=== PATIENT | male | born 1945 ===

== ENCOUNTER 2020-03-26 15:24 | Emergency (ER) | payer MEDICARE, SELFPAY ==
[2020-03-26 15:28] VITALS: BP 114/56; BP 133/63; PULSE 80; PULSE 86; RESP 18; TEMP 36.8; O2SAT 98; BMI 29.0
[2020-03-26 15:43] VITALS: PULSE 70; O2SAT 96
[2020-03-26 15:44] LABS: Glucose, Whole Blood 100 mg/dL (60-115)
--- NOTE | 2020-03-26 16:24 | ECG_ITS ---
Test Reason : SYNCOPE Blood Pressure : / mmHG Vent. Rate : 072 BPM Atrial Rate : 072 BPM P-R Int : 164 ms QRS Dur : 078 ms QT Int : 436 ms P-R-T Axes : 026 022 043 degrees QTc Int : 477 ms Normal sinus rhythm Normal ECG When compared with ECG of 05-JUN-2019 13:19, No significant change was found Referred By: Lio Terrell Electronically Signed By:REBECCA TAYLOR MD
--- NOTE | 2020-03-26 16:24 | US_ITS ---
EXAMINATION: US ABDOMEN LIMITED CLINICAL INFORMATION: Upper quadrant pain. Question cholecystitis. COMPARISON: Abdominal ultrasound dated 07/10/2018. TECHNIQUE: Real-time imaging of the gallbladder. FINDINGS: GALLBLADDER: Unremarkable. The gallbladder is physiologically distended without evidence of stones, sludge, polyps, wall thickening or pericholecystic fluid. COMMON BILE DUCT: Normal in caliber measuring 0.3 cm in diameter. US/US abdomen limited IMPRESSION: No cholelithiasis. No gallbladder wall thickening or pericholecystic free fluid to suggest acute cholecystitis.
[2020-03-26] MEDS: 0.9 % Sodium Chloride 1,000 ML 999 ML IVCONT (16:32)
--- NOTE | 2020-03-26 16:33 | ED.SYNCOPE ---
HPI - Syncope General Chief Complaint: Syncope Stated Complaint: SYNCOPLAL EPISODE WHILE SHOPPING Time Seen by Provider: 03/26/20 16:15 Source: patient Mode of arrival: ambulatory Limitations: no limitations History of Present Illness HPI narrative: Patient with no significant past medical history noticed right upper abdominal pain for last 2 days today he was walking to the grocery store and felt lightheaded without significant pain in abdomen and next thing he noticed he was on the floor no seizure activity no chest pain or palpitation patient never had similar syncope episode in the past. Patient denied any nausea/vomiting/fever/fatigue/cough/shortness of breath MD complaint: loss of consciousness Prodromal symptoms: lightheaded Witnessed: Yes - by Bystander Context: at rest Related Data Previous Rx's Medication Instructions Recorded ciprofloxacin HCl [Cipro] 500 mg PO BID #20 tab 03/26/20 dicyclomine 20 mg PO QID PRN #20 tab 03/26/20 metronidazole [Flagyl] 500 mg PO TID #30 tab 03/26/20 Allergies Allergy/AdvReac Type Severity Reaction Status Date / Time fish derived [FISH] Allergy Unknown RASH Verified 03/26/20 15:37 fish Allergy Unknown Hives Uncoded 03/26/20 15:37 Review of Systems Review of Systems: REVIEW OF SYSTEMS: Pertinent positives and negatives are stated above in the history. GEN: no fevers, chills, fatigue HEENT: no nasal congestion, sore throat, ear pain NEURO: no headache, dizziness, focal weakness PULM: no cough, shortness of breath CV: no chest pain, palpitations, LE edema ABD: no nausea, vomiting, diarrhea : no dysuria, urgency, frequency SKIN: no rash ROS otherwise negative x 10 PMFSH Past Medical History Medical History Prostate cancer Social History Social History Smoking Status: Current every day smoker Use of substances other than those prescribed or required for medical reasons: No Advance Directives: No Advance Directives Information Provided: Yes Physical Exam Vital Signs: Vital Signs: Last Vital Signs Temp 98.3 F 03/26/20 15:28 Pulse 78 03/26/20 21:52 Resp 16 03/26/20 21:52 BP 123/77 03/26/20 21:52 Pulse Ox 95 03/26/20 21:52 Body Mass Index 29.0 Const: General: cooperative and healthy appearing Nutritional Appearance: average body habitus and well nourished Orientation/consciousness: oriented to person, oriented to place and oriented to time Limitations: no limitations HENMT: Head: Yes normal to inspection Ears: hearing grossly normal bilaterally Mouth: moist mucous membranes Eyes: Conjunctivae: conjunctivae normal Sclerae: sclerae normal Pupils: Equal, round and reactive pupils present Neck: Neck: Yes normal visual inspection Thyroid: Thyroid normal Resp: Effort & Inspection: normal respiratory effort Auscultation: clear to auscultation bilaterally Cardio: Rate: regular rate Rhythm: regular rhythm Heart sounds: S1 normal heart sound present, S2 normal heart sound present and no murmurs GI: Inspection: Yes normal to inspection Palpation (GI): Soft to palpation, Firmness to palpation present (GI), Tenderness to palpation present (GI) in the RLQ, in the RUQ and Juárez's sign positive; obturator sign negative, psoas sign negative, with no rebound tenderness and Rovsing's sign negative, no hernias, no masses and no pulsatile masses Percussion: Yes normal to percussion Auscultation: normal bowel sounds Rectal Exam - Male: Yes deferred : General: Yes no CVA tenderness Back/Spine/Pelvis: Back: no CVA tenderness Neuro: General: oriented to person, oriented to place and oriented to time Cranial nerves: Yes CN's II-XII intact bilaterally and Yes Equal, round and reactive pupils present Motor exam (neuro): 5/5 motor strength present throughout Course Course Course Narrative: patient with near-syncope episode likely from the pain in abdomen workup showed diverticulitis without any complication patient received IV antibiotics in the ER feeling much better now cardiac workup is negative will discharge patient home on p.o. antibiotics MDM - Syncope Differential Diagnosis Differential diagnosis: Likely syncope due to orthostatic hypotension and vasovagal syncope Medical Records Attestation: I reviewed the patient's medical records. Lab Data Attestation: I reviewed the patient's lab results. Result diagrams: 03/26/20 16:53 03/26/20 16:53 Labs: Lab Results 03/26/20 03/26/20 03/26/20 Range/Units 15:39 16:53 16:53 WBC 14.1 H (4.8-10.8) X10*3/uL RBC 4.19 L (4.60-5.80) X10*6/uL Hgb 13.2 L (14.0-18.0) g/dl Hct 39.2 L (42-52) % MCV 93.6 (80-98) fL MCH 31.5 (27.0-33.0) pg MCHC 33.7 (31.0-36.0) g/dl RDW 12.3 (11.0-16.0) % Plt Count 218 (160-400) X10*3/uL MPV 8.8 L (9.4-12.4) fL Immature Gran % (Auto) 0.4 (0.0-0.4) % Neut % (Auto) 89.4 H (45-73) % Lymph % (Auto) 5.3 L (20-40) % [place] % (Auto) 4.2 (2-11) % Eos % (Auto) 0.5 (0-4) % Baso % (Auto) 0.2 (0-2) % Lymph # (Auto) 0.8 L (1.2-4.9) X10*3/uL [place] # (Auto) 0.6 (0.1-1.2) X10*3/uL Eos # (Auto) 0.1 (0.0-0.4) X10*3/uL Baso # (Auto) 0.0 (0.0-0.2) X10*3/uL Abs Immat Gran (auto) 0.06 H (0.00-0.03) X10*3/uL Absolute Neuts (auto) 12.6 H (2.0-8.3) X10*3/uL Absolute Nucleated RBC 0.000 (0.0-0.012) X10*3/uL Nucleated RBC % (auto) 0.0 (0.0-0.2) /100WBC PT (10.8-13.0) SEC INR (0.9-1.1) APTT (24.1-38.0) SEC Sodium 139 (135-145) mmol/L Potassium 3.6 (3.3-5.1) mmol/l Chloride 105 (96-108) mmol/L Carbon Dioxide 28 (22-29) mmol/L Anion Gap 10 L (12-20) BUN 8 L (9-16) mg/dL Creatinine 0.83 (0.5-1.4) mg/dL Estim Creat Clear Calc 79.5 Estimated GFR > 60 POC Glucose 100 (60-115) mg/dL Random Glucose 93 (60-115) mg/dL Calcium 7.9 L (8.4-10.2) mg/dL Total Bilirubin (0.0-1.0) mg/dL Direct Bilirubin (0.0-0.5) mg/dL AST (5-37) U/L ALT (0-40) U/L Alkaline Phosphatase (39-117) U/L Troponin I High Sens (<3.5-35.0) ng/L Total Protein (6.5-8.0) g/dL Albumin (3.5-5.0) g/dL Lipase (8-78) U/L Urine Color Urine Appearance Urine pH (5.0-8.0) Ur Specific [place] (1.005-1.025) Urine Protein (NEG-TRACE) MG/DL Urine Glucose (UA) (NEG) MG/DL Urine Ketones (NEG) MG/DL Urine Blood (NEG) Urine Nitrite (NEG) Ur Leukocyte Esterase (NEG) 03/26/20 03/26/20 03/26/20 Range/Units 16:53 16:53 16:53 WBC (4.8-10.8) X10*3/uL RBC (4.60-5.80) X10*6/uL Hgb (14.0-18.0) g/dl Hct (42-52) % MCV (80-98) fL MCH (27.0-33.0) pg MCHC (31.0-36.0) g/dl RDW (11.0-16.0) % Plt Count (160-400) X10*3/uL MPV (9.4-12.4) fL Immature Gran % (Auto) (0.0-0.4) % Neut % (Auto) (45-73) % Lymph % (Auto) (20-40) % [place] % (Auto) (2-11) % Eos % (Auto) (0-4) % Baso % (Auto) (0-2) % Lymph # (Auto) (1.2-4.9) X10*3/uL [place] # (Auto) (0.1-1.2) X10*3/uL Eos # (Auto) (0.0-0.4) X10*3/uL Baso # (Auto) (0.0-0.2) X10*3/uL Abs Immat Gran (auto) (0.00-0.03) X10*3/uL Absolute Neuts (auto) (2.0-8.3) X10*3/uL Absolute Nucleated RBC (0.0-0.012) X10*3/uL Nucleated RBC % (auto) (0.0-0.2) /100WBC PT 13.7 H (10.8-13.0) SEC INR 1.2 H (0.9-1.1) APTT 29.5 (24.1-38.0) SEC Sodium (135-145) mmol/L Potassium (3.3-5.1) mmol/l Chloride (96-108) mmol/L Carbon Dioxide (22-29) mmol/L Anion Gap (12-20) BUN (9-16) mg/dL Creatinine (0.5-1.4) mg/dL Estim Creat Clear Calc Estimated GFR POC Glucose (60-115) mg/dL Random Glucose (60-115) mg/dL Calcium (8.4-10.2) mg/dL Total Bilirubin 0.8 (0.0-1.0) mg/dL Direct Bilirubin 0.3 (0.0-0.5) mg/dL AST 17 (5-37) U/L ALT 15 (0-40) U/L Alkaline Phosphatase 138 H (39-117) U/L Troponin I High Sens 3.5 (<3.5-35.0) ng/L Total Protein 5.8 L (6.5-8.0) g/dL Albumin 3.7 (3.5-5.0) g/dL Lipase 23 (8-78) U/L Urine Color Urine Appearance Urine pH (5.0-8.0) Ur Specific [place] (1.005-1.025) Urine Protein (NEG-TRACE) MG/DL Urine Glucose (UA) (NEG) MG/DL Urine Ketones (NEG) MG/DL Urine Blood (NEG) Urine Nitrite (NEG) Ur Leukocyte Esterase (NEG) 03/26/20 Range/Units 19:45 WBC (4.8-10.8) X10*3/uL RBC (4.60-5.80) X10*6/uL Hgb (14.0-18.0) g/dl Hct (42-52) % MCV (80-98) fL MCH (27.0-33.0) pg MCHC (31.0-36.0) g/dl RDW (11.0-16.0) % Plt Count (160-400) X10*3/uL MPV (9.4-12.4) fL Immature Gran % (Auto) (0.0-0.4) % Neut % (Auto) (45-73) % Lymph % (Auto) (20-40) % [place] % (Auto) (2-11) % Eos % (Auto) (0-4) % Baso % (Auto) (0-2) % Lymph # (Auto) (1.2-4.9) X10*3/uL [place] # (Auto) (0.1-1.2) X10*3/uL Eos # (Auto) (0.0-0.4) X10*3/uL Baso # (Auto) (0.0-0.2) X10*3/uL Abs Immat Gran (auto) (0.00-0.03) X10*3/uL Absolute Neuts (auto) (2.0-8.3) X10*3/uL Absolute Nucleated RBC (0.0-0.012) X10*3/uL Nucleated RBC % (auto) (0.0-0.2) /100WBC PT (10.8-13.0) SEC INR (0.9-1.1) APTT (24.1-38.0) SEC Sodium (135-145) mmol/L Potassium (3.3-5.1) mmol/l Chloride (96-108) mmol/L Carbon Dioxide (22-29) mmol/L Anion Gap (12-20) BUN (9-16) mg/dL Creatinine (0.5-1.4) mg/dL Estim Creat Clear Calc Estimated GFR POC Glucose (60-115) mg/dL Random Glucose (60-115) mg/dL Calcium (8.4-10.2) mg/dL Total Bilirubin (0.0-1.0) mg/dL Direct Bilirubin (0.0-0.5) mg/dL AST (5-37) U/L ALT (0-40) U/L Alkaline Phosphatase (39-117) U/L Troponin I High Sens (<3.5-35.0) ng/L Total Protein (6.5-8.0) g/dL Albumin (3.5-5.0) g/dL Lipase (8-78) U/L Urine Color YELLOW Urine Appearance CLEAR Urine pH 6.0 (5.0-8.0) Ur Specific [place] 1.025 (1.005-1.025) Urine Protein NEG (NEG-TRACE) MG/DL Urine Glucose (UA) NEG (NEG) MG/DL Urine Ketones 40 (NEG) MG/DL Urine Blood NEG (NEG) Urine Nitrite NEG (NEG) Ur Leukocyte Esterase NEG (NEG) ECG Data Attestation: I personally reviewed and interpreted this ECG as follows: ECG interpretation date: 03/26/20 Interpretation: Normal sinus rhythm ventricular rate 72 normal interval normal axis no acute ST T wave changes impression normal EKG Discharge Plan Discharge Clinical Impression: Vasovagal syncope Diverticulitis large intestine Qualifiers: Diverticulitis bleeding: without bleeding Diverticulitis complication: without perforation or abscess Qualified Code(s): K57.32 - Diverticulitis of large intestine without perforation or abscess without bleeding Patient Disposition: Home, Self-Care Additional Instructions: drink plenty of fluids, clear liquids now advance slowly report to the ER if high fever/increased abdominal pain take antibiotics as prescribed Prescriptions: New ciprofloxacin HCl [Cipro] 500 mg tablet 500 mg PO BID Qty: 20 RF: 0 metronidazole [Flagyl] 500 mg tablet 500 mg PO TID Qty: 30 RF: 0 dicyclomine 20 mg tablet 20 mg PO QID PRN (Reason: abdominal pain) Qty: 20 RF: 0
--- NOTE | 2020-03-26 16:43 | XR_ITS ---
EXAMINATION: XR CHEST CLINICAL INFORMATION: Syncope. COMPARISON: 06/05/2019 chest radiograph. TECHNIQUE: Frontal view of the chest was obtained. FINDINGS: Low lung volumes limit evaluation. The lungs are clear. The heart and mediastinal structures are unremarkable. XR/XR chest 1V IMPRESSION: No acute cardiopulmonary process.
[2020-03-26 16:59] LABS: MANUAL DIFF FLAG NO
[2020-03-26 17:00] LABS: Basophils Percent Auto 0.2 % (0-2); Eosinophils Absolute Auto 0.1 X10*3/uL (0.0-0.4); Eosinophils Percent Auto 0.5 % (0-4); Hematocrit 39.2 % (42-52); Hemoglobin 13.2 g/dl (14.0-18.0); Imm Gran Abs Auto 0.06 X10*3/uL (0.00-0.03); Imm Gran Pct Auto 0.4 % (0.0-0.4); Lymphocytes Absolute Auto 0.8 X10*3/uL (1.2-4.9); Lymphocytes Percent Auto 5.3 % (20-40); Mean Corpuscular HGB Conc 33.7 g/dl (31.0-36.0); Mean Corpuscular Hemoglobin 31.5 pg (27.0-33.0); Mean Corpuscular Volume 93.6 fL (80-98); Mean Platelet Volume 8.8 fL (9.4-12.4); Monocytes Absolute Auto 0.6 X10*3/uL (0.1-1.2); Monocytes Percent Auto 4.2 % (2-11); Neutrophils Absolute Auto 12.6 X10*3/uL (2.0-8.3); Neutrophils Percent Auto 89.4 % (45-73); Platelet Count 218 X10*3/uL (160-400); Red Blood Count 4.19 X10*6/uL (4.60-5.80); Red Cell Distribution Width 12.3 % (11.0-16.0); White Blood Count 14.1 X10*3/uL (4.8-10.8)
[2020-03-26 17:06] LABS: INTERNATIONAL NORM RATIO 1.2 (0.9-1.1); Prothrombin Time 13.7 SEC (10.8-13.0)
[2020-03-26 17:09] LABS: Partial Thromboplastin Time 29.5 SEC (24.1-38.0)
[2020-03-26 17:28] LABS: Anion Gap 10 (12-20); Blood Urea Nitrogen 8 mg/dL (9-16); Calcium 7.9 mg/dL (8.4-10.2); Carbon Dioxide 28 mmol/L (22-29); Chloride 105 mmol/L (96-108); Creatinine Clr Calc Pharmacy 79.5; Estimated Glomerular Filt Rate > 60; Glucose Random 93 mg/dL (60-115); Potassium 3.6 mmol/l (3.3-5.1); Sodium 139 mmol/L (135-145)
[2020-03-26 17:29] LABS: Alanine Aminotransferase 15 U/L (0-40); Albumin Level 3.7 g/dL (3.5-5.0); Alkaline Phosphatase 138 U/L (39-117); Aspartate Amino Transferase 17 U/L (5-37); Bilirubin Direct 0.3 mg/dL (0.0-0.5); Bilirubin Total 0.8 mg/dL (0.0-1.0); Lipase 23 U/L (8-78); Total Protein 5.8 g/dL (6.5-8.0)
[2020-03-26 17:36] LABS: Troponin-I High Sensitivity 3.5 ng/L (<3.5-35.0)
[2020-03-26 17:40] VITALS: BP 143/69; PULSE 64; RESP 18; O2SAT 98
--- NOTE | 2020-03-26 17:42 | PC.NURSE ---
PT IS CURRENTLY RESTING WITH EYES SHUT, SKIN APPROPRIATE FOR ETHNICITY, VS STABLE, NS ON THE MONITOR. PT DENIES DIZZINESS AT THIS TIME
--- NOTE | 2020-03-26 18:07 | CT_ITS ---
EXAMINATION: CT ABDOMEN AND PELVIS WITH CONTRAST CLINICAL INFORMATION: Right-sided pain. Elevated white blood count. COMPARISON: Abdominal ultrasound done earlier the same day. CT abdomen/pelvis dated 06/10/2012. TECHNIQUE: Multidetector volumetric images were obtained from the superior aspect of the liver through the pubic symphysis following administration 85 mL of Omnipaque 350 intravenous contrast. Sagittal and coronal reformatted images were obtained on the technologist's workstation. Oral Contrast: No. This CT examination was performed using dose optimization techniques as appropriate, variously including the following: *Automated exposure control. *Adjustment of mA and/or kV according to patient size (this includes techniques or standardized protocols for targeted exams where dose is matched to indication/reason for exam; i.e. extremities or head). *Use of iterative reconstruction technique. DLP: 946 mGy-cm FINDINGS: LUNG BASES: The visualized lung bases are unremarkable. LIVER, GALLBLADDER, AND BILIARY TREE: The liver is normal in size, shape, and attenuation. No focal hepatic lesion or biliary ductal dilatation is present. The gallbladder is unremarkable with no evidence of radiopaque gallstones, gallbladder wall thickening, or obvious pericholecystic inflammatory changes. PANCREAS: Unremarkable. SPLEEN: Unremarkable. ADRENAL GLANDS: Unremarkable. KIDNEYS AND URETERS: The kidneys are normal in size, shape, and attenuation. No hydronephrosis, hydroureter, or calculi seen. No perinephric stranding. BLADDER: Non-distended and unremarkable. GASTROINTESTINAL TRACT: Diverticula at the third portion of the duodenum without associated inflammatory change. There is prominent diverticulosis within the distal ileum in the right lower quadrant with associated circumferential bowel wall thickening and adjacent fat stranding, consistent with acute diverticulitis. Additional colonic diverticula are noted without an additional area of acute diverticulitis. No evidence of perforation or abscess formation. No small or large bowel obstruction. Unremarkable appendix. PERITONEAL CAVITY: No intra-abdominal free air or free fluid. No intra-abdominal mass or organized fluid collection/abscess. ABDOMINAL WALL: No significant hernia is appreciated. LYMPH NODES: Normal. VASCULAR: Unremarkable. PELVIC VISCERA: Metallic seeds in the prostate bed. OSSEOUS STRUCTURES: Unremarkable. CT/CT abdomen pelvis w con IMPRESSION: 1. Acute diverticulitis within the distal ileum. No evidence of perforation or abscess formation. 2. Additional colonic diverticulosis without evidence of acute colonic diverticulitis. No small or large bowel obstruction. Unremarkable appendix.
--- NOTE | 2020-03-26 19:33 | PC.NURSE ---
Off to CT on hospital bed.
--- NOTE | 2020-03-26 19:43 | PC.NURSE ---
Pt returns from CT on hospital bed without incident.
[2020-03-26] MEDS: iohexoL 350 MG/ML 100 ML INFUS..BTL IV (19:46)
[2020-03-26 20:15] LABS: Glucose Urine UA NEG (NEG); Leukocyte Esterase Urine NEG (NEG); Nitrite Urine NEG (NEG); Specific Gravity - Urine 1.025 (1.005-1.025); Urine Blood NEG (NEG); Urine Ketones 40 MG/DL (NEG); Urine Protein NEG (NEG-TRACE)
--- NOTE | 2020-03-26 20:17 | PC.NURSE ---
MD at bedside discussing CT results and plan of care.
[2020-03-26 20:19] LABS: Appearance Urine CLEAR; Color Urine YELLOW
[2020-03-26] MEDS: levoFLOXacin/D5W 500 MG/100 ML PIGGYBACK 100 MG IV (20:21)
[2020-03-26] MEDS: metroNIDAZOLE 500 MG TABLET PO (20:21)
--- NOTE | 2020-03-26 20:24 | PC.NURSE ---
Pt medicated per EMAR with Flagyl and Levoflaxacin. Per MD, no need for BCX as plan is to DC pt home after IV ABX. VSS. Continue to monitor.
[2020-03-26 20:26] VITALS: PULSE 73; RESP 16; O2SAT 98
[2020-03-26 20:27] VITALS: BP 151/49
--- NOTE | 2020-03-26 21:49 | PC.NURSE ---
Daughter Loree called for transportation home. IV removed, VSS. Pt awaiting paperwork.
[2020-03-26 21:52] VITALS: BP 123/77; PULSE 78; RESP 16; O2SAT 95
== END 2020-03-26 21:59 | disposition home or self-care (01) ==
PROVIDERS: Emergency Provider Internal Medicine
DX: R55 Syncope and collapse (principal); K57.32 Diverticulitis of large intestine without perforation or abscess without bleeding; R10.9 Unspecified abdominal pain; F17.200 Nicotine dependence, unspecified, uncomplicated; Z71.6 Tobacco abuse counseling; Z79.899 Other long term (current) drug therapy
CPT/HCPCS: 36415; 71045; 74177; 76705; 80048; 80076; 81003; 82947; 83690; 84484; 85025; 85610; 85730; 93005; 96361; 96365; 99285; J1956; Q9967

== ENCOUNTER → 2020-06-03 13:45 | Outpatient (BNVA) | payer MEDICARE, SELFPAY | PROVIDERS: Visit Provider Urology | DX: C61 Malignant neoplasm of prostate (principal) | CPT/HCPCS: 96402; 99212; J9217 ==

== ENCOUNTER 2020-11-29 11:02 | Outpatient (REF) | payer MEDICARE, SELFPAY ==
[2020-11-29 13:00] LABS: Prostate Specific Antigen < 0.05 ng/mL (<0.05-4.0)
== END 2020-11-29 11:03 | disposition home or self-care (01) ==
LOC: HO.LAB 11:02
PROVIDERS: PCP Internal Medicine; Visit Provider Urology
DX: Z12.5 Encounter for screening for malignant neoplasm of prostate (principal); C61 Malignant neoplasm of prostate
CPT/HCPCS: 36415; 84153

== ENCOUNTER → 2020-12-02 11:21 | Outpatient (BNVA) | payer MEDICARE, SELFPAY | PROVIDERS: Visit Provider Urology | DX: C61 Malignant neoplasm of prostate (principal) | CPT/HCPCS: 99212 ==

== ENCOUNTER 2021-04-04 10:21 | Outpatient (REF) | payer MEDICARE, SELFPAY ==
[2021-04-04 12:47] LABS: Prostate Specific Antigen 0.05 ng/mL (<0.05-4.0)
[2021-04-08 12:12] LABS: Testosterone, Total 38 ng/dL (250-1100)
== END 2021-04-04 10:22 | disposition home or self-care (01) ==
LOC: HO.10HDL 10:21
PROVIDERS: Visit Provider Urology
DX: Z12.5 Encounter for screening for malignant neoplasm of prostate (principal); C61 Malignant neoplasm of prostate
CPT/HCPCS: 36415; 84153; 84403

== ENCOUNTER → 2021-04-06 12:53 | Outpatient (BNVA) | payer MEDICARE, SELFPAY | PROVIDERS: PCP Internal Medicine; Referring Provider Internal Medicine; Visit Provider Internal Medicine Cardiovascular Disease | DX: R06.00 Dyspnea, unspecified (principal) | CPT/HCPCS: 93005; 99202 ==

== ENCOUNTER → 2021-05-31 11:33 | Outpatient (BNVA) | payer MEDICARE, SELFPAY | PROVIDERS: Visit Provider Urology | DX: C61 Malignant neoplasm of prostate (principal) | CPT/HCPCS: 99212 ==

== ENCOUNTER → 2021-06-09 10:08 | Outpatient (REF) | payer MEDICARE, SELFPAY ==
--- NOTE | 2021-06-09 10:10 | CA_ITS ---
Acquisition Time: 2021-06-09 11:12:22 Total Exercise Time: 00:02:00 Test Indications: Syncope Medications: AMLODIPINE ASA ATORVASTATIN FLOVENT HCTZ Protocol: MATT Max HR: 153 BPM 104% of Pred: 146 BPM Max BP: 146/082 mmHG Max Work Load: 4.6 METS Exercise stress test with exercise 2 min of Matt protocol, with moderate shortness of breath, no chest discomfort, without arrythmia, with brisk chronotropic, achieving 104% MPHR, and normotensive response to exercise, without EKG changes meeting criteria for ischemia at acheived workload. In recovery his breathing returned to baseline. Goal exercise time was 5 min and patient acheived 2 minutes before request to stop. Test reviewed with Dr Foster. Referred By: Madhav Blandon Overread By: NATHANIEL DENG
--- NOTE | 2021-06-15 13:33 | CA_ITS ---
Transthoracic Echocardiogram Patient (Last, First, Middle): Dk Coffey, Gender: Male Date of : 1945 Age: 76 Procedure Date: 06/15/2021 Procedure Type: Transthoracic Echocardiogram Location: OP Height: 167.64 cm Weight: 83.01 kg BSA: 1.93 m2 Heart Rate: bpm BP: 138 / 70 mmHg Plane Tableman: ADRY Eldridge MD: Madhav Blandon MD Symptoms: R06.00 - Dyspnea, unspecified Study Quality: Fair/Contrast Conclusions: - Normal left ventricular size, thickness, systolic function, and wall motion. The visually estimated ejection fraction is between 60-65%. - Normal right ventricular cavity size and systolic function. Findings Procedure Information Contrast agent, definity, is being given per protocol without apparent complications. Left Ventricle Normal left ventricular size, thickness, systolic function, and wall motion. The visually estimated ejection fraction is between 60-65%. Diastolic function is normal for age. Right Ventricle Normal right ventricular cavity size and systolic function. Atria Both atria are normal in size. Aortic Valve Normal aortic valve structure and function. There is no aortic valve stenosis. There is no aortic valve regurgitation. Mitral Valve Normal mitral valve structure and function. There is no mitral valve regurgitation. There is no mitral valve stenosis. Pulmonic Valve Normal pulmonic valve structure and function. There is trace pulmonic valve regurgitation. Tricuspid Valve Normal tricuspid valve structure and function. There is trace tricuspid valve regurgitation. Normal right atrial pressure. There is no evidence of pulmonary hypertension. Great Vessels All visible segments of the aorta are normal in size. The visualized portions of the pulmonary artery and branches are normal. Venous The inferior vena cava is normal in size and collapses greater than 50% with inspiration. Pericardium/Pleural There is no evidence of pericardial effusion. Prior Study Comparison No prior study available for comparison. Measurements 2D Linear Measurements IVSd: 0.93 0.6-0.9/0.6-1.0 cm LVIDd: 3.71 3.9-5.3/4.2-5.9 cm LVIDd Index: 1.92 2.4-3.2/2.2-3.1 cm/m2 LVIDs: 2.61 2.0-3.6 cm LVPWd: 1.00 0.7-1.1 cm Ao Root: 3.10 2.1-3.5 cm LA Diam: 3.60 2.7-3.8/3.0-4.0 cm LAIDs Index: 1.87 1.5-2.3 cm/m2 LV Mass: 133.18 67-162/88-224 g LV Mass Index: 69.00 43-95/49-115 g/m2 LVOT Diam: 2.20 3.0+(-)1.3 cm 2D Systolic Function EF 4C: 70.50 >55% EF 2C: 65.20 >55% EF BiP: 69.00 >55% Mitral Valve MV Pk E: 0.58 MV PK A: 1.02 MV Decel Time: 254.00 E/A: 0.60 E'Lateral: 6.96 E'Medial: 7.07 E/E' Med: 8.20 E/E' Lat: 8.30 PHT: 74.00 MVA PHT: 2.97 Decel [place]: 2.28 Aortic Valve AoV Pk [place]: 1.15 AoV Mn [place]: 0.78 AoV VTI: 0.23 AoV Pk Grad: 5.00 Aov Mn Grad: 3.00 JENIFER Cont.VTI: 3.00 LVOT LVOT Pk [place]: 0.76 LVOT Mn [place]: 0.56 LVOT VTI: 0.18 LVOT Pk Grad: 2.00 LVOT Mn Grad: 1.00 LVOT Diam: 2.20 LVOT Area: 3.80 Diastolic Function MV Pk E: 0.58 MV Pk A: 1.02 E/A: 0.60 E'Medial: 7.07 E/E' Med: 8.20 E' Laterial: 6.96 E/E' Lat: 8.30 Right Ventricle TAPSE (mm): 21.00 TVS' [place]: 13.60 Tricuspid Valve TR Pk [place]ten: 1.74 TR Pk Grad: 12.00 RA Press: 3.00 RVSP: 15.00 Great Vessels Aorta Ao Root-2D: 3.10 2.0-3.7 cm Ao Asc: 3.00 2.1-3.4 cm Ao Arch: 2.40 Updated in Other Vendor System with Status of Final Madhav Blandon MD electronically signed on 06/17/2021 6:55:53 PM with status of Final
== END ==
LOC: HO.CARD 10:08
PROVIDERS: PCP Internal Medicine; Visit Provider Internal Medicine Cardiovascular Disease
DX: R06.00 Dyspnea, unspecified (principal)
CPT/HCPCS: 93017; 93306

== ENCOUNTER → 2021-06-15 13:30 | Outpatient (REF) | payer MEDICARE, SELFPAY | LOC: HO.CARD 13:30 | PROVIDERS: Visit Provider Internal Medicine Cardiovascular Disease | DX: R06.00 Dyspnea, unspecified (principal) | CPT/HCPCS: 93306; Q9957 ==

== ENCOUNTER 2021-06-27 10:39 | Outpatient (REF) | payer MEDICARE, SELFPAY ==
[2021-06-27 11:24] LABS: Hematocrit 42.5 % (42.0-52.0); Hemoglobin 14.1 g/dl (14.0-18.0); Mean Corpuscular HGB Conc 33.2 g/dl (31.0-36.0); Mean Corpuscular Hemoglobin 30.9 pg (27.0-33.0); Mean Platelet Volume 8.5 fL (9.4-12.4); Platelet Count 247 X10*3/uL (160-400); Red Blood Count 4.57 X10*6/uL (4.60-5.80); Red Cell Distribution Width 12.4 % (11.0-16.0); White Blood Count 7.4 X10*3/uL (4.8-10.8)
[2021-06-27 11:33] LABS: Prothrombin Time 11.4 SEC (9.9-13.0)
[2021-06-27 12:50] LABS: Anion Gap 13 (12-20); Blood Urea Nitrogen 7 mg/dL (9-16); Carbon Dioxide 29 mmol/L (22-29); Chloride 107 mmol/L (96-108); Estimated Glomerular Filt Rate > 60; Glucose Random 101 mg/dL (60-115); Potassium 3.9 mmol/L (3.3-5.1); Sodium 145 mmol/L (135-145)
== END 2021-06-27 10:40 | disposition home or self-care (01) ==
LOC: HO.LAB 10:39
PROVIDERS: Internal Medicine Cardiovascular Disease; PCP Internal Medicine; Visit Provider Urology
DX: R06.00 Dyspnea, unspecified (principal)
CPT/HCPCS: 36415; 80048; 85027; 85610

== ENCOUNTER 2021-07-03 14:09 | Outpatient (REF) | payer MEDICARE, SELFPAY ==
[2021-07-03 15:13] LABS: COVID-19 Test Negative (Negative)
== END 2021-07-03 14:10 | disposition home or self-care (01) ==
LOC: HO.LAB 14:09
PROVIDERS: Visit Provider Internal Medicine Cardiovascular Disease
DX: Z20.822 Contact with and (suspected) exposure to COVID-19 (principal); R06.00 Dyspnea, unspecified
CPT/HCPCS: 87635

== ENCOUNTER → 2021-07-26 12:36 | Outpatient (BNVA) | payer MEDICARE, SELFPAY | PROVIDERS: PCP Internal Medicine; Referring Provider Internal Medicine; Visit Provider Internal Medicine Cardiovascular Disease | DX: R06.00 Dyspnea, unspecified (principal) | CPT/HCPCS: 99212 ==

== ENCOUNTER → 2021-08-24 10:19 | Outpatient (BNVA) | payer OTHER, SELFPAY | PROVIDERS: PCP Internal Medicine; Visit Provider Internal Medicine | DX: R06.00 Dyspnea, unspecified (principal) | CPT/HCPCS: 99202 ==

== ENCOUNTER 2021-09-06 10:57 | Outpatient (REF) | payer OTHER, SELFPAY ==
[2021-09-07 14:53] LABS: H Pylori Breath Test Negative (Negative)
== END 2021-09-06 10:58 | disposition home or self-care (01) ==
LOC: HO.LNP 10:57
PROVIDERS: PCP Internal Medicine; Referring Provider Internal Medicine; Visit Provider Nurse Practitioner Family
DX: K57.90 Diverticulosis of intestine, part unspecified, without perforation or abscess without bleeding (principal); K21.9 Gastro-esophageal reflux disease without esophagitis; R13.12 Dysphagia, oropharyngeal phase; Z12.11 Encounter for screening for malignant neoplasm of colon; Z11.0 Encounter for screening for intestinal infectious diseases
CPT/HCPCS: 83013; 99202

== ENCOUNTER 2021-09-18 10:23 | Outpatient (REF) | payer OTHER, SELFPAY ==
[2021-09-18 11:52] LABS: Prostate Specific Antigen 0.05 ng/mL (<0.05-4.0)
[2021-09-21 13:56] LABS: Testosterone, Total 156 ng/dL (250-1100)
== END 2021-09-18 10:24 | disposition home or self-care (01) ==
LOC: HO.LAB 10:23
PROVIDERS: Visit Provider Urology
DX: C61 Malignant neoplasm of prostate (principal); Z12.5 Encounter for screening for malignant neoplasm of prostate
CPT/HCPCS: 36415; 84153; 84403

== ENCOUNTER → 2021-09-21 11:40 | Outpatient (BNVA) | payer OTHER, SELFPAY | PROVIDERS: PCP Internal Medicine; Visit Provider Urology ==

== ENCOUNTER → 2021-09-21 11:40 | Outpatient (BNVA) | payer OTHER, SELFPAY | PROVIDERS: PCP Internal Medicine; Visit Provider Urology | DX: Z13.89 Encounter for screening for other disorder (principal) ==

== ENCOUNTER 2021-09-25 09:10 | Outpatient (REF) | payer OTHER, SELFPAY ==
--- NOTE | ~2021-09-25 | XR_ITS ---
EXAMINATION: XR CHEST CLINICAL INFORMATION: R06.00 - Dyspnea, unspecified the COMPARISON: Chest radiographs 03/26/2020, 06/05/2019, 09/09/2013 TECHNIQUE: 2 views of the chest were obtained. FINDINGS: There is question of subsegmental atelectasis left retrocardiac region. The lungs otherwise clear. There is no lobar or segmental airspace consolidation, vascular congestion, or effusion. The heart is normal in size. The costophrenic sulci are clear. The hilar and mediastinal contours and bony structures are stable. XR/XR chest 2V IMPRESSION: -Subsegmental atelectasis left posterior medial base. Lungs otherwise clear. -Heart size normal. No vascular congestion or effusion.
== END 2021-09-25 09:11 | disposition home or self-care (01) ==
LOC: HO.XRAY 09:10
PROVIDERS: PCP Internal Medicine; Visit Provider Internal Medicine
DX: R06.00 Dyspnea, unspecified (principal)
CPT/HCPCS: 71046

== ENCOUNTER → 2021-09-27 13:51 | Outpatient (BNVA) | payer OTHER, SELFPAY | PROVIDERS: PCP Internal Medicine; Visit Provider Internal Medicine | DX: R06.00 Dyspnea, unspecified (principal); J98.4 Other disorders of lung | CPT/HCPCS: 94010; 99212 ==

== ENCOUNTER → 2021-10-27 13:41 | Outpatient (BNVA) | payer OTHER, SELFPAY | PROVIDERS: PCP Internal Medicine; Visit Provider Urology | DX: C61 Malignant neoplasm of prostate (principal) | CPT/HCPCS: 99212 ==

== ENCOUNTER 2021-12-28 10:28 | Day surgery (SDC) | payer OTHER, SELFPAY ==
[2021-12-22 11:42] VITALS: BMI 29.0
--- NOTE | 2021-12-28 10:48 | P.HPSUR_ITS ---
Pre-Procedural Eval Section A Date of Service: 12/28/21 Section B Chief Complaint: GERD, screening Details of Present Illness: patient denies difficulty swallowing food, has no complaints Relevant Family History (Specify if Yes): No Relevant Social History: None Present Medications: see Short Stay Collaborative assessment Medical History: Significant History (Prostate cancer) History of Previous Operations: Relevant previous surgery/procedure and date(s) (History of cardiac cath Hx of colonoscopy) Allergies: Allergies Allergy/AdvReac Type Severity Reaction Status Date / Time fish derived [FISH] Allergy Intermediate rash/hives Verified 12/22/21 11:33 Review of Systems Sugical H&P ROS: Negative: Constitution, Cardiovascular, Respiratory, Neurological, Psychiatric, Hem-Onc, Allergic/Immunologic, Gastrointestinal, Genitourinary, Musculoskeletal, Integumentary, Endocrine and Eyes/Ears/Nose/Throat Exam Surgical H&P Exam: Normal: HEENT, Normal: Heart, Normal: Lungs, Normal: Extrem ities, Normal: Abdomen, Normal: Skin and Normal: Neurological Plan Diagnosis/Plan: Unchanged I have reviewed the history and physical and performed a pertinent physical examination on my patient. No changes have occurred unless specified.
[2021-12-28 10:55] VITALS: BMI 29.0
[2021-12-28] MEDS: Lactated Ringers 1,000 ML 50 ML IVCONT (10:55)
[2021-12-28 10:58] VITALS: BP 132/84; PULSE 92; RESP 18; TEMP 35.9; O2SAT 98
--- NOTE | 2021-12-28 11:01 | P.CONAN_ITS ---
HPI - Anesthesia Eval Consult details Narrative: 76 F for EGD and colonoscopy [facility] Active Problems Active Problems: All Active Problems (Updated 12/22/21 @ 11:40 by Moni Oliveros RN) FREY (dyspnea on exertion) (Acute) Restrictive airway disease (Acute) Prostate cancer (Acute) Past Medical History Medical History Elevated cholesterol GERD (gastroesophageal reflux disease) HTN (hypertension) Prostate cancer Restrictive airway disease Functional capacity: independent ambulation Family History Family History Father Throat cancer Mother Diabetes Kidney disease Family history of problems with anesthesia: No Surgical History Surgical History History of cardiac cath History of esophagogastroduodenoscopy (EGD) History of open reduction and internal fixation (ORIF) procedure Hx of colonoscopy History of Problems with Anesthesia: No Social History Social History Alcohol intake: current Alcohol intake frequency: a few times a week Patient Tobacco Use Status: Never used Tobacco Meds Allergies Allergy/AdvReac Type Severity Reaction Status Date / Time fish derived [FISH] Allergy Intermediate rash/hives Verified 12/22/21 11:33 Active Medications: Current Medications Albuterol Sulfate (Albuterol Sulfate (0.083%) 2.5 Mg/3 Ml Vial.Neb) 2.5 mg INHALE ONCE PRN PRN Reason: Shortness of Breath/Wheezing Lactated Ringer's (Lr) 1,000 mls @ 50 mls/hr IVCONT .Q20H ADOLFO Lactated Ringer's (Lr) 1,000 mls @ 50 mls/hr IVCONT .Q20H ADOLFO Last Admin: 12/28/21 10:55 Dose: 50 mls/hr Home Medications Medication Instructions Recorded Confirmed Last Taken Type amlodipine 5 mg tablet 5 mg PO DAILY 04/06/21 12/22/21 Unknown History aspirin 81 mg tablet,delayed 81 mg PO DAILY 04/06/21 12/28/21 12/27/21 History release atorvastatin 40 mg tablet 40 mg PO BEDTIME 04/06/21 12/22/21 Unknown History cholecalciferol (vitamin D3) 50 100 mcg PO QAM 04/06/21 12/22/21 Unknown History mcg (2,000 unit) capsule fluticasone propionate 50 1 spray intranasal DAILY 04/06/21 12/22/21 Unknown History mcg/actuation nasal spray,suspension hydrochlorothiazide 25 mg tablet 25 mg PO DAILY 04/06/21 12/22/21 Unknown History Exam Exam Date and Time: December 28, 2021 1101 Height,Weight and Vital Signs: Height 5 ft 6 in Weight 81.647 kg Last Vital Signs Temp 96.7 F L 12/28/21 10:58 Pulse 92 12/28/21 10:58 Resp 18 12/28/21 10:58 BP 132/84 12/28/21 10:58 Pulse Ox 98 12/28/21 10:58 O2 Del Method 12/28/21 10:58 Airway Mallampati Class: III TM Dist: >3cm Neck ROM: Full Denture: Upper Partial: Lower Loose/Missing/Broken Teeth: Yes Heart: S1,S2 Lungs: b/l breath sounds Assessment and Plan Assessment Anesthesia Assessment: Anesthesia Plan Discussed and Chart Reviewed Final Anesthetic Review Family History of Problems with Anesthesia: No History of Problems with Anesthesia: No NPO: Yes ASA Class: III Final Preanesthetic Review: Meds/Allgs Chart Reviewed, Consent Obtained/Reviewed and Anes Risks/Benef Reviewed Patient Risk: Intermediate Procedure Risk: Intermediate Anesthetic Plan Anesthetic Plan: MAC: Disposition: Standard PACU
--- NOTE | 2021-12-28 11:29 | W.PM.OPN ---
Operative Note Operative Note Date of Service: 12/28/21 Narrative: Operative Information Procedure Description: EGD, Colonoscopy Indication: GERD, colon screening Anesthesia: MAC FLEXIBLE TRANSORAL UPPER GASTROINTESTINAL ENDOSCOPY AND COLONOSCOPY PROCEDURE NOTE UPPER ENDOSCOPY Consent: Indications for the procedure and potential complications of bleeding, perforation, reaction to medications and missed diagnosis were discussed with the patient and informed consent was obtained. Instrument: Olympus GIF H 190 J mid size upper endoscope Monitoring: Vital signs and clinical assessment, continuous EKG monitoring, Pulse oximetry, Carbon Dioxide monitoring and blood pressure monitoring were done throughout the procedure. Procedure: The patient was placed in the left lateral decubitis position and pre-procedure medications were administered and a bite block was placed. The endoscope was inserted into the mouth and advanced under direct vision to the third part of duodenum. A careful inspection was made as the upper endoscope was withdrawn including a retroflexed examination of the proximal stomach; Findings and interventions are described below. Findings: Larynx:normal Esophagus: GE junction at 40 cm, diaphragm hiatus at 40 cm, esophagitis at GEJ, bx taken from there and distal esophagus Stomach: Patchy erythematous mucosa. Biopsies were obtained. Grade 2 flap valve on retroflexed examination of the cardia. At the cardia 12-14 mm sessile polyp removed with cold snare Duodenum: Severe erosive duodenitis, extending into the second part of duodenum, bx taken Intervention: Biopsies as noted above COLONOSCOPY Instrument: Olympus variable stiffness pediatric scope 190L Colonoscopy Monitoring: Vital signs and clinical assessment, continuous EKG monitoring, Pulse oximetry, Carbon Dioxide monitoring and blood pressure monitoring were done throughout the procedure. Colon withdrawal time was 10 minutes. Procedure: The patient was placed in the left lateral decubitis position and pre-procedure medications were administered. After a digital rectal examination of the ano-rectum, the video colonoscope was inserted into the rectum and advanced through the colon to the cecum/TI. The colonoscope was slowly withdrawn in a retrograde panoramic fashion and the colon mucosa was carefully examined including a retroflexed view of the rectum. Findings and interventions are described below. Procedure Difficulty:easy Findings: Terminal Ileum-normal Cecum:normal Ascending Colon: severe diverticulosis Transverse Colon -normal Descending Colon: x 2 sessile polyps removed with cold snare Sigmoid Colon: severe diverticulosis Rectum: Retroflexion with moderate sized internal hemorrhoids, grade II, 12 mm semi pedunculated polyp removed with cold snare and x 2 clips applied for hemostasis. Anorectum - normal Colon preparation: [place] Bowel Preparation Scale Right colon; 2 Transverse colon: 3 Left colon; 3 (0 = Unprepared colon segment with mucosa not seen due to solid stool that cannot be cleared. 1 = Portion of mucosa of the colon segment seen, but other areas of the colon segment not well seen due to staining, residual stool and/or opaque liquid. 2 = Minor amount of residual staining, small fragments of stool and/or opaque liquid, but mucosa of colon segment seen well. 3 = Entire mucosa of colon segment seen well with no residual staining, small fragments of stool or opaque liquid) Impression and Post Procedure Diagnosis: Endoscopy Findings: erosive duodenitis gastritis esophagitis stomach polyp Colonoscopy Findings: polyps internal hemorrhoids diverticular disease Plan: Await Pathology results Repeat Colonoscopy in 2-3 years due to large rectal polyp or earlier if clinically indicated High fiber diet leaflet avoid straining at stool, epsom salts and sitz bath, anusol supps or cream check nsaid hx and PPi compliance if h pylori pos then treat Above findings were reviewed with the patient and relevant handouts were provided if indicated.
[2021-12-28 12:33] VITALS: BP 90/63; PULSE 99; RESP 15; TEMP 36.1; O2SAT 98
[2021-12-28 12:48] VITALS: BP 104/73; PULSE 91; RESP 15; O2SAT 97
[2021-12-28 13:03] VITALS: BP 112/71; PULSE 87; RESP 16; O2SAT 97
[2021-12-28 13:18] VITALS: BP 125/79; PULSE 79; RESP 16; TEMP 36.1; O2SAT 97
== END 2021-12-28 13:57 | disposition home or self-care (01) ==
PROVIDERS: PCP Internal Medicine; Visit Provider Internal Medicine Gastroenterology
PROC: (CPT 45385; principal; 2021-12-28 11:30)
DX: Z12.11 Encounter for screening for malignant neoplasm of colon (principal); D12.4 Benign neoplasm of descending colon; K62.1 Rectal polyp; K57.30 Diverticulosis of large intestine without perforation or abscess without bleeding; K64.1 Second degree hemorrhoids; K21.9 Gastro-esophageal reflux disease without esophagitis; R13.12 Dysphagia, oropharyngeal phase; K29.80 Duodenitis without bleeding; K29.50 Unspecified chronic gastritis without bleeding; K20.80 Other esophagitis without bleeding; K31.7 Polyp of stomach and duodenum; K44.9 Diaphragmatic hernia without obstruction or gangrene; I10 Essential (primary) hypertension; E78.00 Pure hypercholesterolemia, unspecified; J30.2 Other seasonal allergic rhinitis; Z79.51 Long term (current) use of inhaled steroids; Z79.82 Long term (current) use of aspirin; Z79.899 Other long term (current) drug therapy; Z85.46 Personal history of malignant neoplasm of prostate
CPT/HCPCS: 45385; 43239; 88305; 88342; J2250

== ENCOUNTER → 2022-01-03 13:32 | Outpatient (BNVA) | payer OTHER, SELFPAY | PROVIDERS: PCP Internal Medicine; Visit Provider Internal Medicine | DX: J98.4 Other disorders of lung (principal); R06.00 Dyspnea, unspecified | CPT/HCPCS: 99212 ==

== ENCOUNTER 2022-02-14 12:56 | Outpatient (REF) | payer OTHER, SELFPAY ==
[2022-02-19 11:32] LABS: Testosterone, Total 141 ng/dL (250-1100)
== END 2022-02-14 12:57 | disposition home or self-care (01) ==
LOC: HO.LAB 12:56
PROVIDERS: PCP Internal Medicine; Visit Provider Urology
DX: C61 Malignant neoplasm of prostate (principal)
CPT/HCPCS: 36415; 84153; 84403

== ENCOUNTER → 2022-02-28 13:44 | Outpatient (BNVA) | payer OTHER, SELFPAY | PROVIDERS: PCP Internal Medicine; Visit Provider Urology | DX: C61 Malignant neoplasm of prostate (principal) | CPT/HCPCS: 99212 ==

== ENCOUNTER 2022-06-21 13:44 | Outpatient (REF) | payer OTHER, SELFPAY ==
[2022-06-21 15:00] LABS: Prostate Specific Antigen 0.36 ng/mL (<0.05-4.0)
[2022-06-28 13:09] LABS: Testosterone, Total 193 ng/dL (250-1100)
== END 2022-06-21 13:45 | disposition home or self-care (01) ==
LOC: HO.LAB 13:44
PROVIDERS: Visit Provider Urology
DX: Z12.5 Encounter for screening for malignant neoplasm of prostate (principal); C61 Malignant neoplasm of prostate
CPT/HCPCS: 36415; 84153; 84403

== ENCOUNTER → 2022-06-27 13:00 | Outpatient (BNVA) | payer OTHER, SELFPAY | PROVIDERS: PCP Internal Medicine; Visit Provider Urology | DX: C61 Malignant neoplasm of prostate (principal) | CPT/HCPCS: Q3014 ==

== ENCOUNTER 2022-12-18 13:08 | Outpatient (REF) | payer OTHER, SELFPAY ==
[2022-12-18 14:51] LABS: Prostate Specific Antigen 0.36 ng/mL (<0.05-4.0)
== END 2022-12-18 13:09 | disposition home or self-care (01) ==
LOC: HO.LAB 13:08
PROVIDERS: Visit Provider Nurse Practitioner Family
DX: Z12.5 Encounter for screening for malignant neoplasm of prostate (principal); C61 Malignant neoplasm of prostate
CPT/HCPCS: 36415; 84153

== ENCOUNTER 2022-12-25 13:11 | Outpatient (AMB) | payer OTHER, SELFPAY ==
--- NOTE | 2022-12-25 13:22 | MHC.OFFVIS ---
Intake Intake Visit Reasons: 4m follow up/PSA(set) Intake Note: Patient is present for follow up prostate cancer/psa lab (PSA 0.36) Urology Medications: Finasteride Blood Thinner: Aspirin Community Organizer Required: Yes Community Organizer Name: Alia Accompanied by: Unknown Allergies fish derived [FISH] Allergy (Intermediate, Verified 12/25/22 22:01) rash/hives Medication List - Last Reconciled 12/25/22 by JUAN C BarillasP- amlodipine 5 mg PO DAILY aspirin 81 mg PO DAILY atorvastatin 40 mg PO BEDTIME cholecalciferol (vitamin D3) 100 mcg PO QAM cholecalciferol (vitamin D3) 100 mcg PO QAM finasteride 5 mg PO DAILY 90 days fluticasone propionate 50 mcg/actuation 1 spray intranasal DAILY hydrochlorothiazide 25 mg PO DAILY omeprazole 20 mg PO DAILY HPI HPI Comments History of Present Illness Details Dk is a very pleasant 77 year old Liberian speaking male patient of Dr. Luisa Richardson who was accompanied by his spouse at today's visit. He has a past medical history of hypercholesteremia, GERD, hypertension, prostate cancer, and restrictive airway disease. He presents to the office today for follow-up of his prostate cancer. In discussion with the patient today he reports to be doing and feeling well. Recent PSA results reviewed with the patient today. PSA remains at 0.36 as previously noted in June. Discussed at length importance of continuing to monitor PSA every 4 months due to slight increase noted from February 2022 to June 2022. However PSA remains stable when compared to last PSA. Patient denies any urinary issues or concerns at this time. he reports be happy with current voiding parameters. In office urinalysis results reviewed with the patient and his past today. he otherwise offers no issues or concerns at this time. Slight rise in PSA noted from February 2022 to June 2022. Review agian in 4 months as PSA has remained unchanged since June May benefit from PSMA imaging if PSA continues to rise Prostate cancer initial treatment external beam radiation 2012, postprocedure PSA recurrence with intermittent hormone therapy Status post radiation therapy 2012 PSA follow-up - 11/23 PSA <0.05, 03/26 0.05 T 38, 09/24 0.05 T 156, 02/24 0.1 T 141, 06/28 .36, 12/26 .36 Has been managed with intermittent hormone therapy Continue with interval surveillance laboratories every 4 months [facility] Medical History Elevated cholesterol GERD (gastroesophageal reflux disease) HTN (hypertension) Prostate cancer Restrictive airway disease Surgical History History of cardiac cath History of esophagogastroduodenoscopy (EGD) History of open reduction and internal fixation (ORIF) procedure Hx of colonoscopy Family History Father Throat cancer Mother Diabetes Kidney disease Social History Alcohol intake: current Alcohol intake frequency: a few times a week Patient Tobacco Use Status: Never used Tobacco Review of Systems Const Reports as per HPI Eyes Reports no additional complaints ENT Reports no additional complaints Card Reports as per HPI Resp Reports as per HPI GI Reports as per HPI Reports as per HPI Musc Reports no additional complaints Neuro Reports no additional complaints Psych Reports no additional complaints Endo Reports no additional complaints Physical Exam Const General: cooperative, comfortable, no acute distress, well developed, alert and awake Orientation/consciousness: patient oriented x3 Limitations: no limitations HEENT Head: Yes normal to inspection, Yes normocephalic and Yes atraumatic Ears: hearing grossly normal bilaterally Eyes General: appearance normal, both eyes and all related structures Neck Neck: Yes normal visual inspection and Yes trachea midline Chest Chest palpation & inspection: normal inspection of the chest Resp Effort & Inspection: normal respiratory effort and able to speak in complete sentences Cardio Rate: regular rate GI Inspection: Yes normal to inspection General: Yes no CVA tenderness Back/Spine/Pelvis Back: no CVA tenderness Skin General skin exam: no rashes or lesions noted Neuro General: patient oriented x3 Extrem General: Yes normal to inspection Psych Appearance: grossly normal and well kempt Mental Status: mental status grossly normal Speech and movement: Normal speech and movement present and Clear speech present Affect: normal affect Attitude: cooperative Thought process: Normal thought process present Thought content: Normal thought content present Insight: Fair insight present (Psych) Judgement: Fair judgement present (Psych) Results AMB Urinalysis, Automated UA Leukoctes 0 Taya/uL Last Edit by Etta Friedman on 12/25/22 13:28 UA Nitrite Negative Last Edit by Etta Friedman on 12/25/22 13:28 UA Urobilinogen 0.2 mg/dL Last Edit by Etta Friedman on 12/25/22 13:28 UA Protein 100 mg/dL Last Edit by Etta Friedman on 12/25/22 13:28 UA pH 6.0 Last Edit by Etta Friedman on 12/25/22 13:28 UA Blood 0 Jc/uL Last Edit by Etta Friedman on 12/25/22 13:28 UA Specific [place] 1.030 Last Edit by Etta Friedman on 12/25/22 13:28 UA Ketone Last Edit by Etta Friedman on 12/25/22 13:28 UA Bilirubin 1 mg/dL Last Edit by Etta Friedman on 12/25/22 13:28 UA Glucose 0 mg/dL Last Edit by Etta Friedman on 12/25/22 13:28 Results Reviewed Results Reviewed: Laboratory Last Values Urine pH (Auto) 6.0 12/25/22 13:23 Specific [place] (Auto) 1.030 12/25/22 13:23 Urine Protein (Auto) 100 mg/dL 12/25/22 13:23 Glucose (UA)(Auto) 0 mg/dL 12/25/22 13:23 Urine Blood (Auto) 0 Jc/uL 12/25/22 13:23 Urine Nitrite (Auto) Negative 12/25/22 13:23 Urine Bilirubin (Auto) 1 mg/dL 12/25/22 13:23 Urine Urobilinogen (Auto) 0.2 mg/dL 12/25/22 13:23 Leukocyte Esterase (Auto) 0 Taya/uL 12/25/22 13:23 Assessment & Plan Assessment & Plan (1) Prostate cancer: Code(s): C61 - Malignant neoplasm of prostate (2) Proteinuria: Code(s): R80.9 - Proteinuria, unspecified Plan In office urinalysis results reviewed with the patient today; as noted above; 2+ proteinuria noted will refer to Nephrology. Recent PSA results reviewed with the patient and his significant other today; as noted above. Will continue with surveillance monitoring of PSA and testosterone every 4 months as discussed. Continue finasteride 5 mg daily as discussed. Patient denies any bothersome urinary issues or concerns at this time. He is happy with current voiding parameters. PSA and testosterone in 4 months Follow-up in 4 months with labs to be completed prior; or sooner with any issues, concerns, and or questions. Orders: Orders Prostate Specific Antigen 12/18/22 C61 - Malignant neoplasm of prostate Prostate Specific Antigen 4 Months C61 - Malignant neoplasm of prostate AMB Urinalysis Automated Today Z13.9 - Encounter for screening, unspecified Testosterone, Total 4 Months C61 - Malignant neoplasm of prostate Referrals Nephrology Referral R80.9 - Proteinuria, unspecified Medications: Refilled finasteride 5 mg PO DAILY 90 tabs 0RF 90 days C61 - Malignant neoplasm of prostate, N13.8 - Other obstructive and reflux uropathy, N40.1 - Benign prostatic hyperplasia with lower urinary tract symptoms, R33.9 - Retention of urine, unspecified Patient Instructions: The patient had an opportunity to ask questions regarding the treatment plan. All questions were answered. Physical exam, labs, and imaging were discussed and reviewed in detail. As well as risks, benefits, and discussion of treatment choices. No major barriers to understanding were identified. The patient expressed understanding and agreement with the above treatment plan. The patient was made aware they should contact our office by phone for worsening of their current condition, the appearance of new symptoms, or with any questions or concerns. Compliance is encouraged with any medications and follow up testing that is ordered. It is a privilege to be allowed the opportunity to participate in? your urological care.? Again, if you have any questions or concerns If you have any questions or concerns please do not hesitate to contact me. The office is [phone]. This note is constructed using voice recognition software. While every effort has been made to ensure accuracy electric scoop operator errors may have been included. Yours sincerely, AINSLEY Barillas Coding Level of Care Code Est Pt Level 3 (76245) Diagnoses Prostate cancer C61 Proteinuria R80.9
== END 2022-12-25 15:02 | disposition home or self-care (01) ==
PROVIDERS: PCP Internal Medicine; Visit Provider Nurse Practitioner Family
DX: C61 Malignant neoplasm of prostate (principal); R80.9 Proteinuria, unspecified
CPT/HCPCS: 99213

== ENCOUNTER → 2022-12-25 13:11 | Outpatient (BNVA) | payer OTHER, SELFPAY | PROVIDERS: Visit Provider Nurse Practitioner Family | DX: C61 Malignant neoplasm of prostate (principal); R80.9 Proteinuria, unspecified | CPT/HCPCS: 81003; 99212 ==

== ENCOUNTER 2023-01-03 14:46 | Outpatient (AMB) | payer OTHER, SELFPAY ==
--- NOTE | 2023-01-03 15:03 | MHC.OFFVIS ---
Intake Vital Signs 01/03/23 15:04 Height 5 ft 6 in Weight 175 lb BMI 28.2 BP 124/70 Blood Pressure Location Lt brachial Position Sitting Pulse 90 Pulse Source Pulse Oximeter Pulse Oximetry (%) 95 Oxygen Delivery Method Room Air Intake Visit Reasons: Dyspnea Intake Note: pt is here for follow up and states he is doing well, no inhalers. Allergies fish derived [FISH] Allergy (Intermediate, Verified 01/03/23 15:17) rash/hives Medication List - Last Reconciled 01/03/23 by Woody Phoenix MD amlodipine 5 mg PO DAILY aspirin 81 mg PO DAILY atorvastatin 40 mg PO BEDTIME cholecalciferol (vitamin D3) 100 mcg PO QAM cholecalciferol (vitamin D3) 100 mcg PO QAM finasteride 5 mg PO DAILY 90 days fluticasone propionate 50 mcg/actuation 1 spray intranasal DAILY hydrochlorothiazide 25 mg PO DAILY omeprazole 20 mg PO DAILY Do you need a note to return to daycare/school/sports/work: No HPI Dyspnea HPI Details This 77 years old very pleasant gentleman comes once a year just for his routine pulmonary checkup, He has been doing well, . Without any acute respiratory infection He will get short of breath only if he walks up hill. or climbs stairs Has occasional cough which is mostly nonproductive. He does not have to use any inhalers. [facility] Medical History Elevated cholesterol GERD (gastroesophageal reflux disease) HTN (hypertension) Prostate cancer Restrictive airway disease Surgical History History of cardiac cath History of esophagogastroduodenoscopy (EGD) History of open reduction and internal fixation (ORIF) procedure Hx of colonoscopy Family History Father Throat cancer Mother Diabetes Kidney disease Social History Alcohol intake: current Alcohol intake frequency: a few times a week Patient Tobacco Use Status: Never used Tobacco Review of Systems Const All systems reviewed & are unremarkable except as noted in HPI and below Eyes Reports no additional complaints ENT Reports nasal congestion (Mild intermittent) Card Denies chest pain, Denies irregular heart rhythm, Denies leg edema and Reports dyspnea on exertion Resp Reports as per HPI and Reports dyspnea on exertion GI Reports no additional complaints Reports no additional complaints Musc Reports no additional complaints Skin/Breast Reports system reviewed and no additional complaints, except as documented Neuro Reports no additional complaints Psych Reports no additional complaints Physical Exam Vital Signs: Last Vital Signs Pulse 90 01/03/23 15:04 BP 124/70 01/03/23 15:04 Pulse Ox 95 01/03/23 15:04 Oxygen Delivery Method Room Air 01/03/23 15:04 BMI result Body Mass Index 28.2 Const General: healthy appearing (Except for being overweight), comfortable, no acute distress, alert and awake Orientation/consciousness: patient oriented x3 HEENT Head: Yes normal to inspection General nose exam: No nasal polyps present and No nasal discharge present Face and sinus: Yes sinuses nontender Mouth: oropharynx normal Throat: Yes posterior oropharynx normal Eyes General: appearance normal, both eyes and all related structures Neck Neck: Yes normal visual inspection, Yes no lymphadenopathy, Yes trachea midline and Yes no JVD Thyroid: Thyroid normal Chest Chest palpation & inspection: normal inspection of the chest, normal palpation of entire chest wall and no tenderness Resp Other: Percussion note is resonant, breath sounds equal on both sides, slightly reduced over the basilar areas. No crepitations or wheezes are heard. Cardio Palpation: normal PMI Rate: regular rate Rhythm: regular rhythm Heart sounds: no gallops and no murmurs Peripheral pulses: Peripheral pulses 2+ throughout GI Palpation (GI): Soft to palpation, nontender, No hepatosplenomegaly present, no masses and Other GI palpation findings present (Abdomen is moderately protuberant especially in the upper half.) Auscultation: normal bowel sounds Back/Spine/Pelvis Thoracic/Lumbar Spine: thoracic and lumbar spine normal to inspection Skin General skin exam: no rashes or lesions noted Neuro General: patient oriented x3 and no focal motor deficits Cranial nerves: Yes CN's II-XII intact bilaterally Extrem General: Yes normal to inspection, Yes no clubbing, cyanosis or edema and Yes no calf tenderness Psych Appearance: grossly normal and well kempt Speech and movement: Normal speech and movement present Assessment & Plan Assessment & Plan (1) FREY (dyspnea on exertion): Comment: His dyspnea on exertion is nonspecific and very minimal, It is related to minimal restrictive pulmonary disorder. As per SPIROMETRY , and CHEST XRAY , he has mild to moderate degree of restrictive disorder. Advised to stay active, walk 1-2 miles daily or do bicycling on a regular basis. Do deep breathing exercises 3 times a day. Code(s): R06.00 - Dyspnea, unspecified (2) Restrictive airway disease: Comment: Restrictive pulmonary disorder, mild to moderately severe, most likely secondary to abdominal obesity. Improved from before. Code(s): J98.4 - Other disorders of lung Coding Level of Care Code Est Pt Level 3 (45477) Diagnoses FREY (dyspnea on exertion) R06.00 Restrictive airway disease J98.4
[2023-01-03 15:04] VITALS: BP 124/70; PULSE 90; O2SAT 95; BMI 28.2
== END 2023-01-03 15:35 | disposition home or self-care (01) ==
PROVIDERS: PCP Internal Medicine; Visit Provider Internal Medicine
DX: R06.00 Dyspnea, unspecified (principal); J98.4 Other disorders of lung
CPT/HCPCS: 99213

== ENCOUNTER → 2023-01-03 14:46 | Outpatient (BNVA) | payer OTHER, SELFPAY | PROVIDERS: PCP Internal Medicine; Visit Provider Internal Medicine | DX: J98.4 Other disorders of lung (principal); R06.00 Dyspnea, unspecified | CPT/HCPCS: 99212 ==

== ENCOUNTER 2023-03-06 11:12 | Outpatient (REF) | payer OTHER, SELFPAY ==
[2023-03-06 13:28] LABS: MANUAL DIFF FLAG NO
[2023-03-06 13:32] LABS: Basophils Percent Auto 0.5 % (0-2); Eosinophils Absolute Auto 0.2 X10*3/uL (0.0-0.4); Eosinophils Percent Auto 2.1 % (0-4); Hematocrit 43.4 % (42.0-52.0); Hemoglobin 14.6 g/dl (14.0-18.0); Imm Gran Abs Auto 0.03 X10*3/uL (0.00-0.03); Imm Gran Pct Auto 0.3 % (0.0-0.4); Lymphocytes Absolute Auto 2.2 X10*3/uL (1.2-4.9); Lymphocytes Percent Auto 25.8 % (20-40); Mean Corpuscular HGB Conc 33.6 g/dl (31.0-36.0); Mean Corpuscular Hemoglobin 31.8 pg (27.0-33.0); Mean Corpuscular Volume 94.6 fL (80.0-98.0); Mean Platelet Volume 9.3 fL (9.4-12.4); Monocytes Absolute Auto 0.6 X10*3/uL (0.1-1.2); Monocytes Percent Auto 6.7 % (2-11); Neutrophils Absolute Auto 5.6 x10*3/uL (2.0-8.3); Neutrophils Percent Auto 64.6 % (45-73); Platelet Count 259 X10*3/uL (160-400); Red Blood Count 4.59 X10*6/uL (4.60-5.80); Red Cell Distribution Width 12.7 % (11.0-16.0); White Blood Count 8.7 X10*3/uL (4.8-10.8)
[2023-03-06 13:46] LABS: Alanine Aminotransferase 17 U/L (0-40); Albumin Level 3.9 g/dL (3.5-5.0); Alkaline Phosphatase 123 U/L (39-117); Anion Gap 13 (12-20); Aspartate Amino Transferase 33 U/L (5-37); Bilirubin Direct 0.3 mg/dL (0.0-0.5); Bilirubin Total 0.7 mg/dL (0.0-1.0); Blood Urea Nitrogen 6 mg/dL (9-16); Calcium 9.7 mg/dL (8.4-10.2); Carbon Dioxide 30 mmol/L (22-29); Chloride 102 mmol/L (96-108); Cholesterol 120 mg/dL (<200); Estimated Average Glucose 85 mg/dL; Estimated Glomerular Filt Rate > 60; Glucose Random 101 mg/dL (60-115); HDL Cholesterol 53 mg/dL (>40); Hemoglobin A1c % 4.6 % (<6.0); LDL Cholesterol Calculated 56 mg/dL (<100); Sodium 142 mmol/L (135-145); Total Protein 7.1 g/dL (6.5-8.0); Triglycerides 58 mg/dL (<150)
== END 2023-03-06 11:13 | disposition home or self-care (01) ==
LOC: HO.HHCL 11:12
PROVIDERS: Visit Provider Internal Medicine
DX: I10 Essential (primary) hypertension (principal); E66.3 Overweight; E78.6 Lipoprotein deficiency; R74.8 Abnormal levels of other serum enzymes; K26.9 Duodenal ulcer, unspecified as acute or chronic, without hemorrhage or perforation
CPT/HCPCS: 36415; 80048; 80061; 80076; 83036; 85025

== ENCOUNTER 2023-03-14 14:52 | Inpatient (IN) | payer OTHER, SELFPAY ==
--- NOTE | ~2023-03-14 | XR_ITS ---
Indication: Pain with known duodenal ulcer EXAMINATION: Abdominal film and chest film. 4 images of the abdomen are submitted. Comparison is made to agriscience instructor film from CT of 03/14/2023. Findings; Overall the bowel pattern is felt to be nonobstructing. There is some air and stool in the large bowel. Degenerative change in the spine is noted. Portable chest 2 images submitted compared to previous dated 09/25/2021. Low lung volumes. No acute finding. No obvious failure or infiltrate. There is no effusion. The cardiac silhouette is comparable. The hilar regions are felt to be comparable. No free air seen on this upright image XR/XR abdomen 1V IMPRESSION: Nonobstructing bowel pattern. Low lung volumes in the chest but no acute finding
--- NOTE | ~2023-03-14 | CT_ITS ---
EXAMINATION: CT ABDOMEN AND PELVIS WITH CONTRAST CLINICAL INFORMATION: Abdominal pain. COMPARISON: None available. TECHNIQUE: Multidetector volumetric images were obtained from the superior aspect of the liver through the pubic symphysis following administration 85 mL of Omnipaque 350 intravenous contrast. Sagittal and coronal reformatted images were obtained on the technologist's workstation. Oral contrast: No This CT examination was performed using dose optimization techniques as appropriate, variously including the following: *Automated exposure control *Adjustment of mA and/or kV according to patient size (this includes techniques or standardized protocols for targeted exams where dose is matched to indication/reason for exam; i.e. extremities or head) *Use of iterative reconstruction technique DLP: 733 mGy-cm FINDINGS: LUNG BASES: The visualized lung bases are unremarkable. LIVER, GALLBLADDER, AND BILIARY TREE: The liver is normal in size, shape, and attenuation. No focal hepatic lesion or biliary ductal dilatation is present. The gallbladder is unremarkable with no evidence of radiopaque gallstones, gallbladder wall thickening, or obvious pericholecystic inflammatory changes. PANCREAS: Unremarkable. SPLEEN: Unremarkable. ADRENAL GLANDS: Unremarkable. KIDNEYS AND URETERS: The kidneys are normal in size, shape, and attenuation. No hydronephrosis, hydroureter, or calculi seen. No perinephric stranding. BLADDER: Unremarkable. GASTROINTESTINAL TRACT: There is thickening of the duodenal bulb and descending duodenum with mucosal irregularity and some likely ulceration with surrounding mild infiltrative change. There are diverticula of the ascending and descending colon as well as terminal small bowel. The appendix is dilated measuring up to 1 cm without surrounding infiltration. ABDOMINAL WALL: No significant hernia is appreciated. LYMPH NODES: Normal. VASCULAR: There is mild atherosclerotic plaque of the abdominal aorta and proximal branches. PELVIC VISCERA: Unremarkable. OSSEOUS STRUCTURES: There is diffuse [id number] thoracolumbar disc degenerative change. CT/CT abdomen pelvis w IV con IMPRESSION: Thickening of the duodenal bulb and descending duodenum with mucosal irregularity/ulceration consistent with duodenitis/peptic ulcer disease. Diverticula of the ascending and descending colon as well as terminal small bowel without evidence for acute diverticulitis. The appendix is dilated measuring up to 1 cm but without surrounding infiltration. Correlation for this finding is needed. Fleischner guidelines were followed.
--- NOTE | ~2023-03-14 | XR_ITS ---
Indication: Pain with known duodenal ulcer EXAMINATION: Abdominal film and chest film. 4 images of the abdomen are submitted. Comparison is made to franchise development manager film from CT of 03/14/2023. Findings; Overall the bowel pattern is felt to be nonobstructing. There is some air and stool in the large bowel. Degenerative change in the spine is noted. Portable chest 2 images submitted compared to previous dated 09/25/2021. Low lung volumes. No acute finding. No obvious failure or infiltrate. There is no effusion. The cardiac silhouette is comparable. The hilar regions are felt to be comparable. No free air seen on this upright image XR/XR chest 1V IMPRESSION: Nonobstructing bowel pattern. Low lung volumes in the chest but no acute finding
[2023-03-14 15:34] VITALS: BP 118/79; PULSE 90; RESP 18; TEMP 36.7; O2SAT 99; BMI 28.2
--- NOTE | 2023-03-14 15:43 | ED_ITS ---
HPI - General Adult General Chief complaint: Abdominal Pain Stated complaint: Abdominal pain, no appetite Time Seen by Provider: 03/14/23 21:06 History of Present Illness HPI narrative: Seen By Dr. Ash Related Data Home Medications Medication Instructions Recorded Confirmed amlodipine 5 mg tablet 5 mg PO DAILY 04/06/21 03/15/23 aspirin 81 mg tablet,delayed 81 mg PO DAILY 04/06/21 03/15/23 release atorvastatin 40 mg tablet 40 mg PO BEDTIME 04/06/21 03/15/23 fluticasone propionate 50 1 spray intranasal DAILY 04/06/21 03/15/23 mcg/actuation nasal spray,suspension hydrochlorothiazide 25 mg tablet 25 mg PO DAILY 04/06/21 03/15/23 cholecalciferol (vitamin D3) 50 100 mcg PO QAM 02/22/22 03/15/23 mcg (2,000 unit) tablet Previous Rx's Medication Instructions Recorded omeprazole 20 mg capsule,delayed 20 mg PO DAILY #30 caps 08/17/22 release finasteride 5 mg tablet 5 mg PO DAILY 90 days #90 tabs 12/25/22 Allergies Allergy/AdvReac Type Severity Reaction Status Date / Time fish derived [FISH] Allergy Intermediate rash/hives Verified 03/14/23 15:34 [facility] Past Medical History Medical History Elevated cholesterol HTN (hypertension) GERD (gastroesophageal reflux disease) Restrictive airway disease Prostate cancer Surgical History History of open reduction and internal fixation (ORIF) procedure History of esophagogastroduodenoscopy (EGD) Hx of colonoscopy History of cardiac cath Family History Family History Father Throat cancer Mother Diabetes Kidney disease Social History Social History Alcohol intake: current Alcohol intake frequency: a few times a week Patient Tobacco Use Status: Never used Tobacco Smoked in Last 30 Days: Yes Use of substances other than those prescribed or required for medical reasons: No Are you DNR?: No Advance Directives: No Advance Directives Information Provided: No Physical Exam ED Vital Signs: Vital Signs - 24 hr 03/14/23 15:34 03/14/23 19:37 03/14/23 20:38 Temperature 98.1 F 98.2 F 98.7 F Pulse Rate 90 93 85 Respiratory Rate 18 16 16 Blood Pressure 118/79 120/74 128/69 Pulse Oximetry 99 97 98 Oxygen Delivery Method Room Air Room Air Room Air 03/14/23 22:44 Temperature 96.7 F L Pulse Rate 87 Respiratory Rate 16 Blood Pressure 137/61 Pulse Oximetry 98 Oxygen Delivery Method Room Air BMI result Body Mass Index 28.2 Course Course Course Narrative: RME: 77 yold male presents to the ED for abdominal pain, diareha, and black stool for one week. Patient denies any trauma. labs ordered. Charge nurse made aware of patient. VItal sing stable Medications Administered Generic Name Dose Route Start Last Admin Trade Name Frephyllis PRN Reason Stop Dose Admin Finasteride 5 mg 03/15/23 09:00 03/15/23 09:26 Finasteride 5 Mg Tablet PO 5 mg DAILY ADOLFO Administration Fluticasone Propionate 1 spray 03/15/23 09:00 03/15/23 10:34 Fluticasone Propionate Nasal 16 Gm [place] NOSTRIL-B 1 spray DAILY ADOLFO Administration Hydrochlorothiazide 25 mg 03/15/23 09:00 03/15/23 09:26 Hydrochlorothiazide 25 Mg Tablet PO 25 mg DAILY ADOLFO Administration Protocol Lactated Ringer's 1,000 mls @ 80 mls/hr 03/15/23 02:00 03/15/23 02:25 Lr IVCONT 80 mls/hr .[id number] ADOLFO Administration Omeprazole 20 mg 03/15/23 09:00 03/15/23 09:26 Omeprazole 20 Mg Capsule.Dr PO 20 mg DAILY ADOLFO Administration Pantoprazole Sodium 40 mg 03/15/23 06:30 03/15/23 06:46 Pantoprazole Sodium 40 Mg/10 Ml Vial IVPUSH 40 mg BID@0630,1630 ADOLFO Administration Sodium Chloride 3 ml 03/15/23 08:00 03/15/23 08:55 0.9 % Sodium Chloride Flush 3 Ml Syringe IVFLUSH Not Given QSHIFT ADOLFO Vitamin D 100 mcg 03/15/23 08:00 03/15/23 09:30 Cholecalciferol (Vitamin D3) 25 Mcg Tablet PO Not Given DAILY ADOLFO Discontinued Medications Generic Name Dose Route Start Last Admin Trade Name Casey PRN Reason Stop Dose Admin Sodium Chloride 500 mls @ 999 mls/hr 03/14/23 23:45 03/15/23 01:51 Ns IV 03/15/23 00:15 Infused .Q31M ADOLFO Infusion Potassium Chloride 10 meq in 100 mls @ 100 mls/hr 03/15/23 02:00 03/15/23 06:10 Potassium Chloride/H20 IV 03/15/23 05:59 100 mls/hr Q1H ADOLFO Administration Pantoprazole Sodium 40 mg 03/14/23 23:47 03/15/23 00:09 Pantoprazole Sodium 40 Mg/10 Ml Vial IVPUSH 03/14/23 23:48 40 mg ONCE ONE Administration Pantoprazole Sodium 40 mg 03/15/23 01:17 03/15/23 02:29 Pantoprazole Sodium 40 Mg/10 Ml Vial IVPUSH 03/15/23 01:18 40 mg ONCE ONE Administration Medical Decision Making Lab Data 03/15/23 05:52 03/15/23 09:30 Labs: Lab Results 03/14/23 03/14/23 03/14/23 Range/Units 15:52 20:49 23:40 WBC 14.5 H (4.8-10.8) X10*3/uL RBC 3.75 L (4.60-5.80) X10*6/uL Hgb 11.9 L (14.0-18.0) g/dl Hct 34.3 L D (42.0-52.0) % MCV 91.5 (80.0-98.0) fL MCH 31.7 (27.0-33.0) pg MCHC 34.7 (31.0-36.0) g/dl RDW 12.5 (11.0-16.0) % Plt Count 310 (160-400) X10*3/uL MPV 9.1 L (9.4-12.4) fL Immature Gran % (Auto) 0.3 (0.0-0.4) % Neut % (Auto) 83.2 H (45-73) % Lymph % (Auto) 12.6 L (20-40) % [place] % (Auto) 3.5 (2-11) % Eos % (Auto) 0.1 (0-4) % Baso % (Auto) 0.3 (0-2) % Lymph # (Auto) 1.8 (1.2-4.9) X10*3/uL [place] # (Auto) 0.5 (0.1-1.2) X10*3/uL Eos # (Auto) 0.0 (0.0-0.4) X10*3/uL Baso # (Auto) 0.0 (0.0-0.2) X10*3/uL Abs Immat Gran (auto) 0.05 H (0.00-0.03) X10*3/uL Absolute Neuts (auto) 12.1 H (2.0-8.3) x10*3/uL Absolute Nucleated RBC 0.000 (0.0-0.012) X10*3/uL Nucleated RBC % (auto) 0.0 (0.0-0.2) /100WBC PT 12.4 (11.1-13.3) SEC INR 1.0 (0.9-1.1) APTT 25.4 L (26.0-36.4) SEC Sodium 140 (135-145) mmol/L Potassium 3.0 L (3.3-5.1) mmol/L Chloride 94 L (96-108) mmol/L Carbon Dioxide 33 H (22-29) mmol/L Anion Gap 16 (12-20) BUN 30 H (9-16) mg/dL Creatinine 0.80 (0.5-1.4) mg/dL Estim Creat Clear Calc 77.8 Estimated GFR > 60 Random Glucose 134 H (60-115) mg/dL Calcium 9.3 (8.4-10.2) mg/dL Total Bilirubin 0.4 (0.0-1.0) mg/dL AST 22 (5-37) U/L ALT 10 (0-40) U/L Alkaline Phosphatase 108 (39-117) U/L Total Protein 6.8 (6.5-8.0) g/dL Albumin 3.7 (3.5-5.0) g/dL Urine Color Yellow Urine Appearance Clear Urine pH 6.0 (5.0-9.0) Ur Specific [place] >= 1.030 H (1.005-1.025) Urine Protein Negative (Neg-Trace) mg/dL Urine Glucose (UA) Negative (Negative) mg/dL Urine Ketones 15 (Negative) mg/dL Urine Blood Negative (Negative) Urine Nitrite Negative (Negative) Ur Leukocyte Esterase Negative (Negative) Stool Occult Blood POSITIVE (NEGATIVE) Blood Type Antibody Screen 03/15/23 Range/Units 01:10 WBC (4.8-10.8) X10*3/uL RBC (4.60-5.80) X10*6/uL Hgb (14.0-18.0) g/dl Hct (42.0-52.0) % MCV (80.0-98.0) fL MCH (27.0-33.0) pg MCHC (31.0-36.0) g/dl RDW (11.0-16.0) % Plt Count (160-400) X10*3/uL MPV (9.4-12.4) fL Immature Gran % (Auto) (0.0-0.4) % Neut % (Auto) (45-73) % Lymph % (Auto) (20-40) % [place] % (Auto) (2-11) % Eos % (Auto) (0-4) % Baso % (Auto) (0-2) % Lymph # (Auto) (1.2-4.9) X10*3/uL [place] # (Auto) (0.1-1.2) X10*3/uL Eos # (Auto) (0.0-0.4) X10*3/uL Baso # (Auto) (0.0-0.2) X10*3/uL Abs Immat Gran (auto) (0.00-0.03) X10*3/uL Absolute Neuts (auto) (2.0-8.3) x10*3/uL Absolute Nucleated RBC (0.0-0.012) X10*3/uL Nucleated RBC % (auto) (0.0-0.2) /100WBC PT (11.1-13.3) SEC INR (0.9-1.1) APTT (26.0-36.4) SEC Sodium (135-145) mmol/L Potassium (3.3-5.1) mmol/L Chloride (96-108) mmol/L Carbon Dioxide (22-29) mmol/L Anion Gap (12-20) BUN (9-16) mg/dL Creatinine (0.5-1.4) mg/dL Estim Creat Clear Calc Estimated GFR Random Glucose (60-115) mg/dL Calcium (8.4-10.2) mg/dL Total Bilirubin (0.0-1.0) mg/dL AST (5-37) U/L ALT (0-40) U/L Alkaline Phosphatase (39-117) U/L Total Protein (6.5-8.0) g/dL Albumin (3.5-5.0) g/dL Urine Color Urine Appearance Urine pH (5.0-9.0) Ur Specific [place] (1.005-1.025) Urine Protein (Neg-Trace) mg/dL Urine Glucose (UA) (Negative) mg/dL Urine Ketones (Negative) mg/dL Urine Blood (Negative) Urine Nitrite (Negative) Ur Leukocyte Esterase (Negative) Stool Occult Blood (NEGATIVE) Blood Type O Positive Antibody Screen NEGATIVE Discharge Plan Discharge Clinical Impression: Acute GI bleeding
[2023-03-14 15:57] LABS: MANUAL DIFF FLAG NO
[2023-03-14 16:07] LABS: Basophils Percent Auto 0.3 % (0-2); Eosinophils Percent Auto 0.1 % (0-4); Hematocrit 34.3 % (42.0-52.0); Hemoglobin 11.9 g/dl (14.0-18.0); Imm Gran Abs Auto 0.05 X10*3/uL (0.00-0.03); Imm Gran Pct Auto 0.3 % (0.0-0.4); Lymphocytes Absolute Auto 1.8 X10*3/uL (1.2-4.9); Lymphocytes Percent Auto 12.6 % (20-40); Mean Corpuscular HGB Conc 34.7 g/dl (31.0-36.0); Mean Corpuscular Hemoglobin 31.7 pg (27.0-33.0); Mean Corpuscular Volume 91.5 fL (80.0-98.0); Mean Platelet Volume 9.1 fL (9.4-12.4); Monocytes Absolute Auto 0.5 X10*3/uL (0.1-1.2); Monocytes Percent Auto 3.5 % (2-11); Neutrophils Absolute Auto 12.1 x10*3/uL (2.0-8.3); Neutrophils Percent Auto 83.2 % (45-73); Platelet Count 310 X10*3/uL (160-400); Red Blood Count 3.75 X10*6/uL (4.60-5.80); Red Cell Distribution Width 12.5 % (11.0-16.0); White Blood Count 14.5 X10*3/uL (4.8-10.8)
[2023-03-14 16:11] LABS: Prothrombin Time 12.4 SEC (11.1-13.3)
[2023-03-14 16:14] LABS: Alanine Aminotransferase 10 U/L (0-40); Albumin Level 3.7 g/dL (3.5-5.0); Alkaline Phosphatase 108 U/L (39-117); Anion Gap 16 (12-20); Aspartate Amino Transferase 22 U/L (5-37); Bilirubin Total 0.4 mg/dL (0.0-1.0); Blood Urea Nitrogen 30 mg/dL (9-16); Calcium 9.3 mg/dL (8.4-10.2); Carbon Dioxide 33 mmol/L (22-29); Chloride 94 mmol/L (96-108); Creatinine Clr Calc Pharmacy 77.8; Estimated Glomerular Filt Rate > 60; Glucose Random 134 mg/dL (60-115); Partial Thromboplastin Time 25.4 SEC (26.0-36.4); Sodium 140 mmol/L (135-145); Total Protein 6.8 g/dL (6.5-8.0)
[2023-03-14 19:37] VITALS: BP 120/74; PULSE 93; RESP 16; TEMP 36.8; O2SAT 97
[2023-03-14 20:38] VITALS: BP 128/69; PULSE 85; RESP 16; TEMP 37.1; O2SAT 98
[2023-03-14 20:57] LABS: Appearance Urine Clear; Color Urine Yellow; Glucose Urine UA Negative (Negative); Leukocyte Esterase Urine Negative (Negative); Nitrite Urine Negative (Negative); Specific Gravity - Urine >= 1.030 (1.005-1.025); Urine Blood Negative (Negative); Urine Ketones 15 mg/dL (Negative); Urine Protein Negative (Neg-Trace)
[2023-03-14 22:44] VITALS: BP 137/61; PULSE 87; RESP 16; TEMP 35.9; O2SAT 98
--- NOTE | 2023-03-14 23:45 | PC.NURSE ---
pt moved from 19h to ed 20. this rn at bedside as supervisor rough end fo dr bryant for rectal exam fecal occult card sent down to lab iv placed 20 g L AC. pt tolerated well. pt awaiting CT at this time
[2023-03-14 23:47] LABS: OBS Int Ctl Valid YES; OBS1 POSITIVE (NEGATIVE)
--- NOTE | 2023-03-14 23:49 | ED_ITS ---
HPI - Abdominal Pain General Chief Complaint: Abdominal Pain Stated Complaint: Abdominal pain, no appetite Time Seen by Provider: 03/14/23 21:06 History of Present Illness HPI narrative: Min patient is a 77-year-old male with a history of previous alcohol use. Under previous history of gastritis , diverticulitis. Presented today with having abdominal pain diffuse over the entire abdomen. in positive black stool. Patient denies any recent use of Pepto-Bismol or iron. Patient denies any fever chills. No cough and no congestion or upper respiratory symptoms. No diaphoresis. patient denies any recent NSAID use. Related Data Home Medications Medication Instructions Recorded Confirmed amlodipine 5 mg tablet 5 mg PO DAILY 04/06/21 02/28/22 aspirin 81 mg tablet,delayed 81 mg PO DAILY 04/06/21 02/28/22 release atorvastatin 40 mg tablet 40 mg PO BEDTIME 04/06/21 02/28/22 cholecalciferol (vitamin D3) 50 100 mcg PO QAM 04/06/21 02/28/22 mcg (2,000 unit) capsule fluticasone propionate 50 1 spray intranasal DAILY 04/06/21 02/28/22 mcg/actuation nasal spray,suspension hydrochlorothiazide 25 mg tablet 25 mg PO DAILY 04/06/21 02/28/22 cholecalciferol (vitamin D3) 50 100 mcg PO QAM 02/22/22 02/28/22 mcg (2,000 unit) tablet Previous Rx's Medication Instructions Recorded omeprazole 20 mg capsule,delayed 20 mg PO DAILY #30 caps 08/17/22 release finasteride 5 mg tablet 5 mg PO DAILY 90 days #90 tabs 12/25/22 Allergies Allergy/AdvReac Type Severity Reaction Status Date / Time fish derived [FISH] Allergy Intermediate rash/hives Verified 03/14/23 15:34 Review of Systems Review of Systems Positive abdominal pain Yes all other systems are reviewed and are negative PMFSH Past Medical History Attestation statement: The following information was validated with the patient. Medical History Elevated cholesterol HTN (hypertension) GERD (gastroesophageal reflux disease) Restrictive airway disease Prostate cancer Surgical History History of open reduction and internal fixation (ORIF) procedure History of esophagogastroduodenoscopy (EGD) Hx of colonoscopy History of cardiac cath Family History Family History Father Throat cancer Mother Diabetes Kidney disease Social History Social History Alcohol intake: current Alcohol intake frequency: a few times a week Patient Tobacco Use Status: Never used Tobacco Advance Directives: No Advance Directives Information Provided: No Physical Exam ED Vital Signs: Vital Signs - 24 hr 03/14/23 15:34 03/14/23 19:37 03/14/23 20:38 Temperature 98.1 F 98.2 F 98.7 F Pulse Rate 90 93 85 Respiratory Rate 18 16 16 Blood Pressure 118/79 120/74 128/69 Pulse Oximetry 99 97 98 Oxygen Delivery Method Room Air Room Air Room Air 03/14/23 22:44 Temperature 96.7 F L Pulse Rate 87 Respiratory Rate 16 Blood Pressure 137/61 Pulse Oximetry 98 Oxygen Delivery Method Room Air BMI result Body Mass Index 28.2 Appearance: Alert. Oriented X3. No acute distress. Eyes: Pupils equal, round and reactive to light. ENT: Pharynx normal. Neck: Normal inspection. Neck supple. No lymph nodes noted. No crepitus CVS: Normal heart rate and rhythm. Pulses normal. Normal S1 and S2 Respiratory: No respiratory distress. Breath sounds normal. No Wheezing. No rales Abdomen: Soft and nontender. No rigidity. No distention. good BS x4 Skin: Skin warm and dry. Normal skin color. Normal skin turgor. Rectal exam was done with Nurse diane present. It was strongly heme-positive black stool. Extremities: No lower extremity edema. Neurovascular intact to all extremities. No Lacerations. No Rash Neuro: Oriented X 3. No motor deficit. No sensory deficit. Moving all extermities. No slurred speech Medical Decision Making Medical Decision Making MDM Narrative: Patient's symptoms are consistent with GI bleed. Previous lab was reviewed. Patient's hemoglobin has a significant 2.5 points drop. Patient previous endoscopy showed gastritis. Has a long history of recreational alcohol use. Patient denies any history of NSAID use. Question that is the cause of patient's bleeding. Patient started on PPI. Because of the abdominal pain CT scan of the abdomen was ordered. Type and screen ordered. Will monitor very carefully. IV fluid for initial resuscitation. An EKG was ordered. Patient's CT scan of the abdomen showed no overt obstruction abscess perforation by my interpretation and review radiology's reading. Patient is to be admitted. Currently in sta Differential Diagnosis GI bleed, hemorrhoids, gastritis, variceal bleeding Admission/Observation Consideration of admission/observation: Escalation of care including admission/observation considered will admit patient for close observation Consult Healthcare Provider Management of the patient was discussed with: Hospitalist discussed with hospitalist Lab Data MDM Lab Attestation statement: I reviewed the patient's lab results. 03/14/23 15:52 03/14/23 15:52 Labs: Lab Results 03/14/23 03/14/23 03/14/23 Range/Units 15:52 20:49 23:40 WBC 14.5 H (4.8-10.8) X10*3/uL RBC 3.75 L (4.60-5.80) X10*6/uL Hgb 11.9 L (14.0-18.0) g/dl Hct 34.3 L D (42.0-52.0) % MCV 91.5 (80.0-98.0) fL MCH 31.7 (27.0-33.0) pg MCHC 34.7 (31.0-36.0) g/dl RDW 12.5 (11.0-16.0) % Plt Count 310 (160-400) X10*3/uL MPV 9.1 L (9.4-12.4) fL Immature Gran % (Auto) 0.3 (0.0-0.4) % Neut % (Auto) 83.2 H (45-73) % Lymph % (Auto) 12.6 L (20-40) % [place] % (Auto) 3.5 (2-11) % Eos % (Auto) 0.1 (0-4) % Baso % (Auto) 0.3 (0-2) % Lymph # (Auto) 1.8 (1.2-4.9) X10*3/uL [place] # (Auto) 0.5 (0.1-1.2) X10*3/uL Eos # (Auto) 0.0 (0.0-0.4) X10*3/uL Baso # (Auto) 0.0 (0.0-0.2) X10*3/uL Abs Immat Gran (auto) 0.05 H (0.00-0.03) X10*3/uL Absolute Neuts (auto) 12.1 H (2.0-8.3) x10*3/uL Absolute Nucleated RBC 0.000 (0.0-0.012) X10*3/uL Nucleated RBC % (auto) 0.0 (0.0-0.2) /100WBC PT 12.4 (11.1-13.3) SEC INR 1.0 (0.9-1.1) APTT 25.4 L (26.0-36.4) SEC Sodium 140 (135-145) mmol/L Potassium 3.0 L (3.3-5.1) mmol/L Chloride 94 L (96-108) mmol/L Carbon Dioxide 33 H (22-29) mmol/L Anion Gap 16 (12-20) BUN 30 H (9-16) mg/dL Creatinine 0.80 (0.5-1.4) mg/dL Estim Creat Clear Calc 77.8 Estimated GFR > 60 Random Glucose 134 H (60-115) mg/dL Calcium 9.3 (8.4-10.2) mg/dL Total Bilirubin 0.4 (0.0-1.0) mg/dL AST 22 (5-37) U/L ALT 10 (0-40) U/L Alkaline Phosphatase 108 (39-117) U/L Total Protein 6.8 (6.5-8.0) g/dL Albumin 3.7 (3.5-5.0) g/dL Urine Color Yellow Urine Appearance Clear Urine pH 6.0 (5.0-9.0) Ur Specific [place] >= 1.030 H (1.005-1.025) Urine Protein Negative (Neg-Trace) mg/dL Urine Glucose (UA) Negative (Negative) mg/dL Urine Ketones 15 (Negative) mg/dL Urine Blood Negative (Negative) Urine Nitrite Negative (Negative) Ur Leukocyte Esterase Negative (Negative) Stool Occult Blood POSITIVE (NEGATIVE) Independent Interpretation I performed an independent interpretation of an: CT Scan Interpretation: no obstruction no abscess no perforation Radiology Impression Discussion of test interpretation with radiology: I have reviewed the radiologist's reading. External Record Review External record reviewed: Outpatient record Chronic Conditions hypertension, hypercholesterolemia, gastritis Medications Administered Discontinued Medications Generic Name Dose Route Start Last Admin Trade Name Casey PRN Reason Stop Dose Admin Sodium Chloride 500 mls @ 999 mls/hr 03/14/23 23:45 03/15/23 00:09 Ns IV 03/15/23 00:15 999 mls/hr .Q31M ADOLFO Administration Pantoprazole Sodium 40 mg 03/14/23 23:47 03/15/23 00:09 Pantoprazole Sodium 40 Mg/10 Ml Vial IVPUSH 03/14/23 23:48 40 mg ONCE ONE Administration Discharge Plan Discharge Clinical Impression: Acute GI bleeding Prescriptions: No Action omeprazole 20 mg capsule,delayed release(DR/EC) 20 mg PO DAILY Qty: 30 3RF cholecalciferol (vitamin D3) 50 mcg (2,000 unit) tablet 100 mcg PO QAM cholecalciferol (vitamin D3) 50 mcg (2,000 unit) capsule 100 mcg PO QAM fluticasone propionate 50 mcg/actuation spray,suspension 1 spray intranasal DAILY hydrochlorothiazide 25 mg tablet 25 mg PO DAILY amlodipine 5 mg tablet 5 mg PO DAILY atorvastatin 40 mg tablet 40 mg PO BEDTIME aspirin 81 mg tablet,delayed release (DR/EC) 81 mg PO DAILY finasteride 5 mg tablet 5 mg PO DAILY 90 Days Qty: 90 0RF
--- NOTE | 2023-03-14 23:52 | ECG_ITS ---
Test Reason : cp Blood Pressure : / mmHG Vent. Rate : 080 BPM Atrial Rate : 080 BPM P-R Int : 160 ms QRS Dur : 082 ms QT Int : 480 ms P-R-T Axes : 045 032 032 degrees QTc Int : 553 ms Normal sinus rhythm Prolonged QT Abnormal ECG When compared with ECG of 26-MAR-2020 15:37, QT has lengthened Referred By: Tiffany Ash Electronically Signed By:REBECCA TAYLOR MD
[2023-03-15] VITALS (11 sets, daily range): BP systolic 92–134; BP diastolic 29–59; PULSE 61–83; RESP 14–20; TEMP 36.3–36.9; O2SAT 94–100
[2023-03-15] MEDS: 0.9 % Sodium Chloride 500 ML 999 ML IV (00:09)
[2023-03-15] MEDS: Pantoprazole Sodium 40 MG/10 ML VIAL IVPUSH ×3 (00:09→06:46)
--- NOTE | 2023-03-15 01:20 | P.HPHOSP_ITS ---
History of Present Illness Date of Service: 03/15/23 Chief Complaint: Black stool This is a 77-year-old male with pertinent history of essential hypertension, mixed hyperlipidemia, BPH, gastroesophageal reflux disease who presents to the emergency department for evaluation of abdominal pain and black stools. Patient states he 1st noticed black stools 4 days prior to presentation. It is associated with diffuse abdominal discomfort, intermittent and without any relieving factors. Patient denies similar history in the past. Is on aspirin but denies any rspn-ihg-zssqkvl pain medications. No fever, chills, chest discomfort, palpitations, shortness of breath, changes in urinary habits. In the emergency department, stool occult blood noted to be positive and hemoglobin found to be lower than baseline Review of Systems 2 Constitutional: Constitutional: Reports no additional constitutional complaints Cardiovascular: Cardiovascular: Reports no additional cardiovascular complaints Respiratory: Respiratory: Reports no additional respiratory complaints Gastrointestinal: Gastrointestinal: Reports abdominal pain and Reports melena Genitourinary: Genitourinary: Reports no additional male genitourinary complaints [facility] Medical History Elevated cholesterol HTN (hypertension) GERD (gastroesophageal reflux disease) Restrictive airway disease Prostate cancer Family History Father Throat cancer Mother Diabetes Kidney disease Surgical History History of open reduction and internal fixation (ORIF) procedure History of esophagogastroduodenoscopy (EGD) Hx of colonoscopy History of cardiac cath Social History Alcohol intake: current Alcohol intake frequency: a few times a week Patient Tobacco Use Status: Never used Tobacco Advance Directives: No Advance Directives Information Provided: No Meds Allergies Allergy/AdvReac Type Severity Reaction Status Date / Time fish derived [FISH] Allergy Intermediate rash/hives Verified 03/14/23 15:34 Active Medications: Current Medications Pantoprazole Sodium (Pantoprazole Sodium 40 Mg/10 Ml Vial) 40 mg IVPUSH ONCE ONE Stop: 03/15/23 01:18 Home Medications Medication Instructions Recorded Confirmed Last Taken Type amlodipine 5 mg tablet 5 mg PO DAILY 04/06/21 02/28/22 Unknown History aspirin 81 mg tablet,delayed 81 mg PO DAILY 04/06/21 02/28/22 12/27/21 History release atorvastatin 40 mg tablet 40 mg PO BEDTIME 04/06/21 02/28/22 Unknown History cholecalciferol (vitamin D3) 50 100 mcg PO QAM 04/06/21 02/28/22 Unknown History mcg (2,000 unit) capsule fluticasone propionate 50 1 spray intranasal DAILY 04/06/21 02/28/22 Unknown History mcg/actuation nasal spray,suspension hydrochlorothiazide 25 mg tablet 25 mg PO DAILY 04/06/21 02/28/22 Unknown History cholecalciferol (vitamin D3) 50 100 mcg PO QAM 02/22/22 02/28/22 Unknown History mcg (2,000 unit) tablet Physical Exam 2 Vital Signs and Narrative: Vital Signs: Last Vital Signs Temp 96.7 F L 03/14/23 22:44 Pulse 87 03/14/23 22:44 Resp 16 03/14/23 22:44 BP 137/61 03/14/23 22:44 Pulse Ox 98 03/14/23 22:44 O2 Del Method Room Air 03/14/23 22:44 BMI result Body Mass Index 28.2 Middle-aged male lying in bed in no distress Neck supple, no JVD Regular rate and rhythm, S1-S2 heard Regular breath sounds bilaterally, no wheezing or crackles appreciated Abdomen with mild generalized tenderness, no guarding, no rigidity, no rebound tenderness Patient is awake, alert and oriented to self, place, time and person ; no focal motor deficit Psych: Normal mood No pedal edema Results Labs 03/14/23 15:52 03/14/23 15:52 Labs: Laboratory Results - last 24 hr 03/14/23 03/14/23 03/14/23 15:52 20:49 23:40 MCV 91.5 MCH 31.7 MCHC 34.7 RDW 12.5 Plt Count 310 MPV 9.1 L Immature Gran % (Auto) 0.3 Neut % (Auto) 83.2 H Lymph % (Auto) 12.6 L [place] % (Auto) 3.5 Eos % (Auto) 0.1 Baso % (Auto) 0.3 Lymph # (Auto) 1.8 [place] # (Auto) 0.5 Eos # (Auto) 0.0 Baso # (Auto) 0.0 Abs Immat Gran (auto) 0.05 H Absolute Neuts (auto) 12.1 H Absolute Nucleated RBC 0.000 Nucleated RBC % (auto) 0.0 PT 12.4 INR 1.0 APTT 25.4 L Anion Gap 16 Estim Creat Clear Calc 77.8 Estimated GFR > 60 Random Glucose 134 H Calcium 9.3 Total Bilirubin 0.4 AST 22 ALT 10 Alkaline Phosphatase 108 Total Protein 6.8 Albumin 3.7 Urine Color Yellow Urine Appearance Clear Urine pH 6.0 Ur Specific [place] >= 1.030 H Urine Protein Negative Urine Glucose (UA) Negative Urine Ketones 15 Urine Blood Negative Urine Nitrite Negative Ur Leukocyte Esterase Negative Stool Occult Blood POSITIVE Imaging Radiologist's Impressions: Impressions Abdomen/Pelvis CT 03/15/23 00:11 IMPRESSION: Thickening of the duodenal bulb and descending duodenum with mucosal irregularity/ulceration consistent with duodenitis/peptic ulcer disease. Diverticula of the ascending and descending colon as well as terminal small bowel without evidence for acute diverticulitis. The appendix is dilated measuring up to 1 cm but without surrounding infiltration. Correlation for this finding is needed. Fleischner guidelines were followed. Assessment and Plan (1) Acute GI bleeding: Status: Acute Plan This is a 77-year-old male with pertinent history of essential hypertension, mixed hyperlipidemia, BPH, gastroesophageal reflux disease who presents to the emergency department for evaluation of abdominal pain and black stools. #. Acute GI bleed: Imaging concerning for duodenitis/peptic ulcer disease. Will admit patient with cardiac monitoring and continue IV crystalloid resuscitation. Initiated IV Protonix. Will keep patient NPO and consult Gastroenterology, appreciate assistance. Stool occult positive in the ER #. Reactive leukocytosis in the setting of above #. Hypokalemia due to GI losses: Repleted #. Essential hypertension: Hold antihypertensives in the setting of acute GI bleed #. Mixed hyperlipidemia: On statin #. BPH: On finasteride Med rec pending DVT prophylaxis: Mechanical Admit as inpatient and will require two night minimum hospital stay for close monitoring of hemodynamics in the patient with acute GI bleed (as above), which is not possible in a lesser acute setting. Specialist consult pending, may need inpatient procedure Quality Stroke Does the patient have a stroke diagnosis?: No VTE Prior VTE?: No VTE Risk Level:: Medical - moderate - high VTE Device Contraindication: N/A - Device Ordered VTE Drug Contraindication: Treatment Not Indicated
[2023-03-15] MEDS: Lactated Ringers 1,000 ML 80 ML IVCONT ×2 (02:25→17:03)
[2023-03-15] MEDS: Potassium Chloride/H20 10 MEQ/100 ML PIGGYBACK 100 MEQ IV ×4 (02:25→06:10)
--- NOTE | 2023-03-15 02:59 | PC.NURSE ---
late entry- pt placed on crimper assembler. pt medicated according to jul pt calm and cooperative. lights dimmed to promote rest
--- NOTE | 2023-03-15 05:35 | PC.NURSE ---
nicky rec performed utilizing medical record
[2023-03-15 06:20] LABS: Hematocrit 29.7 % (42.0-52.0); Hemoglobin 10.1 g/dl (14.0-18.0); Mean Corpuscular Hemoglobin 32.3 pg (27.0-33.0); Mean Corpuscular Volume 94.9 fL (80.0-98.0); Mean Platelet Volume 9.3 fL (9.4-12.4); Platelet Count 239 X10*3/uL (160-400); Red Blood Count 3.13 X10*6/uL (4.60-5.80); Red Cell Distribution Width 12.7 % (11.0-16.0); White Blood Count 12.5 X10*3/uL (4.8-10.8)
[2023-03-15 06:44] LABS: Anion Gap 14 (12-20); Blood Urea Nitrogen 21 mg/dL (9-16); Calcium 8.2 mg/dL (8.4-10.2); Carbon Dioxide 29 mmol/L (22-29); Chloride 100 mmol/L (96-108); Creatinine Clr Calc Pharmacy 84.1; Estimated Glomerular Filt Rate > 60; Glucose Random 87 mg/dL (60-115); Potassium 2.7 mmol/L (3.3-5.1); Sodium 140 mmol/L (135-145)
--- NOTE | 2023-03-15 07:19 | P.CNGI_ITS ---
History of Present Illness Data of Consult Service Date: 03/15/23 Requesting physician: Tonia Zafar Primary Care Provider: Cheryl Richardson MD [facility] Reason for consult: GI bleeding 77 YM with essential hypertension, mixed hyperlipidemia, BPH, gastroesophageal reflux disease, a past hx of ETOH abuse, gastritis , diverticulitis seen at [facility] on 03/14/23 with 4 day hx of diffuse abdominal pain and black stools. Patient stated he 1st noticed black stools 4 days prior to presentation. Patient denied similar history in the past. He admits to taking aspirin and denies any qgfk-wgo-efkspkt pain medications. Patient denies any recent use of Pepto-Bismol or iron. Patient denies any fever chills, chest discomfort, palpitations, shortness of breath, changes in urinary habits. Patient denies any recent NSAID use. In the emergency department, stool occult blood noted to be positive and hemoglobin found to be lower than baseline 03/14/[address] SCAN SHOWED: Thickening of the duodenal bulb and descending duodenum with mucosal irregularity/ulceration consistent with duodenitis/peptic ulcer disease. Diverticula of the ascending and descending colon as well as terminal small bowel without evidence for acute diverticulitis. The appendix is dilated measuring up to 1 cm but without surrounding infiltration. Correlation for this finding is needed. Review of Systems 2 Constitutional: Constitutional: Reports no additional constitutional complaints Cardiovascular: Cardiovascular: Reports no additional cardiovascular complaints Respiratory: Respiratory: Reports no additional respiratory complaints Gastrointestinal: Gastrointestinal: Reports abdominal pain and Reports melena Genitourinary: Genitourinary: Reports no additional male genitourinary complaints [facility] Past Medical History Medical History Elevated cholesterol HTN (hypertension) GERD (gastroesophageal reflux disease) Restrictive airway disease Prostate cancer Family History Family History Father Throat cancer Mother Diabetes Kidney disease Surgical History Surgical History Hx of excision of mass (06/25/23) History of open reduction and internal fixation (ORIF) procedure History of esophagogastroduodenoscopy (EGD) Hx of colonoscopy History of cardiac cath Social History Social History Household Members: Children Housing: Apartment Do you presently have visiting nurse or other home services: No Alcohol intake: current Alcohol intake frequency: a few times a month Patient Tobacco Use Status: Never used Tobacco service: No Meds Allergies Allergy/AdvReac Type Severity Reaction Status Date / Time fish derived [FISH] Allergy Intermediate rash/hives Verified 07/02/23 11:20 No Known Drug Allergies Allergy none Verified 09/16/23 11:51 Active Medications: Current Medications Acetaminophen (Acetaminophen 325 Mg Tablet) 650 mg PO Q6H PRN PRN Reason: Pain, Mild (Pain Scale 1-3) Acetaminophen (Acetaminophen Supp 650 Mg Supp.Rect) 650 mg [place] Q6H PRN PRN Reason: Pain, Mild (Pain Scale 1-3) Lactated Ringer's (Lr) 1,000 mls @ 80 mls/hr IVCONT .[id number] [facility] Last Admin: 03/15/23 02:25 Dose: 80 mls/hr Melatonin (Melatonin 3 Mg Tablet) 6 mg PO BEDTIME PRN PRN Reason: Insomnia Ondansetron HCl (Ondansetron Hcl 4 Mg/2 Ml Vial) 4 mg IVPUSH Q8H PRN PRN Reason: Nausea and Vomiting Pantoprazole Sodium (Pantoprazole Sodium 40 Mg/10 Ml Vial) 40 mg IVPUSH BID@0630,1630 [facility] Last Admin: 03/15/23 06:46 Dose: 40 mg Sodium Chloride (0.9 % Sodium Chloride Flush 3 Ml Syringe) 3 ml IVFLUSH QSHIFT [facility] Home Medications ?Medication ?Instructions ?Recorded ?Confirmed ?Last Taken ?Type atorvastatin 40 mg tablet 40 mg PO BEDTIME 04/06/21 07/18/23 Unknown History cholecalciferol (vitamin D3) 50 100 mcg PO QAM 02/22/22 07/18/23 Unknown History mcg (2,000 unit) tablet melatonin 5 mg tablet 10 mg PO BEDTIME PRN Sleep 03/27/23 07/18/23 Unknown History amlodipine 5 mg tablet 5 mg PO DAILY 05/29/23 07/18/23 Unknown History hydrochlorothiazide 25 mg tablet 25 mg PO DAILY 05/29/23 07/18/23 Unknown History Physical Exam 2 Vital Signs: Vital Signs: Last Vital Signs Temp 98.2 F 03/15/23 06:15 Pulse 78 03/15/23 06:42 Resp 17 03/15/23 06:42 BP 100/56 L 03/15/23 06:42 Pulse Ox 100 03/15/23 06:42 O2 Del Method Room Air 03/15/23 06:42 BMI result Body Mass Index 28.2 Const: General: healthy appearing and no acute distress Nutritional Appearance: overweight Orientation/consciousness: patient oriented x3 L imitations: language barrier HEENT: Head: Yes normal to inspection Ears: hearing grossly normal bilaterally Mouth: Normal oral and palatal mucosa present Teeth and gingiva: other (poor dentition with missing teeth) Eyes: Sclerae: sclerae normal Pupils: Equal, round and reactive pupils present Neck: Neck: Yes normal visual inspection Chest: Chest palpation & inspection: normal inspection of the chest Resp: Effort & Inspection: normal respiratory effort Auscultation: clear to auscultation bilaterally Cardio: Palpation: normal PMI Rate: regular rate Rhythm: regular rhythm Heart sounds: S1 normal heart sound present, S2 normal heart sound present and no murmurs GI: Palpation (GI): Soft to palpation, Tenderness to palpation present (GI) (mild epigastric tenderness without rebound) and No hepatosplenomegaly present Auscultation: normal bowel sounds Rectal Exam - Male: Yes deferred Skin: General skin exam: no rashes or lesions noted Neuro: General: patient oriented x3, gait normal and moves all extremities Cranial nerves: Yes Equal, round and reactive pupils present Psych: Appearance: grossly normal Mental Status: mental status grossly normal Results Labs 03/18/23 06:37 03/15/23 09:30 Labs: Short CBC 03/14/23 03/15/23 Range/Units 15:52 05:52 WBC 14.5 H 12.5 H (4.8-10.8) X10*3/uL Hgb 11.9 L 10.1 L (14.0-18.0) g/dl Hct 34.3 L D 29.7 L (42.0-52.0) % Plt Count 310 239 (160-400) X10*3/uL BMP 03/14/23 03/15/23 15:52 05:52 Sodium 140 140 Potassium 3.0 L 2.7 L Chloride 94 L 100 Carbon Dioxide 33 H 29 BUN 30 H 21 H Creatinine 0.80 0.74 Calcium 9.3 8.2 L D Liver Function 03/14/23 Range/Units 15:52 Total Bilirubin 0.4 (0.0-1.0) mg/dL AST 22 (5-37) U/L ALT 10 (0-40) U/L Alkaline Phosphatase 108 (39-117) U/L Albumin 3.7 (3.5-5.0) g/dL Urine 03/14/23 Range/Units 20:49 Urine Color Yellow Urine Appearance Clear Urine pH 6.0 (5.0-9.0) Ur Specific [place] >= 1.030 H (1.005-1.025) Urine Protein Negative (Neg-Trace) mg/dL Urine Glucose (UA) Negative (Negative) mg/dL Assessment and Plan (1) Acute GI bleeding: Status: Resolved Plan 77 YM with essential hypertension, mixed hyperlipidemia, BPH, gastroesophageal reflux disease, a past hx of ETOH abuse, gastritis , diverticulitis admitted to [facility] on 03/14/23 with 4 day hx of diffuse abdominal pain and black stools. He admits to taking aspirin and denies any kame-vsn-yxepcez pain medications. Abd CT scan showed thickening of the duodenal bulb and descending duodenum with mucosal irregularity/ulceration consistent with duodenitis/peptic ulcer disease Abd pain and black stools ate likely from a duodenal ulcer as suspected on CT scan RECOMMENDATIONS: 1. Agree with IVF and IV PPI 2. Pt scheduled for an EGD today. Procedure and potential complications including bleeding, perforation, reaction to anesthetic and aspiration were reviewed with the patient with the help of Nepalese american sign language teacher. Procedures Date of Service Date of Service: 11/09/23
--- NOTE | 2023-03-15 07:20 | PC.NURSE ---
AM potassium level returned as 2.7. original potassium level of 3.0. pt has received 4 bags of 10meq iv potassium. per tank charger recommendations redraw potassium order placed by this rn. this rn made tank charger, dr teran, and clinical coordinator aware pt cardiac rhythm NS with no abnormalities noted
--- NOTE | 2023-03-15 08:08 | PHA.MEDREC ---
Pharmacy Consult ? Medication Reconciliation Pharmacy has completed the medication reconciliation. Pharmacy reviewed med reconciliation done by nursing staff.
--- NOTE | 2023-03-15 08:45 | PC.NURSE ---
pt's granddaughter Gareth called for an up date on the pt this rn asked the pt for permission to speak with her and he said yes according to the granddaughter is that the pt is a chronic alcoholic for many years and that he does not like to disclose this information with the doctors, dr fu aware of this finding
[2023-03-15] MEDS: Cholecalciferol (Vitamin D3) 25 MCG TABLET 100 MCG PO (09:26)
[2023-03-15] MEDS: Omeprazole 20 MG CAPSULE.DR PO (09:26)
[2023-03-15] MEDS: hydroCHLOROthiazide 25 MG TABLET PO (09:26)
[2023-03-15] MEDS: Finasteride 5 MG TABLET PO (09:26)
[2023-03-15 10:11] LABS: Potassium 3.5 mmol/L (3.3-5.1)
[2023-03-15] MEDS: Fluticasone Propionate Nasal 16 GM SPRAY 1 SPRAY NOSTRIL-B (10:34)
--- NOTE | 2023-03-15 11:48 | PC.NURSE ---
report given to short stay surgery
--- NOTE | 2023-03-15 12:09 | PM.EVENT ---
Event Note Date of Service: 03/15/23 Event Note: patient seen and examined. He was admitted this morning with gib, no acibe bleed, h/h ok, discuss with Dr. Espinosa with is planning endoscopy later today. Daughter raised concern of alcohol use, not withdrawing at this moment, will add CIWA Time Spent With Patient Time: Total time managing care of this patient today ____ minutes.
--- NOTE | 2023-03-15 12:29 | PC.NURSE ---
pt went to surgery
--- NOTE | 2023-03-15 13:15 | HO.ANESPROP2 ---
[facility] Active Problems Active Problems: All Active Problems (Updated 03/15/23 @ 01:49 by Tonia Zafar MD) Acute GI bleeding (Acute) Proteinuria (Acute) FREY (dyspnea on exertion) (Acute) Restrictive airway disease (Acute) Prostate cancer (Acute) Past Medical History Medical History Elevated cholesterol HTN (hypertension) GERD (gastroesophageal reflux disease) Restrictive airway disease Prostate cancer Family History Family History Father Throat cancer Mother Diabetes Kidney disease Family history of problems with anesthesia: No Surgical History Surgical History History of open reduction and internal fixation (ORIF) procedure History of esophagogastroduodenoscopy (EGD) Hx of colonoscopy History of cardiac cath History of Problems with Anesthesia: No Social History Social History Alcohol intake: current Alcohol intake frequency: a few times a week Patient Tobacco Use Status: Never used Tobacco Smoked in Last 30 Days: Yes Use of substances other than those prescribed or required for medical reasons: No Advance Directives: No Advance Directives Information Provided: No Meds Allergies Allergy/AdvReac Type Severity Reaction Status Date / Time fish derived [FISH] Allergy Intermediate rash/hives Verified 03/14/23 15:34 Active Medications: Current Medications Acetaminophen (Acetaminophen 325 Mg Tablet) 650 mg PO Q6H PRN PRN Reason: Pain, Mild (Pain Scale 1-3) Acetaminophen (Acetaminophen Supp 650 Mg Supp.Rect) 650 mg [place] Q6H PRN PRN Reason: Pain, Mild (Pain Scale 1-3) Atorvastatin Calcium (Atorvastatin Calcium 40 Mg Tablet) 40 mg PO BEDTIME ADOLFO Finasteride (Finasteride 5 Mg Tablet) 5 mg PO DAILY [facility] Last Admin: 03/15/23 09:26 Dose: 5 mg Fluticasone Propionate (Fluticasone Propionate Nasal 16 Gm Waucoma) 1 spray NOSTRIL-B DAILY ADOLFO Last Admin: 03/15/23 10:34 Dose: 1 spray Hydrochlorothiazide (Hydrochlorothiazide 25 Mg Tablet) 25 mg PO DAILY ADOLFO; Protocol Last Admin: 03/15/23 09:26 Dose: 25 mg Lactated Ringer's (Lr) 1,000 mls @ 80 mls/hr IVCONT .[id number] [facility] Last Admin: 03/15/23 02:25 Dose: 80 mls/hr Melatonin (Melatonin 3 Mg Tablet) 6 mg PO BEDTIME PRN PRN Reason: Insomnia Omeprazole (Omeprazole 20 Mg Capsule.Dr) 20 mg PO DAILY [facility] Last Admin: 03/15/23 09:26 Dose: 20 mg Ondansetron HCl (Ondansetron Hcl 4 Mg/2 Ml Vial) 4 mg IVPUSH Q8H PRN PRN Reason: Nausea and Vomiting Pantoprazole Sodium (Pantoprazole Sodium 40 Mg/10 Ml Vial) 40 mg IVPUSH BID@0630,1630 [facility] Last Admin: 03/15/23 06:46 Dose: 40 mg Sodium Chloride (0.9 % Sodium Chloride Flush 3 Ml Syringe) 3 ml IVFLUSH QSHIFT [facility] Last Admin: 03/15/23 08:55 Dose: Not Given Vitamin D (Cholecalciferol (Vitamin D3) 25 Mcg Tablet) 100 mcg PO DAILY [facility] Last Admin: 03/15/23 09:30 Dose: Not Given Home Medications Medication Instructions Recorded Confirmed Last Taken Type amlodipine 5 mg tablet 5 mg PO DAILY 04/06/21 03/15/23 Unknown History aspirin 81 mg tablet,delayed 81 mg PO DAILY 04/06/21 03/15/2322 History release atorvastatin 40 mg tablet 40 mg PO BEDTIME 04/06/21 03/15/23 Unknown History fluticasone propionate 50 1 spray intranasal DAILY 04/06/21 03/15/23 Unknown History mcg/actuation nasal spray,suspension hydrochlorothiazide 25 mg tablet 25 mg PO DAILY 04/06/21 03/15/23 Unknown History cholecalciferol (vitamin D3) 50 100 mcg PO QAM 02/22/22 03/15/23 Unknown History mcg (2,000 unit) tablet Exam Exam Date and Time: March 15, 2023 1315 Height,Weight and Vital Signs: Height 5 ft 6 in Weight 79.379 kg Last Vital Signs Temp 98.2 F 03/15/23 06:15 Pulse 69 03/15/23 09:24 Resp 20 03/15/23 09:24 BP 107/49 L 03/15/23 09:24 Pulse Ox 94 03/15/23 09:24 O2 Del Method Room Air 03/15/23 09:24 Pertinent Lab Results Pertinent Lab Results: Laboratory Tests 03/14/23 03/14/23 03/14/23 15:52 20:49 23:40 WBC 14.5 H RBC 3.75 L Hgb 11.9 L Hct 34.3 L D MCV 91.5 MCH 31.7 MCHC 34.7 RDW 12.5 Plt Count 310 MPV 9.1 L Immature Gran % (Auto) 0.3 Neut % (Auto) 83.2 H Lymph % (Auto) 12.6 L [place] % (Auto) 3.5 Eos % (Auto) 0.1 Baso % (Auto) 0.3 Lymph # (Auto) 1.8 [place] # (Auto) 0.5 Eos # (Auto) 0.0 Baso # (Auto) 0.0 Abs Immat Gran (auto) 0.05 H Absolute Neuts (auto) 12.1 H Absolute Nucleated RBC 0.000 Nucleated RBC % (auto) 0.0 PT 12.4 INR 1.0 APTT 25.4 L Sodium 140 Potassium 3.0 L Chloride 94 L Carbon Dioxide 33 H Anion Gap 16 BUN 30 H Creatinine 0.80 Estim Creat Clear Calc 77.8 Estimated GFR > 60 Random Glucose 134 H Calcium 9.3 Total Bilirubin 0.4 AST 22 ALT 10 Alkaline Phosphatase 108 Total Protein 6.8 Albumin 3.7 Urine Color Yellow Urine Appearance Clear Urine pH 6.0 Ur Specific [place] >= 1.030 H Urine Protein Negative Urine Glucose (UA) Negative Urine Ketones 15 Urine Blood Negative Urine Nitrite Negative Ur Leukocyte Esterase Negative Stool Occult Blood POSITIVE Blood Type Antibody Screen 03/15/23 03/15/23 03/15/23 01:10 05:52 09:30 WBC 12.5 H RBC 3.13 L Hgb 10.1 L Hct 29.7 L MCV 94.9 MCH 32.3 MCHC 34.0 RDW 12.7 Plt Count 239 MPV 9.3 L Immature Gran % (Auto) Neut % (Auto) Lymph % (Auto) [place] % (Auto) Eos % (Auto) Baso % (Auto) Lymph # (Auto) [place] # (Auto) Eos # (Auto) Baso # (Auto) Abs Immat Gran (auto) Absolute Neuts (auto) Absolute Nucleated RBC 0.000 Nucleated RBC % (auto) 0.0 PT INR APTT Sodium 140 Potassium 2.7 L 3.5 D Chloride 100 Carbon Dioxide 29 Anion Gap 14 BUN 21 H Creatinine 0.74 Estim Creat Clear Calc 84.1 Estimated GFR > 60 Random Glucose 87 Calcium 8.2 L D Total Bilirubin AST ALT Alkaline Phosphatase Total Protein Albumin Urine Color Urine Appearance Urine pH Ur Specific [place] Urine Protein Urine Glucose (UA) Urine Ketones Urine Blood Urine Nitrite Ur Leukocyte Esterase Stool Occult Blood Blood Type O Positive Antibody Screen NEGATIVE Airway Mallampati Class: II TM Dist: >3cm Neck ROM: Full Denture: Upper Partial: Lower Heart: rrr Lungs: cta Assessment and Plan Assessment Anesthesia Assessment: Anesthesia Plan Discussed and Chart Reviewed Final Anesthetic Review Family History of Problems with Anesthesia: No History of Problems with Anesthesia: No NPO: Yes ASA Class: III Final Preanesthetic Review: No Changes in Pt Med Stat, Meds/Allgs Chart Reviewed and Consent Obtained/Reviewed Patient Risk: Intermediate Procedure Risk: Intermediate Anesthetic Plan Anesthetic Plan: MAC: Disposition: Standard PACU
--- NOTE | 2023-03-15 15:05 | PC.NURSE ---
report given to [facility] rn
--- NOTE | 2023-03-15 15:17 | W.PM.OPN ---
Operative Note Operative Note Date of Service: 03/15/23 Narrative: FLEXIBLE TRANSORAL UPPER GASTROINTESTINAL ENDOSCOPY WITH BIOPSIES AND CONTROL OF BLEEDING WITH HEATER PROBE AND EPINEPHRINE INJECTION Pre-op diagnosis: Upper GI bleeding Post-op diagnosis: Multiple duodenal ulcers, gastritis with gastric erosions Endoscopist:? Bree Espinosa MD Anesthesia:?MAC Consent: Indications for the procedure and potential complications of bleeding, perforation, reaction to medications and missed diagnosis were discussed with the patient and informed consent was obtained. Instrument: Olympus GIF H 190 mid size upper endoscope Monitoring: Vital signs and clinical assessment, continuous EKG monitoring, Pulse oximetry, Carbon Dioxide monitoring and blood pressure monitoring were done throughout the procedure. Procedure: The patient was placed in the left lateral decubitis position and pre-procedure medications were administered and a bite block was placed. The endoscope was inserted into the mouth and advanced under direct vision to the third part of duodenum. A careful inspection was made as the upper endoscope was withdrawn including a retroflexed examination of the proximal stomach; Findings and interventions are described below. Findings: Larynx: Normal Esophagus: GE junction at 36 cms. No esophagitis or Wood's. Stomach: Presence of fresh blood noted in the distal stomach regurgitating from the pylorus. Gastric antral erythema with multiple chronic appearing antral erosions without bleeding. Antral biopsies were obtained to check for Helicobacter pylori. Grade 2 flap valve on retroflexed examination of the cardia. Duodenum: Edematous folds in the apex of the bulb and proximal descending duodenum with luminal narrowing. A 1.5 to 2 cms clean based nonbleeding ulcer in the apex of the bulb. A 2nd 2 x 2.5 cms deep ulcer in the proximal descending duodenum with slow oozing of blood from a visible vessel near the inferior margin of the ulcer. Ulcer bed was cauterized with a God probe and 3 cc of epinephrine was injected with cessation of bleeding Intervention: Biopsies as noted above Impression and Post Procedure Diagnosis: Endoscopy Findings: STOMACH: Gastritis with gastric erosions DUODENUM: Edematous folds in the apex of the bulb and proximal descending duodenum with luminal narrowing. A 1.5 to 2 cms clean based nonbleeding ulcer in the apex of the bulb. A 2nd 2 x 2.5 cms deep ulcer in the proximal descending duodenum with slow oozing of blood from a visible vessel near the inferior margin of the ulcer. Ulcer bed was cauterized with a God probe and 3 cc of epinephrine was injected with cessation of bleeding Plan: Start pt on a PPI infusion x 72 hours. Check CBC stat now and monitor CBC twice daily. OK to start a clear liquid diet tonight and advance to regular diet in the am if no further bleeding If evidence of rebleeding, he would need a repeat EGD (Dr Hernandez is forest economics professor for GI this weekend) Above findings were reviewed with the patient BIOPSIES SHOWED: Stomach, biopsy: Oxyntic mucosa within normal limits; no Helicobacter organisms seen.
[2023-03-15 15:49] LABS: Hematocrit 26.4 % (42.0-52.0); Hemoglobin 9.1 g/dl (14.0-18.0); Mean Corpuscular HGB Conc 34.5 g/dl (31.0-36.0); Mean Corpuscular Hemoglobin 32.2 pg (27.0-33.0); Mean Corpuscular Volume 93.3 fL (80.0-98.0); Platelet Count 218 X10*3/uL (160-400); Red Blood Count 2.83 X10*6/uL (4.60-5.80); Red Cell Distribution Width 12.7 % (11.0-16.0)
[2023-03-15] MEDS: Pantoprazole Sodium 80 MG in 0.9 % Sodium Chloride 80 ML 10 MG IV ×2 (17:03→23:13)
[2023-03-15] MEDS: 0.9 % Sodium Chloride Flush 3 ML SYRINGE IVFLUSH (17:10)
[2023-03-16] VITALS (9 sets, daily range): BP systolic 103–128; BP diastolic 49–60; PULSE 61–81; RESP 16–20; TEMP 36.1–36.6; O2SAT 94–98
[2023-03-16] MEDS: Melatonin 3 MG TABLET 6 MG PO (01:02)
[2023-03-16] MEDS: Pantoprazole Sodium 80 MG in 0.9 % Sodium Chloride 80 ML 10 MG IV ×3 (01:52→19:40)
[2023-03-16] MEDS: Lactated Ringers 1,000 ML 80 ML IVCONT ×2 (06:16→18:03)
[2023-03-16 07:40] LABS: Hematocrit 26.9 % (42.0-52.0); Hemoglobin 9.2 g/dl (14.0-18.0); Mean Corpuscular HGB Conc 34.2 g/dl (31.0-36.0); Mean Corpuscular Hemoglobin 31.6 pg (27.0-33.0); Mean Corpuscular Volume 92.4 fL (80.0-98.0); Mean Platelet Volume 9.3 fL (9.4-12.4); Platelet Count 245 X10*3/uL (160-400); Red Blood Count 2.91 X10*6/uL (4.60-5.80); Red Cell Distribution Width 12.4 % (11.0-16.0); White Blood Count 8.3 X10*3/uL (4.8-10.8)
[2023-03-16] MEDS: Fluticasone Propionate Nasal 16 GM SPRAY 1 SPRAY NOSTRIL-B (08:43)
[2023-03-16] MEDS: Finasteride 5 MG TABLET PO (08:45)
[2023-03-16] MEDS: hydroCHLOROthiazide 25 MG TABLET PO (08:45)
[2023-03-16] MEDS: Cholecalciferol (Vitamin D3) 25 MCG TABLET 100 MCG PO (08:45)
[2023-03-16] MEDS: 0.9 % Sodium Chloride Flush 3 ML SYRINGE IVFLUSH ×2 (08:45→13:47)
--- NOTE | 2023-03-16 10:07 | P.PNIM_ITS ---
Subjective Subjective Date of Service: 03/16/23 Interval History: s/ p EGD yesterday and found to have Duodnal ulcer, no active bleed, H/H unchanged on IV protonix Physical Exam 2 Vital Signs: Vital Signs: Last Vital Signs Temp 97.0 F 03/16/23 08:00 Pulse 64 03/16/23 08:00 Resp 19 03/16/23 08:00 BP 118/56 L 03/16/23 08:35 Pulse Ox 95 03/16/23 08:00 O2 Del Method Room Air 03/16/23 08:00 BMI result Body Mass Index 28.2 Objective Data Active Medications Acetaminophen (Acetaminophen 325 Mg Tablet) 650 mg PO Q6H PRN PRN Reason: Pain, Mild (Pain Scale 1-3) Acetaminophen (Acetaminophen Supp 650 Mg Supp.Rect) 650 mg [place] Q6H PRN PRN Reason: Pain, Mild (Pain Scale 1-3) Atorvastatin Calcium (Atorvastatin Calcium 40 Mg Tablet) 40 mg PO BEDTIME [facility] Last Admin: 03/15/23 20:23 Dose: Not Given Documented By: NAEL Non-Admin Reason: NPO Finasteride (Finasteride 5 Mg Tablet) 5 mg PO DAILY [facility] Last Admin: 03/16/23 08:45 Dose: 5 mg Documented By: CATRINA Fluticasone Propionate (Fluticasone Propionate Nasal 16 Gm [place]) 1 spray NOSTRIL-B DAILY [facility] Last Admin: 03/16/23 08:43 Dose: 1 spray Documented By: CATRINA Hydrochlorothiazide (Hydrochlorothiazide 25 Mg Tablet) 25 mg PO DAILY [facility]; Protocol Last Admin: 03/16/23 08:45 Dose: 25 mg Documented By: CATRINA Lactated Ringer's (Lr) 1,000 mls @ 80 mls/hr IVCONT .[id number] [facility] Last Admin: 03/16/23 06:16 Dose: 80 mls/hr Documented By: NAEL Pantoprazole Sodium 80 mg/ (Sodium Chloride) 100 mls @ 10 mls/hr IV .Q10H [facility] Last Infusion: 03/16/23 09:35 Dose: Infused Documented By: CATRINA Melatonin (Melatonin 3 Mg Tablet) 6 mg PO BEDTIME PRN PRN Reason: Insomnia Last Admin: 03/16/23 01:02 Dose: 6 mg Documented By: NAEL Ondansetron HCl (Ondansetron Hcl 4 Mg/2 Ml Vial) 4 mg IVPUSH Q8H PRN PRN Reason: Nausea and Vomiting Sodium Chloride (0.9 % Sodium Chloride Flush 3 Ml Syringe) 3 ml IVFLUSH QSHIFT [facility] Last Admin: 03/16/23 08:45 Dose: 3 ml Documented By: CATRINA Vitamin D (Cholecalciferol (Vitamin D3) 25 Mcg Tablet) 100 mcg PO DAILY [facility] Last Admin: 03/16/23 08:45 Dose: 100 mcg Documented By: CATRINA Labs 03/16/23 06:43 03/15/23 09:30 Labs: Laboratory Results - last 24 hr 03/15/23 03/16/23 15:37 06:43 MCV 93.3 92.4 MCH 32.2 31.6 MCHC 34.5 34.2 RDW 12.7 12.4 Plt Count 218 245 MPV 9.0 L 9.3 L Absolute Nucleated RBC 0.000 0.000 Nucleated RBC % (auto) 0.0 0.0 Assessment and Plan (1) Acute GI bleeding: Status: Acute (2) Duodenal ulcer: Status: Acute Plan This is a 77-year-old male with pertinent history of essential hypertension, alcohol use disorder, mixed hyperlipidemia, BPH, gastroesophageal reflux disease who presents to the emergency department for evaluation of abdominal pain and black stools. #Acute GI bleed #Acute blood loss anemia -d/t Duodnal ulcer see on EGD 03/[address] on 03/14 -GI recommend IV PPI x 72 hrs, ending saturday -h/h unchanged -advance diet -Bid CBC # Reactive leukocytosis, resolved # Hypokalemia due to GI losses: Repleted and resolved # Essential hypertension: BP on low normal side # Mixed hyperlipidemia: On statin # BPH: On finasteride # history of alcohol use per family, no sings of withdrawal, folic acid, thiamin and ciwa DVT prophylaxis: Mechanical Admit as inpatient and will require two night minimum hospital stay for close monitoring of hemodynamics in the patient with acute GI bleed (as above), which is not possible in a lesser acute setting. Specialist consult pending, may need inpatient procedure Quality Stroke Does the patient have a stroke diagnosis?: No VTE Prior VTE?: No VTE Risk Level:: Medical - moderate - high VTE Device Contraindication: N/A - Device Ordered VTE Drug Contraindication: Treatment Not Indicated
[2023-03-16] MEDS: Acetaminophen 325 MG TABLET 650 MG PO (11:23)
[2023-03-16] MEDS: Folic Acid 1 MG TABLET PO (11:27)
[2023-03-16] MEDS: Thiamine HCL 100 MG TABLET PO (11:27)
--- NOTE | 2023-03-16 12:52 | P.CONGS_ITS ---
History of Present Illness Consult details Consult date: 03/16/23 Reason for consult: abdominal pain Narrative: The patient is a 77-year-old gentleman recent GI bleed d/u DU requiring gold probe & epi injection, now with 8/10 abd pain. I was consulted emergently because of concerns regarding the perforation to the duodenal ulcer. In reviewing the EMR, the patient has had duodenal inflammation/ulcers since last summer. Patient notes that is his diet has been advanced he is having continued pain. At this time, he denies any chest pain, difficulty breathing or shortness of breath. No neurologic symptoms localizing to either side. Review of Systems 2 Review of Systems: Yes all other systems are reviewed and are negative Constitutional: Constitutional: Reports as per [facility] Past Medical History Medical History (Updated 03/16/23 @ 12:54 by Marcelino Allen MD, FACS, [employer]) Elevated cholesterol HTN (hypertension) GERD (gastroesophageal reflux disease) Restrictive airway disease Prostate cancer Family History Family History Father Throat cancer Mother Diabetes Kidney disease Surgical History Surgical History History of open reduction and internal fixation (ORIF) procedure History of esophagogastroduodenoscopy (EGD) Hx of colonoscopy History of cardiac cath Social History Social History Household Members: Children Housing: Apartment Do you presently have visiting nurse or other home services: No Alcohol intake: current Alcohol intake frequency: a few times a week Patient Tobacco Use Status: Never used Tobacco Meds Allergies Allergy/AdvReac Type Severity Reaction Status Date / Time fish derived [FISH] Allergy Intermediate rash/hives Verified 03/14/23 15:34 Active Medications: Current Medications Acetaminophen (Acetaminophen 325 Mg Tablet) 650 mg PO Q6H PRN PRN Reason: Pain, Mild (Pain Scale 1-3) Last Admin: 03/16/23 11:23 Dose: 650 mg Acetaminophen (Acetaminophen Supp 650 Mg Supp.Rect) 650 mg [place] Q6H PRN PRN Reason: Pain, Mild (Pain Scale 1-3) Atorvastatin Calcium (Atorvastatin Calcium 40 Mg Tablet) 40 mg PO BEDTIME [facility] Last Admin: 03/15/23 20:23 Dose: Not Given Finasteride (Finasteride 5 Mg Tablet) 5 mg PO DAILY [facility] Last Admin: 03/16/23 08:45 Dose: 5 mg Fluticasone Propionate (Fluticasone Propionate Nasal 16 Gm [place]) 1 spray NOSTRIL-B DAILY [facility] Last Admin: 03/16/23 08:43 Dose: 1 spray Folic Acid (Folic Acid 1 Mg Tablet) 1 mg PO DAILY [facility] Stop: 03/18/23 09:01 Last Admin: 03/16/23 11:27 Dose: 1 mg Hydrochlorothiazide (Hydrochlorothiazide 25 Mg Tablet) 25 mg PO DAILY [facility]; Protocol Last Admin: 03/16/23 08:45 Dose: 25 mg Lactated Ringer's (Lr) 1,000 mls @ 80 mls/hr IVCONT .[id number] [facility] Last Admin: 03/16/23 06:16 Dose: 80 mls/hr Pantoprazole Sodium 80 mg/ (Sodium Chloride) 100 mls @ 10 mls/hr IV .Q10H [facility] Last Admin: 03/16/23 09:35 Dose: 8 mg/hr, 10 mls/hr Melatonin (Melatonin 3 Mg Tablet) 6 mg PO BEDTIME PRN PRN Reason: Insomnia Last Admin: 03/16/23 01:02 Dose: 6 mg Morphine Sulfate (Morphine Sulfate 2 Mg/Ml Cartridge) 2 mg IVPUSH Q4H PRN; Protocol PRN Reason: Pain, Severe (Pain Scale 7-10) Ondansetron HCl (Ondansetron Hcl 4 Mg/2 Ml Vial) 4 mg IVPUSH Q8H PRN PRN Reason: Nausea and Vomiting Sodium Chloride (0.9 % Sodium Chloride Flush 3 Ml Syringe) 3 ml IVFLUSH QSHIFT [facility] Last Admin: 03/16/23 08:45 Dose: 3 ml Thiamine HCl (Thiamine Hcl 100 Mg Tablet) 100 mg PO DAILY [facility] Stop: 03/18/23 09:01 Last Admin: 03/16/23 11:27 Dose: 100 mg Vitamin D (Cholecalciferol (Vitamin D3) 25 Mcg Tablet) 100 mcg PO DAILY [facility] Last Admin: 03/16/23 08:45 Dose: 100 mcg Home Medications Medication Instructions Recorded Confirmed Last Taken Type amlodipine 5 mg tablet 5 mg PO DAILY 04/06/21 03/15/23 Unknown History aspirin 81 mg tablet,delayed 81 mg PO DAILY 04/06/21 03/15/23 12/27/21 History release atorvastatin 40 mg tablet 40 mg PO BEDTIME 04/06/21 03/15/23 Unknown History fluticasone propionate 50 1 spray intranasal DAILY 04/06/21 03/15/23 Unknown History mcg/actuation nasal spray,suspension hydrochlorothiazide 25 mg tablet 25 mg PO DAILY 04/06/21 03/15/23 Unknown History cholecalciferol (vitamin D3) 50 100 mcg PO QAM 02/22/22 03/15/23 Unknown History mcg (2,000 unit) tablet Physical Exam 2 Vital Signs: Vital Signs: Last Vital Signs Temp 97.2 F 03/16/23 11:40 Pulse 81 03/16/23 11:40 Resp 20 03/16/23 11:40 BP 128/60 03/16/23 11:40 Pulse Ox 98 03/16/23 11:40 O2 Del Method Room Air 03/16/23 11:40 BMI result Body Mass Index 28.2 The patient is non-toxic & in good spirits NC/AT, PERRLA, EOMI Mood, affect & judgment all appear appropriate Sclera anicteric conjunctiva pink and moist Oropharynx is clear with no aphthous ulcers, Mallampati class 4, mucous membranes moist Heart is regular, normal S1-S2 no rubs or murmurs Lungs are clear and equal anteriorly with no audible wheezing, rubs or dullness to percussion Abdomen is overweight with no demonstrable hernias. No HSM, rebound, rigidity, guarding, masses or bruits are present. He has upper abdominal discomfort but no distension nor peritoneal sign. Rectal exam is deferred Skin has good turgor and is free of rashes Extremities free of cyanosis clubbing edema Results Labs 03/16/23 06:43 03/15/23 09:30 Labs: Abnormal lab results 03/15/23 03/16/23 Range/Units 15:37 06:43 RBC 2.83 L 2.91 L (4.60-5.80) X10*6/uL Hgb 9.1 L 9.2 L (14.0-18.0) g/dl Hct 26.4 L 26.9 L (42.0-52.0) % MPV 9.0 L 9.3 L (9.4-12.4) fL Short CBC 03/15/23 03/16/23 Range/Units 15:37 06:43 WBC 10.0 8.3 (4.8-10.8) X10*3/uL Hgb 9.1 L 9.2 L (14.0-18.0) g/dl Hct 26.4 L 26.9 L (42.0-52.0) % Plt Count 218 245 (160-400) X10*3/uL Urine 03/14/23 Range/Units 20:49 Urine Color Yellow Urine Appearance Clear Urine pH 6.0 (5.0-9.0) Ur Specific [place] >= 1.030 H (1.005-1.025) Urine Protein Negative (Neg-Trace) mg/dL Urine Glucose (UA) Negative (Negative) mg/dL All other labs normal. Imaging Chest x-ray: pending Abdominal x-ray: image reviewed Additional studies: Abd flat plate timed 12:05pm not clear re: Free air concern STAT portable CXR 1352 shows no free air by my read Assessment and Plan (1) Duodenal ulcer: Status: Acute (2) Acute GI bleeding: Status: Acute (3) Restrictive airway disease: Status: Acute Plan There is no evidence of free perforation on my exam nor on chest x-ray and his duodenal bleed seems to have stabilized. Since the patient reports worsening of pain with oral intake, recommend NPO until he is pain-free and consider addition of Carafate or other intraluminal agents. Discussion with GI regarding other options regarding the patient's pain may be helpful. Please call if he clinically changes, other risks I will assess him again tomorrow. Procedures Date of Service Date of Service: 03/16/23
[2023-03-16] MEDS: Morphine Sulfate 2 MG/ML CARTRIDGE IVPUSH (13:46)
[2023-03-16 17:09] LABS: Hematocrit 22.5 % (42.0-52.0); Hemoglobin 7.7 g/dl (14.0-18.0); Mean Corpuscular HGB Conc 34.2 g/dl (31.0-36.0); Mean Corpuscular Hemoglobin 31.4 pg (27.0-33.0); Mean Corpuscular Volume 91.8 fL (80.0-98.0); Mean Platelet Volume 9.9 fL (9.4-12.4); Platelet Count 197 X10*3/uL (160-400); Red Blood Count 2.45 X10*6/uL (4.60-5.80); Red Cell Distribution Width 12.6 % (11.0-16.0); White Blood Count 9.7 X10*3/uL (4.8-10.8)
[2023-03-17] VITALS (13 sets, daily range): BP systolic 109–161; BP diastolic 50–65; PULSE 66–83; RESP 15–20; TEMP 36.1–36.8; O2SAT 94–99
[2023-03-17] MEDS: Melatonin 3 MG TABLET 6 MG PO ×2 (03:25→23:40)
[2023-03-17] MEDS: Pantoprazole Sodium 80 MG in 0.9 % Sodium Chloride 80 ML 10 MG IV ×2 (06:00→16:46)
[2023-03-17] MEDS: Lactated Ringers 1,000 ML 80 ML IVCONT (06:02)
[2023-03-17 08:07] LABS: Hematocrit 23.5 % (42.0-52.0); Mean Corpuscular Hemoglobin 31.3 pg (27.0-33.0); Mean Corpuscular Volume 91.8 fL (80.0-98.0); Mean Platelet Volume 9.2 fL (9.4-12.4); Platelet Count 249 X10*3/uL (160-400); Red Blood Count 2.56 X10*6/uL (4.60-5.80); Red Cell Distribution Width 12.7 % (11.0-16.0); White Blood Count 8.7 X10*3/uL (4.8-10.8)
[2023-03-17] MEDS: Cholecalciferol (Vitamin D3) 25 MCG TABLET 100 MCG PO (09:11)
[2023-03-17] MEDS: hydroCHLOROthiazide 25 MG TABLET PO (09:12)
[2023-03-17] MEDS: 0.9 % Sodium Chloride Flush 3 ML SYRINGE IVFLUSH ×2 (09:12→20:03)
[2023-03-17] MEDS: Thiamine HCL 100 MG TABLET PO (09:12)
[2023-03-17] MEDS: Finasteride 5 MG TABLET PO (09:12)
[2023-03-17] MEDS: Folic Acid 1 MG TABLET PO (09:12)
[2023-03-17] MEDS: Fluticasone Propionate Nasal 16 GM SPRAY 1 SPRAY NOSTRIL-B (09:17)
--- NOTE | 2023-03-17 11:21 | P.PNIM_ITS ---
Subjective Subjective Date of Service: 03/17/23 Interval History: had abdominal pain yesterday, xray showed no free air. Pain is now resolved, H/H is down and is being transfused 2 units of rbc Physical Exam 2 Vital Signs: Vital Signs: Last Vital Signs Temp 97.4 F 03/17/23 10:20 Pulse 67 03/17/23 10:20 Resp 16 03/17/23 10:20 BP 112/55 L 03/17/23 10:20 Pulse Ox 94 03/17/23 09:54 O2 Del Method Room Air 03/17/23 09:54 BMI result Body Mass Index 28.2 The patient is non-toxic & in good spirits NC/AT, PERRLA, EOMI Mood, affect & judgment all appear appropriate Sclera anicteric conjunctiva pink and moist Oropharynx is clear with no aphthous ulcers, Mallampati class 4, mucous membranes moist Heart is regular, normal S1-S2 no rubs or murmurs Lungs are clear and equal anteriorly with no audible wheezing, rubs or dullness to percussion Abdomen is overweight with no demonstrable hernias. No HSM, rebound, rigidity, guarding, masses or bruits are present. He has upper abdominal discomfort but no distension nor peritoneal sign. Rectal exam is deferred Skin has good turgor and is free of rashes Extremities free of cyanosis clubbing edema Objective Data Active Medications Acetaminophen (Acetaminophen 325 Mg Tablet) 650 mg PO Q6H PRN PRN Reason: Pain, Mild (Pain Scale 1-3) Last Admin: 03/16/23 11:23 Dose: 650 mg Documented By: CATRINA Acetaminophen (Acetaminophen Supp 650 Mg Supp.Rect) 650 mg [place] Q6H PRN PRN Reason: Pain, Mild (Pain Scale 1-3) Atorvastatin Calcium (Atorvastatin Calcium 40 Mg Tablet) 40 mg PO BEDTIME [facility] Last Admin: 03/16/23 19:57 Dose: Not Given Documented By: VELASQUEZ Non-Admin Reason: NPO Finasteride (Finasteride 5 Mg Tablet) 5 mg PO DAILY [facility] Last Admin: 03/17/23 09:12 Dose: 5 mg Documented By: CATRINA Fluticasone Propionate (Fluticasone Propionate Nasal 16 Gm [place]) 1 spray NOSTRIL-B DAILY [facility] Last Admin: 03/17/23 09:17 Dose: 1 spray Documented By: CATRINA Folic Acid (Folic Acid 1 Mg Tablet) 1 mg PO DAILY [facility] Stop: 03/18/23 09:01 Last Admin: 03/17/23 09:12 Dose: 1 mg Documented By: CATRINA Hydrochlorothiazide (Hydrochlorothiazide 25 Mg Tablet) 25 mg PO DAILY [facility]; Protocol Last Admin: 03/17/23 09:12 Dose: 25 mg Documented By: CATRINA Pantoprazole Sodium 80 mg/ (Sodium Chloride) 100 mls @ 10 mls/hr IV .Q10H [facility] Last Infusion: 03/17/23 11:06 Dose: 8 mg/hr, 10 mls/hr Documented By: CATRINA Melatonin (Melatonin 3 Mg Tablet) 6 mg PO BEDTIME PRN PRN Reason: Insomnia Last Admin: 03/17/23 03:25 Dose: 6 mg Documented By: ODRISM Morphine Sulfate (Morphine Sulfate 2 Mg/Ml Cartridge) 2 mg IVPUSH Q4H PRN; Protocol PRN Reason: Pain, Severe (Pain Scale 7-10) Last Admin: 03/16/23 13:46 Dose: 2 mg Documented By: CATRINA Ondansetron HCl (Ondansetron Hcl 4 Mg/2 Ml Vial) 4 mg IVPUSH Q8H PRN PRN Reason: Nausea and Vomiting Sodium Chloride (0.9 % Sodium Chloride Flush 3 Ml Syringe) 3 ml IVFLUSH QSHIFT [facility] Last Admin: 03/17/23 09:12 Dose: 3 ml Documented By: CATRINA Thiamine HCl (Thiamine Hcl 100 Mg Tablet) 100 mg PO DAILY [facility] Stop: 03/18/23 09:01 Last Admin: 03/17/23 09:12 Dose: 100 mg Documented By: CATRINA Vitamin D (Cholecalciferol (Vitamin D3) 25 Mcg Tablet) 100 mcg PO DAILY [facility] Last Admin: 03/17/23 09:11 Dose: 100 mcg Documented By: CATRINA Labs 03/17/23 07:48 03/15/23 09:30 Labs: Laboratory Results - last 24 hr 03/15/23 03/16/23 03/17/23 01:10 17:03 07:48 MCV 91.8 91.8 MCH 31.4 31.3 MCHC 34.2 34.0 RDW 12.6 12.7 Plt Count 197 249 D MPV 9.9 9.2 L Absolute Nucleated RBC 0.000 0.000 Nucleated RBC % (auto) 0.0 0.0 Blood Type O Positive Antibody Screen NEGATIVE Crossmatch See Detail Assessment and Plan (1) Acute GI bleeding: Status: Acute (2) Duodenal ulcer: Status: Acute Plan This is a 77-year-old male with pertinent history of essential hypertension, alcohol use disorder, mixed hyperlipidemia, BPH, gastroesophageal reflux disease who presents to the emergency department for evaluation of abdominal pain and black stools. #Acute GI bleed #Acute blood loss anemia, hgb 03/06 was 14 and 8 -d/t Duodnal ulcer see on EGD 03/[address] on 03/14 -GI recommend IV PPI x 72 hrs, ending saturday -H/H has dropped signficantly -Transfuse 2 units of RBC today -Clear liquid diet -Bid CBC until tomorrow #Abdominal pain yesterday--xray no free air, pain resolved. restart clear liquid diet # Reactive leukocytosis, resolved # Hypokalemia due to GI losses: Repleted and resolved # Essential hypertension: BP on low normal side, continue HCTZ # Mixed hyperlipidemia: On statin # BPH: On finasteride # history of alcohol use per family, no sings of withdrawal, folic acid, thiamin and ciwa, no sings of withdrawal DVT prophylaxis: Mechanical Admit as inpatient and will require two night minimum hospital stay for close monitoring of hemodynamics in the patient with acute GI bleed (as above), which is not possible in a lesser acute setting. Specialist consult pending, may need inpatient procedure Quality Stroke Does the patient have a stroke diagnosis?: No VTE Prior VTE?: No VTE Risk Level:: Medical - moderate - high VTE Device Contraindication: N/A - Device Ordered VTE Drug Contraindication: Treatment Not Indicated
--- NOTE | 2023-03-17 12:30 | MHC.CM.PN ---
Interview conducted w/daughter and grand-daughter; Pt lives w/both. No prior services, owns a walker but does not use, still drives, is fully independent. D/C plan is return home/daughter and grand-daughter via family. CM to follow.
--- NOTE | 2023-03-17 12:31 | PM.PNGS ---
Subjective Subjective Date of Service: 03/17/23 Patient reports: feels better Interval history: The patient is assessed in follow-up in notes that his abdominal pain has resolved overnight. He denies any new complaints such as weakness, headache, visual changes, chest pain, difficulty breathing or shortness of breath. He has asked whether not his clear liquids could be resumed. The seems reasonable. Physical Exam Vital Signs: Vital Signs: Last Vital Signs Temp 98.2 F 03/17/23 11:41 Pulse 66 03/17/23 11:41 Resp 18 03/17/23 11:41 BP 109/50 L 03/17/23 11:41 Pulse Ox 99 03/17/23 11:41 O2 Del Method Room Air 03/17/23 11:41 BMI result Body Mass Index 28.2 The patient is non-toxic & in good spirits NC/AT, PERRLA, EOMI Mood, affect & judgment all appear appropriate Sclera anicteric conjunctiva pink and moist Oropharynx is clear with no aphthous ulcers, Mallampati class 4, mucous membranes moist Abdomen is overweight with no demonstrable hernias. No HSM, rebound, rigidity, guarding, masses or bruits are present. He has upper abdominal discomfort has completely resolved & there's no distension nor peritoneal sign. Rectal exam is deferred Skin has good turgor and is free of rashes Extremities free of cyanosis clubbing edema Objective Data Active Medications Acetaminophen (Acetaminophen 325 Mg Tablet) 650 mg PO Q6H PRN PRN Reason: Pain, Mild (Pain Scale 1-3) Last Admin: 03/16/23 11:23 Dose: 650 mg Documented By: CATRINA Acetaminophen (Acetaminophen Supp 650 Mg Supp.Rect) 650 mg [place] Q6H PRN PRN Reason: Pain, Mild (Pain Scale 1-3) Atorvastatin Calcium (Atorvastatin Calcium 40 Mg Tablet) 40 mg PO BEDTIME [facility] Last Admin: 03/16/23 19:57 Dose: Not Given Documented By: VELASQUEZ Non-Admin Reason: NPO Finasteride (Finasteride 5 Mg Tablet) 5 mg PO DAILY [facility] Last Admin: 03/17/23 09:12 Dose: 5 mg Documented By: CATRINA Fluticasone Propionate (Fluticasone Propionate Nasal 16 Gm [place]) 1 spray NOSTRIL-B DAILY [facility] Last Admin: 03/17/23 09:17 Dose: 1 spray Documented By: CATRINA Folic Acid (Folic Acid 1 Mg Tablet) 1 mg PO DAILY [facility] Stop: 03/18/23 09:01 Last Admin: 03/17/23 09:12 Dose: 1 mg Documented By: CATRINA Hydrochlorothiazide (Hydrochlorothiazide 25 Mg Tablet) 25 mg PO DAILY [facility]; Protocol Last Admin: 03/17/23 09:12 Dose: 25 mg Documented By: CATIRNA Pantoprazole Sodium 80 mg/ (Sodium Chloride) 100 mls @ 10 mls/hr IV .Q10H [facility] Last Infusion: 03/17/23 11:06 Dose: 8 mg/hr, 10 mls/hr Documented By: CATRINA Melatonin (Melatonin 3 Mg Tablet) 6 mg PO BEDTIME PRN PRN Reason: Insomnia Last Admin: 03/17/23 03:25 Dose: 6 mg Documented By: ODRISM Morphine Sulfate (Morphine Sulfate 2 Mg/Ml Cartridge) 2 mg IVPUSH Q4H PRN; Protocol PRN Reason: Pain, Severe (Pain Scale 7-10) Last Admin: 03/16/23 13:46 Dose: 2 mg Documented By: CATRINA Ondansetron HCl (Ondansetron Hcl 4 Mg/2 Ml Vial) 4 mg IVPUSH Q8H PRN PRN Reason: Nausea and Vomiting Sodium Chloride (0.9 % Sodium Chloride Flush 3 Ml Syringe) 3 ml IVFLUSH QSHIFT [facility] Last Admin: 03/17/23 09:12 Dose: 3 ml Documented By: CATRINA Thiamine HCl (Thiamine Hcl 100 Mg Tablet) 100 mg PO DAILY ADOLFO Stop: 03/18/23 09:01 Last Admin: 03/17/23 09:12 Dose: 100 mg Documented By: CATRINA Vitamin D (Cholecalciferol (Vitamin D3) 25 Mcg Tablet) 100 mcg PO DAILY [facility] Last Admin: 03/17/23 09:11 Dose: 100 mcg Documented By: CATRINA Labs 03/17/23 07:48 03/15/23 09:30 Labs: Laboratory Results - last 24 hr 03/15/23 03/16/23 03/17/23 01:10 17:03 07:48 MCV 91.8 91.8 MCH 31.4 31.3 MCHC 34.2 34.0 RDW 12.6 12.7 Plt Count 197 249 D MPV 9.9 9.2 L Absolute Nucleated RBC 0.000 0.000 Nucleated RBC % (auto) 0.0 0.0 Blood Type O Positive Antibody Screen NEGATIVE Crossmatch See Detail Procedures Date of Service Date of Service: 03/17/23 Progress Note: A&P Assessment and plan (1) Duodenal ulcer: Status: Acute (2) HTN (hypertension): Status: Acute (3) Acute GI bleeding: Status: Acute Plan The patient has had marked improvement. Will resume clear liquids and recommend cessation if patient has return of pain. Time Spent With Patient Time: Total time managing care of this patient today ____ minutes. Quality Stroke Does the patient have a stroke diagnosis?: No VTE Prior VTE?: No VTE Risk Level:: Medical - moderate - high VTE Device Contraindication: N/A - Device Ordered VTE Drug Contraindication: Treatment Not Indicated
--- NOTE | 2023-03-17 17:08 | PC.NURSE ---
second unit of packed red blood cells currently transfusing. Transfusion began 15:39. Vitals were taken prior to and 15 minutes after starting transfusion. TAR did not reflect this and still showed unit as being issued rather than transfusing . blood bank was consulted, and RN has been instructed to fill out paper transfusion record at this time. patient displaying no signs of transfusion reactions and vital signs are stable.
[2023-03-17] MEDS: Atorvastatin Calcium 40 MG TABLET PO (20:03)
[2023-03-18] MEDS: Pantoprazole Sodium 80 MG in 0.9 % Sodium Chloride 80 ML 10 MG IV (02:10)
[2023-03-18 03:58] VITALS: BP 117/62; PULSE 69; RESP 16; TEMP 36.4; O2SAT 94
[2023-03-18 07:20] LABS: Hematocrit 33.9 % (42.0-52.0); Hemoglobin 11.6 g/dl (14.0-18.0); Mean Corpuscular HGB Conc 34.2 g/dl (31.0-36.0); Mean Corpuscular Volume 93.4 fL (80.0-98.0); Mean Platelet Volume 9.4 fL (9.4-12.4); Platelet Count 281 X10*3/uL (160-400); Red Blood Count 3.63 X10*6/uL (4.60-5.80); White Blood Count 9.5 X10*3/uL (4.8-10.8)
[2023-03-18 08:00] VITALS: BP 126/62; PULSE 64; RESP 18; TEMP 36.8; O2SAT 97
--- NOTE | 2023-03-18 08:04 | P.PNGS_ITS ---
Subjective Subjective Date of Service: 03/18/23 Patient reports: feels better and tolerating liquids well Interval history: The patient is assessed in follow-up in notes that his abdominal pain has resolved overnight. He denies any new complaints such as weakness, headache, visual changes, chest pain, difficulty breathing or shortness of breath. He has asked whether not his clear liquids could be resumed. The seems reasonable. Physical Exam 2 Vital Signs: Vital Signs: Last Vital Signs Temp 98.2 F 03/18/23 08:00 Pulse 64 03/18/23 08:00 Resp 18 03/18/23 08:00 BP 126/62 03/18/23 08:00 Pulse Ox 97 03/18/23 08:00 O2 Del Method Room Air 03/18/23 08:00 BMI result Body Mass Index 28.2 On exam, the patient is resting comfortably He is anicteric He is having no respiratory distress His abdomen is soft with no rebound, rigidity, guarding, peritoneal sign. There is some vague epigastric discomfort that is improved by comparison to yesterday's exam Objective Data Active Medications Acetaminophen (Acetaminophen 325 Mg Tablet) 650 mg PO Q6H PRN PRN Reason: Pain, Mild (Pain Scale 1-3) Last Admin: 03/16/23 11: Dose: 650 mg Documented By: CATRINA Acetaminophen (Acetaminophen Supp 650 Mg Supp.Rect) 650 mg [place] Q6H PRN PRN Reason: Pain, Mild (Pain Scale 1-3) Atorvastatin Calcium (Atorvastatin Calcium 40 Mg Tablet) 40 mg PO BEDTIME [facility] Last Admin: 03/17/23 20:03 Dose: 40 mg Documented By: ELLA Finasteride (Finasteride 5 Mg Tablet) 5 mg PO DAILY [facility] Last Admin: 03/17/23 09:12 Dose: 5 mg Documented By: CATRINA Fluticasone Propionate (Fluticasone Propionate Nasal 16 Gm [place]) 1 spray NOSTRIL-B DAILY [facility] Last Admin: 03/17/23 09:17 Dose: 1 spray Documented By: CATRINA Folic Acid (Folic Acid 1 Mg Tablet) 1 mg PO DAILY [facility] Stop: 03/18/23 09:01 Last Admin: 03/17/23 09:12 Dose: 1 mg Documented By: CATRINA Hydrochlorothiazide (Hydrochlorothiazide 25 Mg Tablet) 25 mg PO DAILY [facility]; Protocol Last Admin: 03/17/23 09:12 Dose: 25 mg Documented By: CATRINA Pantoprazole Sodium 80 mg/ (Sodium Chloride) 100 mls @ 10 mls/hr IV .Q10H [facility] Last Admin: 03/18/23 02:10 Dose: 8 mg/hr, 10 mls/hr Documented By: ELLA Melatonin (Melatonin 3 Mg Tablet) 6 mg PO BEDTIME PRN PRN Reason: Insomnia Last Admin: 03/17/23 23:40 Dose: 6 mg Documented By: ELLA Morphine Sulfate (Morphine Sulfate 2 Mg/Ml Cartridge) 2 mg IVPUSH Q4H PRN; Protocol PRN Reason: Pain, Severe (Pain Scale 7-10) Last Admin: 03/16/23 13:46 Dose: 2 mg Documented By: CATRINA Ondansetron HCl (Ondansetron Hcl 4 Mg/2 Ml Vial) 4 mg IVPUSH Q8H PRN PRN Reason: Nausea and Vomiting Sodium Chloride (0.9 % Sodium Chloride Flush 3 Ml Syringe) 3 ml IVFLUSH QSHIFT [facility] Last Admin: 03/17/23 20:03 Dose: 3 ml Documented By: ELLA Thiamine HCl (Thiamine Hcl 100 Mg Tablet) 100 mg PO DAILY [facility] Stop: 03/18/23 09:01 Last Admin: 03/17/23 09:12 Dose: 100 mg Documented By: CATRINA Vitamin D (Cholecalciferol (Vitamin D3) 25 Mcg Tablet) 100 mcg PO DAILY [facility] Last Admin: 03/17/23 09:11 Dose: 100 mcg Documented By: CATRINA Labs 03/18/23 06:37 03/15/23 09:30 Labs: Laboratory Results - last 24 hr 03/15/23 03/17/23 03/18/23 01:10 07:48 06:37 MCV 91.8 93.4 MCH 31.3 32.0 MCHC 34.0 34.2 RDW 12.7 13.0 Plt Count 249 D 281 MPV 9.2 L 9.4 Absolute Nucleated RBC 0.000 0.000 Nucleated RBC % (auto) 0.0 0.0 Blood Type O Positive Antibody Screen NEGATIVE Crossmatch See Detail Procedures Date of Service Date of Service: 03/18/23 Progress Note: A&P Assessment and plan (1) Duodenal ulcer: Status: Acute (2) HTN (hypertension): Status: Acute (3) Acute GI bleeding: Status: Acute (4) Restrictive airway disease: Status: Acute Plan Patient has tolerated a liquid diet. He does not have ongoing pain or concerns regarding duodenal ulcer perforation so I will sign off. Please call me if there clinically significant changes. Ulcer medication as per GI and diet plan can be advanced as per GI. Time Spent With Patient Time: Total time managing care of this patient today ____ minutes. Quality Stroke Does the patient have a stroke diagnosis?: No VTE Prior VTE?: No VTE Risk Level:: Medical - moderate - high VTE Device Contraindication: N/A - Device Ordered VTE Drug Contraindication: Treatment Not Indicated
[2023-03-18] MEDS: Thiamine HCL 100 MG TABLET PO (08:48)
[2023-03-18] MEDS: Cholecalciferol (Vitamin D3) 25 MCG TABLET 100 MCG PO (08:48)
[2023-03-18] MEDS: Folic Acid 1 MG TABLET PO (08:48)
[2023-03-18] MEDS: hydroCHLOROthiazide 25 MG TABLET PO (08:48)
[2023-03-18] MEDS: Fluticasone Propionate Nasal 16 GM SPRAY 1 SPRAY NOSTRIL-B (08:48)
[2023-03-18] MEDS: Finasteride 5 MG TABLET PO (08:48)
[2023-03-18] MEDS: 0.9 % Sodium Chloride Flush 3 ML SYRINGE IVFLUSH (08:49)
[2023-03-18 11:18] VITALS: BP 127/62; PULSE 77; RESP 18; TEMP 36.5; O2SAT 97
--- NOTE | 2023-03-18 12:15 | PM.DS ---
DS: Providers Provider Date of Service: 03/18/23 Date of admission: 03/15/23 01:19 Primary care physician: Cheryl Richardson MD Consults: 03/15/23 01:49 Consult to Gastroenterology Routine Consulting Provider: Bree Espinosa Reason for consultation: GI bleed 03/16/23 12:22 Consult to General Surgery Routine Consulting Provider: [facility] [place] [facility] Reason for consultation: Duodenal ulcer, abd pain Has provider been notified: Yes DS: Diagnosis Discharge Diagnosis (1) Duodenal ulcer: Status: Acute (2) HTN (hypertension): Status: Acute (3) Acute GI bleeding: Status: Acute (4) Restrictive airway disease: Status: Acute DS: Summary Hospital Course Hospital Course: Admission HPI: Chief Complaint: Black stool This is a 77-year-old male with pertinent history of essential hypertension, mixed hyperlipidemia, BPH, gastroesophageal reflux disease who presents to the emergency department for evaluation of abdominal pain and black stools. Patient states he 1st noticed black stools 4 days prior to presentation. It is associated with diffuse abdominal discomfort, intermittent and without any relieving factors. Patient denies similar history in the past. Is on aspirin but denies any [id number] pain medications. No fever, chills, chest discomfort, palpitations, shortness of breath, changes in urinary habits. In the emergency department, stool occult blood noted to be positive and hemoglobin found to be lower than baseline Hospital course: Patient presented with abdominal pain and black stool and CT of abdomen showed a duodnal ulcer which was confirmed the next day on EGD showing A 1.5 to 2 cms clean based nonbleeding ulcer in the apex of the bulb. A 2nd 2 x 2.5 cms deep ulcer in the proximal descending duodenum with slow oozing of blood from a visible vessel near the inferior margin of the ulcer. Ulcer bed was cauterized with a God probe and 3 cc of epinephrine was injected with cessation of bleeding. Patient was started on IV protonix continuous infusion for 3 days and serial H/H, the next day after EGD on 03/16 hemoglobin dropped to 7, 8 days earlier hemoglobin was 14. He was transfused 2 units of RBC on 03/17, and Hgb went from 8 to 11 today, Hct from 23 to now 33. He did have some abdominal pain the day after EGD and Xray showed no free air and was evaluated by a surgeon with no concern for perforation at this time. Diet has been advanced to regular diet which he is tolerating. He will be discharged with oral Prilosec 20 mg twice daily and to avoid ASA, and NSAID and alcohol avoidance is strongly encouraged. He will follow up with Dr. Espinosa for repeat EGD in 3 months Time Attestation Discharge coordination time: Greater than 30 minutes Quality: Safe Use of Opioids Does Pt have an Active Cancer Diagnosis on the Problem List?: No Quality: Stroke Does the patient have a stroke diagnosis?: No Physical Exam Vital Signs: Vital Signs: Last Vital Signs Temp 97.7 F 03/18/23 11:18 Pulse 77 03/18/23 11:18 Resp 18 03/18/23 11:18 BP 127/62 03/18/23 11:18 Pulse Ox 97 03/18/23 11:18 O2 Del Method Room Air 03/18/23 11:18 BMI result Body Mass Index 28.2 DS: Data Data Completed and Pending Pending studies at discharge: Pending at discharge 03/15/23 15:13 Surgical [PTH] Routine Labs on day of discharge: Laboratory Results - last 24 hr 03/15/23 03/18/23 01:10 06:37 WBC 9.5 RBC 3.63 L D Hgb 11.6 L D Hct 33.9 L D MCV 93.4 MCH 32.0 MCHC 34.2 RDW 13.0 Plt Count 281 MPV 9.4 Absolute Nucleated RBC 0.000 Nucleated RBC % (auto) 0.0 Blood Type O Positive Antibody Screen NEGATIVE Crossmatch See Detail Discharge Plan Discharge Anticipated Discharge Date/Time: 03/18/23 12:16 Patient Disposition: Home, Self-Care Discharge Diagnosis: Dudnal ulcer, acute blood loss anemia, gi bleeding Referrals: Cheryl Hogan MD [Primary Care Provider] - 1 Week Discharge Medications: New omeprazole 20 mg capsule,delayed release(DR/EC) 20 mg PO BID Qty: 60 0RF Continued cholecalciferol (vitamin D3) 50 mcg (2,000 unit) tablet 100 mcg PO QAM fluticasone propionate 50 mcg/actuation spray,suspension 1 spray intranasal DAILY hydrochlorothiazide 25 mg tablet 25 mg PO DAILY amlodipine 5 mg tablet 5 mg PO DAILY atorvastatin 40 mg tablet 40 mg PO BEDTIME finasteride 5 mg tablet 5 mg PO DAILY 90 Days Qty: 90 0RF Discontinued omeprazole 20 mg capsule,delayed release(DR/EC) 20 mg PO DAILY Qty: 30 3RF aspirin 81 mg tablet,delayed release (DR/EC) 81 mg PO DAILY Diet: Advance to usual diet Activity on Discharge: As tolerated Stand Alone Forms: Patient Portal Discharge page Care Plan Goals: Healing of Duodnal ulcer resolution of anemia Health Concerns: Duodnal ulcer anemia alcohol use disorder Plan of Treatment: Avoid alcohol Do NOT Take Aspirin or NSAID (over the counter pain medication such as advil, motrin, naproxen, meloxicam and others).. check with your Pharmacist to make sure they are not NSAID Assessment: As above
[2023-03-18 13:00] VITALS: O2SAT 95
== END 2023-03-18 17:15 | disposition home or self-care (01) | DRG 378 ==
LOC: HO.ED 21:06 → HO.EDOVER 03-15 01:50 → HO.IMC 03-15 14:43
PROVIDERS: Internal Medicine; Internal Medicine Gastroenterology; Physician Assistant; Admitting Provider Student in an Organized Health Care Education/Training Program; Emergency Provider Emergency Medicine Emergency Medical Services; PCP Internal Medicine; Visit Provider Internal Medicine
PROC: 0DJ08ZZ Inspection of Upper Intestinal Tract, Via Natural or Artificial Opening Endoscopic (ICD-10-PCS; CPT 43235; principal; 2023-03-15 15:10)
DX: K26.4 Chronic or unspecified duodenal ulcer with hemorrhage (principal); D62 Acute posthemorrhagic anemia; I10 Essential (primary) hypertension; K26.9 Duodenal ulcer, unspecified as acute or chronic, without hemorrhage or perforation; K25.7 Chronic gastric ulcer without hemorrhage or perforation; N40.0 Benign prostatic hyperplasia without lower urinary tract symptoms; F10.11 Alcohol abuse, in remission; E87.6 Hypokalemia; E78.2 Mixed hyperlipidemia; Z79.51 Long term (current) use of inhaled steroids; Z79.899 Other long term (current) drug therapy
CPT/HCPCS: 36415; 71045; 74018; 74177; 80048; 80053; 81003; 82272; 84132; 85025; 85027; 85610; 85730; 86850; 86900; 86901; 86923; 88305; 88342; 93005; 99285; C9113; J0171; J2270; J2704; J3480; J7120; P9016

== ENCOUNTER → 2023-03-15 01:19 | Outpatient (BNV) | payer OTHER, SELFPAY | PROVIDERS: Admitting Provider Student in an Organized Health Care Education/Training Program; Emergency Provider Emergency Medicine Emergency Medical Services; PCP Internal Medicine; Visit Provider Internal Medicine Gastroenterology | DX: K92.2 Gastrointestinal hemorrhage, unspecified (principal) | CPT/HCPCS: 99499 ==

== ENCOUNTER → 2023-03-15 01:19 | Outpatient (BNV) | payer OTHER, SELFPAY | PROVIDERS: Admitting Provider Student in an Organized Health Care Education/Training Program; Emergency Provider Emergency Medicine Emergency Medical Services; PCP Internal Medicine; Visit Provider Student in an Organized Health Care Education/Training Program | DX: K26.4 Chronic or unspecified duodenal ulcer with hemorrhage (principal); I10 Essential (primary) hypertension; J98.4 Other disorders of lung | CPT/HCPCS: 99222; 99232; 99239; 99499 ==

== ENCOUNTER → 2023-03-15 01:19 | Outpatient (BNV) | payer OTHER, SELFPAY | PROVIDERS: Admitting Provider Student in an Organized Health Care Education/Training Program; Emergency Provider Emergency Medicine Emergency Medical Services; PCP Internal Medicine; Visit Provider Surgery | DX: K26.9 Duodenal ulcer, unspecified as acute or chronic, without hemorrhage or perforation (principal); I10 Essential (primary) hypertension; J98.4 Other disorders of lung | CPT/HCPCS: 99222; 99231; 99232 ==

== ENCOUNTER 2023-03-27 02:31 | Inpatient (IN) | payer OTHER, SELFPAY ==
[2023-03-27] VITALS (14 sets, daily range): BP systolic 66–134; BP diastolic 30–61; PULSE 65–100; RESP 16–20; TEMP 36.2–37.2; O2SAT 95–99; BMI 28.3; BMI 28.0
--- NOTE | 2023-03-27 | ECG_ITS ---
Test Reason : SYNCOPE Blood Pressure : / mmHG Vent. Rate : 092 BPM Atrial Rate : 092 BPM P-R Int : 144 ms QRS Dur : 070 ms QT Int : 380 ms P-R-T Axes : 027 039 068 degrees QTc Int : 469 ms Normal sinus rhythm Nonspecific ST abnormality Abnormal ECG When compared with ECG of 15-MAR-2023 00:28, QT has shortened Referred By: Generic ED Physician Electronically Signed By:REBECCA TAYLOR MD
--- NOTE | ~2023-03-27 | CT_ITS ---
EXAMINATION: CT ABDOMEN AND PELVIS WITH CONTRAST CLINICAL INFORMATION: Epigastric pain COMPARISON: 03/14/2023 TECHNIQUE: Multidetector volumetric images were obtained from the superior aspect of the liver through the pubic symphysis following administration 85 mL of Omnipaque 350 intravenous contrast. Sagittal and coronal reformatted images were obtained on the technologist's workstation. Oral contrast: No This CT examination was performed using dose optimization techniques as appropriate, variously including the following: *Automated exposure control *Adjustment of mA and/or kV according to patient size (this includes techniques or standardized protocols for targeted exams where dose is matched to indication/reason for exam; i.e. extremities or head) *Use of iterative reconstruction technique DLP: 544 mGy-cm FINDINGS: LUNG BASES: The visualized lung bases are unremarkable. LIVER, GALLBLADDER, AND BILIARY TREE: The liver is normal in size, shape, and attenuation. No focal hepatic lesion or biliary ductal dilatation is present. The gallbladder is unremarkable with no evidence of radiopaque gallstones, gallbladder wall thickening, or obvious pericholecystic inflammatory changes. PANCREAS: Unremarkable. SPLEEN: Unremarkable. ADRENAL GLANDS: Unremarkable. KIDNEYS AND URETERS: Bilateral nephrograms are symmetric. No hydronephrosis or obstructing calculus identified. BLADDER: Unremarkable. GASTROINTESTINAL TRACT: Thick-walled appearance of the duodenum with adjacent stranding, similar to 03/15/2023. No evidence of bowel obstruction. Colonic diverticulosis is noted. There are also diverticula along the distal ileum. Prominent appendix again noted, though without surrounding inflammation to strongly suggest appendicitis. No free fluid or free air is seen. ABDOMINAL WALL: No significant hernia is appreciated. LYMPH NODES: Normal. VASCULAR: Unremarkable. PELVIC VISCERA: Unremarkable. OSSEOUS STRUCTURES: Scattered degenerative changes in the spine. CT/CT abdomen pelvis w IV con IMPRESSION: Thick-walled appearance of the duodenum with adjacent stranding, similar to 03/15/2023 and suspicious for duodenitis/peptic ulcer disease.
--- NOTE | ~2023-03-27 | XR_ITS ---
EXAMINATION: XR CHEST CLINICAL INFORMATION: Shortness of breath COMPARISON: 03/16/2023 TECHNIQUE: Frontal view of the chest was obtained. FINDINGS: The lungs are hypoinflated. No focal consolidation is seen. No evidence of pneumothorax, pleural effusion, or pulmonary edema. The cardiomediastinal contour is unremarkable. No acute osseous findings are seen. XR/XR chest 1V IMPRESSION: Low lung volumes without acute findings.
[2023-03-27 03:21] LABS: MANUAL DIFF FLAG NO
[2023-03-27 03:23] LABS: Basophils Absolute Auto 0.1 X10*3/uL (0.0-0.2); Basophils Percent Auto 0.3 % (0-2); Eosinophils Percent Auto 0.2 % (0-4); Hematocrit 32.6 % (42.0-52.0); Imm Gran Abs Auto 0.11 X10*3/uL (0.00-0.03); Imm Gran Pct Auto 0.5 % (0.0-0.4); Lymphocytes Absolute Auto 1.6 X10*3/uL (1.2-4.9); Lymphocytes Percent Auto 7.4 % (20-40); Mean Corpuscular HGB Conc 33.7 g/dl (31.0-36.0); Mean Corpuscular Hemoglobin 32.1 pg (27.0-33.0); Mean Platelet Volume 8.6 fL (9.4-12.4); Monocytes Absolute Auto 0.8 X10*3/uL (0.1-1.2); Monocytes Percent Auto 3.6 % (2-11); Neutrophils Absolute Auto 18.6 x10*3/uL (2.0-8.3); Platelet Count 460 X10*3/uL (160-400); Red Blood Count 3.43 X10*6/uL (4.60-5.80); Red Cell Distribution Width 13.4 % (11.0-16.0); White Blood Count 21.1 X10*3/uL (4.8-10.8)
[2023-03-27 03:36] LABS: Alanine Aminotransferase 10 U/L (0-40); Albumin Level 3.3 g/dL (3.5-5.0); Alkaline Phosphatase 106 U/L (39-117); Anion Gap 14 (12-20); Aspartate Amino Transferase 18 U/L (5-37); Bilirubin Direct 0.2 mg/dL (0.0-0.5); Bilirubin Total 0.4 mg/dL (0.0-1.0); Blood Urea Nitrogen 33 mg/dL (9-16); Calcium 8.5 mg/dL (8.4-10.2); Carbon Dioxide 27 mmol/L (22-29); Chloride 102 mmol/L (96-108); Creatinine Clr Calc Pharmacy 69.9; Estimated Glomerular Filt Rate > 60; Glucose Random 165 mg/dL (60-115); Lipase 28 U/L (8-78); Sodium 139 mmol/L (135-145); Total Protein 6.1 g/dL (6.5-8.0)
--- NOTE | 2023-03-27 04:19 | ED.ABDPAIN ---
HPI - Abdominal Pain General Chief Complaint: Abdominal Pain Stated Complaint: SYNCOPAL Time Seen by Provider: 03/27/23 03:14 History of Present Illness HPI narrative: Patient is 77 years old and has a history of gastric ulcers is currently on PPI eyes. Had an endoscopy done early this month. Patient presented today with having an acute episode of abdominal pain in the epigastric area subsequently vomited blood. Patient claimed was bright red. Subsequently patient felt very lightheaded then had a syncopal episode. He denies having chest pain. He was sent to the emergency department for further evaluation. Related Data Home Medications Medication Instructions Recorded Confirmed amlodipine 5 mg tablet 5 mg PO DAILY 04/06/21 03/15/23 atorvastatin 40 mg tablet 40 mg PO BEDTIME 04/06/21 03/15/23 fluticasone propionate 50 1 spray intranasal DAILY 04/06/21 03/15/23 mcg/actuation nasal spray,suspension hydrochlorothiazide 25 mg tablet 25 mg PO DAILY 04/06/21 03/15/23 cholecalciferol (vitamin D3) 50 100 mcg PO QAM 02/22/22 03/15/23 mcg (2,000 unit) tablet Previous Rx's Medication Instructions Recorded omeprazole 20 mg capsule,delayed 20 mg PO BID #60 caps 03/18/23 release finasteride 5 mg tablet 5 mg PO DAILY 90 days #90 tabs 03/26/23 Allergies Allergy/AdvReac Type Severity Reaction Status Date / Time fish derived [FISH] Allergy Intermediate rash/hives Verified 03/27/23 04:22 Review of Systems Review of Systems Positive epigastric pain no chest pain or diaphoresis positive syncopal episode. Positive vomiting blood Yes all other systems are reviewed and are negative [facility] Past Medical History Medical History Elevated cholesterol HTN (hypertension) GERD (gastroesophageal reflux disease) Restrictive airway disease Prostate cancer Surgical History History of open reduction and internal fixation (ORIF) procedure History of esophagogastroduodenoscopy (EGD) Hx of colonoscopy History of cardiac cath Family History Family History Father Throat cancer Mother Diabetes Kidney disease Social History Household Members: Children Housing: Apartment Do you presently have visiting nurse or other home services: No Alcohol intake: current Alcohol intake frequency: a few times a week Patient Tobacco Use Status: Never used Tobacco Smoked in Last 30 Days: No Use of substances other than those prescribed or required for medical reasons: No Advance Directives: No Advance Directives Information Provided: Yes service: No Physical Exam ED Vital Signs: Vital Signs - 24 hr 03/27/23 02:44 Temperature 97.5 F Pulse Rate 89 Respiratory Rate 20 Blood Pressure 109/53 L Pulse Oximetry 98 Oxygen Delivery Method Room Air BMI result Body Mass Index 28.3 Appearance: Alert. Oriented X3. No acute distress. Eyes: Pupils equal, round and reactive to light. ENT: Pharynx normal. Neck: Normal inspection. Neck supple. No lymph nodes noted. No crepitus CVS: Normal heart rate and rhythm. Pulses normal. Normal S1 and S2 Respiratory: No respiratory distress. Breath sounds normal. No Wheezing. No rales Abdomen: Soft and nontender. No rigidity. No distention. good BS x4 Rectal exam shows melanotic stool Skin: Skin warm and dry. Normal skin color. Normal skin turgor. Extremities: No lower extremity edema. Neurovascular intact to all extremities. No Lacerations. No Rash Neuro: Oriented X 3. No motor deficit. No sensory deficit. Moving all extermities. No slurred speech Medical Decision Making Medical Decision Making MDM Narrative: Patient presents today with having epigastric pain. The pain is sharp. Had an endoscopy done early part of this month. The endoscopy showed evidence for gastritis. There is no varices noted. Patient at the time was being admitted to the hospital for GI bleed. Today had the syncopal episode and was having low blood pressure when he arrived. Most likely caused by loss of volume. Patient's hemoglobin is still baseline at approximately 11. This is most likely secondary to having not enough time to equilibrate get. Will need to be closely monitor. CT scan of the abdomen pelvis is currently pending. My interpretation of patient's chest x-ray showed no focal infiltrate. There is no gross perforation noted. Patient's CT scan of the abdomen is grossly negative for any acute evidence of perforation. No abscess no diverticulitis. Differential Diagnosis Differential Diagnoses: The differential diagnosis associated with the presentation includes GI bleed, syncope Admission/Observation Consideration of admission/observation: Escalation of care including admission/observation considered Will need to be admitted as patient had a low blood pressure earlier Consult Healthcare Provider Management of the patient was discussed with: Hospitalist Lab Data MDM Lab Attestation statement: I reviewed the patient's lab results. 03/27/23 03:17 03/27/23 03:17 Labs: Lab Results 03/27/23 03/27/23 03/27/23 Range/Units 03:17 04:21 04:47 WBC 21.1 H (4.8-10.8) X10*3/uL RBC 3.43 L (4.60-5.80) X10*6/uL Hgb 11.0 L (14.0-18.0) g/dl Hct 32.6 L (42.0-52.0) % MCV 95.0 (80.0-98.0) fL MCH 32.1 (27.0-33.0) pg MCHC 33.7 (31.0-36.0) g/dl RDW 13.4 (11.0-16.0) % Plt Count 460 H D (160-400) X10*3/uL MPV 8.6 L (9.4-12.4) fL Immature Gran % (Auto) 0.5 H (0.0-0.4) % Neut % (Auto) 88.0 H (45-73) % Lymph % (Auto) 7.4 L (20-40) % Stokes % (Auto) 3.6 (2-11) % Eos % (Auto) 0.2 (0-4) % Baso % (Auto) 0.3 (0-2) % Lymph # (Auto) 1.6 (1.2-4.9) X10*3/uL Stokes # (Auto) 0.8 (0.1-1.2) X10*3/uL Eos # (Auto) 0.0 (0.0-0.4) X10*3/uL Baso # (Auto) 0.1 (0.0-0.2) X10*3/uL Abs Immat Gran (auto) 0.11 H (0.00-0.03) X10*3/uL Absolute Neuts (auto) 18.6 H (2.0-8.3) x10*3/uL Absolute Nucleated RBC 0.000 (0.0-0.012) X10*3/uL Nucleated RBC % (auto) 0.0 (0.0-0.2) /100WBC Sodium 139 (135-145) mmol/L Potassium 4.0 (3.3-5.1) mmol/L Chloride 102 (96-108) mmol/L Carbon Dioxide 27 (22-29) mmol/L Anion Gap 14 (12-20) BUN 33 H (9-16) mg/dL Creatinine 0.89 (0.5-1.4) mg/dL Estim Creat Clear Calc 69.9 Estimated GFR > 60 Random Glucose 165 H (60-115) mg/dL Calcium 8.5 (8.4-10.2) mg/dL Total Bilirubin 0.4 (0.0-1.0) mg/dL Direct Bilirubin 0.2 (0.0-0.5) mg/dL AST 18 (5-37) U/L ALT 10 (0-40) U/L Alkaline Phosphatase 106 (39-117) U/L Troponin I High Sens < 2.7 (<3.5-35.0) ng/L Total Protein 6.1 L (6.5-8.0) g/dL Albumin 3.3 L (3.5-5.0) g/dL Lipase 28 (8-78) U/L Stool Occult Blood POSITIVE (NEGATIVE) Blood Type O Positive Antibody Screen NEGATIVE Independent Interpretation I performed an independent interpretation of an: EKG (My interpretation of patient's EKG shows a sinus pattern heart rate is 90 NM QRS QTC within normal limits is no acute ST segment elevation noted.) and Plain X-Ray (My interpretation of patient's chest x-ray was grossly negative for pneumonia and pneumothorax. No perforated abdomen) Radiology Impression Discussion of test interpretation with radiology: I have reviewed the radiologist's reading. Independent Historian Clinical information obtained from an independent historian. History obtained from or confirmed by: EMS External Record Review External record reviewed: Inpatient record Previous GI record previous hospitalized record reviewed Medications Administered Discontinued Medications Generic Name Dose Route Start Last Admin Trade Name Freq PRN Reason Stop Dose Admin Sodium Chloride 1,000 mls @ 999 mls/hr 03/27/23 04:30 03/27/23 05:01 Ns IV 03/27/23 05:30 999 mls/hr .Q1H1M ADOLFO Administration Iohexol 85 ml 03/27/23 04:39 03/27/23 04:40 Iohexol 350 Mg/Ml 100 Ml Infus..Btl IV 03/27/23 04:40 85 ml ONCE ONE Administration Octreotide Acetate 100 mcg 03/27/23 04:15 03/27/23 05:00 Octreotide Acetate 100 Mcg/Ml Ampul IVPUSH 03/27/23 04:16 100 mcg ONCE ONE Administration Pantoprazole Sodium 40 mg 03/27/23 04:15 03/27/23 05:00 Pantoprazole Sodium 40 Mg/10 Ml Vial IVPUSH 03/27/23 04:16 40 mg ONCE ONE Administration Critical Care Time Critical Care Time Critical Care Time: Yes Total Critical Care Time: 40 Attestation: I have personally provided 40 minutes of critical care time exclusive of time spent on separately billable procedures. Time includes review of lab data, radiology results, discussion with consultants, and monitoring for potential decompensation. Interventions were performed as documented above Discharge Plan Discharge Clinical Impression: Acute GI bleeding, Syncope Patient Disposition: Admitted As Inpatient
[2023-03-27 04:33] LABS: OBS Int Ctl Valid YES; OBS1 POSITIVE (NEGATIVE)
[2023-03-27] MEDS: iohexoL 350 MG/ML 100 ML INFUS..BTL 85 ML IV (04:40)
[2023-03-27 04:44] LABS: Troponin-I High Sensitivity < 2.7 ng/L (<3.5-35.0)
[2023-03-27] MEDS: Pantoprazole Sodium 40 MG/10 ML VIAL IVPUSH (05:00)
[2023-03-27] MEDS: Octreotide Acetate 100 MCG/ML AMPUL IVPUSH (05:00)
[2023-03-27] MEDS: 0.9 % Sodium Chloride 1,000 ML 999 ML IV ×2 (05:01→08:14)
--- NOTE | 2023-03-27 07:14 | PC.NURSE ---
ASSUMED CARE OF PT AT THIS TIME
--- NOTE | 2023-03-27 08:12 | PC.NURSE ---
BP 74/42; checked manually; provider notified; orders placed for 1L ns Bolus. Will recheck post bolus administration
--- NOTE | 2023-03-27 08:36 | PC.NURSE ---
PT BP NOW 116/60 AFTER 600 ML NS BOLUS (400 ML REMAINING). PROVIDER NOTIFIED. WILL CONTINUE TO MONITOR AND DOCUMENT BP.
--- NOTE | 2023-03-27 08:58 | PHA.MEDREC ---
Pharmacy Consult ? Medication Reconciliation Pharmacy has completed the medication reconciliation. [employer] [facility] services used. Patient says he gets med boxes sent to him, and that he no longer takes baby aspirin, because of this he has not taken his medications in about 3 days due to the aspirin being in the med box. Unsure of which pill it was so did not want to take it by mistake. Listed medications based on claim history and he confirmed yes or no.
--- NOTE | 2023-03-27 09:04 | PC.NURSE ---
PT BP NOW 127/58 POST COMPLETION OF NS BOLUS. WILL CONTINUE TO MONITOR BP.
--- NOTE | 2023-03-27 09:10 | PC.NURSE ---
SURGEON CONSULTING WITH PT AT BEDSIDE
[2023-03-27 09:13] LABS: MANUAL DIFF FLAG NO
[2023-03-27 09:14] LABS: Basophils Absolute Auto 0.1 X10*3/uL (0.0-0.2); Basophils Percent Auto 0.3 % (0-2); Eosinophils Percent Auto 0.1 % (0-4); Hematocrit 30.7 % (42.0-52.0); Imm Gran Abs Auto 0.07 X10*3/uL (0.00-0.03); Imm Gran Pct Auto 0.4 % (0.0-0.4); Lymphocytes Absolute Auto 1.8 X10*3/uL (1.2-4.9); Lymphocytes Percent Auto 10.6 % (20-40); Mean Corpuscular HGB Conc 32.6 g/dl (31.0-36.0); Mean Corpuscular Hemoglobin 31.5 pg (27.0-33.0); Mean Corpuscular Volume 96.8 fL (80.0-98.0); Mean Platelet Volume 8.6 fL (9.4-12.4); Monocytes Absolute Auto 0.9 X10*3/uL (0.1-1.2); Monocytes Percent Auto 5.5 % (2-11); Neutrophils Absolute Auto 13.8 x10*3/uL (2.0-8.3); Neutrophils Percent Auto 83.1 % (45-73); Platelet Count 370 X10*3/uL (160-400); Red Blood Count 3.17 X10*6/uL (4.60-5.80); Red Cell Distribution Width 13.3 % (11.0-16.0); White Blood Count 16.6 X10*3/uL (4.8-10.8)
--- NOTE | 2023-03-27 09:26 | P.CONGS_ITS ---
History of Present Illness Consult details Consult date: 03/27/23 Narrative: 77-year-old male patient with a history of essential hypertension, mixed hyperlipidemia, BPH, GERD recently admitted earlier this month for abdominal pain and black stools found to have an upper GI bleed from gastric ulcers. He was subsequently discharged home on 03/18/2023 from the hospitalist service. He now returns with acute onset of increased abdominal pain in the epigastric area subsequent bloody vomitus. He also felt lightheaded followed by a syncopal episode. He presented to the emergency department for further management. He denies any melanotic stools today. He continues to have abdominal pain mainly in the epigastric region. Initial laboratories revealed a stable H&H. He is admitted to the hospitalist service with gastroenterology consultation. Review of Systems 2 Review of Systems: Yes all other systems are reviewed and are negative Constitutional: Constitutional: Reports malaise and Reports weakness Cardiovascular: Cardiovascular: Denies chest pain Gastrointestinal: Gastrointestinal: Reports abdominal pain, Reports bloating, Reports nausea, Reports vomiting and Reports hematemesis Neurologic: Reports weakness PMFSH Past Medical History Medical History Elevated cholesterol HTN (hypertension) GERD (gastroesophageal reflux disease) Restrictive airway disease Prostate cancer Family History Family History Father Throat cancer Mother Diabetes Kidney disease Surgical History Surgical History History of open reduction and internal fixation (ORIF) procedure History of esophagogastroduodenoscopy (EGD) Hx of colonoscopy History of cardiac cath Social History Household Members: Children Housing: Apartment Do you presently have visiting nurse or other home services: No Alcohol intake: current Alcohol intake frequency: a few times a week Patient Tobacco Use Status: Never used Tobacco Smoked in Last 30 Days: No Use of substances other than those prescribed or required for medical reasons: No Advance Directives: No Advance Directives Information Provided: Yes service: No Meds Allergies Allergy/AdvReac Type Severity Reaction Status Date / Time fish derived [FISH] Allergy Intermediate rash/hives Verified 11/22/23 04:22 Active Medications: Current Medications Acetaminophen (Acetaminophen 325 Mg Tablet) 650 mg PO Q6H PRN PRN Reason: Pain, Mild (Pain Scale 1-3) Al Hydroxide/Mg Hydroxide (Magnesium Hydrox/Alum Hydrox 30 Ml Oral.Susp) 30 ml PO Q4H PRN PRN Reason: Heartburn/Nausea Atorvastatin Calcium (Atorvastatin Calcium 40 Mg Tablet) 40 mg PO BEDTIME [facility] Finasteride (Finasteride 5 Mg Tablet) 5 mg PO DAILY [facility] Fluticasone Propionate (Fluticasone Propionate Nasal 16 Gm [place]) 1 spray NOSTRIL-B DAILY [facility] Sodium Chloride (Ns) 1,000 mls @ 100 mls/hr IVCONT .Q10H [facility] Magnesium Hydroxide (Milk Of Magnesia 30 Ml Oral.Susp) 30 ml PO DAILY PRN PRN Reason: Constipation Melatonin (Melatonin 3 Mg Tablet) 6 mg PO BEDTIME PRN PRN Reason: Insomnia Ondansetron HCl (Ondansetron Hcl 4 Mg/2 Ml Vial) 4 mg IVPUSH Q8H PRN PRN Reason: Nausea and Vomiting Sodium Chloride (0.9 % Sodium Chloride Flush 3 Ml Syringe) 3 ml IVFLUSH QSHIFT [facility] Vitamin D (Cholecalciferol (Vitamin D3) 25 Mcg Tablet) 100 mcg PO QAM [facility] Home Medications Medication Instructions Recorded Confirmed Last Taken Type amlodipine 5 mg tablet 5 mg PO DAILY 04/06/21 03/27/23 Unknown History atorvastatin 40 mg tablet 40 mg PO BEDTIME 04/06/21 03/27/23 Unknown History fluticasone propionate 50 1 spray intranasal DAILY 04/06/21 03/27/23 Unknown History mcg/actuation nasal spray,suspension hydrochlorothiazide 25 mg tablet 25 mg PO DAILY 04/06/21 03/27/23 Unknown History cholecalciferol (vitamin D3) 50 100 mcg PO QAM 02/22/22 03/27/23 Unknown History mcg (2,000 unit) tablet melatonin 5 mg tablet 10 mg PO BEDTIME PRN Sleep 03/27/23 03/27/23 Unknown History omeprazole 20 mg capsule,delayed 20 mg PO DAILY@0630 03/27/23 03/27/23 Unknown History release Physical Exam 2 Vital Signs: Vital Signs: Last Vital Signs Temp 97.5 F 03/27/23 02:44 Pulse 67 03/27/23 09:03 Resp 18 03/27/23 08:34 BP 127/58 L 03/27/23 09:03 Pulse Ox 98 03/27/23 09:03 O2 Del Method Room Air 03/27/23 09:03 BMI result Body Mass Index 28.3 Const: General: cooperative, ill appearing and tired appearing Nutritional Appearance: well nourished Orientation/consciousness: patient oriented x3 Limitations: no limitations HEENT: Head: Yes normocephalic and Yes atraumatic Ears: hearing grossly normal bilaterally Resp: Effort & Inspection: normal respiratory effort, no audible wheezes, no cough and no respiratory distress Cardio: Jugular venous distension: no JVD GI: Inspection: Yes normal to inspection and Yes distended Palpation (GI): Soft to palpation, Tenderness to palpation present (GI) in the epigastrum, no guarding, not rigid and No hepatosplenomegaly present Percussion: Yes normal to percussion Auscultation: normal bowel sounds Rectal Exam - Male: Yes deferred Skin: Other: Warm, dry, no rash Neuro: General: patient oriented x3 Extrem: General: Yes no clubbing, cyanosis or edema Results Labs 03/27/23 09:00 03/27/23 03:17 Labs: Abnormal lab results 03/27/23 03/27/23 Range/Units 03:17 09:00 WBC 21.1 H 16.6 H (4.8-10.8) X10*3/uL RBC 3.43 L 3.17 L (4.60-5.80) X10*6/uL Hgb 11.0 L 10.0 L (14.0-18.0) g/dl Hct 32.6 L 30.7 L (42.0-52.0) % Plt Count 460 H D (160-400) X10*3/uL MPV 8.6 L 8.6 L (9.4-12.4) fL Immature Gran % (Auto) 0.5 H (0.0-0.4) % Neut % (Auto) 88.0 H 83.1 H (45-73) % Lymph % (Auto) 7.4 L 10.6 L (20-40) % Abs Immat Gran (auto) 0.11 H 0.07 H (0.00-0.03) X10*3/uL Absolute Neuts (auto) 18.6 H 13.8 H (2.0-8.3) x10*3/uL BUN 33 H (9-16) mg/dL Random Glucose 165 H (60-115) mg/dL Total Protein 6.1 L (6.5-8.0) g/dL Albumin 3.3 L (3.5-5.0) g/dL Short CBC 03/27/23 03/27/23 Range/Units 03:17 09:00 WBC 21.1 H 16.6 H (4.8-10.8) X10*3/uL Hgb 11.0 L 10.0 L (14.0-18.0) g/dl Hct 32.6 L 30.7 L (42.0-52.0) % Plt Count 460 H D 370 (160-400) X10*3/uL BMP 03/27/23 03:17 Sodium 139 Potassium 4.0 Chloride 102 Carbon Dioxide 27 BUN 33 H Creatinine 0.89 Calcium 8.5 Liver Function 03/27/23 Range/Units 03:17 Total Bilirubin 0.4 (0.0-1.0) mg/dL Direct Bilirubin 0.2 (0.0-0.5) mg/dL AST 18 (5-37) U/L ALT 10 (0-40) U/L Alkaline Phosphatase 106 (39-117) U/L Albumin 3.3 L (3.5-5.0) g/dL All other labs normal. Assessment and Plan (1) Duodenal ulcer: Status: Acute (2) Acute GI bleeding: Status: Acute Plan 77-year-old male patient with a known history of duodenal/gastric ulcer disease noted on previous EGD returning for recurrent upper GI bleed with bright red blood emesis. Patient is admitted to the hospitalist service for further management. Agree with Gastroenterology consultation and possible repeat EGD for control of bleeding. Other options include IR embolization if necessary. Will monitor patient's progress during this admission. Procedures Date of Service Date of Service: 03/27/23
--- NOTE | 2023-03-27 09:27 | P.HPHOSP_ITS ---
History of Present Illness Date of Service: 03/27/23 Chief Complaint: vomitting blood and dizziness This is a 77-year-old male with history of essential hypertension, mixed hyperlipidemia, BPH, gastroesophageal reflux disease, alcohol use desorder who was hospitaliaed earlier this month from 03/15 to 03/18 after presenting with abdominal pain and work up revealing duodnal ulcer on CT, he subsquently EGD and found to have Gastritis with gastric erosions, 1.5 to 2 cms clean based nonbleeding ulcer in the apex of the bulb and 2nd 2 x 2.5 cms deep ulcer in the proximal descending duodenum with slow oozing of blood from a visible vessel near the inferior margin of the ulcer. Ulcer bed was cauterized with a God probe and 3 epinephrine was injected with cessation of bleeding. He was then put IV protonix for 72 hours, and was transfused 2 units of H/H when hemoglobin dropped from 14 to 7.7, at the time of discharge hemoglobin was 11. 6. He was discharged with oral prilosec and ASA was discontinued. He did not steel pickler prilosec from the pharmacy. He presented back today with epigastric pain and vomitting blood once at home, EMS reported SBP in 60 and given IVF, in ED he states that he vomitted blood twice. He was given IVF and BP improved. Hemoglobin was 11 and repeat 6 hours 10. He is still complainin 8/[address] of abdomen and pelvis today show persistent duodnal ulcer. Most recent BP 127/58 and HR 67 Review of Systems 2 Review of Systems: Gen: no fever Resp: no sob, no cough CV: no chest, no FREY, no leg edema GI: + n/v, n+ abd pain Neuro: No confusion,+ dizziness Yes all other systems are reviewed and are negative [facility] Medical History Elevated cholesterol HTN (hypertension) GERD (gastroesophageal reflux disease) Restrictive airway disease Prostate cancer Family History Father Throat cancer Mother Diabetes Kidney disease Surgical History History of open reduction and internal fixation (ORIF) procedure History of esophagogastroduodenoscopy (EGD) Hx of colonoscopy History of cardiac cath Household Members: Children Housing: Apartment Do you presently have visiting nurse or other home services: No Alcohol intake: current Alcohol intake frequency: a few times a month Patient Tobacco Use Status: Never used Tobacco service: No Meds Allergies Allergy/AdvReac Type Severity Reaction Status Date / Time fish derived [FISH] Allergy Intermediate rash/hives Verified 03/27/23 04:22 Active Medications: Current Medications Acetaminophen (Acetaminophen 325 Mg Tablet) 650 mg PO Q6H PRN PRN Reason: Pain, Mild (Pain Scale 1-3) Al Hydroxide/Mg Hydroxide (Magnesium Hydrox/Alum Hydrox 30 Ml Oral.Susp) 30 ml PO Q4H PRN PRN Reason: Heartburn/Nausea Atorvastatin Calcium (Atorvastatin Calcium 40 Mg Tablet) 40 mg PO BEDTIME [facility] Finasteride (Finasteride 5 Mg Tablet) 5 mg PO DAILY [facility] Fluticasone Propionate (Fluticasone Propionate Nasal 16 Gm [place]) 1 spray NOSTRIL-B DAILY [facility] Sodium Chloride (Ns) 1,000 mls @ 100 mls/hr IVCONT .Q10H [facility] Magnesium Hydroxide (Milk Of Magnesia 30 Ml Oral.Susp) 30 ml PO DAILY PRN PRN Reason: Constipation Melatonin (Melatonin 3 Mg Tablet) 6 mg PO BEDTIME PRN PRN Reason: Insomnia Ondansetron HCl (Ondansetron Hcl 4 Mg/2 Ml Vial) 4 mg IVPUSH Q8H PRN PRN Reason: Nausea and Vomiting Sodium Chloride (0.9 % Sodium Chloride Flush 3 Ml Syringe) 3 ml IVFLUSH QSHIFT [facility] Vitamin D (Cholecalciferol (Vitamin D3) 25 Mcg Tablet) 100 mcg PO QAM [facility] Home Medications Medication Instructions Recorded Confirmed Last Taken Type amlodipine 5 mg tablet 5 mg PO DAILY 04/06/21 03/27/23 Unknown History atorvastatin 40 mg tablet 40 mg PO BEDTIME 04/06/21 03/27/23 Unknown History fluticasone propionate 50 1 spray intranasal DAILY 04/06/21 03/27/23 Unknown History mcg/actuation nasal spray,suspension hydrochlorothiazide 25 mg tablet 25 mg PO DAILY 04/06/21 03/27/23 Unknown History cholecalciferol (vitamin D3) 50 100 mcg PO QAM 02/22/22 03/27/23 Unknown History mcg (2,000 unit) tablet melatonin 5 mg tablet 10 mg PO BEDTIME PRN Sleep 03/27/23 03/27/23 Unknown History omeprazole 20 mg capsule,delayed 20 mg PO DAILY@0630 03/27/23 03/27/23 Unknown History release Physical Exam 2 Vital Signs and Narrative: Vital Signs: Last Vital Signs Temp 97.5 F 03/27/23 02:44 Pulse 67 03/27/23 09:03 Resp 18 03/27/23 08:34 BP 127/58 L 03/27/23 09:03 Pulse Ox 98 03/27/23 09:03 O2 Del Method Room Air 03/27/23 09:03 BMI result Body Mass Index 28.3 Const: Other: Constitutional: Alert, in no distress, overweight. Mental Status: Oriented to person, place and time. Eyes: Pupils are equal, round and reactive to light. Ear, Nose and Throat: Oropharynx clear, mucous membranes moist. Ears and nose without eformities. Trachea midline. Respiratory: Clear to auscultation. No wheezing, rales or rhonchi. Cardiovascular: S1 S2 regular. No murmurs, rubs or gallops. Gastrointestinal: Abdomen soft, md abdomen tenderness, non-distended. Normal bowel sounds.? Neurologic: Cranial nerves II-XII grossly intact. No focal neurological deficits. Moves all extremities spontaneously.? Skin: No rashes or lesions.? Musculoskeletal: No cyanosis or clubbing. Psychiatric: Normal mood and affect? Results Labs 03/28/23 06:34 03/27/23 03:17 Imaging Radiologist's Impressions: Impressions Chest X-Ray 03/27/23 04:23 IMPRESSION: Low lung volumes without acute findings. Abdomen/Pelvis CT 03/27/23 04:42 IMPRESSION: Thick-walled appearance of the duodenum with adjacent stranding, similar to 03/15/2023 and suspicious for duodenitis/peptic ulcer disease. Assessment and Plan (1) Syncope: Status: Acute (2) Duodenal ulcer: Status: Acute (3) Acute GI bleeding: Status: Acute Plan This is a 77-year-old male with history of essential hypertension, mixed hyperlipidemia, BPH, gastroesophageal reflux disease, alcohol use desorder who was hospitaliaed earlier this month from 03/15 to 03/18 after presenting with abdominal pain and work up revealing duodnal ulcer on CT, he subsquently EGD and found to have Gastritis with gastric erosions, 1.5 to 2 cms clean based nonbleeding ulcer in the apex of the bulb and 2nd 2 x 2.5 cms deep ulcer in the proximal descending duodenum with slow oozing of blood from a visible vessel near the inferior margin of the ulcer. Ulcer bed was cauterized with a God probe and 3 epinephrine was injected with cessation of bleeding. He returrns with abd pain, vomitting blood and passing out with SBP in 60s 1. Acute blood loss anemia with known duodnal ulcer, gastric erosion. NPO, IV PPI drip, GI consult for repeat EGD. Serial H/H, transfuse if hgb < 8. 2. Duodnal ulcer with abdominal pain, no evidence of perforation, yet consult surgery 3. HTN--hold BP meds in light of hypotension and sycope 4. Syncope likely related to hypotension, possibly relaed to gi bleed 5. HLD--continue statin 6. BPH-finesteride starting tomorrow DVT prophylaxis: compression device Full code Need for inpt: Active gi bleed leading to hypotension, syncope and need work up and IV meds Quality Stroke Does the patient have a stroke diagnosis?: No VTE Prior VTE?: No VTE Risk Level:: Medical - moderate - high VTE Device Contraindication: N/A - Device Ordered VTE Drug Contraindication: Treatment Not Tolerated
[2023-03-27] MEDS: 0.9 % Sodium Chloride 1,000 ML 100 ML IVCONT ×2 (09:36→23:28)
--- NOTE | 2023-03-27 10:20 | P.CNGI_ITS ---
History of Present Illness Data of Consult Service Date: 03/27/23 [facility] Care Provider: Cheryl Richardson MD HPI Reason for consult: Gi bleeding 77-year-old male with history of essential hypertension, mixed hyperlipidemia, BPH, gastroesophageal reflux disease, alcohol use disorder and peptic ulcer disease who I am seeing for assessment for GI bleeding Patient presents with 02/12 sharp epigastric pain without relieving or exacerbating facvtors and x 2 episodes of bloody emesis. He was hypotensive but BP improved with fluids, HGB this admission around 10 g/dl. He had been on aspirin but stopped since last EGD as below. He says no melena and actually constipated since his last admission. He was admitted 03/15 with abdominal pain and had an EGD which revealed gastric erosions, with 1.5 to 2 cms clean based nonbleeding ulcer in the apex of the bulb and 2nd 2 x 2.5 cms deep ulcer in the proximal descending duodenum with slow oozing of blood from a visible vessel near the inferior margin of the ulcer. Ulcer bed was cauterized with a Gold probe and epinephrine was injected with cessation of bleeding. during that stay he required 2 units of blood. He is unsure if he has been taking PPI these last few weeks at home, denies taking alcohol or nsaids at home CT of abdomen and pelvis: thick walled stomach and duodenum Review of Systems 2 Review of Systems: Constitutional : No Weight loss, No Fever, No Chills ENT/Mouth : No sore throat, No Rhinorrhea Eyes: No Swelling, No Redness Cardiovascular : No Chest Pain, No SOB, No Edema Respiratory : No Cough, No Sputum, No Wheezing Gastrointestinal : see HPI Genitourinary : NO Dysuria, No Urinary Frequency, No Hematuria, No Urgency Musculoskeletal : No joint pain, No Myalgias, No Joint Swelling Skin : No Skin Lesions, No rash Neuro : + Weakness, No Numbness, No Dizziness, No Headache Psych : No Anxiety/Panic, No Depression Heme/Lymph: No Bruising, No Lymphadenopathy Endocrine : No Polyuria, No Polydipsia All other systems reviewed and are negative. [facility] Past Medical History Medical History Elevated cholesterol HTN (hypertension) GERD (gastroesophageal reflux disease) Restrictive airway disease Prostate cancer Family History Family History Father Throat cancer Mother Diabetes Kidney disease Surgical History Surgical History History of open reduction and internal fixation (ORIF) procedure History of esophagogastroduodenoscopy (EGD) Hx of colonoscopy History of cardiac cath Social History Household Members: Children Housing: Apartment Do you presently have visiting nurse or other home services: No Alcohol intake: current Alcohol intake frequency: a few times a month Patient Tobacco Use Status: Never used Tobacco Smoked in Last 30 Days: No Use of substances other than those prescribed or required for medical reasons: No Are you DNR?: No Advance Directives: No Advance Directives Information Provided: Yes Nutrition Risks: Acute nausea or vomiting x1 week and Poor intake 0-25% >4 days service: No Meds Allergies Allergy/AdvReac Type Severity Reaction Status Date / Time fish derived [FISH] Allergy Intermediate rash/hives Verified 03/27/23 04:22 Active Medications: Current Medications Acetaminophen (Acetaminophen 325 Mg Tablet) 650 mg PO Q6H PRN PRN Reason: Pain, Mild (Pain Scale 1-3) Al Hydroxide/Mg Hydroxide (Magnesium Hydrox/Alum Hydrox 30 Ml Oral.Susp) 30 ml PO Q4H PRN PRN Reason: Heartburn/Nausea Atorvastatin Calcium (Atorvastatin Calcium 40 Mg Tablet) 40 mg PO BEDTIME [facility] Finasteride (Finasteride 5 Mg Tablet) 5 mg PO DAILY [facility] Fluticasone Propionate (Fluticasone Propionate Nasal 16 Gm [place]) 1 spray NOSTRIL-B DAILY [facility] Sodium Chloride (Ns) 1,000 mls @ 100 mls/hr IVCONT .Q10H [facility] Last Admin: 03/27/23 09:36 Dose: 100 mls/hr Pantoprazole Sodium 80 mg/ (Sodium Chloride) 100 mls @ 10 mls/hr IV .Q10H [facility] Magnesium Hydroxide (Milk Of Magnesia 30 Ml Oral.Susp) 30 ml PO DAILY PRN PRN Reason: Constipation Melatonin (Melatonin 3 Mg Tablet) 6 mg PO BEDTIME PRN PRN Reason: Insomnia Ondansetron HCl (Ondansetron Hcl 4 Mg/2 Ml Vial) 4 mg IVPUSH Q8H PRN PRN Reason: Nausea and Vomiting Sodium Chloride (0.9 % Sodium Chloride Flush 3 Ml Syringe) 3 ml IVFLUSH QSHIFT [facility] Vitamin D (Cholecalciferol (Vitamin D3) 25 Mcg Tablet) 100 mcg PO DAILY [facility] Home Medications Medication Instructions Recorded Confirmed Last Taken Type amlodipine 5 mg tablet 5 mg PO DAILY 04/06/21 03/27/23 Unknown History atorvastatin 40 mg tablet 40 mg PO BEDTIME 04/06/21 03/27/23 Unknown History fluticasone propionate 50 1 spray intranasal DAILY 04/06/21 03/27/23 Unknown History mcg/actuation nasal spray,suspension hydrochlorothiazide 25 mg tablet 25 mg PO DAILY 04/06/21 03/27/23 Unknown History cholecalciferol (vitamin D3) 50 100 mcg PO QAM 02/22/22 03/27/23 Unknown History mcg (2,000 unit) tablet melatonin 5 mg tablet 10 mg PO BEDTIME PRN Sleep 03/27/23 03/27/23 Unknown History omeprazole 20 mg capsule,delayed 20 mg PO DAILY@0630 03/27/23 03/27/23 Unknown History release Physical Exam 2 Vital Signs: Vital Signs: Last Vital Signs Temp 98.0 F 03/27/23 09:41 Pulse 75 03/27/23 09:41 Resp 18 03/27/23 09:41 BP 104/45 L 03/27/23 09:41 Pulse Ox 98 03/27/23 09:41 O2 Del Method Room Air 03/27/23 09:41 BMI result Body Mass Index 28.3 EXAM: GENERAL: The patient is well developed and nontoxic. VITAL SIGNS:see workflow HEENT: Nonicteric sclerae, PERRLA, EOMI. Oropharynx clear. Moist mucous membranes. Conjunctivae appear well perfused. No thyroid mass. CHEST: Chest wall is nontender. HEART: Regular rate and rhythm without murmurs. LUNGS: Clear to auscultation bilaterally. ABDOMEN: Soft, positive bowel sounds, tender epigastrium, no organomegaly.no flank tenderness SKIN: No rash, no excessive bruising, petechiae, or purpura. NEUROLOGIC: Cranial nerves II-XII intact without motor/sensory deficit. PSYCH: nml affect Results Labs 03/27/23 09:00 03/27/23 03:17 Labs: Short CBC 03/27/23 03/27/23 Range/Units 03:17 09:00 WBC 21.1 H 16.6 H (4.8-10.8) X10*3/uL Hgb 11.0 L 10.0 L (14.0-18.0) g/dl Hct 32.6 L 30.7 L (42.0-52.0) % Plt Count 460 H D 370 (160-400) X10*3/uL BMP 03/27/23 03:17 Sodium 139 Potassium 4.0 Chloride 102 Carbon Dioxide 27 BUN 33 H Creatinine 0.89 Calcium 8.5 Liver Function 03/27/23 Range/Units 03:17 Total Bilirubin 0.4 (0.0-1.0) mg/dL Direct Bilirubin 0.2 (0.0-0.5) mg/dL AST 18 (5-37) U/L ALT 10 (0-40) U/L Alkaline Phosphatase 106 (39-117) U/L Albumin 3.3 L (3.5-5.0) g/dL Imaging CT scan - abdomen: Attestation: I personally reviewed and interpreted this imaging study as follows: (as above) Assessment and Plan (1) Duodenal ulcer: Status: Acute (2) Acute GI bleeding: Status: Acute Plan 1/Acute GIB, likley from pre existing ulcers or erosions, possible non compliance with medications PLAN: 1/ EGD today for assessment, keep NPO 2/ Cont with PPI and octreotide for the moment Procedures Date of Service Date of Service: 03/27/23
--- NOTE | 2023-03-27 10:20 | MHC.SHP ---
Pre-Procedural Eval Section A Date of Service: 03/27/23 The patient is an INPATIENT: Yes The History & Physical has been completed within 30 days and I have reviewed it.: Yes Section B Chief Complaint: Acute blood loss anemia, GI bleeding Allergies: Allergies Allergy/AdvReac Type Severity Reaction Status Date / Time fish derived [FISH] Allergy Intermediate rash/hives Verified 03/27/23 04:22 Plan I have reviewed the history and physical and performed a pertinent physical examination on my patient. No changes have occurred unless specified. EGD for assessment of bleeding Time Spent With Patient Time: Total time managing care of this patient today ____ minutes.
[2023-03-27] MEDS: Cholecalciferol (Vitamin D3) 25 MCG TABLET 100 MCG PO (10:41)
[2023-03-27] MEDS: Pantoprazole Sodium 80 MG in 0.9 % Sodium Chloride 80 ML 10 MG IV ×2 (10:41→16:55)
--- NOTE | 2023-03-27 10:48 | PC.NURSE ---
DELAYED ADMIN OF ERYTHROMYCIN SECONDARY TO MEDICATION NOT LOADED IN [facility]. PHARMACY NOTIFIED AND WILL BRING MED TO ED.
[2023-03-27] MEDS: Erythromycin Lactobionate 250 MG in 0.9 % Sodium Chloride 100 ML 100 MG IV (11:29)
--- NOTE | 2023-03-27 13:29 | HO.ANESPROP2 ---
HPI - Anesthesia Eval Consult details Narrative: EGD upper GI bleeding? PMFSH Active Problems Active Problems: All Active Problems (Updated 03/27/23 @ 04:29 by Tiffany Ash MD) Syncope (Acute) Duodenal ulcer (Acute) Acute GI bleeding (Acute) Proteinuria (Acute) FREY (dyspnea on exertion) (Acute) Prostate cancer (Acute) Past Medical History Medical History Elevated cholesterol HTN (hypertension) GERD (gastroesophageal reflux disease) Restrictive airway disease Prostate cancer Family History Family History Father Throat cancer Mother Diabetes Kidney disease Family history of problems with anesthesia: No Surgical History Surgical History History of open reduction and internal fixation (ORIF) procedure History of esophagogastroduodenoscopy (EGD) Hx of colonoscopy History of cardiac cath History of Problems with Anesthesia: No Social History Household Members: Children Housing: Apartment Do you presently have visiting nurse or other home services: No Alcohol intake: current Alcohol intake frequency: a few times a week Patient Tobacco Use Status: Never used Tobacco Smoked in Last 30 Days: No Use of substances other than those prescribed or required for medical reasons: No Advance Directives: No Advance Directives Information Provided: Yes Nutrition Risks: Acute nausea or vomiting x1 week and Poor intake 0-25% >4 days service: No Meds Allergies Allergy/AdvReac Type Severity Reaction Status Date / Time fish derived [FISH] Allergy Intermediate rash/hives Verified 03/27/23 04:22 Active Medications: Current Medications Acetaminophen (Acetaminophen 325 Mg Tablet) 650 mg PO Q6H PRN PRN Reason: Pain, Mild (Pain Scale 1-3) Al Hydroxide/Mg Hydroxide (Magnesium Hydrox/Alum Hydrox 30 Ml Oral.Susp) 30 ml PO Q4H PRN PRN Reason: Heartburn/Nausea Atorvastatin Calcium (Atorvastatin Calcium 40 Mg Tablet) 40 mg PO BEDTIME ADOLFO Finasteride (Finasteride 5 Mg Tablet) 5 mg PO DAILY ADOLFO Fluticasone Propionate (Fluticasone Propionate Nasal 16 Gm [place]) 1 spray NOSTRIL-B DAILY ADOLFO Sodium Chloride (Ns) 1,000 mls @ 100 mls/hr IVCONT .Q10H [facility] Last Admin: 03/27/23 09:36 Dose: 100 mls/hr Pantoprazole Sodium 80 mg/ (Sodium Chloride) 100 mls @ 10 mls/hr IV .Q10H [facility] Last Admin: 03/27/23 10:41 Dose: 8 mg/hr, 10 mls/hr Magnesium Hydroxide (Milk Of Magnesia 30 Ml Oral.Susp) 30 ml PO DAILY PRN PRN Reason: Constipation Melatonin (Melatonin 3 Mg Tablet) 6 mg PO BEDTIME PRN PRN Reason: Insomnia Ondansetron HCl (Ondansetron Hcl 4 Mg/2 Ml Vial) 4 mg IVPUSH Q8H PRN PRN Reason: Nausea and Vomiting Sodium Chloride (0.9 % Sodium Chloride Flush 3 Ml Syringe) 3 ml IVFLUSH QSHIFT [facility] Vitamin D (Cholecalciferol (Vitamin D3) 25 Mcg Tablet) 100 mcg PO DAILY [facility] Last Admin: 03/27/23 10:41 Dose: 100 mcg Home Medications Medication Instructions Recorded Confirmed Last Taken Type amlodipine 5 mg tablet 5 mg PO DAILY 04/06/21 03/27/23 Unknown History atorvastatin 40 mg tablet 40 mg PO BEDTIME 04/06/21 03/27/23 Unknown History fluticasone propionate 50 1 spray intranasal DAILY 04/06/21 03/27/23 Unknown History mcg/actuation nasal spray,suspension hydrochlorothiazide 25 mg tablet 25 mg PO DAILY 04/06/21 03/27/23 Unknown History cholecalciferol (vitamin D3) 50 100 mcg PO QAM 02/22/22 03/27/23 Unknown History mcg (2,000 unit) tablet melatonin 5 mg tablet 10 mg PO BEDTIME PRN Sleep 03/27/23 03/27/23 Unknown History omeprazole 20 mg capsule,delayed 20 mg PO DAILY@0630 03/27/23 03/27/23 Unknown History release Exam Height,Weight and Vital Signs: Height 5 ft 6 in Weight 79.5 kg Last Vital Signs Temp 98.0 F 03/27/23 09:41 Pulse 67 03/27/23 10:51 Resp 16 03/27/23 10:51 BP 114/46 L 03/27/23 10:51 Pulse Ox 98 03/27/23 10:51 O2 Del Method Room Air 03/27/23 10:51 Pertinent Lab Results Pertinent Lab Results: Laboratory Tests 03/27/23 03/27/23 03/27/23 03:17 04:21 04:47 WBC 21.1 H RBC 3.43 L Hgb 11.0 L Hct 32.6 L MCV 95.0 MCH 32.1 MCHC 33.7 RDW 13.4 Plt Count 460 H D MPV 8.6 L Immature Gran % (Auto) 0.5 H Neut % (Auto) 88.0 H Lymph % (Auto) 7.4 L Archer % (Auto) 3.6 Eos % (Auto) 0.2 Baso % (Auto) 0.3 Lymph # (Auto) 1.6 Archer # (Auto) 0.8 Eos # (Auto) 0.0 Baso # (Auto) 0.1 Abs Immat Gran (auto) 0.11 H Absolute Neuts (auto) 18.6 H Absolute Nucleated RBC 0.000 Nucleated RBC % (auto) 0.0 Sodium 139 Potassium 4.0 Chloride 102 Carbon Dioxide 27 Anion Gap 14 BUN 33 H Creatinine 0.89 Estim Creat Clear Calc 69.9 Estimated GFR > 60 Random Glucose 165 H Calcium 8.5 Total Bilirubin 0.4 Direct Bilirubin 0.2 AST 18 ALT 10 Alkaline Phosphatase 106 Troponin I High Sens < 2.7 Total Protein 6.1 L Albumin 3.3 L Lipase 28 Stool Occult Blood POSITIVE Blood Type O Positive Antibody Screen NEGATIVE 03/27/23 09:00 WBC 16.6 H RBC 3.17 L Hgb 10.0 L Hct 30.7 L MCV 96.8 MCH 31.5 MCHC 32.6 RDW 13.3 Plt Count 370 MPV 8.6 L Immature Gran % (Auto) 0.4 Neut % (Auto) 83.1 H Lymph % (Auto) 10.6 L Archer % (Auto) 5.5 Eos % (Auto) 0.1 Baso % (Auto) 0.3 Lymph # (Auto) 1.8 Archer # (Auto) 0.9 Eos # (Auto) 0.0 Baso # (Auto) 0.1 Abs Immat Gran (auto) 0.07 H Absolute Neuts (auto) 13.8 H Absolute Nucleated RBC 0.000 Nucleated RBC % (auto) 0.0 Sodium Potassium Chloride Carbon Dioxide Anion Gap BUN Creatinine Estim Creat Clear Calc Estimated GFR Random Glucose Calcium Total Bilirubin Direct Bilirubin AST ALT Alkaline Phosphatase Troponin I High Sens Total Protein Albumin Lipase Stool Occult Blood Blood Type Antibody Screen Airway Mallampati Class: II TM Dist: >3cm Neck ROM: Limited Heart: rrr Lungs: cta Assessment and Plan Final Anesthetic Review Family History of Problems with Anesthesia: No History of Problems with Anesthesia: No NPO: Yes ASA Class: III and Emergency Final Preanesthetic Review: No Changes in Pt Med Stat, Meds/Allgs Chart Reviewed, Consent Obtained/Reviewed and Anes Risks/Benef Reviewed Patient Risk: Intermediate Procedure Risk: Intermediate Anesthetic Plan Anesthetic Plan: GA and Agree w/ Assess. and Plan Disposition: Standard PACU
--- NOTE | 2023-03-27 14:51 | W.PM.OPN ---
Operative Note Operative Note Date of Service: 03/27/23 Narrative: Procedure Description: EGD Indication: Acute GI blood loss Anesthesia: MAC FLEXIBLE TRANSORAL UPPER GASTROINTESTINAL ENDOSCOPY UPPER ENDOSCOPY Consent: Indications for the procedure and potential complications of bleeding, perforation, reaction to medications and missed diagnosis were discussed with the patient and informed consent was obtained. Instrument: Olympus GIF H 190 J mid size upper endoscope Monitoring: Vital signs and clinical assessment, continuous EKG monitoring, Pulse oximetry, Carbon Dioxide monitoring and blood pressure monitoring were done throughout the procedure. Procedure: The patient was placed in the left lateral decubitis position and pre-procedure medications were administered and a bite block was placed. The endoscope was inserted into the mouth and advanced under direct vision to the third part of duodenum. A careful inspection was made as the upper endoscope was withdrawn including a retroflexed examination of the proximal stomach; Findings and interventions are described below. Findings: Larynx:normal Esophagus: GE junction at 40 cm, diaphragm hiatus at 40 cm, distal segment esophagitis without bleeding Stomach: Patchy gastric erythema. Biopsies were obtained to r/o H pylori. Grade 2 flap valve on retroflexed examination of the cardia. No active bleeding. Duodenum: In proximal duodenum there was a 10-12 mm stellate shaped ulcer with clot at the periphery and another penetrating ulcer in the mid bulb area (Jeff grade III) about 14-15 mm. The mucosa was swollen and edematous with some stricturing. The ulcer with the clot was irrigated and the clot dislodged and started bleeding. An OTC was applied with good hemostasis and then hemospray also applied. Intervention: Biopsies as noted above, control of bleeding Impression/Findings: duodenal ulcers, stricture gastritis esophagitis PLAN: cont IV PPi for another 48 hrs then PO clears today and advance diet tomorrow if ongoing bleeding then IR and surgical consult.
--- NOTE | 2023-03-27 15:06 | PC.NURSE ---
Pt brought to short stay around 1330 for upper endoscopy. family aware, IVF/protonix stopped for transport.
[2023-03-27 18:14] LABS: Hematocrit 28.7 % (42.0-52.0); Hemoglobin 9.4 g/dl (14.0-18.0); Mean Corpuscular HGB Conc 32.8 g/dl (31.0-36.0); Mean Corpuscular Hemoglobin 31.9 pg (27.0-33.0); Mean Corpuscular Volume 97.3 fL (80.0-98.0); Mean Platelet Volume 8.9 fL (9.4-12.4); Platelet Count 357 X10*3/uL (160-400); Red Blood Count 2.95 X10*6/uL (4.60-5.80); Red Cell Distribution Width 13.5 % (11.0-16.0)
[2023-03-27] MEDS: Atorvastatin Calcium 40 MG TABLET PO (20:13)
[2023-03-28] MEDS: Pantoprazole Sodium 80 MG in 0.9 % Sodium Chloride 80 ML 10 MG IV ×2 (01:52→16:39)
[2023-03-28] MEDS: Melatonin 3 MG TABLET 6 MG PO (01:56)
[2023-03-28 03:38] VITALS: BP 117/55; PULSE 75; RESP 18; TEMP 36.4; O2SAT 97
[2023-03-28 07:13] VITALS: BP 127/60; PULSE 62; RESP 20; TEMP 36.1; O2SAT 99
[2023-03-28 07:14] LABS: Hematocrit 26.4 % (42.0-52.0); Hemoglobin 8.6 g/dl (14.0-18.0); Mean Corpuscular HGB Conc 32.6 g/dl (31.0-36.0); Mean Corpuscular Hemoglobin 31.9 pg (27.0-33.0); Mean Corpuscular Volume 97.8 fL (80.0-98.0); Platelet Count 297 X10*3/uL (160-400); Red Cell Distribution Width 13.6 % (11.0-16.0)
--- NOTE | 2023-03-28 08:19 | MHC.CM.PN ---
CM met with Patient at bedside and addressed IMM with him, providing Patient with the original and a copy has been placed on the chart. 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 Home/self care is the goal and CM has initiated and will follow for dc planning. PCP is Dr. Cheryl Vazquez.
[2023-03-28] MEDS: 0.9 % Sodium Chloride 1,000 ML 100 ML IVCONT ×2 (08:22→16:49)
[2023-03-28] MEDS: Finasteride 5 MG TABLET PO (08:23)
[2023-03-28] MEDS: Cholecalciferol (Vitamin D3) 25 MCG TABLET 100 MCG PO (08:23)
--- NOTE | 2023-03-28 10:08 | HO.PM.IMPN ---
Subjective Subjective Date of Service: 03/28/23 Interval History: Follow-up on GI bleed, duodenal ulcer gastric erosion and acute blood loss anemia. He had EGD which confirm the presence duodenal ulcer, gastric erosion. Had black stool, Hgb has dropped to 8, no active bleed at this time Physical Exam Vital Signs: Vital Signs: Last Vital Signs Temp 96.9 F 03/28/23 07:13 Pulse 62 03/28/23 07:13 Resp 20 03/28/23 07:13 BP 127/60 03/28/23 07:13 Pulse Ox 99 03/28/23 07:13 O2 Del Method Room Air 03/28/23 07:13 BMI result Body Mass Index 28.0 Objective Data Active Medications Acetaminophen (Acetaminophen 325 Mg Tablet) 650 mg PO Q6H PRN PRN Reason: Pain, Mild (Pain Scale 1-3) Al Hydroxide/Mg Hydroxide (Magnesium Hydrox/Alum Hydrox 30 Ml Oral.Susp) 30 ml PO Q4H PRN PRN Reason: Heartburn/Nausea Atorvastatin Calcium (Atorvastatin Calcium 40 Mg Tablet) 40 mg PO BEDTIME [facility] Last Admin: 03/27/23 20:13 Dose: 40 mg Documented By: NADEEM Finasteride (Finasteride 5 Mg Tablet) 5 mg PO DAILY [facility] Last Admin: 03/28/23 08:23 Dose: 5 mg Documented By: TALYA Fluticasone Propionate (Fluticasone Propionate Nasal 16 Gm [place]) 1 spray NOSTRIL-B DAILY [facility] Sodium Chloride (Ns) 1,000 mls @ 100 mls/hr IVCONT .Q10H [facility] Last Admin: 03/28/23 08:22 Dose: 100 mls/hr Documented By: TALYA Pantoprazole Sodium 80 mg/ (Sodium Chloride) 100 mls @ 10 mls/hr IV .Q10H [facility] Last Admin: 03/28/23 01:52 Dose: 8 mg/hr, 10 mls/hr Documented By: NADEEM Magnesium Hydroxide (Milk Of Magnesia 30 Ml Oral.Susp) 30 ml PO DAILY PRN PRN Reason: Constipation Melatonin (Melatonin 3 Mg Tablet) 6 mg PO BEDTIME PRN PRN Reason: Insomnia Last Admin: 03/28/23 01:56 Dose: 6 mg Documented By: NADEEM Ondansetron HCl (Ondansetron Hcl 4 Mg/2 Ml Vial) 4 mg IVPUSH Q8H PRN PRN Reason: Nausea and Vomiting Sodium Chloride (0.9 % Sodium Chloride Flush 3 Ml Syringe) 3 ml IVFLUSH QSHIFT [facility] Last Admin: 03/28/23 08:22 Dose: Not Given Documented By: TALYA Non-Admin Reason: IV Running Vitamin D (Cholecalciferol (Vitamin D3) 25 Mcg Tablet) 100 mcg PO DAILY [facility] Last Admin: 03/28/23 08:23 Dose: 100 mcg Documented By: TALYA Labs 03/28/23 06:34 03/27/23 03:17 Labs: Laboratory Results - last 24 hr 03/27/23 03/28/23 17:32 06:34 MCV 97.3 97.8 MCH 31.9 31.9 MCHC 32.8 32.6 RDW 13.5 13.6 Plt Count 357 297 MPV 8.9 L 9.0 L Absolute Nucleated RBC 0.000 0.000 Nucleated RBC % (auto) 0.0 0.0 Assessment and Plan (1) Syncope: Status: Acute (2) Duodenal ulcer: Status: Acute (3) Acute GI bleeding: Status: Acute Plan 77-year-old male with history of essential hypertension, mixed hyperlipidemia, BPH, gastroesophageal reflux disease, alcohol use desorder who was hospitaliaed earlier diagnosed earlier this months with duodnal ulcers and discharged with Prilosec but never took it and readmitted with the same thing. 1. Acute blood loss anemia with known duodnal ulcer, gastric erosion. Repeat EGD 03/27 revealed duodnal ulcers and had local intervention for hemostasis, gastric erosion. On IV PPI for at least 48 hours then discharge again with oral PPI, Follow H/H bid and transfuse if Hgb < 8, reported black tarry stool c/w UGIB 2. Duodnal ulcer with abdominal pain, no evidence of perforation. Surgery following 3. HTN--hold BP meds in light of hypotension and sycope and gib/anemia 4. Syncope likely related to hypotension, possibly relaed to gi bleed 5. HLD--continue statin 6. BPH-finesteride starting DVT prophylaxis: compression device Full code Need for inpt: Active gi bleed leading to hypotension, syncope and need work up and IV meds out of bed Quality Stroke Does the patient have a stroke diagnosis?: No VTE Prior VTE?: No VTE Risk Level:: Medical - moderate - high VTE Device Contraindication: N/A - Device Ordered VTE Drug Contraindication: Treatment Not Tolerated
[2023-03-28] MEDS: Fluticasone Propionate Nasal 16 GM SPRAY 1 SPRAY NOSTRIL-B (10:33)
[2023-03-28 11:21] VITALS: BP 131/57; PULSE 67; RESP 20; TEMP 36.2; O2SAT 100
[2023-03-28 15:49] VITALS: BP 128/61; PULSE 68; RESP 18; TEMP 36.4; O2SAT 98
[2023-03-28 16:11] LABS: Hematocrit 24.1 % (42.0-52.0); Mean Corpuscular HGB Conc 33.2 g/dl (31.0-36.0); Mean Corpuscular Hemoglobin 31.9 pg (27.0-33.0); Mean Platelet Volume 8.7 fL (9.4-12.4); Platelet Count 280 X10*3/uL (160-400); Red Blood Count 2.51 X10*6/uL (4.60-5.80); Red Cell Distribution Width 13.2 % (11.0-16.0); White Blood Count 7.8 X10*3/uL (4.8-10.8)
[2023-03-28] MEDS: 0.9 % Sodium Chloride Flush 3 ML SYRINGE IVFLUSH (16:42)
[2023-03-28 19:49] VITALS: BP 111/68; PULSE 78; RESP 19; TEMP 36.5; O2SAT 98
[2023-03-28] MEDS: Atorvastatin Calcium 40 MG TABLET PO (20:16)
[2023-03-28 23:26] VITALS: BP 130/62; PULSE 71; RESP 20; TEMP 36.7; O2SAT 98
[2023-03-29] MEDS: 0.9 % Sodium Chloride 1,000 ML 100 ML IVCONT (02:29)
[2023-03-29] MEDS: Pantoprazole Sodium 80 MG in 0.9 % Sodium Chloride 80 ML 10 MG IV (02:29)
[2023-03-29] MEDS: Melatonin 3 MG TABLET 6 MG PO (02:35)
[2023-03-29 03:10] VITALS: BP 137/63; PULSE 64; RESP 18; TEMP 36.1; O2SAT 98
[2023-03-29 07:17] VITALS: BP 132/60; PULSE 65; RESP 18; TEMP 36.3; O2SAT 98
[2023-03-29 07:41] LABS: Hematocrit 25.8 % (42.0-52.0); Hemoglobin 8.4 g/dl (14.0-18.0); Mean Corpuscular HGB Conc 32.6 g/dl (31.0-36.0); Mean Corpuscular Hemoglobin 31.8 pg (27.0-33.0); Mean Corpuscular Volume 97.7 fL (80.0-98.0); Mean Platelet Volume 9.3 fL (9.4-12.4); Platelet Count 319 X10*3/uL (160-400); Red Blood Count 2.64 X10*6/uL (4.60-5.80); Red Cell Distribution Width 13.4 % (11.0-16.0); White Blood Count 7.3 X10*3/uL (4.8-10.8)
[2023-03-29] MEDS: 0.9 % Sodium Chloride Flush 3 ML SYRINGE IVFLUSH (07:54)
[2023-03-29] MEDS: Fluticasone Propionate Nasal 16 GM SPRAY 1 SPRAY NOSTRIL-B (07:56)
[2023-03-29] MEDS: Cholecalciferol (Vitamin D3) 25 MCG TABLET 100 MCG PO (07:57)
[2023-03-29] MEDS: Finasteride 5 MG TABLET PO (07:57)
--- NOTE | 2023-03-29 10:52 | MHC.CM.PN ---
PER HOSPITALIST PT TO BE MEDICALLY CLEARED FOR DC HOME SELF CARE W/DTR FOR TRANSPORT.
[2023-03-29 11:16] VITALS: BP 111/51; PULSE 64; RESP 18; TEMP 36.9; O2SAT 98
--- NOTE | 2023-03-29 11:42 | PM.DS ---
DS: Providers Provider Date of Service: 03/29/23 Date of admission: 03/27/23 09:23 Primary care physician: Cheryl Richardson MD Consults: 03/27/23 07:14 Consult to Gastroenterology Routine Consulting Provider: Osiris Munoz Reason for consultation: duodenalulcer, hematemesis 03/27/23 07:21 Consult to General Surgery Routine Consulting Provider: [facility] Surgeons Reason for consultation: Peptic ulcer disease with active abdominal pain Has provider been notified: No DS: Diagnosis Discharge Diagnosis (1) Syncope: Status: Acute (2) Duodenal ulcer: Status: Acute (3) Acute GI bleeding: Status: Acute DS: Summary Hospital Course Hospital Course: This is a 77-year-old male with history of essential hypertension, mixed hyperlipidemia, BPH, gastroesophageal reflux disease, alcohol use desorder who was hospitaliaed earlier this month from 03/15 to 03/18 after presenting with abdominal pain and work up revealing duodnal ulcer on CT, he subsquently EGD and found to have Gastritis with gastric erosions, 1.5 to 2 cms clean based nonbleeding ulcer in the apex of the bulb and 2nd 2 x 2.5 cms deep ulcer in the proximal descending duodenum with slow oozing of blood from a visible vessel near the inferior margin of the ulcer. Ulcer bed was cauterized with a God probe and 3 epinephrine was injected with cessation of bleeding. He was then put IV protonix for 72 hours, and was transfused 2 units of H/H when hemoglobin dropped from 14 to 7.7, at the time of discharge hemoglobin was 11. 6. He was discharged with oral prilosec and ASA was discontinued. He did not slate picker prilosec from the pharmacy. He presented back today with epigastric pain and vomitting blood once at home, EMS reported SBP in 60 and given IVF, in ED he states that he vomitted blood twice. He was given IVF and BP improved. Hemoglobin was 11 and repeat 6 hours 10. He is still complainin 8/[address] of abdomen and pelvis today show persistent duodnal ulcer. Most recent BP 127/58 and HR 67 Hospital course: 1. Acute blood loss anemia with known duodnal ulcer, gastric erosion. Patient did not take PPI as prescribed. Repeat EGD 03/27 revealed duodnal ulcers and had local intervention for hemostasis. Biopsy from last admission showed no H. Pylori or malignancy. He was treated with IV PPI for 48 hours, diet is advanced to regular diet. Hemoglobin has dropped but has reamins stable at 8 and above and therefore doesn't need transfusion. He will be prescribed Prilosec 20 mg twice daily, to avoid NSAID and alcohol and follow up with GI. 2. Duodnal ulcer with abdominal pain, no evidence of perforation. Surgery saw him with no need for intervention. 3. HTN- Initially blood pressures were low which resulted in syncope,BP meds were on hold, Blood pressure is now within normal and I advise holding blood pressure medications until reassessed by PCP 4. Syncope likely related to hypotension, possibly relaed to gi bleed 5. HLD--continue statin 6. BPH-finesteride starting Time Attestation Discharge coordination time: Greater than 30 minutes Quality: Safe Use of Opioids Does Pt have an Active Cancer Diagnosis on the Problem List?: No Quality: Stroke Does the patient have a stroke diagnosis?: No Physical Exam Vital Signs: Vital Signs: Last Vital Signs Temp 98.4 F 03/29/23 11:16 Pulse 64 03/29/23 11:16 Resp 18 03/29/23 11:16 BP 111/51 L 03/29/23 11:16 Pulse Ox 98 03/29/23 11:16 O2 Del Method Room Air 03/29/23 11:16 BMI result Body Mass Index 28.0 DS: Data Data Completed and Pending Pending studies at discharge: Pending at discharge 03/27/23 14:46 Surgical [PTH] Routine Labs on day of discharge: Laboratory Results - last 24 hr 03/28/23 03/29/23 15:53 06:48 WBC 7.8 7.3 RBC 2.51 L 2.64 L Hgb 8.0 L 8.4 L Hct 24.1 L 25.8 L MCV 96.0 97.7 MCH 31.9 31.8 MCHC 33.2 32.6 RDW 13.2 13.4 Plt Count 280 319 MPV 8.7 L 9.3 L Absolute Nucleated RBC 0.000 0.000 Nucleated RBC % (auto) 0.0 0.0 Discharge Plan Discharge Anticipated Discharge Date/Time: 03/29/23 11:24 Patient Disposition: Home, Self-Care Discharge Diagnosis: Duodnal ulcer, acute gi bleed, acute anemia Referrals: Cheryl Hogan MD [Primary Care Provider] - 1 Week Discharge Medications: New omeprazole 20 mg capsule,delayed release(DR/EC) 20 mg PO BID Qty: 60 2RF Continued finasteride 5 mg tablet 5 mg PO DAILY 90 Days Qty: 90 1RF melatonin 5 mg tablet 10 mg PO BEDTIME PRN (Reason: Sleep) cholecalciferol (vitamin D3) 50 mcg (2,000 unit) tablet 100 mcg PO QAM fluticasone propionate 50 mcg/actuation spray,suspension 1 spray intranasal DAILY atorvastatin 40 mg tablet 40 mg PO BEDTIME Discontinued omeprazole 20 mg capsule,delayed release(DR/EC) 20 mg PO DAILY@0630 hydrochlorothiazide 25 mg tablet 25 mg PO DAILY amlodipine 5 mg tablet 5 mg PO DAILY Discharge Orders: Discharge Order (Routine); Ordered 03/29/23 Ordered By: Alfonso Herrmann Diet: Advance to usual diet Activity on Discharge: As tolerated Stand Alone Forms: Patient Portal Discharge page Care Plan Goals: Healing of Duodnal ulcer resolution of anemia Health Concerns: Duodnal ulcer anemia alcohol use disorder Plan of Treatment: Avoid alcohol Do NOT Take Aspirin or NSAID (over the counter pain medication such as advil, motrin, naproxen, meloxicam and others).. check with your Pharmacist to make sure they are not NSAID Stop taking blood pressure medications (Hydrochlorothiazine and Norvasc) , follow up with your doctor in a week Assessment: see above
== END 2023-03-29 14:25 | disposition home or self-care (01) | DRG 378 ==
LOC: HO.ED 07:26 → HO.EDOVER 09:27 → HO.IMC 15:18
PROVIDERS: Emergency Medicine; Internal Medicine Gastroenterology; Admitting Provider Internal Medicine; Emergency Provider Emergency Medicine Emergency Medical Services; PCP Internal Medicine; Visit Provider Internal Medicine
PROC: 0DJ08ZZ Inspection of Upper Intestinal Tract, Via Natural or Artificial Opening Endoscopic (ICD-10-PCS; CPT 43235; principal; 2023-03-27 15:30)
DX: K26.4 Chronic or unspecified duodenal ulcer with hemorrhage (principal); D62 Acute posthemorrhagic anemia; E78.2 Mixed hyperlipidemia; N40.0 Benign prostatic hyperplasia without lower urinary tract symptoms; K29.70 Gastritis, unspecified, without bleeding; K20.90 Esophagitis, unspecified without bleeding; I10 Essential (primary) hypertension; I95.9 Hypotension, unspecified; Z79.51 Long term (current) use of inhaled steroids; Z79.899 Other long term (current) drug therapy
CPT/HCPCS: 36415; 71045; 74177; 80053; 82248; 82272; 83690; 84484; 85025; 85027; 86850; 86900; 86901; 88305; 88342; 93005; 99285; C9113; J1364; J2354; J2704; Q9967

== ENCOUNTER → 2023-03-27 09:23 | Outpatient (BNV) | payer OTHER, SELFPAY | PROVIDERS: Admitting Provider Internal Medicine; Emergency Provider Emergency Medicine Emergency Medical Services; PCP Internal Medicine; Visit Provider Internal Medicine | DX: R55 Syncope and collapse (principal); K26.4 Chronic or unspecified duodenal ulcer with hemorrhage | CPT/HCPCS: 99223; 99232; 99239 ==

== ENCOUNTER → 2023-03-27 09:23 | Outpatient (BNV) | payer OTHER, SELFPAY | PROVIDERS: Admitting Provider Internal Medicine; Emergency Provider Emergency Medicine Emergency Medical Services; PCP Internal Medicine; Visit Provider Internal Medicine Gastroenterology | DX: K26.9 Duodenal ulcer, unspecified as acute or chronic, without hemorrhage or perforation (principal); K29.70 Gastritis, unspecified, without bleeding; K20.90 Esophagitis, unspecified without bleeding | CPT/HCPCS: 43239; 99223 ==

== ENCOUNTER → 2023-03-27 09:23 | Outpatient (BNV) | payer OTHER, SELFPAY | PROVIDERS: Admitting Provider Internal Medicine; Emergency Provider Emergency Medicine Emergency Medical Services; PCP Internal Medicine; Visit Provider Surgery | DX: K26.0 Acute duodenal ulcer with hemorrhage (principal) | CPT/HCPCS: 99222 ==

== ENCOUNTER 2023-05-29 10:51 | Outpatient (AMB) | payer OTHER, SELFPAY ==
--- NOTE | 2023-05-29 10:56 | A.OFFVIS_ITS ---
Intake Vital Signs 05/29/23 11:10 Height 5 ft 6 in Weight 171 lb 15.369 oz BMI 27.8 BP 131/65 Blood Pressure Location Lt brachial Position Sitting Pulse 84 Intake Visit Reasons: ED f/u Intake Note: Dk presents in the office as a follow up for being seen in the ED. CC: He is not having pains but he is not feeling good. Nausea and his stomach is visibly swollen. He states that sometimes he gets diarrhea with bleeding but he is not having that issue at the moment. Screw Eye Assembler Required: No Allergies fish derived [FISH] Allergy (Intermediate, Verified 05/29/23 11:10) rash/hives HPI ED f/u HPI Details GI CONSULT FROM HOSPITALIZATION 03/27/[address] ANAND HPI Reason for consult: Gi bleeding 77-year-old male with history of essent ial hypertension, mixed hyperlipidemia, BPH, gastroesophageal reflux disease, alcohol use disorder and peptic ulcer disease who I am seeing for assessment for GI bleeding Patient presents with 10/10 sharp epigastric pain without relieving or exacerbating facvtors and x 2 episodes of bloody emesis. He was hypotensive but BP improved with fluids, HGB this admission around 10 g/dl. He had been on aspirin but stopped since last EGD as below. He says no melena and actually constipated since his last admission. He was admitted 03/15 with abdominal pain and had an EGD which revealed gastric erosions, with 1.5 to 2 cms clean based nonbleeding ulcer in the apex of the bulb and 2nd 2 x 2.5 cms deep ulcer in the proximal descending duodenum with slow oozing of blood from a visible vessel near the inferior margin of the ulcer. Ulcer bed was cauterized with a Gold probe and epinephrine was injected with cessation of bleeding. during that stay he required 2 units of blood. He is unsure if he has been taking PPI these last few weeks at home, denies taking alcohol or nsaids at home UPPER ENDOSCOPY: REPEAT 03/27/2023 DR. NAZARIO Findings: Larynx:normal Esophagus: GE junction at 40 cm, diaphragm hiatus at 40 cm, distal segment esophagitis without bleeding Stomach: Patchy gastric erythema. Biopsies were obtained to r/o H pylori. Grade 2 flap valve on retroflexed examination of the cardia. No active bleeding. Duodenum: In proximal duodenum there was a 10-12 mm stellate shaped ulcer with clot at the periphery and another penetrating ulcer in the mid bulb area (Jeff grade III) about 14-15 mm. The mucosa was swollen and edematous with some stricturing. The ulcer with the clot was irrigated and the clot dislodged and started bleeding. An OTC was applied with good hemostasis and then hemospray also applied. Intervention: Biopsies as noted above, control of bleeding Impression/Findings: duodenal ulcers, stricture gastritis esophagitis PLAN: cont IV PPi for another 48 hrs then PO clears today and advance diet tomorrow if ongoing bleeding then IR and surgical consult. TODAY'S VISIT: Patient is here today for follow-up on recent admission for upper GI bleed. See above notes from hospitalization. Patient reports compliance with omeprazole. Patient takes it twice a day as ordered. Patient also reports changing his diet. Patient states that his daughter is cooking him more vegetables. However patient reports that he has been more bloated recently, reports occasional nausea, no vomiting. Patient reports that he is moving his bowels, however he does not feel like he empties them completely. Patient reports to be very gassy throughout the day. Denies any abdominal pain or discomfort. Denies any dyspepsia, dysphagia or odynophagia. Denies any melena, hematochezia, unintentional weight loss or ribbon like stools. [facility] Medical History Elevated cholesterol HTN (hypertension) GERD (gastroesophageal reflux disease) Restrictive airway disease Prostate cancer Surgical History History of open reduction and internal fixation (ORIF) procedure History of esophagogastroduodenoscopy (EGD) Hx of colonoscopy History of cardiac cath Family History Father Throat cancer Mother Diabetes Kidney disease Social History Household Members: Children Housing: Apartment Do you presently have visiting nurse or other home services: No Alcohol intake: current Alcohol intake frequency: a few times a month Patient Tobacco Use Status: Never used Tobacco service: No Review of Systems Const Denies weight gain and Denies weight loss ENT Reports no additional complaints, Denies dysphagia and Denies odynophagia Card Reports no additional complaints Resp Reports no additional complaints GI Denies abdominal pain, Denies belching, Denies melena, Reports bloating, Denies change in bowel habits, Reports constipation, Denies dysphagia, Denies excessive flatus, Denies dyspepsia, Denies heartburn, Denies diarrhea, Denies loose stools, Denies nausea, Denies odynophagia and Denies vomiting Reports no additional complaints Musc Reports no additional complaints Neuro Reports no additional complaints Psych Reports no additional complaints Endo Reports no additional complaints Physical Exam Vital Signs: Last Vital Signs Pulse 84 05/29/23 11:10 BP 131/65 05/29/23 11:10 BMI result Body Mass Index 27.8 Const General: healthy appearing, no acute distress and well developed Nutritional Appearance: well nourished Orientation/consciousness: patient oriented x3 Resp Effort & Inspection: normal respiratory effort, able to speak in complete sentences, no tracheal deviation and symmetric chest movement Auscultation: clear to auscultation bilaterally Cardio Rate: regular rate GI Inspection: Yes normal to inspection and Yes distended Palpation (GI): Soft to palpation, not firm, nontender and No hepatosplenomegaly present Auscultation: normal bowel sounds General: Yes no CVA tenderness Back/Spine/Pelvis Back: no CVA tenderness Skin General skin exam: elasticity normal, turgor normal and dry skin Neuro General: patient oriented x3 Psych Appearance: grossly normal Mental Status: mental status grossly normal Assessment & Plan Assessment & Plan (1) Duodenal ulcer: Code(s): K26.9 - Duodenal ulcer, unspecified as acute or chronic, without hemorrhage or perforation (2) GERD (gastroesophageal reflux disease): Code(s): K21.9 - Gastro-esophageal reflux disease without esophagitis Qualifiers: Esophagitis presence: esophagitis presence not specified Qualified Code(s): K21.9 - Gastro-esophageal reflux disease without esophagitis (3) Diverticulosis: Code(s): K57.90 - Diverticulosis of intestine, part unspecified, without perforation or abscess without bleeding (4) Postprandial abdominal bloating: Code(s): R14.0 - Abdominal distension (gaseous) (5) Constipation: Code(s): K59.00 - Constipation, unspecified Qualifiers: Constipation type: slow transit constipation Qualified Code(s): K59.01 - Slow transit constipation Plan Patient was encouraged to continue taking omeprazole twice a day. Continue avoiding dietary triggers and late night snacking. Staying upright for minimum 3 hours after meals discussed with him. Patient does not move his bowels well will start him on Benefiber and senna. Patient was encouraged to increase fluid intake and activity to promote better bowel motility patient's symptoms are related most likely to what he eats. Patient does eat [place] food like rice and beans which most likely make him feel bloated especially if he does not move his bowels well. Encouraged low FODMAP diet. List of food recommended as well as list of food to avoid given to patient. Patient will return in 4 weeks, sooner on as needed basis. Patient is agreeable to this plan and verbalizes understanding of instructions. He was given the opportunity to ask questions and all questions answered. Thank you for allowing me to participate in his care Medications: New sennosides (Natural Senna Laxative) 17.2 mg (2 x 8.6 mg) PO BEDTIME 60 tabs 1RF constipation K59.00 - Constipation, unspecified wheat dextrin (Benefiber Clear Sugar Free(dextrin)) mix into at least 4 oz water or juice before administering 1 packet PO DAILY 28 ea 5RF K59.01 - Slow transit constipation Refilled omeprazole 20 mg PO BID 60 caps 2RF Coding Level of Care Code Est Pt Level 4 (69244) Diagnoses Duodenal ulcer K26.9 Gastroesophageal reflux disease, unspecified whether esophagitis present K21.9 Esophagitis presence: esophagitis presence not specified Diverticulosis K57.90 Postprandial abdominal bloating R14.0 Slow transit constipation K59.01 Constipation type: slow transit constipation Time Spent (min) 40 Comment 25 minutes spent with patient and additional 15 minutes spent reviewing his records
[2023-05-29 11:10] VITALS: BP 131/65; PULSE 84; BMI 27.8
== END 2023-05-29 11:35 | disposition home or self-care (01) ==
PROVIDERS: PCP Internal Medicine; Visit Provider Nurse Practitioner Family
DX: K26.9 Duodenal ulcer, unspecified as acute or chronic, without hemorrhage or perforation (principal); K21.9 Gastro-esophageal reflux disease without esophagitis; K57.90 Diverticulosis of intestine, part unspecified, without perforation or abscess without bleeding; R14.0 Abdominal distension (gaseous); K59.01 Slow transit constipation
CPT/HCPCS: 99214

== ENCOUNTER → 2023-05-29 10:51 | Outpatient (BNVA) | payer OTHER, SELFPAY | PROVIDERS: PCP Internal Medicine; Visit Provider Nurse Practitioner Family | DX: K21.9 Gastro-esophageal reflux disease without esophagitis (principal); K26.9 Duodenal ulcer, unspecified as acute or chronic, without hemorrhage or perforation; K57.90 Diverticulosis of intestine, part unspecified, without perforation or abscess without bleeding; K59.01 Slow transit constipation; R14.0 Abdominal distension (gaseous) | CPT/HCPCS: 99212 ==

== ENCOUNTER 2023-06-13 12:38 | Outpatient (AMB) | payer OTHER, SELFPAY ==
--- NOTE | 2023-06-13 12:43 | MHC.OFFVIS ---
Intake Vital Signs 06/13/23 12:52 Height 5 ft 6 in Weight 190 lb BMI 30.7 BP 133/66 Blood Pressure Location Lt brachial Position Sitting Pulse 99 Intake Visit Reasons: Edgardo cyst upper back Intake Note: Patient is seen in office for evaluation and treatment of a sebaceous cyst of the upper back. Pt c/o: onset for a year, has increase in size, denies discharge, redness, swelling, infection, pain, would like to have it removed due to increasing size Instrumentation Technologist Required: No Accompanied by: Self / Same As Patient Allergies fish derived [FISH] Allergy (Intermediate, Verified 06/13/23 12:48) rash/hives HPI HPI Comments History of Present Illness Details 78-year-old male patient presenting with a lump in the posterior shoulder which is not causing any pain but is gradually increasing in size. He denies any bleeding or discharge from the site. He reports a previous cyst on the left shoulder which is daughter was able to break open after it became infected. He denies any previous history of infections in the new cyst. He is requesting excision of this lesion. [facility] Medical History Elevated cholesterol HTN (hypertension) GERD (gastroesophageal reflux disease) Restrictive airway disease Prostate cancer Surgical History History of open reduction and internal fixation (ORIF) procedure History of esophagogastroduodenoscopy (EGD) Hx of colonoscopy History of cardiac cath Family History Father Throat cancer Mother Diabetes Kidney disease Social History Household Members: Children Housing: Apartment Do you presently have visiting nurse or other home services: No Alcohol intake: current Alcohol intake frequency: a few times a month Patient Tobacco Use Status: Never used Tobacco service: No Review of Systems Const All systems reviewed & are unremarkable except as noted in HPI and below Physical Exam Vital Signs: Last Vital Signs Pulse 99 06/13/23 12:52 BP 133/66 06/13/23 12:52 BMI result Body Mass Index 30.7 Const General: no acute distress Nutritional Appearance: well nourished Orientation/consciousness: patient oriented x3 Limitations: no limitations Resp Effort & Inspection: normal respiratory effort GI Inspection: Yes normal to inspection Back/Spine/Pelvis Back/spine/pelvis image: 1. 2.5 cm round dermal lesion suggestive of a epidermal inclusion cyst/sebaceous cyst with a central punctum. No fluctuance, nontender to palpation. Skin Other: Warm, dry, no rash. Neuro General: patient oriented x3 Extrem General: Yes normal to inspection Assessment & Plan Assessment & Plan (1) Epidermal inclusion cyst: Code(s): L72.0 - Epidermal cyst Plan 78-year-old male patient presenting with an epidermal inclusion cyst of the right posterior shoulder which is increased in size but is not currently causing discomfort. The patient has requested excision of this lesion and after discussion of the procedure, risks, and alternatives, consents to the procedure. He will be scheduled as an office procedure at his earliest convenience. Coding Level of Care Code Est Pt Level 4 (58417) Diagnoses Epidermal inclusion cyst L72.0
[2023-06-13 12:52] VITALS: BP 133/66; PULSE 99; BMI 30.7
== END 2023-06-13 13:08 | disposition home or self-care (01) ==
PROVIDERS: PCP Internal Medicine; Referring Provider Internal Medicine; Visit Provider Surgery
DX: L72.0 Epidermal cyst (principal)
CPT/HCPCS: 99214

== ENCOUNTER → 2023-06-13 12:38 | Outpatient (BNVA) | payer OTHER, SELFPAY | PROVIDERS: PCP Internal Medicine; Referring Provider Internal Medicine; Visit Provider Surgery | DX: L72.0 Epidermal cyst (principal) | CPT/HCPCS: 99212 ==

== ENCOUNTER 2023-06-25 10:39 | Outpatient (AMB) | payer OTHER, SELFPAY ==
--- NOTE | 2023-06-25 10:54 | A.OFFVIS_ITS ---
Intake Vital Signs 3 06/25/23 11:20 BP 150/92 H Blood Pressure Location Rt brachial Position Sitting Intake Visit Reasons: excision of upper back cyst Knitting Machine Mechanic Required: Yes Knitting Machine Mechanic Language: Leverman Name: Nancy BARKLEY Information Interpreted: non-clinical & clinical Accompanied by: Self / Same As Patient Allergies fish derived [FISH] Allergy (Intermediate, Verified 06/25/23 11:20) rash/hives Medication List - Last Reconciled 06/25/23 by Brian Deleon MD amlodipine 5 mg PO DAILY atorvastatin 40 mg PO BEDTIME cholecalciferol (vitamin D3) 100 mcg PO QAM finasteride 5 mg PO DAILY 90 days hydrochlorothiazide 25 mg PO DAILY melatonin 10 mg PO BEDTIME PRN omeprazole 20 mg PO BID sennosides (Natural Senna Laxative) 17.2 mg (2 x 8.6 mg) PO BEDTIME wheat dextrin (Benefiber Clear Sugar Free(dextrin)) 1 packet PO DAILY HPI HPI Comments 2 History of Present Illness0 Details Patient returns today for excision of a epidermal inclusion cyst of the right posterior shoulder. He denies any changes since his last visit. After discussion of the procedure, risks, and alternatives, he consents to the surgery. [facility] Medical History Elevated cholesterol HTN (hypertension) GERD (gastroesophageal reflux disease) Restrictive airway disease Prostate cancer Surgical History History of open reduction and internal fixation (ORIF) procedure History of esophagogastroduodenoscopy (EGD) Hx of colonoscopy History of cardiac cath Family History Father Throat cancer Mother Diabetes Kidney disease Social History Household Members: Children Housing: Apartment Do you presently have visiting nurse or other home services: No Alcohol intake: current Alcohol intake frequency: a few times a month Patient Tobacco Use Status: Never used Tobacco service: No Review of Systems Const All systems reviewed & are unremarkable except as noted in HPI and below Physical Exam Back/Spine/Pelvis Other: 2.5 cm epidermal inclusion cyst in the posterior right shoulder. Back/spine/pelvis image: 2 1. 2.5 cm epidermal inclusion cyst Office Procedures Excision Details: Preoperative diagnosis: epidermal inclusion cyst right posterior shoulder Postoperative diagnosis: same Procedure: excision of epidermal inclusion cyst right posterior shoulder Surgeon: Brian Deleon MD Intervention Manager: none Anesthesia: lidocaine 1% with epinephrine Indications for procedure: 2.5 cm epidermal inclusion cyst right posterior shoulder Operative findings: 2.5 cm epidermal inclusion cyst right posterior shoulder, no evidence of abscess Specimen: epidermal inclusion cyst right posterior shoulder Estimated blood loss: less than 2 mL Complications: none Procedure details: patient was placed in a left lateral decubitus position. The site of surgery was confirmed by the patient in the right posterior shoulder. After assuring informed consent the skin was prepped with Betadine and draped in a sterile fashion. Local anesthesia was then infiltrated in an elliptical fashion around the lesion. Elliptical incision oriented transversely was then created with a 15 blade. This was then carried down through subcutaneous tissue and around the cyst wall. The lesion was then excised using a Metzenbaum scissors. Lesion was passed off the table and sent to pathology for further examination. Hemostasis was assured using light pressure. Dermis was then reapproximated using interrupted 3-0 Polysorb sutures. Skin was then closed using interrupted 4-0 nylon sutures. Sterile dressings consisting of a 3 x 3 gauze and Tegaderm were then applied. The patient tolerated the procedure well and was discharged to home in stable condition. [id number]/arms/legs 2.1-3cm Procedure code (CPT) selection complete Assessment & Plan Assessment & Plan (1) Epidermal inclusion cyst: Code(s): L72.0 - Epidermal cyst Plan 78-year-old male patient with a large epidermal inclusion cyst of the right posterior shoulder. He underwent excision of this lesion today and will return in approximately 1 week for wound examination and suture removal. He may remove the Tegaderm dressing in approximately 3-4 days. Orders: Orders 2 Surgical Today L72.0 - Epidermal cyst Coding Level of Care Code Procedure Only Diagnoses Epidermal inclusion cyst L72.0 CPT Codes Trunk/Arms/Legs - CPT: 54251-[id number]/arms/legs 2.1-3cm ([id number])
[2023-06-25 11:20] VITALS: BP 150/92
== END 2023-06-25 11:36 | disposition home or self-care (01) ==
PROVIDERS: PCP Internal Medicine; Visit Provider Surgery
DX: L72.0 Epidermal cyst (principal)
CPT/HCPCS: 11403

== ENCOUNTER 2023-06-25 10:44 | Outpatient (REF) | payer OTHER, SELFPAY | END 2023-06-25 10:45 | disposition home or self-care (01) | LOC: HO.LNP 10:44 | PROVIDERS: PCP Internal Medicine; Visit Provider Surgery | DX: L72.0 Epidermal cyst (principal); Z79.899 Other long term (current) drug therapy | CPT/HCPCS: 11403; 88304 ==

== ENCOUNTER 2023-07-02 10:58 | Outpatient (AMB) | payer OTHER, SELFPAY ==
--- NOTE | 2023-07-02 11:14 | A.OFFVIS_ITS ---
Intake Vital Signs 3 07/02/23 11:19 Height 5 ft 6 in Weight 171 lb 1.259 oz BMI 27.6 BP 132/72 Blood Pressure Location Lt brachial Position Sitting Intake Visit Reasons: post excision cyst, office proc Intake Note: Patient is seen in office for post op assessment post excision of back cyst. Pt c/o:denies any concerns, sutures removed at visit, has another cyst that would like to have removed at well Architectural Wood Model Maker Required: Yes Architectural Wood Model Maker Language: Plating Department Helper Name: Emelia BARKLEY Information Interpreted: non-clinical & clinical Lidder: Lidder Present Accompanied by: Self / Same As Patient Allergies fish derived [FISH] Allergy (Intermediate, Verified 07/02/23 11:20) rash/hives Medication List - Last Reconciled 07/02/23 by Brian Deleon MD amlodipine 5 mg PO DAILY atorvastatin 40 mg PO BEDTIME cholecalciferol (vitamin D3) 100 mcg PO QAM finasteride 5 mg PO DAILY 90 days hydrochlorothiazide 25 mg PO DAILY melatonin 10 mg PO BEDTIME PRN omeprazole 20 mg PO BID sennosides (Natural Senna Laxative) 17.2 mg (2 x 8.6 mg) PO BEDTIME simethicone 125 mg PO BID-QID PRN wheat dextrin (Benefiber Clear Sugar Free(dextrin)) 1 packet PO DAILY HPI HPI Comments 2 History of Present Illness0 Details 78-year-old male patient returning 1 wee k following excision of a epidermal inclusion cyst of the right posterior shoulder. He tolerated the procedure well returns today for suture removal. He denies any bleeding or discharge from the incision. Also notes a cyst in the left posterior shoulder which he is interested in having an excision as well. [facility] Medical History Elevated cholesterol HTN (hypertension) GERD (gastroesophageal reflux disease) Restrictive airway disease Prostate cancer Surgical History Hx of excision of mass (06/25/23) History of open reduction and internal fixation (ORIF) procedure History of esophagogastroduodenoscopy (EGD) Hx of colonoscopy History of cardiac cath Family History Father Throat cancer Mother Diabetes Kidney disease Social History Household Members: Children Housing: Apartment Do you presently have visiting nurse or other home services: No Alcohol intake: current Alcohol intake frequency: a few times a month Patient Tobacco Use Status: Never used Tobacco service: No Physical Exam Vital Signs: Last Vital Signs BP 132/72 07/02/23 11:19 BMI result Body Mass Index 27.6 Const General: comfortable Nutritional Appearance: well nourished Orientation/consciousness: patient oriented x3 Resp Effort & Inspection: normal respiratory effort Back/Spine/Pelvis Other: Incision in the posterior right shoulder is clean, dry, and intact. Sutures removed the incision found to be well healed. Another cyst is identified in the left posterior shoulder at a similar location. There is no evidence of infection at this time. Cyst measures approximately 1.5 cm in diameter. Back/spine/pelvis image: 2 1. 1.5 cm cyst posterior left shoulder 2. Incision posterior right shoulder, well-healed Neuro General: patient oriented x3 Assessment & Plan Assessment & Plan (1) Epidermal inclusion cyst: Code(s): L72.0 - Epidermal cyst Plan 78-year-old male patient returning following excision of an epidermal inclusion cyst of the posterior right shoulder. He tolerated the procedure well the wounds are healing nicely. He now is requesting excision of a epidermal inclusion cyst of the posterior left shoulder. He will be rescheduled also as an office procedure. Coding Level of Care Code Global (74953) Diagnoses Epidermal inclusion cyst L72.0
[2023-07-02 11:19] VITALS: BP 132/72; BMI 27.6
== END 2023-07-02 11:42 | disposition home or self-care (01) ==
PROVIDERS: PCP Internal Medicine; Visit Provider Surgery
DX: L72.0 Epidermal cyst (principal)
CPT/HCPCS: 99024

== ENCOUNTER 2023-07-02 10:58 | Outpatient (AMB) | payer OTHER, SELFPAY ==
--- NOTE | 2023-07-02 11:02 | A.OFFVIS_ITS ---
Intake Vital Signs 07/02/23 11:09 Height 5 ft 6 in Weight 171 lb 1.259 oz BMI 27.6 BP 138/76 Blood Pressure Location Lt brachial Position Sitting Pulse 78 Intake Visit Reasons: 1 month follow up Diverticulosis Intake Note: Patient presents for a one month follow-up for diverticulosis. Patient c/o; reports dark stools , no blood in stools, reports abdominal pain, reports no changes or new medications. Strip Machine Tender Required: Yes Strip Machine Tender Language: Guyanese Information Interpreted: non-clinical & clinical Accompanied by: Self / Same As Patient Allergies fish derived [FISH] Allergy (Intermediate, Verified 07/02/23 11:20) rash/hives HPI 1 month follow up Diverticulosis HPI Details LAST VISIT: Duodenal ulcer GERD (gastroesophageal reflux disease) Diverticulosis Postprandial abdominal bloating Constipation Plan Patient was encouraged to continue taking omeprazole twice a day. Continue avoiding dietary triggers and late night snacking. Staying upright for minimum 3 hours after meals discussed with him. Patient does not move his bowels well will start him on Benefiber and senna. Patient was encouraged to increase fluid intake and activity to promote better bowel motility patient's symptoms are related most likely to what he eats. Patient does eat [place]ese food like rice and beans which most likely make him feel bloated especially if he does not move his bowels well. Encouraged low FODMAP diet. List of food recommended as well as list of food to avoid given to patient. Patient will return in 4 weeks, sooner on as needed basis. Patient is agreeable to this plan and verbalizes understanding of instructions. He was given the opportunity to ask questions and all questions answered. ? Thank you for allowing me to participate in his care Medications New sennosides (Natural Senna Laxative) 17.2 mg (2 x 8.6 mg) PO BEDTIME 60 tabs 1RF constipation K59.00 wheat dextrin (Benefiber Clear Sugar Free(dextrin)) mix into at least 4 oz water or juice before administering 1 packet PO DAILY 28 ea 5RF K59.01 Refilled omeprazole 20 mg PO BID 60 caps 2RF TODAY'S VISIT Patient is here today for follow-up. Patient reports that he has been feeling better, able to move his bowels. Taking fiber and senna daily. Patient denies any melena, hematochezia, unintentional weight loss or ribbon like stools. Patient takes omeprazole half an hour before breakfast and half an hour before dinner. Symptoms of acid reflux are suppressed. Patient occasionally reports to feel bloated depending on what he eats. Patient continues to eats [place]ese food, admits not to be drinking enough water. Patient states that he does not eat anything fried or spicy. Patient denies any nausea or vomiting. [facility] Medical History Elevated cholesterol HTN (hypertension) GERD (gastroesophageal reflux disease) Restrictive airway disease Prostate cancer Surgical History Hx of excision of mass (06/25/23) History of open reduction and internal fixation (ORIF) procedure History of esophagogastroduodenoscopy (EGD) Hx of colonoscopy History of cardiac cath Family History Father Throat cancer Mother Diabetes Kidney disease Social History Household Members: Children Housing: Apartment Do you presently have visiting nurse or other home services: No Alcohol intake: current Alcohol intake frequency: a few times a month Patient Tobacco Use Status: Never used Tobacco service: No Review of Systems Const Denies weight gain and Denies weight loss ENT Reports no additional complaints, Denies dysphagia and Denies odynophagia Card Reports no additional complaints Resp Reports no additional complaints GI Reports abdominal pain (cramping), Denies belching, Denies melena, Reports bloating, Denies change in bowel habits, Reports constipation (occasional), Denies dysphagia, Denies excessive flatus, Denies dyspepsia, Denies heartburn, Denies diarrhea, Denies loose stools, Denies nausea, Denies odynophagia and Denies vomiting Reports no additional complaints Musc Reports no additional complaints Neuro Reports no additional complaints Psych Reports no additional complaints Endo Reports no additional complaints Physical Exam Vital Signs: Last Vital Signs Pulse 78 07/02/23 11:09 BP 138/76 07/02/23 11:09 BMI result Body Mass Index 27.6 Const General: healthy appearing, no acute distress and well developed Nutritional Appearance: well nourished Orientation/consciousness: patient oriented x3 Resp Effort & Inspection: normal respiratory effort, able to speak in complete sentences, no tracheal deviation and symmetric chest movement Auscultation: clear to auscultation bilaterally Cardio Rate: regular rate GI Inspection: Yes normal to inspection and No distended Palpation (GI): Soft to palpation, not firm, nontender and No hepatosplenomegaly present Auscultation: Hyperactive bowel sounds present General: Yes no CVA tenderness Back/Spine/Pelvis Back: no CVA tenderness Skin General skin exam: elasticity normal, turgor normal and dry skin Neuro General: patient oriented x3 Psych Appearance: grossly normal Mental Status: mental status grossly normal Assessment & Plan Assessment & Plan (1) Duodenal ulcer: Code(s): K26.9 - Duodenal ulcer, unspecified as acute or chronic, without hemorrhage or perforation (2) GERD (gastroesophageal reflux disease): Code(s): K21.9 - Gastro-esophageal reflux disease without esophagitis Qualifiers: Esophagitis presence: esophagitis presence not specified Qualified Code(s): K21.9 - Gastro-esophageal reflux disease without esophagitis (3) Diverticulosis: Code(s): K57.90 - Diverticulosis of intestine, part unspecified, without perforation or abscess without bleeding (4) Postprandial abdominal bloating: Code(s): R14.0 - Abdominal distension (gaseous) (5) Constipation: Code(s): K59.00 - Constipation, unspecified Qualifiers: Constipation type: slow transit constipation Qualified Code(s): K59.01 - Slow transit constipation Plan Continue senna and fiber therapy. Patient was encouraged to increase fluid intake and activity to promote better bowel motility. Patient will continue taking omeprazole twice a day. Low FODMAP diet discussed with patient. List of food recommended as well as list of food given to patient. Patient does admit to eating rice and beans not drinking enough water. Will send script for brunoethmarquese. I will see him in 2 months we can discuss going for colonoscopy and upper endoscopy. Patient is agreeable to this plan and verbalizes understanding of instructions. He was given the opportunity to ask questions and all questions answered. Thank you for allowing me to participate in his care Medications: New simethicone 125 mg PO BID-QID PRN 120 caps 3RF abdominal distention Coding Level of Care Code Est Pt Level 3 (09666) Diagnoses Duodenal ulcer K26.9 Gastroesophageal reflux disease, unspecified whether esophagitis present K21.9 Esophagitis presence: esophagitis presence not specified Diverticulosis K57.90 Postprandial abdominal bloating R14.0 Slow transit constipation K59.01 Constipation type: slow transit constipation Time Spent (min) 30 Comment 20 minutes spent with patient and additional 10 minutes spent reviewing his records
[2023-07-02 11:09] VITALS: BP 138/76; PULSE 78; BMI 27.6
== END 2023-07-02 11:29 | disposition home or self-care (01) ==
PROVIDERS: PCP Internal Medicine; Visit Provider Nurse Practitioner Family
DX: K26.9 Duodenal ulcer, unspecified as acute or chronic, without hemorrhage or perforation (principal); K21.9 Gastro-esophageal reflux disease without esophagitis; K57.90 Diverticulosis of intestine, part unspecified, without perforation or abscess without bleeding; R14.0 Abdominal distension (gaseous); K59.01 Slow transit constipation
CPT/HCPCS: 99213

== ENCOUNTER → 2023-07-02 10:58 | Outpatient (BNVA) | payer OTHER, SELFPAY | PROVIDERS: PCP Internal Medicine; Visit Provider Surgery | DX: Z48.817 Encounter for surgical aftercare following surgery on the skin and subcutaneous tissue (principal); K26.9 Duodenal ulcer, unspecified as acute or chronic, without hemorrhage or perforation; K21.9 Gastro-esophageal reflux disease without esophagitis; K57.90 Diverticulosis of intestine, part unspecified, without perforation or abscess without bleeding; K59.01 Slow transit constipation; R14.0 Abdominal distension (gaseous); Z87.2 Personal history of diseases of the skin and subcutaneous tissue | CPT/HCPCS: 99212 ==

== ENCOUNTER 2023-07-18 11:01 | Outpatient (AMB) | payer MEDICARE, SELFPAY ==
--- NOTE | 2023-07-18 11:06 | A.OFFVIS_ITS ---
Intake Vital Signs 07/18/23 11:12 Height 5 ft 6 in Weight 172 lb BMI 27.8 BP 140/65 H Blood Pressure Location Lt brachial Position Sitting Pulse 77 Intake Visit Reasons: excision of back cyst Intake Note: Patient is seen in office for office procedure, excision of back cyst. Pt c/o: patient is here for excision of mass s/p:07/25/23 @ 11:15 am Allergies fish derived [FISH] Allergy (Intermediate, Verified 07/02/23 11:20) rash/hives Medication List - Last Reconciled 07/18/23 by Brian Deleon MD amlodipine 5 mg PO DAILY atorvastatin 40 mg PO BEDTIME cholecalciferol (vitamin D3) 100 mcg PO QAM finasteride 5 mg PO DAILY 90 days hydrochlorothiazide 25 mg PO DAILY melatonin 10 mg PO BEDTIME PRN omeprazole 20 mg PO BID sennosides (Natural Senna Laxative) 17.2 mg (2 x 8.6 mg) PO BEDTIME simethicone 125 mg PO BID-QID PRN wheat dextrin (Benefiber Clear Sugar Free(dextrin)) 1 packet PO DAILY HPI HPI Comments History of Present Illness Details 78-year-old male patient returning for e xcision of epidermal inclusion cyst of the left upper back. He denies any recent pain, redness or discharge. [facility] Medical History Elevated cholesterol HTN (hypertension) GERD (gastroesophageal reflux disease) Restrictive airway disease Prostate cancer Surgical History Hx of excision of mass (06/25/23) History of open reduction and internal fixation (ORIF) procedure History of esophagogastroduodenoscopy (EGD) Hx of colonoscopy History of cardiac cath Family History Father Throat cancer Mother Diabetes Kidney disease Social History Household Members: Children Housing: Apartment Do you presently have visiting nurse or other home services: No Alcohol intake: current Alcohol intake frequency: a few times a month Patient Tobacco Use Status: Never used Tobacco service: No Review of Systems Const All systems reviewed & are unremarkable except as noted in HPI and below Physical Exam Vital Signs: Last Vital Signs Pulse 77 07/18/23 11:12 BP 140/65 H 07/18/23 11:12 BMI result Body Mass Index 27.8 Back/Spine/Pelvis Other: 1.5 cm round epidermal inclusion cyst left upper back Office Procedures Excision Details: Preoperative diagnosis: Epidermal inclusion cyst left upper back Postoperative diagnosis: Same Procedure: Excision of epidermal inclusion cyst left upper back Surgeon: Brian Deleon MD Director Funeral: None Anesthesia: Lidocaine 1% with epinephrine Indications for procedure: 78-year-old male patient presenting with a previously infected epidermal inclusion cyst in the left upper back. He is requested excision to prevent further infections. Operative findings: 1.5 cm diameter epidermal inclusion cyst left upper back Specimen: Epidermal inclusion cyst left upper back Estimated blood loss: Less than 2 mL Complications: None Procedure details: Patient was brought to the procedure room and placed in a prone position. The patient confirmed the site of surgery in the left upper back. After assuring informed consent the skin was prepped with Betadine and dr apirena in a sterile fashion. Local anesthesia was then infiltrated circumferentially around the lesion. Elliptical incision oriented transversely was then created with a 15 blade. This was then carried out through subcutaneous tissue and around the cyst wall. When the cyst was completely excised it was passed off the table and sent to pathology for further examination. Dermis was then reapproximated using interrupted 3-0 Polysorb sutures. Skin was closed using interrupted 3-0 nylon sutures. Sterile dressings consisting of 2 x 2 gauze and Tegaderm were then applied. The patient tolerated the procedure well. He was discharged to home in stable condition. He will return in 1 week for suture removal. [id number]/arms/legs 1.1-2cm Procedure code (CPT) selection complete Assessment & Plan Assessment & Plan (1) Epidermal inclusion cyst: Code(s): L72.0 - Epidermal cyst Plan 78-year-old male patient presenting with an epidermal inclusion cyst of the left upper back. He underwent an excision of the lesion today and tolerated the procedure well. He will return in 1 week for suture removal. He is welcome to call sooner for any concerns. Orders: Orders Surgical Today L72.0 - Epidermal cyst Coding Level of Care Code Procedure Only Diagnoses Epidermal inclusion cyst L72.0 CPT Codes Trunk/Arms/Legs - CPT: [id number]/arms/legs 1.1-2cm ([id number])
[2023-07-18 11:12] VITALS: BP 140/65; PULSE 77; BMI 27.8
== END 2023-07-18 11:39 | disposition home or self-care (01) ==
PROVIDERS: PCP Internal Medicine; Visit Provider Surgery
DX: L72.0 Epidermal cyst (principal)
CPT/HCPCS: 11402

== ENCOUNTER 2023-07-18 11:01 | Outpatient (REF) | payer MEDICARE, MEDICAID, SELFPAY | END 2023-07-18 11:02 | disposition home or self-care (01) | LOC: HO.LNP 11:01 | PROVIDERS: PCP Internal Medicine; Visit Provider Surgery | DX: L72.0 Epidermal cyst (principal); Z79.899 Other long term (current) drug therapy | CPT/HCPCS: 11402; 88304 ==

== ENCOUNTER 2023-07-30 09:33 | Outpatient (AMB) | payer MEDICARE, SELFPAY ==
--- NOTE | 2023-07-30 09:37 | MHC.OFFVIS ---
Intake Intake Visit Reasons: post exc back cyst, office procedure Intake Note: Patient is seen in for post op assessment post office procedure, following excision of back cyst. Pt c/o: Op: 07/18/23 Allergies fish derived [FISH] Allergy (Intermediate, Verified 07/02/23 11:20) rash/hives HPI HPI Comments History of Present Illness Details Patient returns 1 week following excision of an epidermal inclusion cyst of the left posterior shoulder. He feels well and denies any ongoing symptoms. Pathology confirmed an epidermal inclusion cyst. [facility] Medical History Elevated cholesterol HTN (hypertension) GERD (gastroesophageal reflux disease) Restrictive airway disease Prostate cancer Surgical History Hx of excision of mass (06/25/23) History of open reduction and internal fixation (ORIF) procedure History of esophagogastroduodenoscopy (EGD) Hx of colonoscopy History of cardiac cath Family History Father Throat cancer Mother Diabetes Kidney disease Social History Household Members: Children Housing: Apartment Do you presently have visiting nurse or other home services: No Alcohol intake: current Alcohol intake frequency: a few times a month Patient Tobacco Use Status: Never used Tobacco service: No Physical Exam Back/Spine/Pelvis Other: Well-healed incision located in the upper left back with intact sutures. No redness or discharge identified. Sutures removed and incision found to be well healed. Back/spine/pelvis image: 1. Assessment & Plan Assessment & Plan (1) Epidermal inclusion cyst: Code(s): L72.0 - Epidermal cyst Plan 78-year-old male patient status post excision of an epidermal inclusion cyst of the left upper back. He tolerated the procedure well and his wounds are healing nicely. He should follow up as needed. Coding Level of Care Code Global (14689) Diagnoses Epidermal inclusion cyst L72.0
== END 2023-07-30 09:50 | disposition home or self-care (01) ==
PROVIDERS: PCP Internal Medicine; Visit Provider Surgery
DX: L72.0 Epidermal cyst (principal)
CPT/HCPCS: 99024

== ENCOUNTER → 2023-07-30 09:33 | Outpatient (BNVA) | payer MEDICARE, MEDICAID, SELFPAY | PROVIDERS: PCP Internal Medicine; Visit Provider Surgery | DX: Z48.817 Encounter for surgical aftercare following surgery on the skin and subcutaneous tissue (principal); Z87.2 Personal history of diseases of the skin and subcutaneous tissue; Z98.890 Other specified postprocedural states | CPT/HCPCS: 99212 ==

== ENCOUNTER 2023-09-16 11:44 | Outpatient (AMB) | payer MEDICARE, SELFPAY ==
[2023-09-16 11:50] VITALS: BP 106/79; PULSE 87; BMI 26.3
--- NOTE | 2023-09-16 11:50 | A.OFFVIS_ITS ---
Vital Signs 09/16/23 11:50 Height 5 ft 6 in Weight 163 lb 2.273 oz BMI 26.3 BP 106/79 Blood Pressure Location Rt brachial Position Sitting Pulse 87 Intake Visit Reasons: 2 months follow up Intake Note: Patient presents to in office visit today in 2 months follow up of diverticulosis. CC: Patient reports that he is doing better. Char Filter Tank Tender Head Required: Yes Char Filter Tank Tender Head Language: Guinean Accompanied by: Self / Same As Patient Allergies fish derived [FISH] Allergy (Intermediate, Verified 07/02/23 11:20) rash/hives No Known Drug Allergies Allergy (Verified 09/16/23 11:51) none HPI HPI 2 months follow up: Details: LAST VISIT Duodenal ulcer GERD (gastroesophageal reflux disease) Diverticulosis Postprandial abdominal bloating Constipation Plan Continue senna and fiber therapy. Patient was encouraged to increase fluid intake and activity to promote better bowel motility. Patient will continue taking omeprazole twice a day. Low FODMAP diet discussed with patient. List of food recommended as well as list of food given to patient. Patient does admit to eating rice and beans not drinking enough water. Will send script for simethicone. I will see him in 2 months we can discuss going for colonoscopy and upper endoscopy. Patient is agreeable to this plan and verbalizes understanding of instructions. He was given the opportunity to ask questions and all questions answered. ? Thank you for allowing me to participate in his care Medications New simethicone 125 mg PO BID-QID PRN 120 caps 3RF abdominal distention TODAY'S VISIT: Patient is here today for follow-up and to discuss going for upper endoscopy and colonoscopy. History of gastritis and ulcers in the past. Currently patient reports that he has been feeling much better. Taking omeprazole and is trying to avoid dietary triggers. Patient is accompanied by his daughter. Patient is taking senna 2 tablets in the evening and is moving his bowels well. Denies me drew, hematochezia, unintentional weight loss or ribbon like stools. Denies any issues with anesthesia in the past. No history of sleep apnea. Not on any anticoagulation medication. Denies any cardiac or respiratory symptoms. Patient denies any abdominal pain or discomfort [facility] Medical History Elevated cholesterol HTN (hypertension) GERD (gastroesophageal reflux disease) Restrictive airway disease Prostate cancer Surgical History Hx of excision of mass (06/25/23) History of open reduction and internal fixation (ORIF) procedure History of esophagogastroduodenoscopy (EGD) Hx of colonoscopy History of cardiac cath Family History Father Throat cancer Mother Diabetes Kidney disease Social History Household Members: Children Housing: Apartment Do you presently have visiting nurse or other home services: No Alcohol intake: current Alcohol intake frequency: a few times a month Patient Tobacco Use Status: Never used Tobacco service: No Review of Systems Const Denies weight gain and Denies weight loss ENT Reports no additional complaints, Denies dysphagia and Denies odynophagia Card Reports no additional complaints Resp Reports no additional complaints GI Denies abdominal pain, Denies belching, Denies melena, Denies bloating, Denies change in bowel habits, Denies dysphagia, Denies excessive flatus, Denies dyspepsia, Denies heartburn, Denies diarrhea, Denies loose stools, Denies nausea, Denies odynophagia and Denies vomiting Reports no additional complaints Musc Reports no additional complaints Neuro Reports no additional complaints Psych Reports no additional complaints Endo Reports no additional complaints Physical Exam Vital Signs: Last Vital Signs Pulse 87 09/16/23 11:50 BP 106/79 09/16/23 11:50 BMI result Body Mass Index 26.3 Const General: healthy appearing, no acute distress and well developed Nutritional Appearance: well nourished Orientation/consciousness: patient oriented x3 Resp Effort & Inspection: normal respiratory effort, able to speak in complete sentences, no tracheal deviation and symmetric chest movement Auscultation: clear to auscultation bilaterally Cardio Rate: regular rate GI Inspection: Yes normal to inspection and No distended Palpation (GI): Soft to palpation, not firm, nontender and No hepatosplenomegaly present Auscultation: Hyperactive bowel sounds present General: Yes no CVA tenderness Back/Spine/Pelvis Back: no CVA tenderness Skin General skin exam: elasticity normal, turgor normal and dry skin Neuro General: patient oriented x3 Psych Appearance: grossly normal Mental Status: mental status grossly normal Assessment & Plan Assessment & Plan (1) Duodenal ulcer: Code(s): K26.9 - Duodenal ulcer, unspecified as acute or chronic, without hemorrhage or perforation Category: Medical (2) GERD (gastroesophageal reflux disease): Code(s): K21.9 - Gastro-esophageal reflux disease without esophagitis Qualifiers: Esophagitis presence: esophagitis presence not specified Qualified Code(s): K21.9 - Gastro-esophageal reflux disease without esophagitis (3) Diverticulosis: Code(s): K57.90 - Diverticulosis of intestine, part unspecified, without perforation or abscess without bleeding (4) Postprandial abdominal bloating: Code(s): R14.0 - Abdominal distension (gaseous) (5) Constipation: Code(s): K59.00 - Constipation, unspecified Qualifiers: Constipation type: slow transit constipation Qualified Code(s): K59.01 - Slow transit constipation Plan Continue omeprazole twice a day. Avoid dietary triggers and late night snacking. Staying upright for minimum 3 hours after meals discussed with patient. Patient will be sent for upper endoscopy to rule out gastritis, esophagitis, duodenitis, gastric or peptic ulcers, Wood's, H pylori. Patient can continue taking Senokot. What to expect before during and after procedure discussed with patient. Patient will go for colonoscopy. Stressed the importance of good bowel prep as well as clear liquid diet. Patient denies any ill effects from anesthesia in the past. No history of sleep apnea. Denies any cardiac or respiratory symptoms at this time. I will see patient in December before going for colonoscopy to re-evaluate. He is agreeable to this plan and verbalizes understanding of instructions. He was given the opportunity to ask questions and all questions answered. Thank you for allowing me to participate in his care Medications: New polyethylene glycol 3350 (Miralax) As directed by gastroenterology department at [facility] 238 grams PO ONCE 238 grams 0RF Z12.11 - Encounter for screening for malignant neoplasm of colon bisacodyl (Dulcolax (bisacodyl)) take 4 tabs at noon the day before your colonoscopy 20 mg (4 x 5 mg) PO ONCE 4 tabs 0RF 1 day Z12.11 - Encounter for screening for malignant neoplasm of colon Coding Level of Care Code Est Pt Level 3 (18810) Diagnoses Duodenal ulcer K26.9 Gastroesophageal reflux disease, unspecified whether esophagitis present K21.9 Esophagitis presence: esophagitis presence not specified Diverticulosis K57.90 Postprandial abdominal bloating R14.0 Slow transit constipation K59.01 Constipation type: slow transit constipation Time Spent (min) 30 Comment 20 minutes spent with patient and additional 10 minutes spent reviewing his records
== END 2023-09-16 12:17 | disposition home or self-care (01) ==
PROVIDERS: PCP Internal Medicine; Visit Provider Nurse Practitioner Family
DX: K26.9 Duodenal ulcer, unspecified as acute or chronic, without hemorrhage or perforation (principal); K21.9 Gastro-esophageal reflux disease without esophagitis; K57.90 Diverticulosis of intestine, part unspecified, without perforation or abscess without bleeding; R14.0 Abdominal distension (gaseous); K59.01 Slow transit constipation
CPT/HCPCS: 99213

== ENCOUNTER → 2023-09-16 11:44 | Outpatient (BNVA) | payer MEDICARE, SELFPAY | PROVIDERS: PCP Internal Medicine; Visit Provider Nurse Practitioner Family | DX: K21.9 Gastro-esophageal reflux disease without esophagitis (principal); K26.9 Duodenal ulcer, unspecified as acute or chronic, without hemorrhage or perforation; K57.90 Diverticulosis of intestine, part unspecified, without perforation or abscess without bleeding; K59.01 Slow transit constipation; R14.0 Abdominal distension (gaseous) | CPT/HCPCS: 99212 ==

== ENCOUNTER 2023-12-16 12:46 | Outpatient (AMB) | payer OTHER, SELFPAY ==
[2023-12-16 12:54] VITALS: BP 123/67; PULSE 96; BMI 26.5
--- NOTE | 2023-12-16 12:54 | A.OFFVIS_ITS ---
Vital Signs 12/16/23 12:54 Height 5 ft 6 in Weight 164 lb 0.383 oz BMI 26.5 BP 123/67 Blood Pressure Location Lt brachial Position Sitting Pulse 96 Intake Visit Reasons: 3 month follow Intake Note: Patient in office today in follow up of GERD. CC: Patient states that he is losing weight because he is having trouble with her stomach and also he lost his 3 months ago. Today he denies having any GI symptoms. 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 Avoid dietary triggers and late night snacking. Staying upright for minimum 3 hours after meals discussed with patient. Patient will be sent for upper endoscopy to rule out gastritis, esophagitis, duodenitis, gastric or peptic ulcers, Wood's, H pylori. Patient can continue taking Senokot. What to expect before during and after procedure discussed with patient. Patient will go for colonoscopy. Stressed the importance of good bowel prep as well as clear liquid diet. Patient denies any ill effects from anesthesia in the past. No history of sleep apnea. Denies any cardiac or respiratory symptoms at this time. I will see patient in December before going for colonoscopy to re-evaluate. He is agreeable to this plan and verbalizes understanding of instructions. He was given the opportunity to ask questions and all questions answered. ? Thank you for allowing me to participate in his care Medications New polyethylene glycol 3350 (Miralax) As directed by gastroenterology department at [facility] 238 grams PO ONCE 238 grams 0RF Z12.11 bisacodyl (Dulcolax (bisacodyl)) take 4 tabs at noon the day before your colonoscopy 20 mg (4 x 5 mg) PO ONCE 4 tabs 0RF 1 day Z12.11 TODAY'S VISIT Patient is here today for follow-up and to go over his prep. His colonoscopy was never booked. 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 Patient tells me that 3 months ago he lost his and he has been grieving since then. Patient reports that he takes omeprazole twice a day and symptoms of acid reflux are improved, however patient does admit that occasionally he will have epigastric pain postprandially. He takes senna at bedtime and is able to move his bowels better. Patient reports that he is moving his bowels well without any issues. Occasionaly depending on what he eats he will have postprandial abdominal bloating. Patient reports to have good appetite now, however he admits that he did not have much of appetite after his passed. Patient denies any nausea or vomiting [facility] Medical History Elevated cholesterol HTN (hypertension) GERD (gastroesophageal reflux disease) Restrictive airway disease Prostate cancer Surgical History Hx of excision of mass (06/25/23) History of open reduction and internal fixation (ORIF) procedure History of esophagogastroduodenoscopy (EGD) Hx of colonoscopy History of cardiac cath Family History Father Throat cancer Mother Diabetes Kidney disease Social History Household Members: Children Housing: Apartment Do you presently have visiting nurse or other home services: No Alcohol intake: current Alcohol intake frequency: a few times a month Patient Tobacco Use Status: Never used Tobacco service: No Review of Systems Const Denies weight gain and Denies weight loss ENT Reports no additional complaints, Denies dysphagia and Denies odynophagia Card Reports no additional complaints Resp Reports no additional complaints GI Denies abdominal pain, Denies belching, Denies melena, Denies bloating, Denies change in bowel habits, Denies dysphagia, Denies excessive flatus, Denies dyspepsia, Denies heartburn, Denies diarrhea, Denies loose stools, Denies nausea, Denies odynophagia and Denies vomiting Reports no additional complaints Musc Reports no additional complaints Neuro Reports no additional complaints Psych Reports no additional complaints Endo Reports no additional complaints Physical Exam Vital Signs: Last Vital Signs Pulse 96 12/16/23 12:54 BP 123/67 12/16/23 12:54 BMI result Body Mass Index 26.5 Const General: healthy appearing, no acute distress and well developed Nutritional Appearance: well nourished Orientation/consciousness: patient oriented x3 Resp Effort & Inspection: normal respiratory effort, able to speak in complete sentences, no tracheal deviation and symmetric chest movement Auscultation: clear to auscultation bilaterally Cardio Rate: regular rate GI Inspection: Yes normal to inspection and No distended Palpation (GI): Soft to palpation, not firm, nontender and No hepatosplenomegaly present Auscultation: Hyperactive bowel sounds present General: Yes no CVA tenderness Back/Spine/Pelvis Back: no CVA tenderness Skin General skin exam: elasticity normal, turgor normal and dry skin Neuro General: patient oriented x3 Psych Appearance: grossly normal Mental Status: mental status grossly normal Assessment & Plan Assessment & Plan (1) Duodenal ulcer: Code(s): K26.9 - Duodenal ulcer, unspecified as acute or chronic, without hemorrhage or perforation Category: Medical (2) GERD (gastroesophageal reflux disease): Code(s): K21.9 - Gastro-esophageal reflux disease without esophagitis Qualifiers: Esophagitis presence: esophagitis presence not specified Qualified Code(s): K21.9 - Gastro-esophageal reflux disease without esophagitis (3) Diverticulosis: Code(s): K57.90 - Diverticulosis of intestine, part unspecified, without perforation or abscess without bleeding (4) Postprandial abdominal bloating: Code(s): R14.0 - Abdominal distension (gaseous) (5) Constipation: Code(s): K59.00 - Constipation, unspecified Qualifiers: Constipation type: slow transit constipation Qualified Code(s): K59.01 - Slow transit constipation Plan What to expect before during and after procedure discussed with patient. Patient will set up colonoscopy and upper endoscopy today. Patient will follow- up in the office sooner if he will have any GI concerning symptoms. Patient denies any issues with anesthesia. Currently no chest pain or shortness of breath with or without activity. Denies any presyncope or syncope. Back in September patient's weight same as today. No weight loss documented. Continue Senokot, patient reports that it helps him it bloating. I will see patient after the procedure, sooner on as needed basis. He is agreeable to this plan and verbalizes understanding of instructions. He was given the opportunity to ask questions and all questions answered. Thank you for allowing me to participate in his care Coding Level of Care Code Est Pt Level 3 (16406) Diagnoses Duodenal ulcer K26.9 Gastroesophageal reflux disease, unspecified whether esophagitis present K21.9 Esophagitis presence: esophagitis presence not specified Diverticulosis K57.90 Postprandial abdominal bloating R14.0 Slow transit constipation K59.01 Constipation type: slow transit constipation Time Spent (min) 30 Comment 20 minutes spent with patient and additional 15 minutes spent reviewing his records
== END 2023-12-16 13:42 | disposition home or self-care (01) ==
PROVIDERS: PCP Internal Medicine; Visit Provider Nurse Practitioner Family
DX: K26.9 Duodenal ulcer, unspecified as acute or chronic, without hemorrhage or perforation (principal); K21.9 Gastro-esophageal reflux disease without esophagitis; K57.90 Diverticulosis of intestine, part unspecified, without perforation or abscess without bleeding; R14.0 Abdominal distension (gaseous); K59.01 Slow transit constipation
CPT/HCPCS: 99213

== ENCOUNTER → 2023-12-16 12:46 | Outpatient (BNVA) | payer OTHER, SELFPAY | PROVIDERS: PCP Internal Medicine; Visit Provider Nurse Practitioner Family | DX: K26.9 Duodenal ulcer, unspecified as acute or chronic, without hemorrhage or perforation (principal); K21.9 Gastro-esophageal reflux disease without esophagitis; K57.90 Diverticulosis of intestine, part unspecified, without perforation or abscess without bleeding; K59.01 Slow transit constipation; R14.0 Abdominal distension (gaseous) | CPT/HCPCS: 99212 ==

== ENCOUNTER 2023-12-20 10:18 | Outpatient (REF) | payer OTHER, SELFPAY ==
[2023-12-20 11:06] LABS: MANUAL DIFF FLAG NO
[2023-12-20 11:19] LABS: Basophils Absolute Auto 0.1 X10*3/uL (0.0-0.2); Basophils Percent Auto 0.8 % (0-2); Eosinophils Absolute Auto 0.5 X10*3/uL (0.0-0.4); Eosinophils Percent Auto 5.3 % (0-4); Hematocrit 46.3 % (42.0-52.0); Imm Gran Abs Auto 0.04 X10*3/uL (0.00-0.03); Imm Gran Pct Auto 0.4 % (0.0-0.4); Lymphocytes Absolute Auto 1.6 X10*3/uL (1.2-4.9); Lymphocytes Percent Auto 17.1 % (20-40); Mean Corpuscular HGB Conc 34.1 g/dl (31.0-36.0); Mean Corpuscular Hemoglobin 31.1 pg (27.0-33.0); Mean Corpuscular Volume 91.1 fL (80.0-98.0); Mean Platelet Volume 8.8 fL (9.4-12.4); Monocytes Absolute Auto 0.5 X10*3/uL (0.1-1.2); Monocytes Percent Auto 4.7 % (2-11); Neutrophils Absolute Auto 6.9 x10*3/uL (2.0-8.3); Neutrophils Percent Auto 71.7 % (45-73); Platelet Count 307 X10*3/uL (160-400); Red Blood Count 5.08 X10*6/uL (4.60-5.80); Red Cell Distribution Width 12.9 % (11.0-16.0); White Blood Count 9.6 X10*3/uL (4.8-10.8)
[2023-12-20 11:34] LABS: Estimated Average Glucose 94 mg/dL; Hemoglobin A1c % 4.9 % (<6.0)
[2023-12-20 11:54] LABS: Hemoglobin 15.8 g/dl (14.0-18.0)
[2023-12-20 14:14] LABS: Alanine Aminotransferase 15 U/L (0-40); Alkaline Phosphatase 130 U/L (39-117); Anion Gap 10 (12-20); Aspartate Amino Transferase 25 U/L (5-37); Bilirubin Total 0.5 mg/dL (0.0-1.0); Blood Urea Nitrogen 9 mg/dL (9-16); Calcium 9.6 mg/dL (8.4-10.2); Carbon Dioxide 31 mmol/L (22-29); Chloride 104 mmol/L (96-108); Cholesterol 135 mg/dL (<200); Estimated Glomerular Filt Rate > 60; Glucose Random 115 mg/dL (60-115); HDL Cholesterol 51 mg/dL (>40); LDL Cholesterol Calculated 66 mg/dL (<100); Potassium 3.2 mmol/L (3.3-5.1); Sodium 142 mmol/L (135-145); TSH reflex Free T4 1.68 uIU/mL (0.32-4.0); Total Protein 7.3 g/dL (6.5-8.0); Triglycerides 93 mg/dL (<150)
[2023-12-20 14:20] LABS: Reflex LDLD? No
== END 2023-12-20 10:19 | disposition home or self-care (01) ==
LOC: HO.HHCL 10:18
PROVIDERS: Visit Provider Internal Medicine
DX: Z00.00 Encounter for general adult medical examination without abnormal findings (principal); Z13.1 Encounter for screening for diabetes mellitus; Z13.89 Encounter for screening for other disorder
CPT/HCPCS: 36415; 80053; 80061; 83036; 84443; 85025

== ENCOUNTER 2024-01-03 14:09 | Outpatient (REF) | payer OTHER, SELFPAY ==
--- NOTE | ~2024-01-03 | XR_ITS ---
EXAMINATION: XR KNEE, RIGHT CLINICAL INFORMATION: Pain. COMPARISON: Prior radiographs, most recently 02/17/2016. TECHNIQUE: AP, lateral, tunnel, and sunrise views of the right knee are submitted. FINDINGS: Bony alignment and mineralization are normal. The lateral, medial and patellofemoral joint space compartments are well-maintained. No fracture, dislocation or joint effusion is seen. A popliteal cyamella (accessory ossification center) is noted. No foreign body is seen. XR/XR knee RT 4V IMPRESSION: No right knee fracture, dislocation or joint effusion is seen. EXAMINATION: XR KNEE, LEFT CLINICAL INFORMATION: Pain. COMPARISON: Radiographs dated 02/17/2016. TECHNIQUE: AP, lateral, tunnel, and sunrise views of the left knee are submitted. FINDINGS: Bony alignment and mineralization are normal. The lateral, medial and patellofemoral joint well-maintained. No fracture, dislocation or joint effusion is seen. A popliteal cyamella (accessory ossification center) is noted. No foreign body is seen. IMPRESSION: No left knee fracture, dislocation or joint effusion is seen. Electronically signed by: Brian Kumar MD 01/23/2024 06:59 PM EDT
--- NOTE | ~2024-01-03 | XR_ITS ---
EXAMINATION: XR KNEE, RIGHT CLINICAL INFORMATION: Pain. COMPARISON: Prior radiographs, most recently 02/17/2016. TECHNIQUE: AP, lateral, tunnel, and sunrise views of the right knee are submitted. FINDINGS: Bony alignment and mineralization are normal. The lateral, medial and patellofemoral joint space compartments are well-maintained. No fracture, dislocation or joint effusion is seen. A popliteal cyamella (accessory ossification center) is noted. No foreign body is seen. XR/XR knee LT 4V IMPRESSION: No right knee fracture, dislocation or joint effusion is seen. EXAMINATION: XR KNEE, LEFT CLINICAL INFORMATION: Pain. COMPARISON: Radiographs dated 02/17/2016. TECHNIQUE: AP, lateral, tunnel, and sunrise views of the left knee are submitted. FINDINGS: Bony alignment and mineralization are normal. The lateral, medial and patellofemoral joint well-maintained. No fracture, dislocation or joint effusion is seen. A popliteal cyamella (accessory ossification center) is noted. No foreign body is seen. IMPRESSION: No left knee fracture, dislocation or joint effusion is seen. Electronically signed by: Brian Kumar MD 01/23/2024 06:59 PM EDT
== END 2024-01-03 14:10 | disposition home or self-care (01) ==
LOC: HO.HHCX 14:09
PROVIDERS: Visit Provider Internal Medicine
DX: M17.0 Bilateral primary osteoarthritis of knee (principal)
CPT/HCPCS: 73564

== ENCOUNTER 2024-02-07 14:08 | Outpatient (REF) | payer OTHER, SELFPAY ==
[2024-02-07 17:43] LABS: Prostate Specific Antigen 0.22 ng/mL (<0.05-4.0)
[2024-02-07 18:24] LABS: Anion Gap 11 (12-20); Blood Urea Nitrogen 10 mg/dL (9-16); Calcium 9.1 mg/dL (8.4-10.2); Carbon Dioxide 29 mmol/L (22-29); Chloride 107 mmol/L (96-108); Estimated Glomerular Filt Rate > 60; Glucose Random 102 mg/dL (60-115); Potassium 2.8 mmol/L (3.3-5.1); Sodium 144 mmol/L (135-145)
[2024-02-14 15:44] LABS: Testosterone, Total 257 ng/dL (250-1100)
== END 2024-02-07 14:09 | disposition home or self-care (01) ==
LOC: HO.HHCL 14:08
PROVIDERS: Referring Provider Nurse Practitioner Family; Visit Provider Internal Medicine
DX: E87.6 Hypokalemia (principal); C61 Malignant neoplasm of prostate; Z12.5 Encounter for screening for malignant neoplasm of prostate
CPT/HCPCS: 36415; 80048; 84153; 84403

== ENCOUNTER 2024-02-10 13:17 | Outpatient (REF) | payer OTHER, SELFPAY ==
[2024-02-10 16:33] LABS: Anion Gap 13 (12-20); Blood Urea Nitrogen 12 mg/dL (9-16); Calcium 9.3 mg/dL (8.4-10.2); Carbon Dioxide 33 mmol/L (22-29); Chloride 101 mmol/L (96-108); Estimated Glomerular Filt Rate > 60; Glucose Random 91 mg/dL (60-115); Sodium 144 mmol/L (135-145)
[2024-02-10 16:36] LABS: Potassium 2.8 mmol/L (3.3-5.1)
== END 2024-02-10 13:18 | disposition home or self-care (01) ==
LOC: HO.HHCL 13:17
PROVIDERS: Visit Provider Internal Medicine Geriatric Medicine
DX: E87.6 Hypokalemia (principal)
CPT/HCPCS: 36415; 80048

== ENCOUNTER 2024-02-15 14:43 | Outpatient (REF) | payer OTHER, SELFPAY ==
--- NOTE | ~2024-02-15 | MR_ITS ---
EXAMINATION: MR BRAIN WITHOUT CONTRAST CLINICAL INFORMATION: Dizziness and giddiness. COMPARISON: None available. TECHNIQUE: MRI of the brain was obtained using routine sequences without contrast. FINDINGS: No focal restricted diffusion is demonstrated to suggest acute or subacute cerebral ischemia. No evidence of acute or chronic hemorrhagic products on heme-sensitive imaging. Scattered and partially confluent periventricular, deep white matter, and brainstem T2 FLAIR hyperintensities consistent with moderate underlying microangiopathy. Proportional prominence of the ventricles and sulcal spaces without evidence of obstructive hydrocephalus. No abnormal mass effect. No midline shift. Normal appearance of the pituitary gland. Normal positioning of the cerebellar tonsils. Normal arterial and venous vascular flow voids are present. Normal, homogeneous marrow signal. Moderate mucosal thickening of the paranasal sinuses. No signal abnormalities within the mastoids. MR/MR head/brain wo con IMPRESSION: 1. No acute intracranial abnormalities. 2. Moderate underlying microangiopathy and generalized cerebral volume loss. Electronically signed by: Elias rFost DO 04/15/2024 03:36 AM JORY
== END 2024-02-15 14:44 | disposition home or self-care (01) ==
LOC: HO.MRI 14:43
PROVIDERS: PCP Internal Medicine; Visit Provider Internal Medicine
DX: R42 Dizziness and giddiness (principal)
CPT/HCPCS: 70551

== ENCOUNTER 2024-04-14 11:39 | Outpatient (REF) | payer OTHER, SELFPAY ==
[2024-04-14 13:32] LABS: Anion Gap 18 (12-20); Blood Urea Nitrogen 21 mg/dL (9-16); Calcium 9.4 mg/dL (8.4-10.2); Carbon Dioxide 21 mmol/L (22-29); Chloride 105 mmol/L (96-108); Estimated Glomerular Filt Rate 23; Glucose Random 137 mg/dL (60-115); Magnesium 1.6 mg/dL (1.6-2.6); Potassium 3.1 mmol/L (3.3-5.1); Sodium 141 mmol/L (135-145)
== END 2024-04-14 11:40 | disposition home or self-care (01) ==
LOC: HO.HHCL 11:39
PROVIDERS: Visit Provider Internal Medicine
DX: Z13.89 Encounter for screening for other disorder (principal)
CPT/HCPCS: 36415; 80048; 83735

== ENCOUNTER 2024-04-14 15:51 | Emergency (ER) | payer OTHER, SELFPAY ==
[2024-04-14 16:06] VITALS: BP 122/78; PULSE 103; RESP 20; TEMP 36.2; O2SAT 98; BMI 27.0
[2024-04-14 16:39] LABS: MANUAL DIFF FLAG NO
[2024-04-14 16:44] LABS: Basophils Absolute Auto 0.1 X10*3/uL (0.0-0.2); Basophils Percent Auto 0.4 % (0-2); Eosinophils Absolute Auto 0.1 X10*3/uL (0.0-0.4); Eosinophils Percent Auto 0.7 % (0-4); Hemoglobin 16.9 g/dl (14.0-18.0); Imm Gran Abs Auto 0.07 X10*3/uL (0.00-0.03); Imm Gran Pct Auto 0.5 % (0.0-0.4); Lymphocytes Absolute Auto 2.1 X10*3/uL (1.2-4.9); Lymphocytes Percent Auto 14.1 % (20-40); Mean Corpuscular HGB Conc 34.5 g/dl (31.0-36.0); Mean Corpuscular Hemoglobin 31.7 pg (27.0-33.0); Mean Corpuscular Volume 91.9 fL (80.0-98.0); Mean Platelet Volume 8.5 fL (9.4-12.4); Monocytes Absolute Auto 0.7 X10*3/uL (0.1-1.2); Monocytes Percent Auto 4.7 % (2-11); Neutrophils Absolute Auto 11.8 x10*3/uL (2.0-8.3); Neutrophils Percent Auto 79.6 % (45-73); Platelet Count 354 X10*3/uL (160-400); Red Blood Count 5.33 X10*6/uL (4.60-5.80); Red Cell Distribution Width 13.4 % (11.0-16.0); White Blood Count 14.8 X10*3/uL (4.8-10.8)
[2024-04-14 16:51] LABS: Anion Gap 15 (12-20); Blood Urea Nitrogen 22 mg/dL (9-16); Calcium 9.2 mg/dL (8.4-10.2); Carbon Dioxide 21 mmol/L (22-29); Chloride 106 mmol/L (96-108); Creatinine Clr Calc Pharmacy 20.4; Estimated Glomerular Filt Rate 23; Glucose Random 129 mg/dL (60-115); Potassium 3.4 mmol/L (3.3-5.1); Sodium 139 mmol/L (135-145)
[2024-04-14 19:36] LABS: Troponin-I High Sensitivity 3.7 ng/L (<3.5-35.0)
== END 2024-04-14 20:15 | disposition left against medical advice (07) ==
PROVIDERS: Physician Assistant Medical; Emergency Provider Internal Medicine
DX: E87.6 Hypokalemia (principal); Z53.21 Procedure and treatment not carried out due to patient leaving prior to being seen by health care provider
CPT/HCPCS: 36415; 80048; 84484; 85025; 99281

== ENCOUNTER 2024-04-15 10:25 | Inpatient (IN) | payer OTHER, SELFPAY ==
--- NOTE | ~2024-04-15 | US_ITS ---
EXAMINATION: US RETROPERITONEAL LIMITED (RENAL ONLY) CLINICAL INFORMATION: GLENN. COMPARISON: CT abdomen and pelvis 03/27/2023. X-ray abdomen 03/16/2023. Ultrasound abdomen limited 03/26/2020. Ultrasound abdomen complete 07/10/2018. TECHNIQUE: Real-time imaging of the kidneys. FINDINGS: RIGHT KIDNEY: 11.8 x 6.0 x 4.1 cm (SAG x AP x TRV). The kidney is normal in size, contour, and echogenicity. Renal cortical thickness is normal. No calculi or focal parenchymal lesions. No hydronephrosis. LEFT KIDNEY: 10.2 x 5.4 x 4.0 cm (SAG x AP x TRV). The kidney is normal in size, contour, and echogenicity. Renal cortical thickness is normal. No calculi or focal parenchymal lesions. No hydronephrosis. US/US renal BI IMPRESSION: Normal ultrasound of the bilateral kidneys. Electronically signed by: Fernando Díaz MD 04/16/2024 11:21 AM JORY
[2024-04-15 10:55] VITALS: BP 119/73; PULSE 105; RESP 18; TEMP 36.2; O2SAT 97; BMI 26.9
--- NOTE | 2024-04-15 10:55 | ED_ITS ---
HPI - General Adult General Chief complaint: Recheck/Abnormal Lab/Rx Stated complaint: potassium off Time Seen by Provider: 04/15/24 13:09 Source: patient, family and parts interpreter Mode of arrival: ambulatory Limitations: language barrier History of Present Illness ED Provider: Sonja CASTILLO narrative: Patient is a 78-year-old Kosovan speaking male with history of prostate CA, restrictive airway disease, HTN, GERD, and elevated cholesterol presenting to the emergency room stating that he was told his potassium level was low. He presented yesterday and had labs drawn in the waiting room, but he left prior to being placed inside the ED due to the wait time. He complains of generalized fatigue and decreased appetite for the past 3 days. Also complains of a sore throat in mild generalized abdominal pain. He denies any nausea, vomiting, diarrhea or constipation. Denies any urinary symptoms. Denies cough or fevers. MD complaint: fatigue, abnormal labs Onset (ago): day(s) Treatments prior to arrival: none Related Data Home Medications ?Medication ?Instructions ?Recorded ?Confirmed atorvastatin 40 mg tablet 40 mg PO BEDTIME 04/06/21 07/18/23 cholecalciferol (vitamin D3) 50 100 mcg PO QAM 02/22/22 07/18/23 mcg (2,000 unit) tablet melatonin 5 mg tablet 10 mg PO BEDTIME PRN Sleep 03/27/23 07/18/23 amlodipine 5 mg tablet 5 mg PO DAILY 05/29/23 07/18/23 hydrochlorothiazide 25 mg tablet 25 mg PO DAILY 05/29/23 07/18/23 Previous Rx's ?Medication ?Instructions ?Recorded wheat dextrin 3 gram/3.5 gram oral 1 packet PO DAILY #28 ea 05/29/23 powder packet (Benefiber Clear Sugar Free(dextrin)) bisacodyl 5 mg tablet,delayed 20 mg (4 x 5 mg) PO ONCE 1 day #4 09/16/23 release (Dulcolax (bisacodyl)) tabs polyethylene glycol 3350 17 238 g PO ONCE #238 grams 09/16/23 gram/dose oral powder (Miralax) omeprazole 20 mg capsule,delayed 20 mg PO DAILY 90 days #90 caps 01/03/24 release simethicone 125 mg capsule 125 mg PO BID-QID PRN abdominal 01/30/24 distention #120 caps sennosides 8.6 mg tablet (Natural 17.2 mg (2 x 8.6 mg) PO BEDTIME 02/18/24 Senna Laxative) constipation #60 tabs finasteride 5 mg tablet 5 mg PO DAILY 90 days #90 tabs 03/03/24 Allergies Allergy/AdvReac Type Severity Reaction Status Date / Time fish derived [FISH] Allergy Intermediate rash/hives Verified 04/15/24 10:56 No Known Drug Allergies Allergy none Verified 04/15/24 10:56 Review of Systems 2 Review of Systems: As per HPI. Yes all other systems are reviewed and are negative Constitutional: Constitutional: Reports as per HPI [facility] Past Medical History Medical History Elevated cholesterol HTN (hypertension) GERD (gastroesophageal reflux disease) Restrictive airway disease Prostate cancer Surgical History Hx of excision of mass (06/25/23) History of open reduction and internal fixation (ORIF) procedure History of esophagogastroduodenoscopy (EGD) Hx of colonoscopy History of cardiac cath Family History Family History Father Throat cancer Mother Diabetes Kidney disease Social History Social History Household Members: Children Housing: Apartment Do you presently have visiting nurse or other home services: No Alcohol intake: current Alcohol intake frequency: a few times a month Patient Tobacco Use Status: Never used Tobacco Advance Directives: No Advance Directives Information Provided: Yes service: No Physical Exam ED Vital Signs: Vital Signs - 24 hr 04/15/24 10:55 04/15/24 15:03 Temperature 97.1 F 98.0 F Pulse Rate 105 H 71 Respiratory Rate 18 16 Blood Pressure 119/73 140/71 H Pulse Oximetry 97 98 Oxygen Delivery Method Room Air Room Air BMI result Body Mass Index 26.9 Vital signs have been reviewed and appear to be correct. Blood pressure normal. Heart rate slightly tachycardic. Respiratory rate normal. Temperature normal. Oxygen saturation normal. Const General: cooperative and no acute distress Orientation/consciousness: oriented to person, oriented to place, oriented to time and patient oriented x3 Limitations: no limitations HENMT Head: Yes normocephalic and Yes atraumatic Ears: external ears normal, TM's normal bilaterally and EAC's normal General nose exam: Normal external nose present Face and sinus: Yes face symmetric Mouth: oropharynx normal, moist mucous membranes, no drooling, no muffled voice and no trismus Throat: Yes uvula midline, Yes posterior oropharynx abnormal (mild erythema without edema or exudate) and No uvular edema Eyes Pupils: Equal, round and reactive pupils present Neck Neck: Yes normal visual inspection, Yes no lymphadenopathy and Yes supple Resp Effort & Inspection: normal respiratory effort and able to speak in complete sentences Auscultation: clear to auscultation bilaterally Cardio Rate: regular rate Rhythm: regular rhythm Heart sounds: S1 normal heart sound present and S2 normal heart sound present GI Palpation (GI): Soft to palpation and nontender Auscultation: normoactive bowel sounds General: Yes no CVA tenderness Back/Spine/Pelvis Back: no CVA tenderness Skin General skin exam: elasticity normal and turgor normal Neuro General: oriented to person, oriented to place, oriented to time, patient oriented x3, moves all extremities, no focal motor deficits and CN's II-XI intact bilaterally Cranial nerves: Yes Equal, round and reactive pupils present Cognition (Neuro): normal cognition Extrem General: Yes full ROM, Yes no pedal edema and Yes no calf tenderness Psych Mental Status: mental status grossly normal Affect: normal affect Thought process: Normal thought process present Course Course Course Narrative: This is a rapid medical exam performed by Ferdinand Casillas NP: Additional HPI, ROS, PE not included below will be deferred to primary provider. Patient is a 78 y/o M presenting to the ED stating he was here yesterday for low potassium, but left due to wait time. Returning today to have K checked. Plan: labs, ekg Medications Administered Discontinued Medications Generic Name Dose Route Start Last Admin Trade Name Freq PRN Reason Stop Dose Admin Sodium Chloride 1,000 mls @ 999 mls/hr 04/15/24 13:30 04/15/24 16:30 Ns IV 04/15/24 14:30 Infused .Q1H1M ADOLFO Infusion Sodium Chloride 1,000 mls @ 999 mls/hr 04/15/24 15:00 04/15/24 16:58 Ns IV 04/15/24 16:00 999 mls/hr .Q1H1M ADOLFO Administration Medical Decision Making Medical Decision Making [facility] Narrative: Patient is a 78-year-old [place] speaking male with history of prostate CA, restrictive airway disease, HTN, GERD, and elevated cholesterol presenting to the emergency room stating that he was told his potassium level was low. On exam patient is awake, A+Ox3, VS WNL, afebrile, normal neurological exam without focal deficits, physical exam findings as above. Given reported symptoms and physical exam findings, initial differential includes electrolyte abnormality, dehydration, viral illness, UTI, anemia. Labs notable for leukocytosis improved since labs drawn yesterday, no anemia, normal potassium, elevated BUN and creatinine. IV fluids ordered. Urinalysis is without evidence of infection. Viral serology negative. Case discussed with NADEEM De León hospitalist who accepts admission. Differential Diagnosis Differential Diagnoses: The differential diagnosis associated with the presentation includes As per [facility] Admission/Observation Consideration of admission/observation: Escalation of care including admission/observation considered Consult Healthcare Provider Management of the patient was discussed with: Hospitalist Lab Data [facility] Lab Attestation statement: I reviewed the patient's lab results. As per [facility] 04/15/24 11:25 04/15/24 11:25 Labs: Lab Results 04/15/24 04/15/24 04/15/24 Range/Units 11:25 13:25 14:22 WBC 12.0 H (4.8-10.8) X10*3/uL RBC 5.33 (4.60-5.80) X10*6/uL Hgb 16.9 (14.0-18.0) g/dl Hct 48.3 (42.0-52.0) % MCV 90.6 (80.0-98.0) fL MCH 31.7 (27.0-33.0) pg MCHC 35.0 (31.0-36.0) g/dl RDW 13.1 (11.0-16.0) % Plt Count 353 (160-400) X10*3/uL MPV 8.4 L (9.4-12.4) fL Immature Gran % (Auto) 0.3 (0.0-0.4) % Neut % (Auto) 76.3 H (45-73) % Lymph % (Auto) 16.9 L (20-40) % [place] % (Auto) 4.9 (2-11) % Eos % (Auto) 0.9 (0-4) % Baso % (Auto) 0.7 (0-2) % Lymph # (Auto) 2.0 (1.2-4.9) X10*3/uL [place] # (Auto) 0.6 (0.1-1.2) X10*3/uL Eos # (Auto) 0.1 (0.0-0.4) X10*3/uL Baso # (Auto) 0.1 (0.0-0.2) X10*3/uL Abs Immat Gran (auto) 0.04 H (0.00-0.03) X10*3/uL Absolute Neuts (auto) 9.1 H (2.0-8.3) x10*3/uL Absolute Nucleated RBC 0.000 (0.0-0.012) X10*3/uL Nucleated RBC % (auto) 0.0 (0.0-0.2) /100WBC PT 12.3 (10.9-12.4) SEC INR 1.1 (0.9-1.1) APTT 30.0 (26.0-36.8) SEC Sodium 139 (135-145) mmol/L Potassium 3.3 (3.3-5.1) mmol/L Chloride 105 (96-108) mmol/L Carbon Dioxide 25 (22-29) mmol/L Anion Gap 12 (12-20) BUN 31 H (9-16) mg/dL Creatinine 2.40 H (0.5-1.4) mg/dL Estim Creat Clear Calc 23.2 Estimated GFR 26 Random Glucose 119 H (60-115) mg/dL Calcium 9.5 (8.4-10.2) mg/dL Total Bilirubin 0.7 (0.0-1.0) mg/dL AST 35 (5-37) U/L ALT 23 (0-40) U/L Alkaline Phosphatase 144 H (39-117) U/L Total Protein 7.8 (6.5-8.0) g/dL Albumin 4.1 (3.5-5.0) g/dL Urine Color Yellow Urine Appearance Clear Urine pH 5.5 (5.0-9.0) Ur Specific [place] 1.025 (1.005-1.025) Urine Protein 30 (1+) H (Neg-Trace) mg/dL Urine Glucose (UA) Negative (Negative) mg/dL Urine Ketones Negative (Negative) mg/dL Urine Blood Negative (Negative) Urine Nitrite Negative (Negative) Ur Leukocyte Esterase Negative (Negative) Urine RBC 0-2 (0-2) /HPF Urine WBC 0-5 (0-5) /HPF Ur Squamous Epith Cells 0-2 (0-2) /HPF Urine Bacteria None Seen (None Seen) Hyaline Casts 3-5 (0-2) /LPF Granular Casts Present Influenza Type A (PCR) NEGATIVE (Negative) Influenza Type B (PCR) NEGATIVE (Negative) RSV RNA Qual (PCR) NEGATIVE (Negative) SARS-CoV-2 RNA (RT-PCR) NEGATIVE (Negative) External Record Review External record reviewed: Inpatient record, Office record and Outpatient record Discharge Plan Discharge Patient Disposition: Admitted As Inpatient Prescriptions: No Action omeprazole 20 mg capsule,delayed release(DR/EC) 20 mg PO DAILY 90 Days Qty: 90 2RF simethicone 125 mg capsule 125 mg PO BID-QID PRN (Reason: abdominal distention) Qty: 120 3RF sennosides [Natural Senna Laxative] 8.6 mg tablet 17.2 mg PO BEDTIME Qty: 60 1RF finasteride 5 mg tablet 5 mg PO DAILY 90 Days Qty: 90 2RF melatonin 5 mg tablet 10 mg PO BEDTIME PRN (Reason: Sleep) cholecalciferol (vitamin D3) 50 mcg (2,000 unit) tablet 100 mcg PO QAM atorvastatin 40 mg tablet 40 mg PO BEDTIME bisacodyl [Dulcolax (bisacodyl)] 5 mg tablet,delayed release (DR/EC) 20 mg PO ONCE 1 Days Qty: 4 0RF Rx Instructions: take 4 tabs at noon the day before your colonoscopy polyethylene glycol 3350 [Miralax] 17 gram/dose powder 238 g PO ONCE Qty: 238 0RF Rx Instructions: As directed by gastroenterology department at [facility] hydrochlorothiazide 25 mg tablet 25 mg PO DAILY amlodipine 5 mg tablet 5 mg PO DAILY Benefiber Clear SF (dextrin) 3 gram/3.5 gram powder in packet 1 packet PO DAILY Qty: 28 5RF Rx Instructions: mix into at least 4 oz water or juice before administering Print Language: Kos[place]
[2024-04-15 11:30] LABS: MANUAL DIFF FLAG NO
[2024-04-15 11:31] LABS: Basophils Absolute Auto 0.1 X10*3/uL (0.0-0.2); Basophils Percent Auto 0.7 % (0-2); Eosinophils Absolute Auto 0.1 X10*3/uL (0.0-0.4); Eosinophils Percent Auto 0.9 % (0-4); Hematocrit 48.3 % (42.0-52.0); Hemoglobin 16.9 g/dl (14.0-18.0); Imm Gran Abs Auto 0.04 X10*3/uL (0.00-0.03); Imm Gran Pct Auto 0.3 % (0.0-0.4); Lymphocytes Percent Auto 16.9 % (20-40); Mean Corpuscular Hemoglobin 31.7 pg (27.0-33.0); Mean Corpuscular Volume 90.6 fL (80.0-98.0); Mean Platelet Volume 8.4 fL (9.4-12.4); Monocytes Absolute Auto 0.6 X10*3/uL (0.1-1.2); Monocytes Percent Auto 4.9 % (2-11); Neutrophils Absolute Auto 9.1 x10*3/uL (2.0-8.3); Neutrophils Percent Auto 76.3 % (45-73); Platelet Count 353 X10*3/uL (160-400); Red Blood Count 5.33 X10*6/uL (4.60-5.80); Red Cell Distribution Width 13.1 % (11.0-16.0)
[2024-04-15 11:39] LABS: INTERNATIONAL NORM RATIO 1.1 (0.9-1.1); Prothrombin Time 12.3 SEC (10.9-12.4)
[2024-04-15 11:47] LABS: Alanine Aminotransferase 23 U/L (0-40); Albumin Level 4.1 g/dL (3.5-5.0); Alkaline Phosphatase 144 U/L (39-117); Anion Gap 12 (12-20); Aspartate Amino Transferase 35 U/L (5-37); Bilirubin Total 0.7 mg/dL (0.0-1.0); Blood Urea Nitrogen 31 mg/dL (9-16); Calcium 9.5 mg/dL (8.4-10.2); Carbon Dioxide 25 mmol/L (22-29); Chloride 105 mmol/L (96-108); Creatinine Clr Calc Pharmacy 23.2; Estimated Glomerular Filt Rate 26; Glucose Random 119 mg/dL (60-115); Potassium 3.3 mmol/L (3.3-5.1); Sodium 139 mmol/L (135-145); Total Protein 7.8 g/dL (6.5-8.0)
[2024-04-15] MEDS: 0.9 % Sodium Chloride 1,000 ML 999 ML IV ×2 (13:46→16:58)
[2024-04-15 14:15] LABS: Influenza A PCR NEGATIVE (Negative); Influenza B PCR NEGATIVE (Negative); Resp Syncy Virus RNA Qual PCR NEGATIVE (Negative); SARS COV2 PCR INHOUSE NEGATIVE (Negative)
[2024-04-15 14:30] LABS: Appearance Urine Clear; Color Urine Yellow; Glucose Urine UA Negative (Negative); Leukocyte Esterase Urine Negative (Negative); Nitrite Urine Negative (Negative); PH 5.5 (5.0-9.0); Specific Gravity - Urine 1.025 (1.005-1.025); UMIC TRIGGER UACC YES; Urine Blood Negative (Negative); Urine Ketones Negative (Negative); Urine Protein 30 (1+) mg/dL (Neg-Trace)
[2024-04-15 14:38] LABS: Bacteria Urine None Seen (None Seen); Granular Casts Urine Present; RBC Urine 0-2 /HPF (0-2); Squamous Epithelial Cell Urine 0-2 /HPF (0-2); WBC Urine 0-5 /HPF (0-5)
[2024-04-15 15:03] VITALS: BP 140/71; PULSE 71; RESP 16; TEMP 36.7; O2SAT 98
--- NOTE | 2024-04-15 18:05 | PM.IMHP ---
History of Present Illness Date of Service: 04/15/24 Attending physician on admission: Joo Meza Chief Complaint: Guillermo 78-year-old Maltese speaking male with history of prostate CA, restrictive airway disease, HTN, GERD, and elevated cholesterol -patient came to the hospital yesterday due to hypokalemia, left AMA yesterday. Patient says that he is having decreased p.o. intake from 3-4 days also has some component of dysphagia versus nausea vomiting with food. Denies any abdominal pain or diarrhea or any sick contacts or travel. Denies any new medication use either. He says he is still producing urine. Mental status seems fine. Lab imaging reviewed: wbc: 12 ,bun /cr : 31/2.4 ua -negative .mild proteinuria Review of Systems Review of Systems: as above. Yes all other systems are reviewed and are negative [facility] Medical History Elevated cholesterol HTN (hypertension) GERD (gastroesophageal reflux disease) Restrictive airway disease Prostate cancer Family History Father Throat cancer Mother Diabetes Kidney disease Surgical History Hx of excision of mass (06/25/23) History of open reduction and internal fixation (ORIF) procedure History of esophagogastroduodenoscopy (EGD) Hx of colonoscopy History of cardiac cath Social History Household Members: Children Housing: Apartment Do you presently have visiting nurse or other home services: No Alcohol intake: current Alcohol intake frequency: a few times a month Patient Tobacco Use Status: Never used Tobacco Advance Directives: No Advance Directives Information Provided: Yes service: No Meds Allergies Allergy/AdvReac Type Severity Reaction Status Date / Time fish derived [FISH] Allergy Intermediate rash/hives Verified 04/15/24 10:56 No Known Drug Allergies Allergy none Verified 04/15/24 10:56 Active Medications: Current Medications Acetaminophen (Acetaminophen 325 Mg Tablet) 650 mg PO Q6H PRN PRN Reason: Pain, Mild (Pain Scale 1-3), fever or headache Calcium Carbonate (Calcium Carbonate 750 Mg Tab.Chew) 750 mg PO Q4H PRN PRN Reason: Heartburn Magnesium Hydroxide (Milk Of Magnesia 30 Ml Oral.Susp) 30 ml PO DAILY PRN PRN Reason: Constipation Melatonin (Melatonin 3 Mg Tablet) 6 mg PO BEDTIME PRN PRN Reason: Insomnia Sodium Chloride (0.9 % Sodium Chloride Flush 3 Ml Syringe) 3 ml IVFLUSH QSHIFT [facility] Home Medications ?Medication ?Instructions ?Recorded ?Confirmed ?Last Taken ?Type atorvastatin 40 mg tablet 40 mg PO BEDTIME 04/06/21 07/18/23 Unknown History cholecalciferol (vitamin D3) 50 100 mcg PO QAM 02/22/22 07/18/23 Unknown History mcg (2,000 unit) tablet melatonin 5 mg tablet 10 mg PO BEDTIME PRN Sleep 03/27/23 07/18/23 Unknown History amlodipine 5 mg tablet 5 mg PO DAILY 05/29/23 07/18/23 Unknown History hydrochlorothiazide 25 mg tablet 25 mg PO DAILY 05/29/23 07/18/23 Unknown History Physical Exam Vital Signs and Narrative: Vital Signs: Last Vital Signs Temp 98.0 F 04/15/24 15:03 Pulse 71 04/15/24 15:03 Resp 16 04/15/24 15:03 BP 140/71 H 04/15/24 15:03 Pulse Ox 98 04/15/24 15:03 O2 Del Method Room Air 04/15/24 15:03 BMI result Body Mass Index 26.9 Appearance: Alert.? Oriented X3.? ? cvs: rrr, [id number]. res: clear to auscultation ,no rhonchii or wheezing abd: no rebound or guarding ,nt, bs present. ext pulses present , no cyanosis,no edema neuro: axo3 , nonfocal. Results Labs 04/15/24 11:25 04/15/24 11:25 Labs: Laboratory Results - last 24 hr 04/15/24 04/15/24 04/15/24 11:25 13:25 14:22 MCV 90.6 MCH 31.7 MCHC 35.0 RDW 13.1 Plt Count 353 MPV 8.4 L Immature Gran % (Auto) 0.3 Neut % (Auto) 76.3 H Lymph % (Auto) 16.9 L [place] % (Auto) 4.9 Eos % (Auto) 0.9 Baso % (Auto) 0.7 Lymph # (Auto) 2.0 [place] # (Auto) 0.6 Eos # (Auto) 0.1 Baso # (Auto) 0.1 Abs Immat Gran (auto) 0.04 H Absolute Neuts (auto) 9.1 H Absolute Nucleated RBC 0.000 Nucleated RBC % (auto) 0.0 PT 12.3 INR 1.1 APTT 30.0 Anion Gap 12 Estim Creat Clear Calc 23.2 Estimated GFR 26 Random Glucose 119 H Calcium 9.5 Total Bilirubin 0.7 AST 35 ALT 23 Alkaline Phosphatase 144 H Total Protein 7.8 Albumin 4.1 Urine Color Yellow Urine Appearance Clear Urine pH 5.5 Ur Specific [place] 1.025 Urine Protein 30 (1+) H Urine Glucose (UA) Negative Urine Ketones Negative Urine Blood Negative Urine Nitrite Negative Ur Leukocyte Esterase Negative Urine RBC 0-2 Urine WBC 0-5 Ur Squamous Epith Cells 0-2 Urine Bacteria None Seen Hyaline Casts 3-5 Granular Casts Present Influenza Type A (PCR) NEGATIVE Influenza Type B (PCR) NEGATIVE RSV RNA Qual (PCR) NEGATIVE SARS-CoV-2 RNA (RT-PCR) NEGATIVE Assessment and Plan (1) Fatigue: Qualifiers: Fatigue type: unspecified Qualified Code(s): R53.83 - Other fatigue Status: Acute (2) GUILLERMO (acute kidney injury): Status: Acute Plan 78-year-old Maltese speaking male with history of prostate CA, restrictive airway disease, HTN, GERD, and elevated cholesterol - come with guillermo. guillermo-multifactorial( dec po intake ,hctz ): ivf d5ns @100 ml/hr renal sono moniter renal function and electrolytyes ,hold hctz. Reactive leukocytosis-denies any repsiratory or abd pain or urinary c/o. ?dysphagia: Swallow evaluation, NPO Hypokalemia due to dec po intake : Monitor renal function electrolyte closely Essential hypertension: Hold hydrochlorothiazide. medication reconciliation pending Mixed hyperlipidemia: Medical reconciliation pending BPH: Medical reconciliation pending. Patient will benefit from at least 2 midnight stay since has GUILLERMO new: Need IV fluids, electrolyte and renal function are monitoring, also GUILLERMO workup, if does not improve then may need further Nephrology evaluation. Above management discussed with the patient in detail length with the help of per diem interpreter he understand and in agreement with the above plan, time spent 70 minute ,patient full code. Quality Stroke Does the patient have a stroke diagnosis?: No VTE Prior VTE?: No VTE Risk Level:: Medical - moderate - high VTE Device Contraindication: N/A - Device Ordered VTE Drug Contraindication: N/A - Med Ordered
--- NOTE | 2024-04-15 18:44 | PHA.MEDREC ---
Addendum entered by Spencer Potts akira 04/15/24 19:00: Med rec reviewed Original Note: Pharmacy Consult ? Medication Reconciliation Pharmacy has completed the medication reconciliation. Spoke with patient with help of fuel cell designer (Peterson) and we were able to confirm patietns medications. Patient confirmed he is not taking anything for constipation at this time or abdominal distention. He also claims that he has not started the Amoxicillin regimen and that it is still waiting to be picked up at the pharmacy. He confirmed he took his medications this morning.
[2024-04-15] MEDS: Dextrose 5 % and 0.9 % NaCl 1,000 ML 100 ML IVCONT (19:57)
[2024-04-15] MEDS: Heparin Sodium,Porcine 5,000 UNIT/ML VIAL 5000 UNIT SUBCUT (19:58)
[2024-04-15 21:39] VITALS: BP 140/72; PULSE 78; RESP 18; TEMP 36.7; O2SAT 98
[2024-04-15 22:05] VITALS: BP 127/50; PULSE 64; RESP 18; TEMP 37.1; O2SAT 98
[2024-04-15] MEDS: 0.9 % Sodium Chloride Flush 3 ML SYRINGE IVFLUSH (22:15)
[2024-04-15 22:20] VITALS: BP 124/75; PULSE 60; RESP 18; TEMP 36.4; O2SAT 97
[2024-04-15 22:21] VITALS: BMI 27.5
[2024-04-15 23:26] VITALS: BP 132/60; PULSE 62; RESP 16; TEMP 36.1; O2SAT 97
[2024-04-16] MEDS: Heparin Sodium,Porcine 5,000 UNIT/ML VIAL 5000 UNIT SUBCUT ×3 (03:14→19:58)
[2024-04-16 03:39] VITALS: BP 123/59; PULSE 61; RESP 16; TEMP 36.1; O2SAT 97
[2024-04-16 05:25] LABS: Creatinine Urine 177.74 mg/dL; Microalbum/Creatinine Ratio Ur 7.8 ug/mg cr (<30); Protein/Creatinine Ratio, Ur 0.08 (<0.2); Total Protein Urine Random 15 mg/dL (<12)
[2024-04-16 06:39] LABS: Anion Gap 13 (12-20); Blood Urea Nitrogen 23 mg/dL (9-16); Calcium 7.7 mg/dL (8.4-10.2); Carbon Dioxide 17 mmol/L (22-29); Chloride 115 mmol/L (96-108); Creatinine Clr Calc Pharmacy 41.7; Estimated Glomerular Filt Rate 47; Glucose Random 95 mg/dL (60-115); Potassium 3.2 mmol/L (3.3-5.1); Sodium 142 mmol/L (135-145)
[2024-04-16 07:48] VITALS: BP 116/55; PULSE 63; RESP 18; TEMP 36.2; O2SAT 98
[2024-04-16] MEDS: Potassium Chloride ER 20 MEQ TAB.ER.PRT 40 MEQ PO (09:37)
[2024-04-16] MEDS: Omeprazole 20 MG CAPSULE.DR PO (09:37)
[2024-04-16] MEDS: Cholecalciferol (Vitamin D3) 25 MCG TABLET 100 MCG PO (09:37)
[2024-04-16] MEDS: 0.9 % Sodium Chloride Flush 3 ML SYRINGE IVFLUSH ×2 (09:38→19:58)
[2024-04-16] MEDS: Finasteride 5 MG TABLET PO (09:39)
[2024-04-16 09:43] VITALS: BP 125/57
[2024-04-16] MEDS: amLODIPine Besylate 10 MG TABLET PO (09:43)
--- NOTE | 2024-04-16 11:14 | HO.PM.IMPN ---
Subjective Subjective Date of Service: 04/16/24 Interval History: glenn Review of Systems denies chest pain or sob dysphagia similar Physical Exam Vital Signs: Vital Signs: Last Vital Signs Temp 97.2 F 04/16/24 07:48 Pulse 63 04/16/24 07:48 Resp 18 04/16/24 07:48 BP 125/57 L 04/16/24 09:43 Pulse Ox 98 04/16/24 07:48 O2 Del Method Room Air 04/16/24 07:48 BMI result Body Mass Index 27.5 Appearance: Alert.? Oriented X3.? ? cvs: rrr, [id number]. res: clear to auscultation ,no rhonchii or wheezing abd: no rebound or guarding ,nt, bs present. ext pulses present , no cyanosis,no edema neuro: axo3 , nonfocal. Objective Data Active Medications Acetaminophen (Acetaminophen 325 Mg Tablet) 650 mg PO Q6H PRN PRN Reason: Pain, Mild (Pain Scale 1-3), fever or headache Amlodipine Besylate (Amlodipine Besylate 10 Mg Tablet) 10 mg PO DAILY [facility]; Protocol Last Admin: 04/16/24 09:43 Dose: 10 mg Documented By: BHUMIKA Atorvastatin Calcium (Atorvastatin Calcium 40 Mg Tablet) 40 mg PO BEDTIME [facility] Calcium Carbonate (Calcium Carbonate 750 Mg Tab.Chew) 750 mg PO Q4H PRN PRN Reason: Heartburn Finasteride (Finasteride 5 Mg Tablet) 5 mg PO DAILY [facility] Last Admin: 04/16/24 09:39 Dose: 5 mg Documented By: BHUMIKA Fluticasone Propionate (Fluticasone Propionate Nasal 16 Gm [place]) 1 spray NOSTRIL-B DAILY [facility] Heparin Sodium (Porcine) (Heparin Sodium,Porcine 5,000 Unit/Ml Vial) 5,000 unit SUBCUT Q8H [facility] Last Admin: 04/16/24 03:14 Dose: 5,000 unit Documented By: JOCELYN Lactated Ringer's (Lr) 1,000 mls @ 80 mls/hr IVCONT .[id number] [facility] Magnesium Hydroxide (Milk Of Magnesia 30 Ml Oral.Susp) 30 ml PO DAILY PRN PRN Reason: Constipation Melatonin (Melatonin 3 Mg Tablet) 9 mg PO BEDTIME PRN PRN Reason: Sleep Omeprazole (Omeprazole 20 Mg Capsule.Dr) 20 mg PO DAILY@0630 [facility] Last Admin: 04/16/24 09:37 Dose: 20 mg Documented By: BHUMIKA Sodium Chloride (0.9 % Sodium Chloride Flush 3 Ml Syringe) 3 ml IVFLUSH QSHIFT [facility] Last Admin: 04/16/24 09:38 Dose: 3 ml Documented By: BHUMIKA Vitamin D (Cholecalciferol (Vitamin D3) 25 Mcg Tablet) 100 mcg PO DAILY [facility] Last Admin: 04/16/24 09:37 Dose: 100 mcg Documented By: BHUMIKA Labs 04/15/24 11:25 04/16/24 05:23 Labs: Laboratory Results - last 24 hr 04/15/24 04/15/24 04/15/24 11:25 13:25 14:22 MCV 90.6 MCH 31.7 MCHC 35.0 RDW 13.1 Plt Count 353 MPV 8.4 L Immature Gran % (Auto) 0.3 Neut % (Auto) 76.3 H Lymph % (Auto) 16.9 L [place] % (Auto) 4.9 Eos % (Auto) 0.9 Baso % (Auto) 0.7 Lymph # (Auto) 2.0 [place] # (Auto) 0.6 Eos # (Auto) 0.1 Baso # (Auto) 0.1 Abs Immat Gran (auto) 0.04 H Absolute Neuts (auto) 9.1 H Absolute Nucleated RBC 0.000 Nucleated RBC % (auto) 0.0 Hold Purple Top PT 12.3 INR 1.1 APTT 30.0 Anion Gap 12 Estim Creat Clear Calc 23.2 Estimated GFR 26 Random Glucose 119 H Calcium 9.5 Total Bilirubin 0.7 AST 35 ALT 23 Alkaline Phosphatase 144 H Total Protein 7.8 Albumin 4.1 Urine Color Yellow Urine Appearance Clear Urine pH 5.5 Ur Specific [place] 1.025 Urine Protein 30 (1+) H Urine Glucose (UA) Negative Urine Ketones Negative Urine Blood Negative Urine Nitrite Negative Ur Leukocyte Esterase Negative Urine RBC 0-2 Urine WBC 0-5 Ur Squamous Epith Cells 0-2 Urine Bacteria None Seen Hyaline Casts 3-5 Granular Casts Present U Random Total Protein Urine Creatinine Urine Microalbumin Microalb/Creat Ratio Protein/Creatinin Ratio Influenza Type A (PCR) NEGATIVE Influenza Type B (PCR) NEGATIVE RSV RNA Qual (PCR) NEGATIVE SARS-CoV-2 RNA (RT-PCR) NEGATIVE 04/16/24 04/16/24 03:56 05:23 MCV MCH MCHC RDW Plt Count MPV Immature Gran % (Auto) Neut % (Auto) Lymph % (Auto) [place] % (Auto) Eos % (Auto) Baso % (Auto) Lymph # (Auto) [place] # (Auto) Eos # (Auto) Baso # (Auto) Abs Immat Gran (auto) Absolute Neuts (auto) Absolute Nucleated RBC Nucleated RBC % (auto) Hold Purple Top SEE NOTE PT INR APTT Anion Gap 13 Estim Creat Clear Calc 41.7 Estimated GFR 47 Random Glucose 95 Calcium 7.7 L D Total Bilirubin AST ALT Alkaline Phosphatase Total Protein Albumin Urine Color Urine Appearance Urine pH Ur Specific [place] Urine Protein Urine Glucose (UA) Urine Ketones Urine Blood Urine Nitrite Ur Leukocyte Esterase Urine RBC Urine WBC Ur Squamous Epith Cells Urine Bacteria Hyaline Casts Granular Casts U Random Total Protein 15 H Urine Creatinine 177.74 Urine Microalbumin 14.0 Microalb/Creat Ratio 7.8 Protein/Creatinin Ratio 0.08 Influenza Type A (PCR) Influenza Type B (PCR) RSV RNA Qual (PCR) SARS-CoV-2 RNA (RT-PCR) Assessment and Plan (1) GLENN (acute kidney injury): Status: Acute (2) Fatigue: Status: Acute Plan 78-year-old Bengali speaking male with history of prostate CA, restrictive airway disease, HTN, GERD, and elevated cholesterol - come with glenn. glenn-multifactorial( dec po intake ,hctz ): LR @80ml/hr renal sono moniter renal function and electrolytyes ,hold hctz. Reactive leukocytosis-leucocytosis improving denies any repsiratory or abd pain or urinary c/o. ?dysphagia: Swallow evaluation-regular diet , gi eval Hypokalemia due to dec po intake : Monitor renal function electrolyte closely added po potassium. Essential hypertension: Hold hydrochlorothiazide. Mixed hyperlipidemia:continue statin. BPH: Medical reconciliation pending. ongoing stay since has GLENN new: Need IV fluids, electrolyte and renal function are monitoring, also GLENN workup, if does not improve then may need further Nephrology evaluation. Quality Stroke Does the patient have a stroke diagnosis?: No VTE Prior VTE?: No VTE Risk Level:: Medical - moderate - high VTE Device Contraindication: N/A - Device Ordered VTE Drug Contraindication: N/A - Med Ordered
--- NOTE | 2024-04-16 11:36 | P.CNGI_ITS ---
History of Present Illness Data of Consult Service Date: 04/16/24 Requesting physician: Joo Meza Primary Care Provider: Cheryl Richardson MD [facility] Reason for consult: Dysphagia 78-year-old English speaking male with history of prostate CA, restrictive airway disease, HTN, GERD, and elevated cholesterol [place] [facility] [place] with decreased PO intake/dysphagia for the preceeding 3 - 4 days. Pt reports dyspagia symptoms for the past 2-3 months with recent worsening. He has been eating soft foods (beans are over cooked for him to help him swallow) He reports dysphagia to solids and liquids associated with episodes of choking (has coughing/vomiting if he tries to drink water while having an episode) He stops eating and food would eventually go down. Pt denies heartburn, abdominal pain or recent change in bowel habits or any sick contacts or travel. He admits to losing 2-3 lb over the past few months. Pt has a remote hx of smoking and admits to drinking a few beers over the weekend. Patient has restrictive lung disease, denies any cardiac issues (negative cardiac cath in 2021), loud snoring or sleep apnea Denies any new medication use either. 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 Lives with his son. Pt's Dad had esophageal cancer at age 57 years Pt is followed by Ellen Saenz and is scheduled for an EGD and Colon on 05/18/24. PAST GI HISTORY BY REVIEW OF MEDICAL RECORDS: 03/27/23 PATIENT HAD AN EGD BY DR. NAZARIO FOR EVALUATION OF UPPER GI BLEED: Findings: Larynx:normal Esophagus: GE junction at 40 cm, diaphragm hiatus at 40 cm, distal segment esophagitis without bleeding Stomach: Patchy gastric erythema. Biopsies were obtained to r/o H pylori. Grade 2 flap valve on retroflexed examination of the cardia. No active bleeding. Duodenum: In proximal duodenum there was a 10-12 mm stellate shaped ulcer with clot at the periphery and another penetrating ulcer in the mid bulb area (Jeff grade III) about 14-15 mm. The mucosa was swollen and edematous with some stricturing. The ulcer with the clot was irrigated and the clot dislodged and started bleeding. An OTC was applied with good hemostasis and then hemospray also applied. Intervention: Biopsies as noted above, control of bleeding Impression/Findings: duodenal ulcers, stricture gastritis esophagitis PLAN: cont IV PPi for another 48 hrs then PO clears today and advance diet tomorrow if ongoing bleeding then IR and surgical consult. [address] Huertas was negative except severe right and left sided diverticulosis Review of Systems 2 Review of Systems: as above. Yes all other systems are reviewed and are negative [facility] Past Medical History Medical History Elevated cholesterol HTN (hypertension) GERD (gastroesophageal reflux disease) Restrictive airway disease Prostate cancer Family History Family History Father Throat cancer Mother Diabetes Kidney disease Surgical History Surgical History Hx of excision of mass (06/25/23) History of open reduction and internal fixation (ORIF) procedure History of esophagogastroduodenoscopy (EGD) Hx of colonoscopy History of cardiac cath Social History Social History Household Members: Children Housing: Apartment Do you presently have visiting nurse or other home services: No Alcohol intake: current Alcohol intake frequency: holidays/special occasions only Patient Tobacco Use Status: Former Tobacco user Second Hand Smoke Exposure: No service: No Meds Allergies Allergy/AdvReac Type Severity Reaction Status Date / Time fish derived [FISH] Allergy Intermediate rash/hives Verified 04/15/24 10:56 No Known Drug Allergies Allergy none Verified 04/15/24 10:56 Active Medications: Current Medications Acetaminophen (Acetaminophen 325 Mg Tablet) 650 mg PO Q6H PRN PRN Reason: Pain, Mild (Pain Scale 1-3), fever or headache Amlodipine Besylate (Amlodipine Besylate 10 Mg Tablet) 10 mg PO DAILY [facility]; Protocol Last Admin: 04/16/24 09:43 Dose: 10 mg Atorvastatin Calcium (Atorvastatin Calcium 40 Mg Tablet) 40 mg PO BEDTIME [facility] Calcium Carbonate (Calcium Carbonate 750 Mg Tab.Chew) 750 mg PO Q4H PRN PRN Reason: Heartburn Finasteride (Finasteride 5 Mg Tablet) 5 mg PO DAILY [facility] Last Admin: 04/16/24 09:39 Dose: 5 mg Fluticasone Propionate (Fluticasone Propionate Nasal 16 Gm [place]) 1 spray NOSTRIL-B DAILY [facility] Heparin Sodium (Porcine) (Heparin Sodium,Porcine 5,000 Unit/Ml Vial) 5,000 unit SUBCUT Q8H [facility] Last Admin: 04/16/24 03:14 Dose: 5,000 unit Lactated Ringer's (Lr) 1,000 mls @ 80 mls/hr IVCONT .[id number] [facility] Magnesium Hydroxide (Milk Of Magnesia 30 Ml Oral.Susp) 30 ml PO DAILY PRN PRN Reason: Constipation Melatonin (Melatonin 3 Mg Tablet) 9 mg PO BEDTIME PRN PRN Reason: Sleep Omeprazole (Omeprazole 20 Mg Capsule.Dr) 20 mg PO DAILY@0630 [facility] Last Admin: 04/16/24 09:37 Dose: 20 mg Sodium Chloride (0.9 % Sodium Chloride Flush 3 Ml Syringe) 3 ml IVFLUSH QSHIFT [facility] Last Admin: 04/16/24 09:38 Dose: 3 ml Vitamin D (Cholecalciferol (Vitamin D3) 25 Mcg Tablet) 100 mcg PO DAILY [facility] Last Admin: 04/16/24 09:37 Dose: 100 mcg Home Medications ?Medication ?Instructions ?Recorded ?Confirmed ?Last Taken ?Type atorvastatin 40 mg tablet 40 mg PO BEDTIME 04/06/21 04/15/24 04/14/24 History cholecalciferol (vitamin D3) 50 100 mcg PO DAILY 02/22/22 04/15/24 04/15/24 History mcg (2,000 unit) tablet melatonin 5 mg tablet 10 mg PO BEDTIME PRN Sleep 03/27/23 04/15/24 Unknown History hydrochlorothiazide 25 mg tablet 25 mg PO DAILY 05/29/23 04/15/24 04/15/24 History amlodipine 10 mg tablet 10 mg PO DAILY 04/15/24 04/15/24 04/15/24 History fluticasone propionate 50 1 spray intranasal DAILY 04/15/24 04/15/24 04/15/24 History mcg/actuation nasal spray,suspension Physical Exam 2 Vital Signs: Vital Signs: Last Vital Signs Temp 97.2 F 04/16/24 07:48 Pulse 63 04/16/24 07:48 Resp 18 04/16/24 07:48 BP 125/57 L 04/16/24 09:43 Pulse Ox 98 04/16/24 07:48 O2 Del Method Room Air 04/16/24 07:48 BMI result Body Mass Index 27.5 Const: General: no acute distress Nutritional Appearance: overweight O rientation/consciousness: patient oriented x3 Limitations: language barrier HEENT: Head: Yes normal to inspection Ears: hearing grossly normal bilaterally Eyes: Sclerae: sclerae normal Pupils: Equal, round and reactive pupils present Neck: Neck: Yes normal visual inspection Chest: Chest palpation & inspection: normal inspection of the chest Resp: Effort & Inspection: normal respiratory effort Auscultation: clear to auscultation bilaterally Cardio: Palpation: normal PMI Rate: regular rate Rhythm: regular rhythm Heart sounds: S1 normal heart sound present, S2 normal heart sound present and no murmurs GI: Inspection: Yes obesity Palpation (GI): Soft to palpation, nontender and No hepatosplenomegaly present Auscultation: normal bowel sounds Rectal Exam - Male: Yes deferred Skin: General skin exam: no rashes or lesions noted Neuro: General: patient oriented x3, gait normal and moves all extremities Cranial nerves: Yes Equal, round and reactive pupils present Psych: Appearance: grossly normal Mental Status: mental status grossly normal Results Labs 04/15/24 11:25 04/17/24 05:23 Labs: BMP 04/15/24 04/16/24 11:25 05:23 Sodium 139 142 Potassium 3.3 3.2 L Chloride 105 115 H Carbon Dioxide 25 17 L BUN 31 H 23 H Creatinine 2.40 H 1.45 H Calcium 9.5 7.7 L D Liver Function 04/15/24 Range/Units 11:25 Total Bilirubin 0.7 (0.0-1.0) mg/dL AST 35 (5-37) U/L ALT 23 (0-40) U/L Alkaline Phosphatase 144 H (39-117) U/L Albumin 4.1 (3.5-5.0) g/dL Urine 04/15/24 Range/Units 14:22 Urine Color Yellow Urine Appearance Clear Urine pH 5.5 (5.0-9.0) Ur Specific [place] 1.025 (1.005-1.025) Urine Protein 30 (1+) H (Neg-Trace) mg/dL Urine Glucose (UA) Negative (Negative) mg/dL Assessment and Plan (1) Dysphagia: Status: Acute Plan 78-year-old English speaking male with history of prostate CA, restrictive airway disease, HTN, GERD, and elevated cholesterol [place] [facility] [place] with decreased PO intake/dysphagia for the preceeding 3 - 4 days associated with renal dysfunction. Pt reports dyspagia symptoms for the past 2-3 months with recent worsening. He has been eating soft foods (beans are over cooked for him to help him swallow) He reports dysphagia to solids and liquids associated with episodes of choking (has coughing/vomiting if he tries to drink water while having an episode) Dysphagia can be due to severe GERD, benign or malignant esophageal stricture or esophageal motility disorder. Pt has a remote hx of smoking and admits to drinking a few beers over the weekend. Patient has restrictive lung disease, denies any cardiac issues (negative cardiac cath in 2021), loud snoring or sleep apnea RECOMMENDATIONS: 1. Agree with PO Omeprazole 2. Pt is scheduled for an EGD on 04/17/24 for evaluation of dysphagia. EGD procedure and potential complications including bleeding, perforation, reaction to anesthetic and aspiration were reviewed the patient. Procedures Date of Service Date of Service: 04/17/24
[2024-04-16] MEDS: Lactated Ringers 1,000 ML 80 ML IVCONT ×2 (12:00→23:55)
[2024-04-16] MEDS: Fluticasone Propionate Nasal 16 GM SPRAY 1 SPRAY NOSTRIL-B (12:00)
--- NOTE | 2024-04-16 15:37 | MHC.CM.PN ---
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
[2024-04-16 16:00] VITALS: BP 117/57; PULSE 66; RESP 18; TEMP 36.6; O2SAT 99
--- NOTE | 2024-04-16 18:54 | MHC.SL.SWA ---
Speech Pathologist Impression: Risk of Aspiration Due to: Poor PO Intake Dysphasia Diet Status: Liquid Consistency and Strategies for Safe Swallow: Liquid Intake Recommendation: Thin Liquid Intake Strategies: Unrestricted Solid Food Consistency: Dietary Recommendations: Regular Additional Modifications to Solid Foods: It was recommended to patient that he elect softer foods from the regular menu. Patient should chew food thoroughly, alternate liquids and solids. Oral Medication Intake: Whole with Liquid Please contact the pharmacy regarding appropriate crushable or liquid drug formulations that are available whenever modified delivery is recommended. Compensatory Strategies and Precautions to be Taken for Safe Swallow: Sitting Upright (90 deg) Liquids from Cup Liquids from Straw Small Bites and Sips Alternate Liquids/Solids Supervision While Eating and Drinking for Safe Swallow: None Needed Foods to Avoid: Hard difficult to chew solids. Swallowing Recommended Treatments: Compens. Strategy Educat. Recommendation for Speech: Inpatient Speech Therapy Comment: Patient presents with chronic c/o of globus sensation after swallow, particularly on harder textures like meat, feeling food is trapped and needing to cough/vomit food back up. On evaluation today, patient presented with oral and pharyngeal swallow WFL, had only mild sensation of globus on swallow of hardest texture (dry susan cracker) relieved by sip of liquid. Report is consistent with issues likely at the esophageal level, recommended that patient have consult with GI. Recommend UPGRADE current diet to REGULAR, with THIN liquids, pills whole with liquid. It was recommended to patient that he elect softer foods from the regular menu, and alternate liquids and solids when eating. MD/RD notified of recommendations, RN in person. PROP WORKER to follow up 1-2 times for toleration. Frequency/Duration: Date Range for Service Req: Timeline to reassess: Health Coordinator Clinican/Clinical Fellow: No Supervisory Statement: I have reviewed and agree with the student/clinical fellow's documentation: N/A Speech Language Pathologist: Tiffany Moreno M.A., CCC-PROP WORKER
[2024-04-16 19:50] VITALS: BP 125/59; PULSE 65; RESP 18; TEMP 36.3; O2SAT 99
[2024-04-16] MEDS: Atorvastatin Calcium 40 MG TABLET PO (19:58)
[2024-04-17] VITALS (8 sets, daily range): BP systolic 112–141; BP diastolic 56–71; PULSE 54–108; RESP 14–16; TEMP 36.4–37.2; O2SAT 98–100
[2024-04-17] MEDS: Heparin Sodium,Porcine 5,000 UNIT/ML VIAL 5000 UNIT SUBCUT ×2 (03:17→18:18)
[2024-04-17] MEDS: Omeprazole 20 MG CAPSULE.DR PO ×2 (05:19→15:41)
[2024-04-17 06:24] LABS: Anion Gap 10 (12-20); Blood Urea Nitrogen 18 mg/dL (9-16); Calcium 8.2 mg/dL (8.4-10.2); Carbon Dioxide 21 mmol/L (22-29); Chloride 116 mmol/L (96-108); Estimated Glomerular Filt Rate 48; Glucose Random 98 mg/dL (60-115); Potassium 3.8 mmol/L (3.3-5.1); Sodium 143 mmol/L (135-145)
[2024-04-17] MEDS: Finasteride 5 MG TABLET PO (08:58)
[2024-04-17] MEDS: amLODIPine Besylate 10 MG TABLET PO (08:58)
[2024-04-17] MEDS: 0.9 % Sodium Chloride Flush 3 ML SYRINGE IVFLUSH (08:59)
--- NOTE | 2024-04-17 09:46 | MHC.SLORD ---
Speech Language Pathology Order Status: No PO trials given this date. Patient is NPO for EGD today, results pending. Please refer to BDE 04/16, swallow in oral and pharyngeal phase deemed WFL, CLINICAL ACCOUNT SPECIALIST recc regular solids and thin liquids.
[2024-04-17] MEDS: Fluticasone Propionate Nasal 16 GM SPRAY 1 SPRAY NOSTRIL-B (11:30)
--- NOTE | 2024-04-17 13:56 | PC.NURSE ---
20g left lower arm asymtpomatic
--- NOTE | 2024-04-17 14:01 | HO.PM.IMPN ---
Subjective Subjective Date of Service: 04/17/24 Interval History: glenn,dysphagia Review of Systems denies any nausea or vomiting or abd pain no fevers Physical Exam Vital Signs: Vital Signs: Last Vital Signs Temp 98.4 F 04/17/24 13:56 Pulse 60 04/17/24 13:56 Resp 16 04/17/24 13:56 BP 122/70 04/17/24 13:56 Pulse Ox 99 04/17/24 13:56 O2 Del Method Room Air 04/17/24 13:56 BMI result Body Mass Index 27.5 Appearance: Alert.? Oriented X3.? ? cvs: rrr, [id number]. res: clear to auscultation ,no rhonchii or wheezing abd: no rebound or guarding ,nt, bs present. ext pulses present , no cyanosis,no edema neuro: axo3 , nonfocal. Objective Data Active Medications Acetaminophen (Acetaminophen 325 Mg Tablet) 650 mg PO Q6H PRN PRN Reason: Pain, Mild (Pain Scale 1-3), fever or headache Amlodipine Besylate (Amlodipine Besylate 10 Mg Tablet) 10 mg PO DAILY [facility]; Protocol Last Admin: 04/17/24 08:58 Dose: 10 mg Documented By: GREGOR Atorvastatin Calcium (Atorvastatin Calcium 40 Mg Tablet) 40 mg PO BEDTIME [facility] Last Admin: 04/16/24 19:58 Dose: 40 mg Documented By: JOCELYN Calcium Carbonate (Calcium Carbonate 750 Mg Tab.Chew) 750 mg PO Q4H PRN PRN Reason: Heartburn Finasteride (Finasteride 5 Mg Tablet) 5 mg PO DAILY [facility] Last Admin: 04/17/24 08:58 Dose: 5 mg Documented By: GREGOR Fluticasone Propionate (Fluticasone Propionate Nasal 16 Gm [place]) 1 spray NOSTRIL-B DAILY [facility] Last Admin: 04/17/24 11:30 Dose: 1 spray Documented By: GREGOR Heparin Sodium (Porcine) (Heparin Sodium,Porcine 5,000 Unit/Ml Vial) 5,000 unit SUBCUT Q8H [facility] Last Admin: 04/17/24 11:30 Dose: Not Given Documented By: GREGOR Non-Admin Reason: Patient Refused Lactated Ringer's (Lr) 1,000 mls @ 80 mls/hr IVCONT .[id number] [facility] Last Admin: 12/12/24 23:55 Dose: 80 mls/hr Documented By: JOCELYN Magnesium Hydroxide (Milk Of Magnesia 30 Ml Oral.Susp) 30 ml PO DAILY PRN PRN Reason: Constipation Melatonin (Melatonin 3 Mg Tablet) 9 mg PO BEDTIME PRN PRN Reason: Sleep Omeprazole (Omeprazole 20 Mg Capsule.Dr) 20 mg PO DAILY@0630 [facility] Last Admin: 04/17/24 05:19 Dose: 20 mg Documented By: JOCELYN Sodium Chloride (0.9 % Sodium Chloride Flush 3 Ml Syringe) 3 ml IVFLUSH QSHIFT [facility] Last Admin: 04/17/24 08:59 Dose: 3 ml Documented By: GREGOR Vitamin D (Cholecalciferol (Vitamin D3) 25 Mcg Tablet) 100 mcg PO DAILY [facility] Last Admin: 04/17/24 09:01 Dose: Not Given Documented By: GREGOR Non-Admin Reason: NPO Labs 04/15/24 11:25 04/17/24 05:23 Labs: Laboratory Results - last 24 hr 04/17/24 05:23 Hold Purple Top SEE NOTE Anion Gap 10 L Estim Creat Clear Calc 42.0 Estimated GFR 48 Random Glucose 98 Calcium 8.2 L D Assessment and Plan (1) GLENN (acute kidney injury): Status: Acute (2) Fatigue: Status: Acute Plan 78-year-old Danish speaking male with history of prostate CA, restrictive airway disease, HTN, GERD, and elevated cholesterol - come with glenn. glenn-multifactorial( dec po intake ,hctz ): LR @80ml/hr renal sono-seems fine moniter renal function and electrolytyes ,hold hctz. Reactive leukocytosis-leucocytosis improving denies any repsiratory or abd pain or urinary c/o. ?dysphagia: Gi eval-will be going for egd Hypokalemia due to dec po intake : Monitor renal function electrolyte closely added po potassium. Essential hypertension: Hold hydrochlorothiazide. Mixed hyperlipidemia:continue statin. BPH: on finasteride. ongoing stay since has GLENN new: Need IV fluids, electrolyte and renal function are monitoring, also GLENN workup, if does not improve then may need further Nephrology evaluation. Quality Stroke Does the patient have a stroke diagnosis?: No VTE Prior VTE?: No VTE Risk Level:: Medical - moderate - high VTE Device Contraindication: N/A - Device Ordered VTE Drug Contraindication: N/A - Med Ordered
--- NOTE | 2024-04-17 14:18 | HO.ANESPROP2 ---
HPI - Anesthesia Eval Consult details Narrative: 78 yo male patient for EGD [facility] Active Problems Active Problems: All Active Problems (Updated 04/16/24 @ 11:38 by Bree Espinosa MD) Dysphagia (Acute) Fatigue (Acute) GLENN (acute kidney injury) (Acute) Epidermal inclusion cyst (Acute) Duodenal ulcer (Acute) Proteinuria (Acute) FREY (dyspnea on exertion) (Acute) Prostate cancer (Acute) No N/V today Past Medical History Medical History Elevated cholesterol HTN (hypertension) GERD (gastroesophageal reflux disease) Restrictive airway disease Prostate cancer Family History Family History Father Throat cancer Mother Diabetes Kidney disease Family history of problems with anesthesia: No Surgical History Surgical History Hx of excision of mass (06/25/23) History of open reduction and internal fixation (ORIF) procedure History of esophagogastroduodenoscopy (EGD) Hx of colonoscopy History of cardiac cath History of Problems with Anesthesia: No Social History Social History Household Members: Children Housing: Apartment Do you presently have visiting nurse or other home services: No Alcohol intake: current Alcohol intake frequency: holidays/special occasions only Patient Tobacco Use Status: Former Tobacco user Second Hand Smoke Exposure: No service: No Meds Allergies Allergy/AdvReac Type Severity Reaction Status Date / Time fish derived [FISH] Allergy Intermediate rash/hives Verified 04/15/24 10:56 No Known Drug Allergies Allergy none Verified 04/15/24 10:56 Active Medications: Current Medications Acetaminophen (Acetaminophen 325 Mg Tablet) 650 mg PO Q6H PRN PRN Reason: Pain, Mild (Pain Scale 1-3), fever or headache Amlodipine Besylate (Amlodipine Besylate 10 Mg Tablet) 10 mg PO DAILY [facility]; Protocol Last Admin: 04/17/24 08:58 Dose: 10 mg Atorvastatin Calcium (Atorvastatin Calcium 40 Mg Tablet) 40 mg PO BEDTIME [facility] Last Admin: 04/16/24 19:58 Dose: 40 mg Calcium Carbonate (Calcium Carbonate 750 Mg Tab.Chew) 750 mg PO Q4H PRN PRN Reason: Heartburn Finasteride (Finasteride 5 Mg Tablet) 5 mg PO DAILY [facility] Last Admin: 04/17/24 08:58 Dose: 5 mg Fluticasone Propionate (Fluticasone Propionate Nasal 16 Gm [place]onal[place]) 1 spray NOSTRIL-B DAILY [facility] Last Admin: 04/17/24 11:30 Dose: 1 spray Heparin Sodium (Porcine) (Heparin Sodium,Porcine 5,000 Unit/Ml Vial) 5,000 unit SUBCUT Q8H [facility] Last Admin: 04/17/24 11:30 Dose: Not Given Lactated Ringer's (Lr) 1,000 mls @ 80 mls/hr IVCONT .[id number] [facility] Last Admin: 04/16/24 23:55 Dose: 80 mls/hr Magnesium Hydroxide (Milk Of Magnesia 30 Ml Oral.Susp) 30 ml PO DAILY PRN PRN Reason: Constipation Melatonin (Melatonin 3 Mg Tablet) 9 mg PO BEDTIME PRN PRN Reason: Sleep Omeprazole (Omeprazole 20 Mg Capsule.Dr) 20 mg PO DAILY@0630 [facility] Last Admin: 04/17/24 05:19 Dose: 20 mg Sodium Chloride (0.9 % Sodium Chloride Flush 3 Ml Syringe) 3 ml IVFLUSH QSHIFT [facility] Last Admin: 04/17/24 08:59 Dose: 3 ml Vitamin D (Cholecalciferol (Vitamin D3) 25 Mcg Tablet) 100 mcg PO DAILY [facility] Last Admin: 04/17/24 09:01 Dose: Not Given Home Medications ?Medication ?Instructions ?Recorded ?Confirmed ?Last Taken ?Type atorvastatin 40 mg tablet 40 mg PO BEDTIME 04/06/21 04/15/24 04/14/24 History cholecalciferol (vitamin D3) 50 100 mcg PO DAILY 02/22/22 04/15/24 04/15/24 History mcg (2,000 unit) tablet melatonin 5 mg tablet 10 mg PO BEDTIME PRN Sleep 03/27/23 04/15/24 Unknown History hydrochlorothiazide 25 mg tablet 25 mg PO DAILY 05/29/23 04/15/24 04/15/24 History amlodipine 10 mg tablet 10 mg PO DAILY 04/15/24 04/15/24 04/15/24 History fluticasone propionate 50 1 spray intranasal DAILY 04/15/24 04/15/24 04/15/24 History mcg/actuation nasal spray,suspension Exam Height,Weight and Vital Signs: Height 5 ft 6 in Weight 77.4 kg Last Vital Signs Temp 98.4 F 04/17/24 13:56 Pulse 60 04/17/24 13:56 Resp 16 04/17/24 13:56 BP 122/70 04/17/24 13:56 Pulse Ox 99 04/17/24 13:56 O2 Del Method Room Air 04/17/24 13:56 Pertinent Lab Results Pertinent Lab Results: Laboratory Tests 04/15/24 04/15/24 04/15/24 11:25 13:25 14:22 WBC 12.0 H RBC 5.33 Hgb 16.9 Hct 48.3 MCV 90.6 MCH 31.7 MCHC 35.0 RDW 13.1 Plt Count 353 MPV 8.4 L Immature Gran % (Auto) 0.3 Neut % (Auto) 76.3 H Lymph % (Auto) 16.9 L [place] % (Auto) 4.9 Eos % (Auto) 0.9 Baso % (Auto) 0.7 Lymph # (Auto) 2.0 [place] # (Auto) 0.6 Eos # (Auto) 0.1 Baso # (Auto) 0.1 Abs Immat Gran (auto) 0.04 H Absolute Neuts (auto) 9.1 H Absolute Nucleated RBC 0.000 Nucleated RBC % (auto) 0.0 Hold Purple Top PT 12.3 INR 1.1 APTT 30.0 Sodium 139 Potassium 3.3 Chloride 105 Carbon Dioxide 25 Anion Gap 12 BUN 31 H Creatinine 2.40 H Estim Creat Clear Calc 23.2 Estimated GFR 26 Random Glucose 119 H Calcium 9.5 Total Bilirubin 0.7 AST 35 ALT 23 Alkaline Phosphatase 144 H Total Protein 7.8 Albumin 4.1 Urine Color Yellow Urine Appearance Clear Urine pH 5.5 Ur Specific [place] 1.025 Urine Protein 30 (1+) H Urine Glucose (UA) Negative Urine Ketones Negative Urine Blood Negative Urine Nitrite Negative Ur Leukocyte Esterase Negative Urine RBC 0-2 Urine WBC 0-5 Ur Squamous Epith Cells 0-2 Urine Bacteria None Seen Hyaline Casts 3-5 Granular Casts Present U Random Total Protein Urine Creatinine Urine Microalbumin Microalb/Creat Ratio Protein/Creatinin Ratio Influenza Type A (PCR) NEGATIVE Influenza Type B (PCR) NEGATIVE RSV RNA Qual (PCR) NEGATIVE SARS-CoV-2 RNA (RT-PCR) NEGATIVE 04/16/24 04/16/24 04/17/24 03:56 05:23 05:23 WBC RBC Hgb Hct MCV MCH MCHC RDW Plt Count MPV Immature Gran % (Auto) Neut % (Auto) Lymph % (Auto) [place] % (Auto) Eos % (Auto) Baso % (Auto) Lymph # (Auto) [place] # (Auto) Eos # (Auto) Baso # (Auto) Abs Immat Gran (auto) Absolute Neuts (auto) Absolute Nucleated RBC Nucleated RBC % (auto) Hold Purple Top SEE NOTE SEE NOTE PT INR APTT Sodium 142 143 Potassium 3.2 L 3.8 Chloride 115 H 116 H Carbon Dioxide 17 L 21 L Anion Gap 13 10 L BUN 23 H 18 H Creatinine 1.45 H 1.44 H Estim Creat Clear Calc 41.7 42.0 Estimated GFR 47 48 Random Glucose 95 98 Calcium 7.7 L D 8.2 L D Total Bilirubin AST ALT Alkaline Phosphatase Total Protein Albumin Urine Color Urine Appearance Urine pH Ur Specific [place] Urine Protein Urine Glucose (UA) Urine Ketones Urine Blood Urine Nitrite Ur Leukocyte Esterase Urine RBC Urine WBC Ur Squamous Epith Cells Urine Bacteria Hyaline Casts Granular Casts U Random Total Protein 15 H Urine Creatinine 177.74 Urine Microalbumin 14.0 Microalb/Creat Ratio 7.8 Protein/Creatinin Ratio 0.08 Influenza Type A (PCR) Influenza Type B (PCR) RSV RNA Qual (PCR) SARS-CoV-2 RNA (RT-PCR) Airway Mallampati Class: I TM Dist: >3cm Neck ROM: Full Denture: Upper Partial: Lower Loose/Missing/Broken Teeth: Yes Heart: RRR Lungs: CTAB Assessment and Plan Assessment Anesthesia Assessment: Anesthesia Plan Discussed and Chart Reviewed Final Anesthetic Review Family History of Problems with Anesthesia: No History of Problems with Anesthesia: No NPO: Yes ASA Class: III Final Preanesthetic Review: No Changes in Pt Med Stat, Meds/Allgs Chart Reviewed, Consent Obtained/Reviewed and Anes Risks/Benef Reviewed Patient Risk: Intermediate Procedure Risk: Low Assessment/Block/Sedation in SS: Assess/Block/Sedation-SS Anesthetic Plan Anesthetic Plan: TIVA Disposition: Standard PACU
--- NOTE | 2024-04-17 14:27 | MHC.SHP ---
Pre-Procedural Eval Section A - 24 Hr Update-Section A only Date of Service: 04/17/24 The patient is an INPATIENT: Yes Changes since office visit: Yes New Medical Problems, Yes Changes in Medication and Yes Patient answered all questions; No Cold of Flu in the past 2 weeks The patient has been examined within 24 hours of the surgical procedure. The History & Physical has been completed within 30 days and I have reviewed it.: Yes Section B - Complete if H&P > 30 days Chief Complaint: Guillermo Allergies: Allergies Allergy/AdvReac Type Severity Reaction Status Date / Time fish derived [FISH] Allergy Intermediate rash/hives Verified 04/15/24 10:56 No Known Drug Allergies Allergy none Verified 04/15/24 10:56 Plan I have reviewed the history and physical and performed a pertinent physical examination on my patient. No changes have occurred unless specified. Time Spent With Patient Time: Total time managing care of this patient today ____ minutes.
--- NOTE | 2024-04-17 14:45 | W.PM.OPN ---
Operative Note Operative Note Date of Service: 04/17/24 Narrative: FLEXIBLE TRANSORAL UPPER GASTROINTESTINAL ENDOSCOPY WITH BIOPSIES AND ESOPHAGEAL BALLOON DILATION Pre-op diagnosis: GERD, Dysphagia Post-op diagnosis: GERD, esophagitis, gastric polyps, Gastritis, Endoscopist:? Bree Espinosa MD Anesthesia:?MAC UPPER ENDOSCOPY Consent: Indications for the procedure and potential complications of bleeding, perforation, reaction to medications and missed diagnosis were discussed with the patient and informed consent was obtained. Instrument: Olympus GIF H 190 mid size upper endoscope Monitoring: Vital signs and clinical assessment, continuous EKG monitoring, Pulse oximetry, Carbon Dioxide monitoring and blood pressure monitoring were done throughout the procedure. Procedure: The patient was placed in the left lateral decubitis position and pre-procedure medications were administered and a bite block was placed. The endoscope was inserted into the mouth and advanced under direct vision to the third part of duodenum. A careful inspection was made as the upper endoscope was withdrawn including a retroflexed examination of the proximal stomach; Findings and interventions are described below. Findings: Larynx: Normal Esophagus: GE junction at 38 cms. Tortuous esophagus with increased tertiary contractions without stricture or ring. A 1 cms chronic appearing erosion at the GE junction. Empiric balloon dilation of the distal esophagus was performed with a 19 mm CRE balloon x 60 seconds Stomach: Moderate diffuse gastric erythema - biopsies were obtained from the gastric body and antrum. A few 5 to 10 mm benig appearing polyps in the gastric body - biopsied. Grade 2 flap valve on retroflexed examination of the cardia. Duodenum: Normal bulb and descending duodenum Intervention: Biopsies and esophageal balloon dilation as noted above Impression and Post Procedure Diagnosis: Endoscopy Findings: ESOPHAGUS: Tortuous esophagus with increased tertiary contractions without stricture or ring. A 1 cms chronic appearing erosion at the GE junction. Empiric balloon dilation of the distal esophagus was performed with a 19 mm CRE balloon x 60 seconds Dysphagia is likely related to esophageal motility disorder. Pt advised to chew his food well, eat slowly in the upright position and take fluids while eating. If dysphagia persist, further evaluation with a barium swallow can be performed STOMACH: Moderate gastritis and benign-appearing gastric polyps Plan: Pt is scheduled for a colonoscopy on 05/18/24 as an outpatient. Above findings were reviewed with the patient and relevant handouts were given and the discharge area. ADDENDUM: 2013 barium swallow showed moderate esophageal dysmotility with a corkscrew appearance of the mid to distal esophagus consistent with diffuse esophageal spasm. BIOPSIES SHOWED: A. Stomach, antrum, biopsy: Antral-type mucosa with mild chronic inactive inflammation; no Helicobacter organisms seen. B. Stomach, body, biopsy: Oxyntic mucosa with moderate chronic, focally active, inflammation; no Helicobacter organisms seen. C. Stomach, polypectomy: Fundic gland polyp with background mild chronic inactive inflammation; no Helicobacter organisms seen.
[2024-04-17] MEDS: Lactated Ringers 1,000 ML 100 ML IVCONT (15:19)
[2024-04-17] MEDS: Atorvastatin Calcium 40 MG TABLET PO (21:06)
[2024-04-18] MEDS: Lactated Ringers 1,000 ML 100 ML IVCONT (01:14)
[2024-04-18 03:03] VITALS: BP 116/56; PULSE 53; RESP 16; TEMP 37.2; O2SAT 100
[2024-04-18] MEDS: Heparin Sodium,Porcine 5,000 UNIT/ML VIAL 5000 UNIT SUBCUT ×2 (03:04→11:06)
[2024-04-18] MEDS: Omeprazole 20 MG CAPSULE.DR PO (06:01)
[2024-04-18 07:19] VITALS: BP 151/70; PULSE 54; RESP 16; TEMP 36.1; O2SAT 97
[2024-04-18] MEDS: amLODIPine Besylate 10 MG TABLET PO (08:16)
[2024-04-18] MEDS: Cholecalciferol (Vitamin D3) 25 MCG TABLET 100 MCG PO (08:17)
[2024-04-18] MEDS: Fluticasone Propionate Nasal 16 GM SPRAY 1 SPRAY NOSTRIL-B (08:19)
[2024-04-18] MEDS: 0.9 % Sodium Chloride Flush 3 ML SYRINGE IVFLUSH (08:19)
[2024-04-18] MEDS: Finasteride 5 MG TABLET PO (08:21)
[2024-04-18 09:13] LABS: Anion Gap 11 (12-20); Blood Urea Nitrogen 13 mg/dL (9-16); Calcium 8.3 mg/dL (8.4-10.2); Carbon Dioxide 26 mmol/L (22-29); Chloride 111 mmol/L (96-108); Creatinine Clr Calc Pharmacy 54.5; Estimated Glomerular Filt Rate > 60; Glucose Random 91 mg/dL (60-115); Potassium 3.3 mmol/L (3.3-5.1); Sodium 145 mmol/L (135-145)
--- NOTE | 2024-04-18 11:10 | MHC.CM.PN ---
PT TO DC HOME TODAY WITH NO SERVICES VIA FAMILY TRANSPORT
--- NOTE | 2024-04-18 12:34 | P.DS_ITS ---
DS: Providers Provider Date of Service: 04/18/24 Date of admission: 04/15/24 18:00 Date of discharge: 04/18/24 Primary care physician: Cheryl Richardson MD Consults: 04/16/24 11:00 Consult to Gastroenterology Routine Consulting Provider: [facility] [place] [facility] Gastroenterology Services Reason for consultation: dysphagia Has provider been notified: No Attending physician on discharge: Joo Meza Discharging clinician: Joo Meza DS: Diagnosis Discharge Diagnosis (1) Dysphagia: Status: Acute DS: Summary Hospital Course Hospital Course: HPI:78-year-old Jamaican speaking male with history of prostate CA, restrictive airway disease, HTN, GERD, and elevated cholesterol -patient came to the hospital yesterday due to hypokalemia, left AMA yesterday. Patient says that he is having decreased p.o. intake from 3-4 days also has some component of dysphagia versus nausea vomiting with food. Denies any abdominal pain or diarrhea or any sick contacts or travel. Denies any new medication use either. He says he is still producing urine. Mental status seems fine. Lab imaging reviewed: wbc: 12 ,bun /cr : 31/2.4 ua -negative .mild proteinuria Hospital course: 78-year-old Jamaican speaking male with history of prostate CA, restrictive airway disease, HTN, GERD, and elevated cholesterol - come with jennifer. Patient was admitted for jennifer,electrolytic abnormalities , dysphagia - started on ivf ,aggressive electrolytic replacements -patient jennifer and electrolytes seems improved. patient seen by gI-s/p egd: Tortuous esophagus with increased tertiary contractions without stricture or ring. A 1 cms chronic appearing erosion at the GE junction.Empiric balloon dilation of the distal esophagus was performed with a 19 mm CRE balloon x 60 seconds Dysphagia is likely related to esophageal motility disorder. patient was started on omeprazole 20 mg po daily. Patient diet advanced -tolerating po diet . Reactive leukocytosis-leucocytosis improving-denies any repsiratory or abd pain or urinary c/o. Hypokalemia due to dec po intake : improved with repletion and holding hcta. Essential hypertension: continue amlodipine .Hold hydrochlorothiazide. plan: continue omeprazole 20 mg daily consider outpatient barium swallow and colonoscopy. need to follow up with pcp outpatient. Above management discussed with the patient detail length he understand and in agreement with the above plan with the help of news video editor, time spent 40 minute. Time Attestation Total time managing care of this patient today: 40 mintues. Discharge Coordination Time (in mins): 40 min Quality: Safe Use of Opioids Does Pt have an Active Cancer Diagnosis on the Problem List?: No Quality: Stroke Does the patient have a stroke diagnosis?: No Physical Exam Vital Signs: Vital Signs: Last Vital Signs Temp 96.9 F 04/18/24 07:19 Pulse 54 04/18/24 07:19 Resp 16 04/18/24 07:19 BP 151/70 H 04/18/24 07:19 Pulse Ox 97 04/18/24 07:19 O2 Del Method Room Air 04/18/24 07:19 BMI result Body Mass Index 27.5 Appearance: Alert.? Oriented X3.? ? cvs: rrr, [id number]. res: clear to auscultation ,no rhonchii or wheezing abd: no rebound or guarding ,nt, bs present. ext pulses present , no cyanosis,no edema neuro: axo3 , nonfocal. DS: Data Data Completed and Pending Completed studies during hospitalization [Text1]: Procedures Control Bleeding in Gastrointestinal Tract, Via Natural or Artificial Opening Endoscopic (03/27/23) Excision of Stomach, Pylorus, Via Natural or Artificial Opening Endoscopic, Diagnostic (03/27/23) Introduction of Mineral-based Topical Hemostatic Agent into Upper GI, Via Natural or Artificial Opening Endoscopic, [employer] 6 (03/27/23) Introduction of Other Therapeutic Substance into Upper GI, Via Natural or Artificial Opening Endoscopic (03/15/23) Transfusion of Nonautologous Red Blood Cells into Peripheral Vein, Percutaneous Approach (03/15/23) Pending studies at discharge: Pending at discharge 04/17/24 14:39 Surgical [PTH] Routine Labs on day of discharge: Laboratory Results - last 24 hr 04/18/24 08:12 Sodium 145 Potassium 3.3 Chloride 111 H Carbon Dioxide 26 Anion Gap 11 L BUN 13 Creatinine 1.11 Estim Creat Clear Calc 54.5 Estimated GFR > 60 Random Glucose 91 Calcium 8.3 L Imaging Chest x-ray: Radiologist's impression: ITS Impressions Renal Ultrasound 04/15/24 18:51 IMPRESSION: Normal ultrasound of the bilateral kidneys. Electronically signed by: Fernando Díaz MD 04/16/2024 11:21 [place] [facility] [place] Discharge Anticipated Discharge Date/Time: 04/18/24 10:59 Patient Disposition: Home, Self-Care Discharge Diagnosis: jennifer, electrolytic abnormalities ,dysphagia Referrals: Cheryl Hogan MD [Primary Care Provider] - 1 Week Discharge Medications: Continued omeprazole 20 mg capsule,delayed release(DR/EC) 20 mg PO DAILY 90 Days Qty: 90 2RF finasteride 5 mg tablet 5 mg PO DAILY 90 Days Qty: 90 2RF sennosides [Natural Senna Laxative] 8.6 mg tablet 17.2 mg PO BEDTIME Qty: 60 1RF amlodipine 10 mg tablet 10 mg PO DAILY fluticasone propionate 50 mcg/actuation spray,suspension 1 spray intranasal DAILY melatonin 5 mg tablet 10 mg PO BEDTIME PRN (Reason: Sleep) cholecalciferol (vitamin D3) 50 mcg (2,000 unit) tablet 100 mcg PO DAILY atorvastatin 40 mg tablet 40 mg PO BEDTIME Discontinued hydrochlorothiazide 25 mg tablet 25 mg PO DAILY Discharge Orders: Discharge Order (Routine); Ordered 04/18/24 Ordered By: Joo Meza Diet: Advance to usual diet Activity on Discharge: As tolerated Stand Alone Forms: Patient Portal Discharge page Print Language: Jamaican Care Plan Goals: Patient was admitted for jennifer,electrolytic abnormalities , dysphagia - started on ivf ,aggressive electrolytic replacements -patient jennifer and electrolytes seems improved. patient seen by gI-s/p egd: Tortuous esophagus with increased tertiary contractions without stricture or ring. A 1 cms chronic appearing erosion at the GE junction.Empiric balloon dilation of the distal esophagus was performed with a 19 mm CRE balloon x 60 seconds Dysphagia is likely related to esophageal motility disorder. patient was started on omeprazole 20 mg po daily. Patient diet advanced -tolerating po diet . consider outpatient barium swallow and colonoscopy. need to follow up with pcp outpatient. Health Concerns: as above. Plan of Treatment: if any new symptoms or difficulty swallow -considering going to nearest ed. stop hctz sec to jennifer, electrolytic abnormalities. Assessment: as above.
--- NOTE | 2024-04-18 14:39 | HO.POSTANES ---
Post Anesthesia Evaluation Post Anesthesia Evaluation Date of Service: 04/17/24 Vital Signs: Vital Signs Temp Pulse Resp BP Pulse Ox O2 Del Method 04/18/24 07:19 96.9 F 54 16 151/70 H 97 Room Air 04/18/24 03:03 98.9 F 53 16 116/56 L 100 Room Air Anesthesia: Monitored Mental Status: Awake Pain Control: Satisfactory Nausea/Vomiting: None Hydration: Adequate Anesthesia-Related Issues: No Anes. Related Issues
== END 2024-04-18 13:36 | disposition home or self-care (01) | DRG 392 ==
LOC: HO.ED 17:10 → HO.EDOVER 18:05 → HO.S3 19:18
PROVIDERS: Internal Medicine Gastroenterology; Registered Nurse Emergency; Admitting Provider Internal Medicine; Emergency Provider Emergency Medicine; PCP Internal Medicine; Visit Provider Internal Medicine
PROC: 0DJ08ZZ Inspection of Upper Intestinal Tract, Via Natural or Artificial Opening Endoscopic (ICD-10-PCS; CPT 43235; principal; 2024-04-17 14:10)
DX: K22.4 Dyskinesia of esophagus (principal); N17.9 Acute kidney failure, unspecified; K22.10 Ulcer of esophagus without bleeding; K29.70 Gastritis, unspecified, without bleeding; I10 Essential (primary) hypertension; E78.2 Mixed hyperlipidemia; K31.7 Polyp of stomach and duodenum; N40.0 Benign prostatic hyperplasia without lower urinary tract symptoms; E87.6 Hypokalemia; Z20.822 Contact with and (suspected) exposure to COVID-19; Z85.46 Personal history of malignant neoplasm of prostate; Z87.891 Personal history of nicotine dependence; Z79.51 Long term (current) use of inhaled steroids; Z79.899 Other long term (current) drug therapy
CPT/HCPCS: 0241U; 36415; 76775; 80048; 80053; 81001; 82043; 82570; 83735; 84156; 84484; 85025; 85610; 85730; 88305; 88313; 88342; 92610; 99281; 99285; C1726; J1644; J2003; J2704; J7120

== ENCOUNTER → 2024-04-15 18:00 | Outpatient (BNV) | payer OTHER, SELFPAY | PROVIDERS: Admitting Provider Internal Medicine; Emergency Provider Emergency Medicine; PCP Internal Medicine; Visit Provider Internal Medicine Gastroenterology | DX: K21.00 Gastro-esophageal reflux disease with esophagitis, without bleeding (principal); R13.10 Dysphagia, unspecified; K31.7 Polyp of stomach and duodenum; K29.70 Gastritis, unspecified, without bleeding | CPT/HCPCS: 43239; 43249; 99222 ==

== ENCOUNTER → 2024-04-15 18:00 | Outpatient (BNV) | payer OTHER, SELFPAY | PROVIDERS: Admitting Provider Internal Medicine; Emergency Provider Emergency Medicine; PCP Internal Medicine; Visit Provider Internal Medicine | DX: N17.9 Acute kidney failure, unspecified (principal); R53.83 Other fatigue | CPT/HCPCS: 99222 ==

== ENCOUNTER 2024-04-20 12:42 | Outpatient (AMB) | payer OTHER, SELFPAY ==
--- NOTE | 2024-04-20 12:43 | A.OFFVIS_ITS ---
Intake Visit Reasons: Labs f/u Intake Note: Patient is present for follow up prostate cancer/psa lab PSA: 0.22; Testosterone: 257 Urology Medications: Finasteride Blood Thinner: Aspirin Occupational Medicine Specialist Required: Yes Occupational Medicine Specialist Services: Occupational Medicine Specialist Present Occupational Medicine Specialist Name: Noe [phone] Accompanied by: Self / Same As Patient Allergies fish derived [FISH] Allergy (Intermediate, Verified 04/20/24 13:18) rash/hives No Known Drug Allergies Allergy (Verified 04/20/24 13:18) none Medication List - Last Reconciled 04/20/24 by MAYUR Barillas- amlodipine 10 mg PO DAILY atorvastatin 40 mg PO BEDTIME cholecalciferol (vitamin D3) 100 mcg PO DAILY finasteride 5 mg PO DAILY 90 days fluticasone propionate 50 mcg/actuation 1 spray intranasal DAILY melatonin 10 mg PO BEDTIME PRN omeprazole 20 mg PO DAILY 90 days sennosides (Natural Senna Laxative) 17.2 mg (2 x 8.6 mg) PO BEDTIME simethicone (Gas Relief Extra Strength) mg PO HPI Comments Details: Dk is a very pleasant 78 year old Bulgarian speaking male patient of Dr. Luisa Richardson. He has a past medical history of hypercholesteremia, GERD, hypertension, prostate cancer, and restrictive airway disease. He presents to the office today for follow-up of his prostate cancer. In discussion with the patient today he reports to be doing and feeling well. Recent PSA results reviewed with the patient today as noted and trended below. When asked he denies any bothersome urinary issues or concerns. He reports be happy with his current voiding parameters. In office urinalysis results reviewed with the patient today. When asked he denies urinary urgency, urinary frequency, incontinence, nocturia, hematuria, dysuria, foul smelling urine, changes to urinary stream, flank pain, fever, and or chills. He otherwise offers no issues or concerns at this time. PREVIOUS OFFICE NOTE: Slight rise in PSA noted from February 2022 to June 2022. Review agian in 4 months as PSA has remained unchanged since June May benefit from PSMA imaging if PSA continues to rise Prostate cancer initial treatment external beam radiation 2012, postprocedure PSA recurrence with intermittent hormone therapy Status post radiation therapy 2012 PSA follow-up - 11/23 PSA <0.05, 03/26 0.05 T 38, 09/24 0.05 T 156, 02/24 0.1 T 141, 2 .36, 12/26 .36, 02/26 T 257 PSA 0.2 Has been managed with intermittent hormone therapy Continue with interval surveillance laboratories every 4-6 months. [facility] Medical History Elevated cholesterol HTN (hypertension) GERD (gastroesophageal reflux disease) Restrictive airway disease Prostate cancer Surgical History Hx of excision of mass (06/25/23) History of open reduction and internal fixation (ORIF) procedure History of esophagogastroduodenoscopy (EGD) Hx of colonoscopy History of cardiac cath Family History Father Throat cancer Mother Diabetes Kidney disease Social History Household Members: Children Housing: Apartment Do you presently have visiting nurse or other home services: No Alcohol intake: current Alcohol intake frequency: holidays/special occasions only Patient Tobacco Use Status: Former Tobacco user Second Hand Smoke Exposure: No service: No Review of Systems Const Reports as per HPI Eyes Reports no additional complaints ENT Reports no additional complaints Card Reports as per HPI Resp Reports as per HPI GI Reports as per HPI Reports as per HPI Musc Reports no additional complaints Neuro Reports no additional complaints Psych Reports no additional complaints Endo Reports no additional complaints Physical Exam Const General: cooperative, comfortable, no acute distress, well developed, alert and awake Orientation/consciousness: patient oriented x3 Limitations: no limitations HEENT Head: Yes normal to inspection, Yes normocephalic and Yes atraumatic Ears: hearing grossly normal bilaterally Eyes General: appearance normal, both eyes and all related structures Neck Neck: Yes normal visual inspection and Yes trachea midline Chest Chest palpation & inspection: normal inspection of the chest Resp Effort & Inspection: normal respiratory effort and able to speak in complete sentences Cardio Rate: regular rate GI Inspection: Yes normal to inspection General: Yes no CVA tenderness Back/Spine/Pelvis Back: no CVA tenderness Skin General skin exam: no rashes or lesions noted Neuro General: patient oriented x3 Extrem General: Yes normal to inspection Psych Appearance: grossly normal and well kempt Mental Status: mental status grossly normal Speech and movement: Normal speech and movement present and Clear speech present Affect: normal affect Attitude: cooperative Thought process: Normal thought process present Thought content: Normal thought content present Insight: Fair insight present (Psych) Judgement: Fair judgement present (Psych) Results AMB Urinalysis, Automated UA Leukoctes 0 Taya/uL Last Edit by [employer] on 04/20/24 13:32 UA Nitrite Last Edit by [employer] on 04/20/24 13:32 UA Urobilinogen 0.2 mg/dL Last Edit by [employer] on 04/20/24 13:32 UA Protein 30 mg/dL Last Edit by [employer] on 04/20/24 13:32 UA pH 6.0 Last Edit by [employer] on 04/20/24 13:32 UA Blood 0 Jc/uL Last Edit by [employer] on 04/20/24 13:32 UA Specific [place] 1.020 Last Edit by [employer] on 04/20/24 13:32 UA Ketone Last Edit by [employer] on 04/20/24 13:32 UA Bilirubin 1 mg/dL Last Edit by [employer] on 04/20/24 13:32 UA Glucose 0 mg/dL Last Edit by [employer] on 04/20/24 13:32 Results Reviewed Results Reviewed: Laboratory Last Values Urine pH (Auto) 6.0 04/20/24 12:48 Specific [place] (Auto) 1.020 04/20/24 12:48 Urine Protein (Auto) 30 mg/dL 04/20/24 12:48 Glucose (UA)(Auto) 0 mg/dL 04/20/24 12:48 Urine Blood (Auto) 0 Jc/uL 04/20/24 12:48 Urine Bilirubin (Auto) 1 mg/dL 04/20/24 12:48 Urine Urobilinogen (Auto) 0.2 mg/dL 04/20/24 12:48 Leukocyte Esterase (Auto) 0 Taya/uL 04/20/24 12:48 Assessment & Plan Assessment & Plan (1) Prostate cancer: Code(s): C61 - Malignant neoplasm of prostate Category: Medical Plan In office urinalysis results reviewed with the patient today; as noted above. Recent PSA and testosterone results reviewed with the patient today; as noted above. Continue finasteride as discussed and prescribed. We discussed importance of surveillance monitoring He currently denies any bothersome urinary issues or concerns. He reports be happy with current voiding parameters. Will obtain PSA in 4-6 months Follow-up in 4-6 months with PSA to be completed prior; or sooner with any issues, concerns, and or questions. Orders: Orders AMB Urinalysis Automated Today Z13.9 - Encounter for screening, unspecified Prostate Specific Antigen 4 Months C61 - Malignant neoplasm of prostate Patient Instructions: The patient had an opportunity to ask questions regarding the treatment plan. All questions were answered. Physical exam, labs, and imaging were discussed and reviewed in detail. As well as risks, benefits, and discussion of treatment choices. No major barriers to understanding were identified. The patient expressed understanding and agreement with the above treatment plan. The patient was made aware they should contact our office by phone for worsening of their current condition, the appearance of new symptoms, or with any questions or concerns. Compliance is encouraged with any medications and follow up testing that is ordered. It is a privilege to be allowed the opportunity to participate in? your urological care.? Again, if you have any questions or concerns If you have any questions or concerns please do not hesitate to contact me. The office is [phone]. This note is constructed using voice recognition software. While every effort has been made to ensure accuracy prepress operator errors may have been included. Yours sincerely, AINSLEY Barillas Coding Level of Care Code Est Pt Level 3 (60292) Complex EM visit Add On G2211 Diagnoses Prostate cancer C61
== END 2024-04-20 13:07 | disposition home or self-care (01) ==
PROVIDERS: PCP Internal Medicine; Visit Provider Nurse Practitioner Family
DX: Z13.9 Encounter for screening, unspecified (principal); C61 Malignant neoplasm of prostate
CPT/HCPCS: 99213; G2211

== ENCOUNTER → 2024-04-20 12:42 | Outpatient (BNVA) | payer OTHER, SELFPAY | PROVIDERS: PCP Internal Medicine; Visit Provider Nurse Practitioner Family | DX: C61 Malignant neoplasm of prostate (principal) | CPT/HCPCS: 81003; 99212 ==

== ENCOUNTER 2024-05-18 08:07 | Outpatient (REF) | payer OTHER, SELFPAY ==
--- NOTE | ~2024-05-18 | FL_ITS ---
EXAMINATION: XR FLUOROSCOPY UPPER GI WITH AIR CLINICAL INFORMATION: Dysphagia. COMPARISON: Barium swallow 2013. TECHNIQUE: Fluoroscopic air contrast upper GI examination was performed utilizing standard techniques with thin and thick barium and effervescent granules. Numerous spot images were obtained. FINDINGS: Lateral cine images of the oropharynx and hypopharynx demonstrate normal swallow mechanism with normal epiglottic inversion and soft palate elevation. Laryngeal penetration is seen with thick barium. No tracheal penetration, glottic or subglottic aspiration identified. No nasopharyngeal reflux present. A small Zenker's diverticulum is present. There is moderate cricopharyngeal achalasia present. Dual and single contrast images of the esophagus demonstrate a normal caliber with a corkscrew appearance. No evidence of stricture, mass, or ulcerations identified. There is to and fro motion of the barium column with nonpropulsive tertiary contractions noted throughout the esophagus. No evidence of hiatus hernia identified. No significant gastroesophageal reflux was seen during the course of the examination and on reflux views. Dual contrast and single contrast images of the stomach demonstrated a normal contour. Evaluation of the gastric mucosa is limited due to underdistention of the stomach from poor tolerance of the effervescent granules. The gastric rugal folds have a thickened appearance, suggestive of gastritis, however, this may be also be due to underdistention of the stomach. No masses or ulcerations are seen. Contrast freely passed into the gastric antrum and duodenal bulb without delay. Single and air-contrast images of the duodenal bulb demonstrate no abnormality. The duodenal sweep has a normal appearance, course, and mucosal fold appearance. A moderate-sized diverticulum is noted in the third segment of the duodenum. The imaged proximal jejunum has a normal fold pattern and caliber. FLUOROSCOPY TIME: 5 minutes 3 seconds Number of Spot Images: 10 Number of Cine: 7 DOSE AREA PRODUCT: 3348 uGy-m2 (microgray-meter squared) FL/FL barium swallow with air IMPRESSION: 1. Laryngeal penetration with thick barium. 2. Small Zenker's diverticulum. 3. Moderate cricopharyngeal achalasia. 4. Corkscrew appearance of the esophagus. In addition there is to and fro motion of the barium column with nonpropulsive tertiary contractions noted throughout the esophagus. These findings represent severe esophageal dysmotility. 5. Limited evaluation of the gastric mucosa due to underdistention of the stomach from poor tolerance of effervescent granules.The gastric rugal folds have a thickened appearance, suggestive of gastritis, however, this may be also be due to underdistention of the stomach. 6. Moderate-sized diverticulum in the third segment of the duodenum. This procedure was performed by Brayden Mcqueen PA-C, and supervised by Dr. Swann Electronically signed by: Agustin Swann MD 05/18/2024 03:34 PM [facility]
== END 2024-05-18 08:08 | disposition home or self-care (01) ==
LOC: HO.XRAY 08:07
PROVIDERS: PCP Nurse Practitioner Family; Visit Provider Nurse Practitioner Family
DX: R13.19 Other dysphagia (principal)
CPT/HCPCS: 74221

== ENCOUNTER → 2024-05-18 08:11 | Outpatient (BNV) | payer OTHER, SELFPAY | PROVIDERS: PCP Nurse Practitioner Family; Visit Provider Physician Assistant Surgical | DX: R13.10 Dysphagia, unspecified (principal) | CPT/HCPCS: 74246 ==

== ENCOUNTER 2024-09-09 12:10 | Outpatient (REF) | payer OTHER, SELFPAY ==
--- OUTSIDE RECORDS SUMMARY | 2024-09-09 13:25 | XMS_ITS | Encounter Summary ---
Author Organization [employer] Address [address] [place] [address] Care Team Providers Care Healthcare Sales Representative Name Role Phone Cheryl Hogan MD Primary Care Provide r Encounter Details Date Type Department Care Team (Latest Contact Info) Description 06/11/2018 Abstract [facility] CONVERSIONS Dental, Provider, DDS Social History Tobacco Use Types Packs/Day Years Used Date Smoking Tobacco: Never Assessed Sex and Gender Information Value Date Recorded Sex Assigned at Male 03/05/2022 10:19 AM EDT Legal Sex Male 10:19 AM EDT Gender Identity Male 03/05/2022 10:19 AM EDT Sexual Orientation Straight 03/05/2022 10 :19 AM EDT documented as of this encounter Plan of Treatment Not on file documented as of this encounter Visit Diagnoses Not on filedocumented in this encounter Care Teams Healthcare Sales Representative Relationship Specialty Start Date End Date Cheryl Hogan MD [address] [place] [id number] PCP - General Family Medicine 10/11/20 documented as of this encounter
--- OUTSIDE RECORDS SUMMARY | 2024-09-09 13:25 | XMS_ITS | Encounter Summary ---
Author Organization [employer] Address [address] [place] [address] Care Team Providers Care Mirror Polisher Name Role Phone Cheryl Hogan MD Primary Care Provide r Encounter Details Date Type Department Care Team ([facility] Contact Info) Description 12/17/2022 Orders Only [facility] [address] [place] [address] Karey Juan LPN Social History Tobacco Use Types Packs/Day Years [...] on filedocumented in this encounter Care Teams Mirror Polisher Relationship Specialty Start Date End Date Cheryl Hogan MD [address] [place] [id number] PCP - General Family Medicine 10/11/20 documented as of this encounter
--- OUTSIDE RECORDS SUMMARY | 2024-09-09 13:25 | XMS_ITS | Encounter Summary ---
Author Organization [employer] Address [address] [facility] [address] [place] [address] Care Team Providers Care Power Wood Sawyer Name Role Phone Cheryl Hogan MD Primary Care Provide r Reason for Visit * Reason Onset Date Comments Chart Prep 09/08/2024 Encounter Details Date Type Department Care Team ([facility] Contact Info) Description 09/08/2024 Telephone [facility] [address] [place] [id number] Cheryl Hogan MD [address] [place] [address] Chart Prep Social History Tobacco Use Types Packs/Day Years Used Date Smoking Tobacco: Former Cigarettes Passive Smoke Exposure: Never Smokeless Tobacco: Former Alcohol Use Standard Drinks/Week Comments Not Currently 0 (1 standard drink = 0.6 oz pur e alcohol) oca Depression Answer Date Recorded Patient Health Questionnaire-9 Score 0 04/14/2024 Patient Health Questionnaire-9 Score 0 04/14/2024 Last PHQ-9: Questionnaire Data Not on file 1 06/15/2023 Housing Stability Answer Date Recorded What is your housing situation today? I have laura piña 03/05/[address] you li ve. Do you have problems with any of the following? None of the above 03/05/2023 Food Insecurity Answer Date Recorded Within the past 12 months, y ou worried that your food would run out before you got money to buy more: Never True 03/05/2023 Within the past 12 months,th e food you bought just didn't last and you didn't have enough money to get more: Never True Transportation Answer Date Recorded In the past 12 months, has l ack of transportation kept you from medical appts, meetings, work or from getting things needed for daily living? No 03/05/2023 Utilities Answer Date Recorded In the past 12 months, has t he electric, gas, oil or water company threatened to shut off services in your home? No 03/05/2023 Depression Answer Date Recorded Patient Health Questionnaire-2 Score 0 04/14/2024 Internet Access Answer Date Recorded Internet Access Q1 Yes 01/06/2024 Internet Access Q2 Not on file 01/06/2024 Sex and Gender Information Value Date Recorded Sex Assigned at Male 03/05/2022 10:19 AM EDT Legal Sex Male 10:19 AM EDT Gender Identity Male 03/05/2022 10:19 AM EDT Sexual Orientation Straight 03/05/2022 10 :19 AM EDT documented as of this encounter Miscellaneous Notes * Telephone Encounter - Kathy Spencer MA - 09/08/2024 2:53 PM EDT Chart Prep Labs: done Images: done Referrals: not applicable Vaccines due: Covid, Flu, Tdap, and RSV Screenings: no updates Overdue care gaps: no updates documented in this encounter Plan of Treatment Not on file documented as of this encounter Visit Diagnoses Not on filedocumented in this encounter Additional Health Concerns Assessment Noted Time PHQ-9 Depression Total Score: 0 04/14/20 24 10:38 AM EST documented as of this encounter Care Teams Power Wood Sawyer Relationship Specialty Start Date End Date Cheryl Hogan MD [address] [place] [address] PCP - General Family Medicine 10/11/20 documented as of this encounter
--- OUTSIDE RECORDS SUMMARY | 2024-09-09 13:25 | XMS_ITS | Encounter Summary ---
Author Organization [employer] Address [address] 7[address] [place] [address] Care Team Providers Care Medical Technologist Prn Name Role Phone Cheryl Hogan MD Primary Care Provide r Encounter Details Date Type Department Care Team ([facility] st Contact Info) Description 02/10/2024 Orders Only [facility] [address] [place] [address] Cheryl Hogan MD [address] [place] [phone] Hypokalemia (Primary Dx) Social History Tobacco Use Types Packs/Day Years Used Date Smoking Tobacco: Former Cigarettes Passive Smoke Exposure: Never Smokeless Tobacco: Former Alcohol Use Standard Drinks/Week Comments Not Currently 0 (1 standard drink = 0.6 oz pur e alcohol) oca Depression Answer Date Recorded Patient Health Questionnaire-9 Score 0 03/05/2023 Patient Health Questionnaire-9 Score 0 03/05/2023 Last PHQ-9: Questionnaire Data Not on file 1 Housing Stability Answer Date Recorded What is [...] Date Recorded Patient Health Questionnaire-2 Score 0 03/05/2023 Internet Access Answer Date Recorded Internet Access [...] on file documented as of this encounter Procedures Procedure Name Priority Date/Time Associated Diagnosis Comments BASIC METABOLIC PANEL Routine 04/14/2024 11:42 AM EST Hypokalemia documented in this encounter Results * (ABNORMAL) Basic Metabolic Panel (04/14/2024 11:42 AM EST) Sodium 141 135 - 145 mmol/L [facility] Potassium 3.1(L) 3.3 - 5.1 mmol/L [facility] Chloride 105 96 - 108 mmol/L [facility] Carbon Dioxide 21(L) 22 - 29 mmol/L [facility] Anion Gap 18 12 - 20 [facility] Urea Nitrogen (BUN) 21(H) 9 - 16 mg/dL [facility] Creatinine, Serum 2.67(H) 0.5 - 1.4 mg/dL [facility] Estimated Glomerular Filt Rate 23 [facility] Comment:Chronic Kidney Disea se: Estimated GFR < 60 mL/min/[id number] Kidney Disease: Estimated GFR < 15 mL/min/1.73m2 Glucose 137(H) 60 - 115 mg/dL [facility] Calcium 9.4 8.4 - 10.2 mg/dL [facility] Blood Venous blood specimen / Unknown 04/14/2024 11:42 AM EST 04/14/2024 1:03 PM EST us Cheryl Richardson MD LAB BLOOD ORDERABLES Final Result [facility] [address] [place] [phone] documented in this encounter Visit Diagnoses Diagnosis Hypokalemia- Primary Hypopotassemia documented in this encounter Additional Health Concerns Assessment Noted Time PHQ-9 Depression Total Score: 0 03/05/20 23 3:51 PM EDT documented as of this encounter Care Teams Medical Technologist Prn Relationship Specialty Start Date End Date Cheryl Hogan MD [address] [place] [phone] PCP - General Family Medicine 10/11/20 documented as of this encounter
--- OUTSIDE RECORDS SUMMARY | 2024-09-09 13:25 | XMS_ITS | Encounter Summary ---
Author Organization [employer] Address [address] [facility] [address] 7t [place] [address] Care Team Providers Care Transplant Coordinator Name Role Phone Cheryl Hogan MD Primary Care Provide r Encounter Details Date Type Department Care Team ([facility] Contact Info) Description 03/26/2023 Orders Only [facility] [address] [place] [address] So Katz LPN Social History Tobacco Use Types Packs/Day Years Used Date Smoking Tobacco: Former Cigarettes Smokeless Tobacco: Former Depression Answer Date Recorded Patient Health Questionnaire-9 [...] Recorded Patient Health Questionnaire-2 Score 0 03/05/2023 Sex and Gender Information Value Date Recorded [...] documented as of this encounter Care Teams Transplant Coordinator Relationship Specialty Start Date End Date Cheryl Hogan MD [address] [place] [phone] PCP - General Family Medicine 10/11/20 documented as of this encounter
--- OUTSIDE RECORDS SUMMARY | 2024-09-09 13:25 | XMS_ITS | Encounter Summary ---
Author Organization [employer] Address [address] [facility] 7t [place] [address] Care Team Providers Care Certified Legal Secretary Specialist Name Role Phone Cheryl Hogan MD Primary Care Provide r Reason for Visit * Reason Comments Med Refill Encounter Details Date Type Department Care Team ([facility] st Contact Info) Description 07/05/2023 Refill [facility] MED[facility]INE [address] [place] [address] Cheryl Hogan MD [address] [place] [address] Polyarthralgia Social History Tobacco Use Types Packs/Day Years Used Date Smoking Tobacco: Former Cigarettes Smokeless Tobacco: Former Alcohol Use Standard Drinks/Week [...] documented as of this encounter Visit Diagnoses Diagnosis Polyarthralgia Pain in joint, multiple sites documented in this encounter Additional Health Concerns Assessment Noted Time PHQ-9 Depression Total Score: 0 03/05/20 23 3:51 PM EDT documented as of this encounter Care Teams Certified Legal Secretary Specialist Relationship Specialty Start Date End Date Cheryl Hogan MD [address] [place] [phone] PCP - General Family Medicine 10/11/20 documented as of this encounter
--- OUTSIDE RECORDS SUMMARY | 2024-09-09 13:25 | XMS_ITS | Clinical Summary ---
Author Organization [employer] Address [address] [facility] 7t [place] [address] Care Team Providers Care Law Instructor Name Role Phone Cheryl Hogan MD Primary Care Provide r Allergies Active Allergy Reactions Criticality Noted Date Comments Fish Allergy 04/01/2023 Medications finasteride (Proscar) 5 MG tablet TAKE 1 TABLET BY MOUTH AT BEDTIME 12/26/19 23 Active omeprazole (PriLOSEC) [address] capsuleIndication s:Erosive gastritis with hemorrhage Take 1 capsule (20 mg) by mouth before breakfast. Take 1 capsule by mouth twice daily 30 capsule 11 05/27/19 24 Active atorvastatin (Lipitor) 40 MG tabletIndications :Mixed hyperlipidemia TAKE 1 TABLET BY MOUTH AT BEDTIME 90 tablet 3 07/18/19 24 Active cholecalciferol (Vitamin D-3) 50 MCG (1999 UT) tablet TAKE 2 TABLETS BY MOUTH ONCE DAILY IN THE MORNING 180 tablet 3 07/18/19 24 Active amLODIPine (Norvasc) 10 MG tabletIndications :Essential hypertension Take 1 tablet (10 mg) by mouth Once per day. 30 tablet 11 12/20/19 24 2024 Active Blood Pressure kitIndications:Es sential hypertension 1 each Once per day. 1 kit 02/03/20 24 Active fluticasone (Flonase) 50 MCG/ACT nasal sprayIndications: Allergic rhinitis, unspecified seasonality, unspecified trigger INHALE 1 SPRAY IN EACH NOSTRIL ONCE DAILY IN THE MORNING 16 g 2 03/02/20 24 Active senna (Senokot) 8.6 MG tablet Take 2 tablets by mouth at bedtime. 03/24/20 24 Active GAS RELIEF 125 MG capsule Take 1 capsule by mouth 2 times daily. To four times daily as needed for abdominal pain 03/24/20 24 Active melatonin 5 MG tabletIndications :Primary insomnia TAKE 2 TABLETS BY MOUTH EVERY DAY AT BEDTIME 60 tablet 3 08/29/19 25 Active acetaminophen (Tylenol 8 Hour) 650 MG ER tabletIndications :Polyarthralgia Take 2 tablets (1,300 mg) by mouth every 8 (eight) hours if needed for mild pain or moderate pain. Do not crush, chew, or split. 60 tablet 2 09/10/19 25 Active acetaminophen (Tylenol 8 Hour) 650 MG ER tabletIndications :Polyarthralgia Take 2 tablets (1,300 mg) by mouth every 8 (eight) hours if needed for mild pain or moderate pain. Do not crush, chew, or split. 60 tablet 2 12/20/19 24 2024 Discontinued(R eorder (will not trigger notification to Pharmacy)) melatonin 5 MG tabletIndications :Primary insomnia TAKE 2 TABLETS BY MOUTH EVERY DAY AT BEDTIME 60 tablet 3 03/12/20 24 2024 Discontinued Active Problems Problem Noted Date Diagnosed Date Acute maxillary sinusitis 04/14/2024 Assessment & Plan (04/14/2024 3:27 PM EST): Drink plenty of fluids and rest Sinus tachycardia 04/14/2024 Assessment & Plan (04/14/2024 3:29 PM EST): Likely patient is fluid behind, I recommended rest and to drink plenty of water ED precautions reviewed with patient Primary osteoarthritis of both knees 12/20/2023 Assessment & Plan (12/20/2023 1:09 PM EDT): Patient will be contacted with results Dizziness 12/20/2023 Dizziness and giddiness 12/20/2023 Assessment & Plan (02/03/2024 4:56 PM EDT): MRI order and ENT referral information will be mailed to patient Assessment & Plan (12/20/2023 1:10 PM EDT): In light of persistent dizziness for years now, patient does reports occasional headache and he also has h/o prostate cancer I will order an MRI of the brain Encounter for preventive care 12/20/2023 Assessment & Plan (12/20/2023 1:10 PM EDT): See HPI Hypokalemia 12/20/2023 Assessment & Plan (05/30/2024 11:06 AM EST): Trend labs Assessment & Plan (04/14/2024 3:27 PM EST): BMP will be order to monitor electrolytes Assessment & Plan (02/03/2024 4:56 PM EDT): BMP will be re-check Sebaceous cyst 05/27/2023 Polyarthralgia 05/27/2023 Assessment & Plan (12/20/2023 1:09 PM EDT): Patient declines surgical options for his shoulder Declines PT C/w acetaminophen PRN Assessment & Plan (05/28/2023 9:37 AM EST): I advise to take acetaminophen PRN instead of ibuprofen Erosive gastritis with hemorrhage 04/03/2023 Overview (04/03/2023): Sp EGD 03/27/23, cauterization/GIB Neg H.Pilory Assessment & Plan (05/28/2023 9:36 AM EST): I advise patient to avoid NSAIDs, spicy and acid food, I advise to eat at the same time every day, I advise to elevate the head of the bed and take medications as prescribe I re-start omeprazole 20mg daily I advise not to miss f/u appointment with GI for EGD Assessment & Plan (04/03/2023 11:54 AM EST): Status post Cauterization Continue omeprazole BID x4 weeks Refer to GI Assistant Offset Press Operator to avoid alcohol and smoking Duodenal ulcer 04/03/2023 Overview (04/03/2023): Sp EGD 03/27/23, cauterization/GIB Assessment & Plan (04/03/2023 11:45 AM EST): See above Primary insomnia 03/05/2023 Precordial pain 03/05/2023 Near syncope 01/10/2023 Hypertensive disorder 01/10/2023 Esophageal dysphagia 01/10/2023 Assessment & Plan (05/30/2024 11:06 AM EST): Pt with demonstrated tortuous esophagus, Barium swallow ordered Referral to GI Pt educated regarding food precautions and s/s of aspiration Dyspnea on exertion 01/10/2023 Essential hypertension 03/12/2017 Assessment & Plan (04/14/2024 3:27 PM EST): I advised: - Aerobic exercise to reduce BP. Initial goal of 30 min walk 3-5x/week. Increase as tolerated. - low-sodium diet (goal: <2g/day) and heart healthy diet such as DASH to reduce BP and prevent ASCVD. - Home BP monitoring 1-2 x day with goal of <140/90. - Seek immediate medical attention for chest pain, palpitations, SOB, syncope, or sudden changes in mental status. - Do not change or discontinue current prescriptions without first consulting health care provider Assessment & Plan (02/03/2024 4:56 PM EDT): Check BP at home and log bring it for next appointment Continue taking medications as prescribed Assessment & Plan (05/28/2023 9:35 AM EST): Maintenance: BMP: up to date Lipid Panel: up to date ASCVD Risk:on atorvastatin 40mg daily aspirin was discontinue due to GI bleeding - Aerobic exercise to reduce BP. Initial goal of 30 min walk 3-5x/week. Increase as tolerated. - low-sodium diet (goal: <2g/day) and heart healthy diet such as DASH to reduce BP and prevent ASCVD. - Home BP monitoring 1-2 x day with goal of <140/90. - Seek immediate medical attention for chest pain, palpitations, SOB, syncope, or sudden changes in mental status. - Do not change or discontinue current prescriptions without first consulting health care provider Assessment & Plan (04/03/2023 11:52 AM EST): Controlled. Compliant w/meds BP is at goal, patient is reportedly taking both amlodipine + hydrochlorothiazide from previous med box Counseled re low salt diet/increase moderate physical activity. Check home BP BIW and prn CP/[place]/[facility]RE[facility] Non smoking patient. No change in medications F/u BP with PCP in 2-3 mos Assessment & Plan (03/05/2023 4:17 PM EDT): Maintenance: BMP: ordered Lipid Panel: ordered ASCVD Risk already on high statin - Aerobic exercise to reduce BP. Initial goal of 30 min walk 3-5x/week. Increase as tolerated. - low-sodium diet (goal: <2g/day) and heart healthy diet such as DASH to reduce BP and prevent ASCVD. - Home BP monitoring 1-2 x day with goal of <140/90. - Seek immediate medical attention for chest pain, palpitations, SOB, syncope, or sudden changes in mental status. 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 Inflammation of small intestine 02/22/2012 Osteoarthritis of multiple joints 01/29/2012 Raised prostate specific antigen 10/16/2011 Allergic rhinitis 09/27/2011 Encounters Date Type Department Care Team Description 09/09/2024 11:30 AM EDT Office Visit [facility] MED[facility]INE [address] [place] [phone] Cheryl Hogan MD Essential hypertension (Primary Dx); Polyarthralgia; Hypokalemia 09/08/2024 Telephone [facility] [address] [place] [phone] Cheryl Hogan MD Chart Prep 09/02/2024 Patient Outreach [address] [address] Cheryl Hogan MD Pre-visit Planning (SDOH screening is negative) 08/27/2024 Refill [facility] MED[facility] [address] [place] [address] Cheryl Hogan MD Primary insomnia from Last 3 Months Immunizations Name Administration Dates Next Due Hep A, Adult 09/06/2008,03/12/2008 Hep B, adult 04/27/2010, 9,04/13/2008,03/12 Influenza High-dose Quadriva lent Preservative Free 03/05/2023,02/10/2021 Influenza injectable quadriv alent IIV4 with preservative 02/17/2016 Influenza injectable quadriv alent preservative free 02/06/2017,02/07/2015 Influenza, High Dose Seasona l, Preservative Free 03/18/2018 Influenza, IIV3, injectable 01/22/2011 Influenza, Split (incl. lgadys fied surface antigen) 02/09/2013,04/04/2012 Pneumococcal Conjugate PCV 13 02/07/2015 Pneumococcal Polysaccharide PPSV23 10/14/2018 Tdap 04/27/2010 Zoster, Recombinant 04/07/2019,01/30/2019 Zoster, live 04/25/2015 Social History Tobacco Use Types Packs/Day Years Used Date Smoking Tobacco: Former Cigarettes Passive Smoke Exposure: Never Smokeless Tobacco: Former Tobacco Cessation:Counseling Given: Not Answered Alcohol Use Standard Drinks/Week Comments Not Currently [...] Orientation Straight 03/05/2022 10 :19 AM EDT Last Filed Vital Signs Vital Sign Reading Time Taken Comments Blood Pressure 142/84 09/09/2024 11:39 AM EDT Pulse 89 09/09/2024 11:22 AM EDT Temperature 36.7 ??C (98 ??F) 09/09/2024 11:22 AM EDT Respiratory Rate 18 09/09/2024 11:22 AM EDT Oxygen Saturation 92% 04/14/2024 10:37 AM EST Inhaled Oxygen Concentration - - Weight 76.7 kg (169 lb 3.2 oz) 09/09/2024 11:22 AM EDT Height 167.6 cm (5' 6 ) 09/09/2024 11:22 AM EDT Body Mass Index 27.31 09/09/2024 11:22 AM EDT Plan of Treatment Health Maintenance Due Date Last Done Comments DTaP/Tdap/Td Vaccines (2 - Td or Tdap) 04/27/2020 04/27/2010 RSV Patients and Patients Aged 60 years or older (1 - 1-dose 75+ series) 2021 COVID-19 Vaccine ( season) 2024 04/24/2021, 08/16/2020, 07/19/2020 Influenza Vaccine (#1) 2024 3, 02/10/2021, 03/18/2018, Additional history exists Alcohol/Substance Use Screening 04/14/2025 04/14/2024 Depression Screening 04/14/2025 04/14/2024, 04/14/20 24 SDOH Screening 09/02/2025 09/02/2024 Tobacco Screening 09/09/2025 09/09/2024 Lipid Panel 12/19/2028 12/20/2023, 11/0 05/2022, 03/13/2021 Hepatitis A Vaccines Aged Out 09/06/2008, 03/12/20 08 No longer eligible based on patient's age to complete this topic Hepatitis B Vaccines Completed 04/27/2010, 09/06/2008, 04/13/2008, Additional history exists Pneumococcal Vaccine: 50+ Years Completed 10/14/2018, 02/07/2015 Zoster Vaccines Completed 04/07/2019, 01/05, 04/25/2015 Hepatitis C Screening Completed 03/13/2021 HIB Vaccines Aged Out No longer eligi ble based on patient's age to complete this topic HPV Vaccines Aged Out No longer eligi ble based on patient's age to complete this topic IPV Vaccines Aged Out No longer eligi ble based on patient's age to complete this topic Meningococcal Vaccine Aged Out No kassidy brayden eligible based on patient's age to complete this topic RSV under 20 months Aged Out No longe r eligible based on patient's age to complete this topic Rotavirus Vaccines Aged Out No longer eligible based on patient's age to complete this topic Procedures Procedure Name Priority Date/Time Associated Diagnosis Comments LIPID PANEL WITH REFLEX TO DIRECT LDL Routine 12/20/2023 10:25 AM EDT Encounter for preventive care ZZZ HISTORICAL HEPATITIS C AB W/REFL TO HCV RNA, QN, PCR Routine 03/13/2021 10:05 AM EST from Last 3 Months or Most Recently Relevant to Health Maintenance Results * Lipid Panel with Reflex to Direct LDL (12/20/2023 10:25 AM EDT) Triglycerides 93 <150 mg/dL [facility] Comment:Desirable Triglyceri de: less than 150 mg/dLBorderline High Triglyceride 150-199 mg/dLHigh Triglyceride: 200-499 mg/dLVery High Triglyceride: greater than or equal to 5OO mg/dL Cholesterol 135 <200 mg/dL [facility] Comment:Desirable Cholestero l: less than 200 mg/dLBorderline High Cholesterol: 200-239 mg/dLHigh Cholesterol: greater than 239 mg/dL LDL Cholesterol Calculated 66 <100 mg/dL [facility] Comment:Desirable LDL: less than 100 mg/dLNear Optimal/Above Optimal LDL: 110- 129 mg/dLBorderline High LDL: 130-159 mg/dLHigh LDL: 160-189 mg/dLVery High LDL: greater than or equal to 190 mg/dL HDL Cholesterol 51 >40 mg/dL [facility] Comment:Desirable HDL: great er than 40 mg/dL Note: This HDL assay may give artificially low results in patients with liver disease. Blood 12/20/2023 10:2 5 AM EDT 12/20/2023 1:16 PM EDT us Cheryl Richardson MD LAB BLOOD ORDERABLES Final Result Performing Organization Address [facility] Co de Phone Number [facility] [address] [place] [phone] * HEPATITIS C AB W/REFL TO HCV RNA, QN, PCR (03/13/2021 10:05 AM EST) HEPATITIS C ANTIBODY NON-REACT ANGELICA NON-REACT ANGELICA [facility] INDEX 0.02 <1.00 [facility] Comment: ?? HCV antibody was non-reactive. There is no laboratory ?? evidence of HCV infection. ?? In most cases, no further action is required. However, if recent HCV exposure is suspected, a test for HCV RNA (test code 00525) is suggested. ?? For additional information please refer to http://education.incrediblue.Augure/faq/AZI31d5 (This link is being provided for informational/ educational purposes only.) ?? 03/13/2021 10:0 5 AM EST us Cheryl Richardson MD HISTORICAL/NON ORDERA BLE LABS Final Result Performing Organization Address City/[facility] Co de Phone Number [facility] [address] [place] [address], from Last 3 Months or Most Recently Relevant to Health Maintenance Insurance [employer] FISHER [id number] * Guarantor: Dk Coffey Account Type Relation to Patient Date of Phone Billing Address Personal/Family Self [address] Care Teams Law Instructor Relationship Specialty Start Date End Date Cheryl Hogan MD [address] [place] [address] PCP - General Family Medicine 10/11/20
--- OUTSIDE RECORDS SUMMARY | 2024-09-09 13:25 | XMS_ITS | Encounter Summary ---
Author Organization [employer] Address [address] [facility] 7t [place] [address] Care Team Providers Care Blankbook Forwarder Name Role Phone Cheryl Hogan MD Primary Care Provide r Reason for Visit * Reason Comments Med Refill Encounter Details Date Type Department Care Team (Late st Contact Info) Description 12/16/2022 Refill [facility] MEDICINE [address] [place] [address] Rebeca Carlisle FNP [address] [place] [address] Dept of Internal [place] [address] Mixed hyperlipidemia Social History Tobacco Use Types Packs/Day Years [...] as of this encounter Visit Diagnoses Diagnosis Mixed hyperlipidemia documented in this encounter Care Teams Blankbook Forwarder Relationship Specialty Start Date End Date Cheryl Hogan MD [address] [place] [address] PCP - General Family Medicine 10/11/20 documented as of this encounter
--- OUTSIDE RECORDS SUMMARY | 2024-09-09 13:25 | XMS_ITS | Encounter Summary ---
Author Organization [employer] Address [address] [facility] 7t [place] [address] Care Team Providers Care Police Lieutenant Precinct Name Role Phone Cheryl Hogan MD Primary Care Provide r Encounter Details Date Type Department Care Team ([facility] st Contact Info) Description 09/09/2024 11:30 AM EDT Office Visit [facility] MEDICINE [address] [place] [phone] Cheryl Hogan MD [address] [place], [place] [phone] Essential hypertension (Primary Dx); Polyarthralgia; Hypokalemia Social History Tobacco Use Types Packs/Day Years [...] AM EDT documented as of this encounter Last Filed Vital Signs Vital Sign Reading Time Taken Comments Blood Pressure 142/84 09/09/2024 11:39 AM EDT Pulse 89 09/09/2024 11:22 AM EDT Temperature 36.7 ??C (98 ??F) 09/09/2024 11:22 AM EDT Respiratory Rate 18 09/09/2024 11:22 AM EDT Oxygen Saturation - - Inhaled Oxygen Concentration - - Weight 76.7 kg (169 lb 3.2 oz) 09/09/2024 11:22 AM EDT Height 167.6 cm (5' 6 ) 09/09/2024 11:22 AM EDT Body Mass Index 27.31 09/09/2024 11:22 AM EDT documented in this encounter Plan of Treatment Scheduled Orders Name Type Priority Associated Diagnoses Orde r Schedule Basic Metabolic Panel Lab Routine Hypokalemia Expected: 09/09/2024 (Approximate), Expires: 09/09/2025 documented as of this encounter Visit Diagnoses Diagnosis Essential hypertension- Primary Unspecified essential hypertension Polyarthralgia Pain in joint, multiple sites Hypokalemia Hypopotassemia documented in this encounter Additional Health Concerns Assessment Noted Time PHQ-9 Depression Total Score: 0 04/14/20 24 10:38 AM EST documented as of this encounter Care Teams Police Lieutenant Precinct Relationship Specialty Start Date End Date Cheryl Hogan MD [address] [place] [phone] PCP - General Family Medicine 10/11/20 documented as of this encounter
[2024-09-09 14:05] LABS: Anion Gap 11 (12-20); Blood Urea Nitrogen 11 mg/dL (9-16); Calcium 8.7 mg/dL (8.4-10.2); Carbon Dioxide 27 mmol/L (22-29); Chloride 113 mmol/L (96-108); Estimated Glomerular Filt Rate > 60; Glucose Random 102 mg/dL (60-115); Potassium 3.6 mmol/L (3.3-5.1); Sodium 147 mmol/L (135-145)
[2024-09-09 14:37] LABS: Prostate Specific Antigen 0.57 ng/mL (<0.05-4.0)
== END 2024-09-09 12:11 | disposition home or self-care (01) ==
LOC: HO.HHCL 12:10
PROVIDERS: Nurse Practitioner Family; Visit Provider Internal Medicine
DX: Z12.5 Encounter for screening for malignant neoplasm of prostate (principal); E87.6 Hypokalemia; C61 Malignant neoplasm of prostate
CPT/HCPCS: 36415; 80048; 84153

== ENCOUNTER 2024-09-21 12:59 | Emergency (ER) | payer OTHER, SELFPAY ==
--- NOTE | ~2024-09-21 | XR_ITS ---
EXAMINATION: XR WRIST 1-2 VIEWS LEFT HISTORY: s/p fall COMPARISON: There are no prior studies available for comparison. FINDINGS: Four views of the left wrist including a scaphoid view are submitted. Osseous mineralization is normal. There is a transverse fracture of the distal radial metaphysis with mild dorsal angulation of the distal fracture fragment. There is an additional fracture of the ulnar styloid. There is degenerative change of the 1st carpometacarpal joint. There is diffuse soft tissue swelling. XR/XR wrist LT 2V IMPRESSION: Transverse fracture of the distal radial metaphysis with an associated fracture of the ulnar styloid. Electronically signed by: Aric Parikh MD 09/21/2024 01:38 PM EDT
[2024-09-21 13:12] VITALS: BP 138/70; BP 141/67; PULSE 60; PULSE 65; RESP 18; TEMP 36.9; O2SAT 94; O2SAT 99; BMI 27.6
[2024-09-21 13:17] VITALS: BP 160/67; PULSE 67; RESP 18; TEMP 36.9; O2SAT 97
--- NOTE | 2024-09-21 13:31 | ED_ITS ---
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 Denies anticoagulation use. He was numbness, tingling, weakness, injury or pain to other area. Related Data Home Medications ?Medication ?Instructions ?Recorded ?Confirmed atorvastatin 40 mg tablet 40 mg PO BEDTIME 04/06/21 05/14/24 cholecalciferol (vitamin D3) 50 100 mcg PO DAILY 02/22/22 05/14/24 mcg (2,000 unit) tablet melatonin 5 mg tablet 10 mg PO BEDTIME PRN Sleep 03/27/23 05/14/24 amlodipine 10 mg tablet 10 mg PO DAILY 04/15/24 05/14/24 fluticasone propionate 50 1 spray intranasal DAILY 04/15/24 05/14/24 mcg/actuation nasal spray,suspension Previous Rx's ?Medication ?Instructions ?Recorded omeprazole 20 mg capsule,delayed 20 mg PO DAILY 90 days #90 caps 01/03/24 release finasteride 5 mg tablet 5 mg PO DAILY 90 days #90 tabs 03/03/24 sennosides 8.6 mg tablet (senna) 17.2 mg (2 x 8.6 mg) PO BEDTIME 07/10/24 for constipation #60 tabs simethicone 125 mg capsule (Gas 125 mg PO BID-QID for abdominal 09/02/24 Relief Extra Strength) pain #120 caps oxycodone 5 mg capsule 5 mg PO Q8H PRN pain (scale score 09/21/24 7-10) 3 days #6 caps Allergies Allergy/AdvReac Type Severity Reaction Status Date / Time fish derived [FISH] Allergy Intermediate rash/hives Verified 09/21/24 13:15 Review of Systems Review of Systems: Yes all other systems are reviewed and are negative Constitutional: Constitutional: Reports as per HPI Neurologic: Denies Abnormal speech present [facility] Past Medical History Attestation statement: The following information was validated with the patient. Source: old records reviewed Medical History Elevated cholesterol HTN (hypertension) GERD (gastroesophageal reflux disease) Restrictive airway disease Prostate cancer Surgical History Hx of excision of mass (06/25/23) History of open reduction and internal fixation (ORIF) procedure History of esophagogastroduodenoscopy (EGD) Hx of colonoscopy History of cardiac cath Family History Family History Father Throat cancer Mother Diabetes Kidney disease Social History Social History Household Members: Children Housing: Apartment Do you presently have visiting nurse or other home services: No Alcohol intake: never Patient Tobacco Use Status: Former Tobacco user Smoked in Last 30 Days: No Second Hand Smoke Exposure: No Advance Directives: No Advance Directives Information Provided: Yes service: No Physical Exam Vital Signs: Vital Signs: Last Vital Signs Temp 98.8 F 09/21/24 14:40 Pulse 78 09/21/24 14:40 Resp 18 09/21/24 14:40 BP 132/92 H 09/21/24 14:40 Pulse Ox 95 09/21/24 14:40 O2 Del Method Room Air 09/21/24 14:40 BMI result Body Mass Index 27.6 Const: General: cooperative, healthy appearing and no acute distress Orientation/consciousness: patient oriented x3 Limitations: no limitations HEENT: Head: Yes normal to inspection and Yes atraumatic Ears: hearing grossly normal bilaterally General nose exam: Normal external nose present Face and sinus: Yes normal facial exam Eyes: General: appearance normal, both eyes and all related structures EOM: EOMs intact bilaterally Neck: Neck: Yes normal visual inspection and Yes no meningeal signs Resp: Effort & Inspection: normal respiratory effort and no respiratory distress Cardio: Rate: regular rate GI: Inspection: Yes normal to inspection Palpation (GI): Soft to palpation, nontender, no guarding and not rigid Back/Spine/Pelvis: Other: No midline cervical/thoracic/lumbar spinous tenderness/step-off or deformity Skin: Rashes: no rashes Wounds: no wounds Neuro: General: patient oriented x3, gait normal, tone normal, moves all extremities, no meningeal signs, no focal motor deficits and CN's II-XI intact bilaterally Cranial nerves: Yes CN's II-XII intact bilaterally and Yes Bilaterally intact EOM present Cognition (Neuro): normal cognition Speech: No Abnormal speech present Gait exam (Neuro): Normal gait present Motor exam (neuro): 5/5 motor strength present throughout Extrem: Other: Pelvis stable Left with appreciable swelling and deformity. Diffusely tender to palpation. Limited ROM. Neurovascularly intact Left hand, elbow, & shoulder nontender Course Course Course Narrative: 1346--XR wrist LT 2V IMPRESSION: Transverse fracture of the distal radial metaphysis with an associated fracture of the ulnar styloid. > patient placed in a sugar-tong splint, supplied with sling, is to follow up with Orthopedics Results discussed with patient including worrisome signs and symptoms and strict return precautions, and when to return to the emergency department. They verbalized understanding and feel safe for discharge at this time. [id number]--received call from pharmacy, morphine on back order, changed prescription to oxycodone Medications Administered Discontinued Medications Generic Name Dose Route Start Last Admin Trade Name Casey PRN Reason Stop Dose Admin Acetaminophen 650 mg 09/21/24 13:46 09/21/24 14:02 Acetaminophen 325 Mg Tablet PO 09/21/24 13:47 650 mg ONCE ONE Administration Oxycodone HCl 5 mg 09/21/24 13:46 09/21/24 14:02 Oxycodone Hcl Immed Release 5 Mg Tablet PO 09/21/24 13:47 5 mg ONCE ONE Administration Medical Decision Making Medical Decision Making MDM Narrative: 79-year-old male with a past medical history HLD, HTN, GERD, restrictive airway disease, prostate CA, presenting to the ED via EMS complaining left wrist pain and swelling s/p mechanical slip and fall backwards [employer]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 On exam vital signs stable, NAD, nontoxic appearing, physical exam as noted above. Concern for wrist fracture vs contusion. Low suspicion for ICH Please refer to course for remaining clinical decision making, interpretation of labs/imaging results, and discussions with consultants and/or family members. Differential Diagnosis Differential Diagnoses: The differential diagnosis associated with the presentation includes As above Radiology Impression Discussion of test interpretation with radiology: I have reviewed the radiologist's reading. External Record Review External record reviewed: Inpatient record, Office record, Outpatient record, Prior outpatient labs, Prior outpatient radiology, Primary care record and Outside ED record Tests considered The following testing was considered but not selected: As above Procedures Orthopedic Splinting/Casting Injury #1: Side: left Upper Extremity Injury Location: wrist Upper Extremity Immobilizer: sugar tong splint Discharge Plan Discharge Clinical Impression: Distal radius fracture, left Patient Disposition: Home, Self-Care Instructions: Wrist Fracture in Adults (ED) Additional Instructions: You have a fracture of your distal radius and ulnar styloid - your wrist YOU LIKELY NEED SURGERY. PLEASE CALL THE MEDICAL LEADER TO MAKE AN APPOINTMENT IN 1 WEEK Please keep splint on, dry and clean Ice and elevate Take Tylenol and ibuprofen If fingers become increasingly swollen, numb, discolored, pain is unbearable remove splint and return to the ED Prescriptions: New oxycodone 5 mg capsule 5 mg PO Q8H PRN (Reason: pain (scale score 7-10)) 3 Days Qty: 6 0RF Rx Instructions: Partial Fill upon patient request. No Action omeprazole 20 mg capsule,delayed release(DR/EC) 20 mg PO DAILY 90 Days Qty: 90 2RF finasteride 5 mg tablet 5 mg PO DAILY 90 Days Qty: 90 2RF sennosides [senna] 8.6 mg tablet 17.2 mg PO BEDTIME Qty: 60 1RF simethicone [Gas Relief Extra Strength] 125 mg capsule 125 mg PO BID-QID Qty: 120 3RF amlodipine 10 mg tablet 10 mg PO DAILY fluticasone propionate 50 mcg/actuation spray,suspension 1 spray intranasal DAILY melatonin 5 mg tablet 10 mg PO BEDTIME PRN (Reason: Sleep) cholecalciferol (vitamin D3) 50 mcg (2,000 unit) tablet 100 mcg PO DAILY atorvastatin 40 mg tablet 40 mg PO BEDTIME Referrals: [facility] Orth[facility] Surgeons [Provider Group] - 1 week Interventions: ED Discharge Assessment Last Done: 09/21/24 14:40 Discharge Date/Time: 09/21/24 14:41 Print Language: Indonesian
[2024-09-21 14:00] VITALS: BP 132/92; PULSE 78; RESP 18; TEMP 37.1; O2SAT 95
--- NOTE | 2024-09-21 14:00 | PC.NURSE ---
Wrist xray results: Transverse fracture of the distal radial metaphysis with an associated fracture of the ulnar styloid. Splint applied. Patient tolerated procedure well.
[2024-09-21] MEDS: Acetaminophen 325 MG TABLET 650 MG PO (14:02)
[2024-09-21] MEDS: oxyCODONE HCl Immed Release 5 MG TABLET PO (14:02)
[2024-09-21 14:40] VITALS: BP 132/92; PULSE 78; RESP 18; TEMP 37.1; O2SAT 95
== END 2024-09-21 14:41 | disposition home or self-care (01) ==
PROVIDERS: Emergency Provider Emergency Medicine; PCP Internal Medicine
DX: S52.512A Displaced fracture of left radial styloid process, initial encounter for closed fracture (principal); W18.49XA Other slipping, tripping and stumbling without falling, initial encounter; M25.532 Pain in left wrist; Y93.89 Activity, other specified; Y92.030 Kitchen in apartment as the place of occurrence of the external cause; Y99.9 Unspecified external cause status
CPT/HCPCS: 29125; 73100; 99283; 99284

== ENCOUNTER → 2024-09-21 13:30 | Outpatient (BNV) | payer OTHER, SELFPAY | PROVIDERS: Emergency Provider Emergency Medicine; PCP Internal Medicine; Visit Provider Radiology Diagnostic Radiology | DX: S52.512A Displaced fracture of left radial styloid process, initial encounter for closed fracture (principal) | CPT/HCPCS: 73100 ==

== ENCOUNTER 2024-09-29 08:17 | Outpatient (REF) | payer OTHER, SELFPAY ==
--- NOTE | ~2024-09-29 | XR_ITS ---
EXAMINATION: XR WRIST 3 OR MORE VIEWS LEFT HISTORY: M25.532 - Pain in left wrist COMPARISON: Comparison is made with the prior examination dated 09/21/2024. FINDINGS: Three views of the left wrist are submitted. Osseous mineralization is normal. Again seen is a transverse fracture of the distal radial metaphysis with dorsal and dilatation of the distal fracture fragment. The fracture line remains visible. An associated ulnar styloid fracture is also noted. 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 The soft tissues are unremarkable. XR/XR wrist LT min 3V IMPRESSION: Transverse fracture of the distal radial metaphysis with an associated ulnar styloid fracture without change. Electronically signed by: Aric Parikh MD 09/29/2024 03:44 PM EDT
== END 2024-09-29 08:18 | disposition home or self-care (01) ==
LOC: HO.HOSX 08:17
PROVIDERS: Visit Provider Orthopaedic Surgery
DX: M25.532 Pain in left wrist (principal); S52.502A Unspecified fracture of the lower end of left radius, initial encounter for closed fracture
CPT/HCPCS: 73110; 99202

== ENCOUNTER 2024-09-29 12:54 | Outpatient (AMB) | payer OTHER, SELFPAY ==
--- OUTSIDE RECORDS SUMMARY | 2024-09-29 12:55 | XMS_ITS | Encounter Summary ---
Author Organization [employer] Address [address] [facility] [address] [place] [address] Care Team Providers Care Belly Packer Name Role Phone Cheryl Hogan MD Primary Care Provide r Encounter Details Date Type Department Care Team ([facility] Contact Info) Description 03/26/2023 Orders Only [facility]EDS [address] [place] [address] So Katz LPN Social History Tobacco Use [...] Description 11/25/2024 2:45 PM EDT Office Visit [facility] [address] [place] [address] Cheryl Hogan MD [address] [place] [address] documented as of this encounter Visit Diagnoses Not on filedocumented in this encounter Additional Health Concerns Assessment Noted Time PHQ-9 Depression Total Score: 0 03/05/20 23 3:51 PM EDT documented as of this encounter Care Teams Belly Packer Relationship Specialty Start Date End Date Cheryl Hogan MD [address] [place] [id number] PCP - General Family Medicine 10/11/20 documented as of this encounter
--- NOTE | 2024-09-29 13:03 | MHC.OFFVIS ---
Vital Signs 09/29/24 13:07 Height 5 ft 6 in Weight 176 lb BMI 28.4 Handedness Right Intake Visit Reasons: MI-BX-[id number] radius fracture, left Intake Note: Dk is a 79 year old right hand dominant male who presents today for a evaluation of his left wrist pain, DOI 09/22/24. Patient reports mechanical slip and fall backwards in his kitchen. He states that he is having ongoing pain since the injury. Patient notices when he is trying to make a fist his pain gets a little worse. Denies numbness and tingling. Stock Sorter Services: Stock Sorter Present (Felix ([id number])) Allergies fish derived [FISH] Allergy (Intermediate, Verified 09/29/24 13:05) rash/hives HPI HPI NB-[id number] radius fracture, left: Details: The patient is a 79-year-old [id number] man who slipped and fell at his home on a wet floor on 09/21/2024 injuring his left wrist. He was seen in the emergency department where radiographs were taken he was splinted and referred to us for our evaluation and care. He is seen today with his daughter. He complains of pain in his left wrist He denies numbness and tingling. He denies pain in the elbow or shoulder. [facility] Medical History Elevated cholesterol HTN (hypertension) GERD (gastroesophageal reflux disease) Restrictive airway disease Prostate cancer Surgical History Hx of excision of mass (06/25/23) History of open reduction and internal fixation (ORIF) procedure History of esophagogastroduodenoscopy (EGD) Hx of colonoscopy History of cardiac cath Family History Father Throat cancer Mother Diabetes Kidney disease Social History (Updated 09/29/24 @ 13:07 by Francesco Coffey) Household Members: Children Housing: Apartment Do you presently have visiting nurse or other home services: No Alcohol intake: never Patient Tobacco Use Status: Former Tobacco user Second Hand Smoke Exposure: No service: No Current occupational status: retired Current occupation: right hand dominant Physical Exam Vital Signs: BMI result Body Mass Index 28.4 Const General: cooperative, healthy appearing and no acute distress Orientation/consciousness: oriented to person and oriented to place HEENT Head: Yes normocephalic and Yes atraumatic Eyes EOM: EOMs intact bilaterally Resp Effort & Inspection: normal respiratory effort and able to speak in complete sentences Cardio Jugular venous distension: no JVD Skin General skin exam: turgor normal Rashes: no rashes Neuro General: oriented to person and oriented to place Extrem Other: Evaluation of left Upper Extremity: The patient was alert oriented and in no acute distress. He and a visible apex volar deformity of the left distal radius. No lacerations or evidence of open injury. Most tender to palpation over the left distal radius, with moderate swelling and some resolving ecchymosis. He was nontender about the elbow and had good elbow flexion and extension No pain with proximal forearm squeeze He can bring his fingers into a weak fist and back into extension. Radiographs: Radiographs three views of the left wrist were taken today and reviewed by me and compared with radiographs from 09/21/2024. He has a comminuted left distal radius fracture with shortening, loss of inclination and 30 degrees apex volar angulation. He also has a minimally displaced ulnar styloid fracture Psych Appearance: grossly normal Affect: normal affect Attitude: cooperative Assessment & Plan Assessment & Plan (1) Distal radius fracture, left: Code(s): S52.502A - Unspecified fracture of the lower end of left radius, initial encounter for closed fracture Category: Medical Plan Assessment and plan: 1. Left distal radius fracture, displaced Date of injury 09/21/2024 I educated the patient about this injury We discussed operative and non operative treatment options. I am recommending operative treatment The risks and benefits of operative treatment were discussed with the patient and the patient wishes to proceed with surgery. These risks include, but are not limited to risk of damage to blood vessels, nerves, tendons, infection, recurrence, incomplete relief of preoperative symptoms, persistent pain, possible need for further surgery and the risks associated with regional blocks and anesthesia. The plan is to take the patient to the operating room in the next few days for the following procedures: 1. Left distal radius open reduction internal fixation 2. [ ] All of the preoperative paperwork including the consent was filled out today. All the patient's questions were answered. He was placed in a new volar wrist splint until the time of surgery. We instructed him to keep the hand elevated. He denies having heart or lung problems, and denies being on a blood thinner. He does have a history of an acute kidney injury Coding Level of Care Code New Pt Level 4 (74766) Diagnoses Distal radius fracture, left S52.502A
[2024-09-29 13:07] VITALS: BMI 28.4
== END 2024-09-29 14:29 | disposition home or self-care (01) ==
LOC: HO.HOS 12:54
PROVIDERS: PCP Internal Medicine; Visit Provider Orthopaedic Surgery
DX: S52.502A Unspecified fracture of the lower end of left radius, initial encounter for closed fracture (principal)
CPT/HCPCS: 99204

== ENCOUNTER → 2024-09-29 13:32 | Outpatient (BNV) | payer OTHER, SELFPAY | PROVIDERS: Visit Provider Radiology Diagnostic Radiology | DX: S52.502A Unspecified fracture of the lower end of left radius, initial encounter for closed fracture (principal); S52.612A Displaced fracture of left ulna styloid process, initial encounter for closed fracture | CPT/HCPCS: 73110 ==

== ENCOUNTER 2024-09-30 11:06 | Day surgery (SDC) | payer OTHER, SELFPAY ==
--- OUTSIDE RECORDS SUMMARY | 2024-09-25 15:01 | XMS_ITS | Encounter Summary ---
Author Organization [employer] Address [address] [facility] [address] [place] [address] Care Team Providers Care Graphics Edit Technician Name Role Phone Cheryl Hogan MD Primary Care Provide r Encounter Details Date Type Department Care Team ([facility] Contact Info) Description 03/26/2023 Orders Only [facility] [address] [place] [address] So Katz LPN Social History Tobacco Use [...] as of this encounter Plan of Treatment Upcoming Encounters Date Type Department Care Team (Late st Contact Info) Description 11/25/2024 2:45 PM EDT Office Visit [facility] [address] [place] [address] Cheryl Hogan MD [address] [place] [address] documented as of this encounter Visit Diagnoses Not on filedocumented in this encounter Additional Health Concerns Assessment Noted Time PHQ-9 Depression Total Score: 0 03/05/20 23 3:51 PM EDT documented as of this encounter Care Teams Graphics Edit Technician Relationship Specialty Start Date End Date Cheryl Hogan MD [address] [place] [id number] PCP - General Family Medicine 10/11/20 documented as of this encounter
--- NOTE | ~2024-09-30 | FL_ITS ---
EXAMINATION: FL GUIDANCE ONLY HISTORY: Distal radius ORIF left COMPARISON: Correlation is made with plain films of the left wrist dated 09/29/2024. TECHNIQUE: Fluoroscopy time: 16.12 seconds. Cumulative Dose: 0.5222 mGy. DAP: 0.0316 mGym2 Images: 3. FINDINGS: Fluoroscopic spot films of the left wrist demonstrate internal fixation of the previously seen fracture of the distal radius with a sideplate and multiple orthopedic screws. FL/FL guidance in OR IMPRESSION: Fluoroscopy during procedure. Please see procedure report for additional information. Electronically signed by: Aric Parikh MD 10/01/2024 07:15 AM EDT
[2024-09-30 12:02] VITALS: BMI 26.8
[2024-09-30 12:03] VITALS: BP 130/70; PULSE 79; RESP 16; TEMP 36.6; O2SAT 97; BMI 26.8
[2024-09-30] MEDS: Lactated Ringers 1,000 ML 100 ML IVCONT (12:06)
--- NOTE | 2024-09-30 12:10 | P.CONAN_ITS ---
Documented by User: Catalina Long NP 09/29/24 08:57 HPI - Anesthesia Eval Consult details Narrative: 79yo M for Left Radius Distal Fracture ORIF PMFSH Active Problems Active Problems: All Active Problems Dysphagia (Acute) Fatigue (Acute) GLENN (acute kidney injury) (Acute) Epidermal inclusion cyst (Acute) Duodenal ulcer (Acute) Proteinuria (Acute) FREY (dyspnea on exertion) (Acute) Prostate cancer (Acute) Past Medical History Medical History Elevated cholesterol HTN (hypertension) GERD (gastroesophageal reflux disease) Restrictive airway disease Prostate cancer Family History Family History Father Throat cancer Mother Diabetes Kidney disease Family history of problems with anesthesia: No Surgical History Surgical History Hx of excision of mass (06/25/23) History of open reduction and internal fixation (ORIF) procedure History of esophagogastroduodenoscopy (EGD) Hx of colonoscopy History of cardiac cath History of Problems with Anesthesia: No Social History Social History (Updated 09/29/24 @ 13:07 by Francesco Coffey) Household Members: Children Housing: Apartment Do you presently have visiting nurse or other home services: No Alcohol intake: never Patient Tobacco Use Status: Former Tobacco user Second Hand Smoke Exposure: No service: No Current occupational status: retired Current occupation: right hand dominant Meds Allergies Allergy/AdvReac Type Severity Reaction Status Date / Time fish derived [FISH] Allergy Intermediate rash/hives Verified 09/30/24 11:45 Home Medications ?Medication ?Instructions ?Recorded ?Confirmed ?Last Taken ?Type atorvastatin 40 mg tablet 40 mg PO BEDTIME 04/06/21 09/30/24 04/14/24 History cholecalciferol (vitamin D3) 50 100 mcg PO DAILY 02/22/22 09/30/24 04/15/24 History mcg (2,000 unit) tablet melatonin 5 mg tablet 10 mg PO BEDTIME PRN Sleep 03/27/23 09/30/24 Unknown History amlodipine 10 mg tablet 10 mg PO DAILY 04/15/24 09/30/24 04/15/24 History fluticasone propionate 50 1 spray intranasal DAILY 04/15/24 09/30/24 04/15/24 History mcg/actuation nasal spray,suspension Exam Pertinent Lab Results Pertinent Lab Results: Laboratory Tests 05/15/24 09/09/24 14:45 12:12 WBC 6.2 Hgb 13.0 L D Hct 37.9 L D Plt Count 218 D Sodium 147 H Potassium 3.6 Chloride 113 H Carbon Dioxide 27 BUN 11 Creatinine 1.09 Narrative Narrative: Cardiac Cath 2021 Conclusions Diagnostic Summary 76-year-old gentleman presenting with FREY and abnormal stress test. Hemodynamics: PCWP 9, PA 37/13 (20), RA 6. EDP 4. Normal systemic pressures. There is no significant gradient on pullback across the aortic valve. 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 Diagnostic Recommendations iFR OM2. Interventional Summary iFR OM-2 was 1.0. This is not a significant lesion. Interventional Recommendations Continue aspirin 81 mg indefinitely. Aggressive secondary risk factor modification according to ATP III guidelines. Consider evaluation for non- cardiac causes of symptoms. Assessment and Plan Assessment Anesthesia Assessment: Chart Reviewed Final Anesthetic Review Family History of Problems with Anesthesia: No History of Problems with Anesthesia: No Documented by User: Haleigh Tipton DO 09/30/24 12:34 [facility] Past Medical History Medical History Elevated cholesterol HTN (hypertension) GERD (gastroesophageal reflux disease) Restrictive airway disease Prostate cancer Family History Family History Father Throat cancer Mother Diabetes Kidney disease Family history of problems with anesthesia: No Surgical History Surgical History Hx of excision of mass (06/25/23) History of open reduction and internal fixation (ORIF) procedure History of esophagogastroduodenoscopy (EGD) Hx of colonoscopy History of cardiac cath History of Problems with Anesthesia: No Social History Social History (Updated 09/29/24 @ 13:07 by Francesco Coffey) Household Members: Children Housing: Apartment Do you presently have visiting nurse or other home services: No Alcohol intake: never Patient Tobacco Use Status: Former Tobacco user Second Hand Smoke Exposure: No service: No Current occupational status: retired Current occupation: right hand dominant Meds Allergies Allergy/AdvReac Type Severity Reaction Status Date / Time fish derived [FISH] Allergy Intermediate rash/hives Verified 09/30/24 11:45 Home Medications ?Medication ?Instructions ?Recorded ?Confirmed ?Last Taken ?Type atorvastatin 40 mg tablet 40 mg PO BEDTIME 04/06/21 09/30/24 04/14/24 History cholecalciferol (vitamin D3) 50 100 mcg PO DAILY 02/22/22 09/30/24 04/15/24 History mcg (2,000 unit) tablet melatonin 5 mg tablet 10 mg PO BEDTIME PRN Sleep 03/27/23 09/30/24 Unknown History amlodipine 10 mg tablet 10 mg PO DAILY 04/15/24 09/30/24 04/15/24 History fluticasone propionate 50 1 spray intranasal DAILY 04/15/24 09/30/24 04/15/24 History mcg/actuation nasal spray,suspension Exam Exam Date and Time: 09/30/24 1210 Height,Weight and Vital Signs: Height 5 ft 7 in Weight 77.6 kg Vital Signs Temperature 98 F 09/30/24 12:03 Pulse Rate 79 09/30/24 12:03 Respiratory Rate 16 09/30/24 12:03 Blood Pressure 130/70 09/30/24 12:03 Pulse Oximetry 97 09/30/24 12:03 Oxygen Delivery Method Room Air 09/30/24 12:03 Temperature 98 F 09/30/24 12:03 Pulse Rate 79 09/30/24 12:03 Respiratory Rate 16 09/30/24 12:03 Blood Pressure 130/70 09/30/24 12:03 Pulse Oximetry 97 09/30/24 12:03 Oxygen Delivery Method Room Air 09/30/24 12:03 Airway Mallampati Class: I TM Dist: >3cm Neck ROM: Full Loose/Missing/Broken Teeth: Yes (dentures removed) Heart: S1S2 Lungs: CTAB Assessment and Plan Assessment Anesthesia Assessment: Anesthesia Plan Discussed and Chart Reviewed Final Anesthetic Review Family History of Problems with Anesthesia: No History of Problems with Anesthesia: No NPO: Yes ASA Class: II Final Preanesthetic Review: No Changes in Pt Med Stat, Meds/Allgs Chart Reviewed, Consent Obtained/Reviewed (biofuels product development manager at bedside for translation) and Anes Risks/Benef Reviewed Patient Risk: Low Procedure Risk: Low Anesthetic Plan Anesthetic Plan: GA, Regional Block (left brachial plexus block) and Agree w/ Assess. and Plan Disposition: Standard PACU
--- NOTE | 2024-09-30 12:31 | MHC.SHP ---
Pre-Procedural Eval Section A - 24 Hr Update-Section A only Date of Service: 09/30/24 The patient is an INPATIENT: No Changes since office visit: No Cold of Flu in the past 2 weeks, No New Medical Problems, No Changes in Medication and No Patient answered all questions The patient has been examined within 24 hours of the surgical procedure. The History & Physical has been completed within 30 days and I have reviewed it.: Yes Section B - Complete if H&P > 30 days Chief Complaint: Unspecified fracture of the lower end of left radi Allergies: Allergies Allergy/AdvReac Type Severity Reaction Status Date / Time fish derived [FISH] Allergy Intermediate rash/hives Verified 09/30/24 11:45 Plan I have reviewed the history and physical and performed a pertinent physical examination on my patient. No changes have occurred unless specified. Time Spent With Patient Time: Total time managing care of this patient today ____ minutes.
--- NOTE | 2024-09-30 12:31 | W.PM.OPN ---
Operative Note Operative Note Date of Service: 09/30/24 Narrative: Operative Note Narrative: Preop diagnosis: 1. Left Distal radius fracture Postop diagnosis: Same Procedure: 1. Left Distal radius fracture open reduction internal fixation, extra-articular Surgeon: Abby Davies MD Metal Building Assembler: None Anesthesia: General anesthesia plus regional block Findings: Distal radius fracture apex volar Implants: A 3 hole Accu Med volar locking plate, with 5 X 2.3 mm locking pegs/screws, and 3 3.5 mm cortical screws Tourniquet time: 37 minutes EBL: 5.0 ml Specimen: None Drains: None Complications: None Disposition: Brought to the recovery room in stable condition Plan: Follow-up in 10-14 days for wound check, suture removal and postop radiographs The patient will be placed in either a short-arm cast or a volar wrist splint. Encouraged no lifting of anything heavier than a cell phone. Please encourage active and passive range of motion of the digits. Follow-up at 4-5 weeks postop for repeat radiographs. Indications: The patient is a 79 year old man with a left distal radius fracture . The risks and benefits of operative treatment, including but not limited to risk of damage to blood vessels, nerves, tendons, infection, recurrence, persistent pain or numbness, incomplete resolution of preoperative symptoms, or need for further surgery were discussed with the patient and they wished to proceed with surgery. Procedure: Once consent was obtained patient was brought back to the operating suite and placed in the operating table in a supine position. A regional block was performed by the anesthesia team. Perioperative antibiotics and anesthesia was administered by the anesthesia team. A tourniquet was applied to the proximal aspect of the left upper extremity and the limb was prepped and draped in a standard surgical fashion. The limb was elevated exsanguinated with Esmarch bandage and the tourniquet inflated to 250 mm of mercury for a total tourniquet time of 37 minutes. The FluoroScan was used throughout the case to assess our reduction, and facilitate implant placement. A gentle closed reduction was 1st performed on the patient's left distal radius fracture. Was assessed radiographically before proceeding with the reduction internal fixation. I then made an 8 cm longitudinal incision over the distal aspect of the flexor carpi radialis tendon. The incision was made through the skin to the subcutaneous tissue using a 15. Blade. Then carefully dissected down to flexor carpi radialis tendon she tenotomy scissors. The FCR tendon sheath was then incised longitudinally using tenotomy scissors under direct visualization. The FCR tendon was then retracted ulnarly. I then made a longitudinal incision in the volar forearm fascia through the floor of FCR tendon sheath using tenotomy scissors under direct visualization. I identified the interval between the radial artery and the flexor tendons. This interval was developed further with my index finger, releasing some of the muscular fibers of the flexor pollicis longus. A dull weatlander retractor was then placed. I then created an ulnarly based flap of the pronator quadratus by releasing the radial and distal edges using a 15. Blade. A Aguiar elevator was used to elevate the pronator quadratus from the volar surface of the distal radius. This then revealed to us our distal radius fracture. An open reduction was then performed on our distal radius fracture. I then placed a short standard 3 hole Accu Med volar locking plate on the volar surface of the distal radius. I placed a single K-wire through the distal aspect of the plate and into the distal radius. This was assessed using fluoroscopic images. I was satisfied with the placement of our plate. I then placed 5 X 2.3 mm locking screws/pegs in the distal aspect of the plate and distal radius by 1st drilling bicortically with a 2.0 mm drill bit, measuring with a depth gauge, and placing the appropriate length locking screws/pegs. The placement of our plate and screws was then assessed again using fluoroscopic images. The once satisfied with the placement of the volar locking plate and screws on the distal aspect of the distal radius, the plate was then reduced to the shaft of the radius. I then placed 3 X 3.5 mm cortical screws to the proximal aspect of the plate and into the shaft of the radius. This was done by 1st drilling bicortically with a 2.8 mm drill bit, measuring with a depth gauge, and placing the appropriate length screw. Final radiographs were then obtained. The DRUJ was assessed and found to be stable on exam. I was satisfied with our reduction and placement of all implants. At this point the wound was irrigated with normal saline. The pronator quadratus was reduced back over the volar locking plate using some 3-0 Vicryl suture material. The tourniquet was then deflated and hemostasis was obtained with a brief period of local pressure and bipolar monopolar electrocautery. The subcutaneous layer was then reapproximated using some 4-0 Vicryl suture, and the skin edges were reapproximated using some 5 0 Prolene suture. The wound was then infiltrated with some 1% lidocaine with epinephrine postop pain control. A sterile dressing and a short dorsal splint allowing for active flexion and extension of the digits was applied. The patient appears to have tolerated the procedure well and with no complications. All digits were well vascularized conclusion of the case.
[2024-09-30 16:44] VITALS: BP 122/68; PULSE 82; RESP 16; TEMP 36.6; O2SAT 97
[2024-09-30 16:49] VITALS: BP 126/63; PULSE 81; RESP 16; O2SAT 96
[2024-09-30 16:54] VITALS: BP 133/65; PULSE 71; RESP 20; O2SAT 98
[2024-09-30 16:59] VITALS: BP 137/64; PULSE 66; RESP 20; O2SAT 98
[2024-09-30 17:14] VITALS: BP 133/58; PULSE 70; RESP 16; TEMP 36.4; O2SAT 97
== END 2024-09-30 17:22 | disposition home or self-care (01) ==
PROVIDERS: PCP Internal Medicine; Visit Provider Orthopaedic Surgery
PROC: (CPT 25607; principal; 2024-09-30 13:20)
DX: S52.502A Unspecified fracture of the lower end of left radius, initial encounter for closed fracture (principal); M25.532 Pain in left wrist; W01.0XXA Fall on same level from slipping, tripping and stumbling without subsequent striking against object, initial encounter; Y93.89 Activity, other specified; Y92.010 Kitchen of single-family (private) house as the place of occurrence of the external cause; Y99.9 Unspecified external cause status; I10 Essential (primary) hypertension; J98.4 Other disorders of lung; E78.00 Pure hypercholesterolemia, unspecified; C61 Malignant neoplasm of prostate; Z79.51 Long term (current) use of inhaled steroids; Z79.899 Other long term (current) drug therapy; Z98.890 Other specified postprocedural states; Z87.891 Personal history of nicotine dependence
CPT/HCPCS: 25607; C1713; J0131; J0690; J1100; J2003; J2004; J2250; J2704; J3010

== ENCOUNTER → 2024-09-30 11:06 | Outpatient (BNV) | payer OTHER, SELFPAY | PROVIDERS: PCP Internal Medicine; Visit Provider Orthopaedic Surgery | DX: S52.552A Other extraarticular fracture of lower end of left radius, initial encounter for closed fracture (principal) | CPT/HCPCS: 25607 ==

== ENCOUNTER 2024-10-14 08:21 | Outpatient (REF) | payer OTHER, SELFPAY ==
--- NOTE | ~2024-10-14 | XR_ITS ---
EXAMINATION: XR WRIST, LEFT CLINICAL INFORMATION: M25.532 - Pain in left wrist COMPARISON: September 29, 2024 TECHNIQUE: PA, lateral, and oblique views of the left wrist. FINDINGS: ORIF has been performed since the prior examination. There is a volar plate with screws. There is improved anatomic alignment. Early periosteal new bone formation is present along the radial aspect of the radial metaphysis. There is increased lucency of the fracture line extending to the distal radioulnar joint consistent with early healing. There is also increasing lucency of the ulnar styloid fracture consistent with early healing. There are marginal osteophytes and mild asymmetric joint space narrowing involving the first MCP joint. 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 There is mild narrowing and sclerosis of the first CMC joint. XR/XR wrist LT min 3V IMPRESSION: Early healing of a distal radial fracture status post ORIF. Early healing of an ulnar styloid fracture. Electronically signed by: Francisco Javier Altman MD 10/14/2024 03:53 PM EDT
--- OUTSIDE RECORDS SUMMARY | 2024-10-15 08:27 | XMS_ITS | Encounter Summary ---
Author Organization [employer] Address [address] [facility] [address] [place] [address] Care Team Providers Care Conformal Pad Former Name Role Phone Cheryl Hogan MD Primary Care Provide r Encounter Details Date Type Department Care Team ([facility] Contact Info) Description 03/26/2023 Orders Only [facility] [address] [place] [address] So Katz LPN Social History Tobacco Use [...] Description 11/25/2024 2:45 PM EDT Office Visit [facility] [address] [place] [address] Cheryl Hogan MD [address] [place] [address] documented as of this encounter Visit Diagnoses Not on filedocumented in this encounter Additional Health Concerns Assessment Noted Time PHQ-9 Depression Total Score: 0 03/05/20 23 3:51 PM EDT documented as of this encounter Care Teams Conformal Pad Former Relationship Specialty Start Date End Date Cheryl Hogan MD [address] [place] [id number] PCP - General Family Medicine 10/11/20 documented as of this encounter
== END 2024-10-14 08:22 | disposition home or self-care (01) ==
LOC: HO.HOSX 08:21
PROVIDERS: Visit Provider Orthopaedic Surgery
DX: S52.502D Unspecified fracture of the lower end of left radius, subsequent encounter for closed fracture with routine healing (principal)
CPT/HCPCS: 73110; 99212

== ENCOUNTER 2024-10-14 13:12 | Outpatient (AMB) | payer OTHER, SELFPAY ==
--- NOTE | 2024-10-14 13:27 | MHC.OFFVIS ---
Vital Signs 10/14/24 13:43 Height 5 ft 6 in Weight 176 lb BMI 28.4 Intake Visit Reasons: PO LT distal radius ORIF 09/30/24 AR Intake Note: Dk 79 yr old male presnets today fo rhis P/O visit for his left distal radius ORIF DOS 09/30/[address] Davies. States he is doing well , he has very little pain and is able to make a fist. Allergies fish derived [FISH] Allergy (Intermediate, Verified 10/14/24 13:43) rash/hives HPI HPI PO LT distal radius ORIF 09/30/24 AR: Details: Dk is a 79 year old right hand dominant man who returns S/P left distal radius ORIF, DOS: 09/30/24. He slipped and fell at home, DOI: 09/21/24. He says he is doing well, with only mild pain. He denies any numbness or tingling PFSH Medical History Elevated cholesterol HTN (hypertension) GERD (gastroesophageal reflux disease) Restrictive airway disease Prostate cancer Surgical History Hx of excision of mass (06/25/23) History of open reduction and internal fixation (ORIF) procedure History of esophagogastroduodenoscopy (EGD) Hx of colonoscopy History of cardiac cath Family History Father Throat cancer Mother Diabetes Kidney disease Social History Household Members: Children Housing: Apartment Do you presently have visiting nurse or other home services: No Alcohol intake: never Patient Tobacco Use Status: Former Tobacco user Second Hand Smoke Exposure: No service: No Current occupational status: retired Current occupation: right hand dominant Review of Systems Const All systems reviewed & are unremarkable except as noted in HPI and below Physical Exam Vital Signs: BMI result Body Mass Index 28.4 Const General: no acute distress and alert Orientation/consciousness: patient oriented x3 Neuro General: patient oriented x3 Extrem Other: The patient was alert oriented and in no acute distress The incision is healing well with no erythema drainage or evidence of infection. Sutures removed and Steri-Strips applied He can bring his fingers closed to a fist and back into extension, without difficulty Full pronation Supination ~70 degrees, without pain He was happy to demonstrate that he could move rather quickly between pronation and supination and started to show me flexion and extension. I cautioned him to take it easy. Sensation is intact Cap refill is brisk Radiographs: 3 views of the left wrist were taken and viewed by me today in clinic. They show a left distal radius fracture with satisfactory fracture alignment and position of all implants. Psych Appearance: grossly normal Affect: normal affect Attitude: cooperative Assessment & Plan Assessment & Plan (1) Distal radius fracture, left: Code(s): S52.502A - Unspecified fracture of the lower end of left radius, initial encounter for closed fracture Category: Medical Plan Assessment and plan: 1. Left distal radius fracture, S/P ORIF DOS: 09/30/24 From a fall, DOI: 09/21/24 The patient appears to be doing well post-operatively I educated him about the post-operative course I explained the signs and symptoms of infection He was fitted for a velcro wrist splint, to be worn for at least the next 3 weeks I discussed activity modifications, he is to lift nothing heavier than a cellphone for the next 4 weeks, and cautioned him to take it easy. He will perform gentle finger ROM exercises at home He should avoid any underwater activities He will follow up in 3 weeks, with radiographs, 3V L wrist, OOP Scribed for Abby Davies MD by Matthew Whitfield, product manager medical device, on 10/14/24 at 1:45 PM, EST. Orders: Orders XR wrist LT min 3V Today M25.532 - Pain in left wrist Coding Level of Care Code Global (25229) Diagnoses Distal radius fracture, left S52.502A
[2024-10-14 13:43] VITALS: BMI 28.4
--- OUTSIDE RECORDS SUMMARY | 2024-10-14 14:50 | XMS_ITS | Encounter Summary ---
Author Organization [employer] Address [address] [facility] [address] [place] [address] Care Team Providers Care Matrix Repairer Name Role Phone Cheryl Hogan MD Primary Care Provide r Encounter Details Date Type Department Care Team ([facility] Contact Info) Description 03/26/2023 Orders Only [facility] [address] [place] [address] So Katz LPN Social History Tobacco Use [...] Description 11/25/2024 2:45 PM EDT Office Visit [facility] [address] [place] [address] Cheryl Hogan MD [address] [place] [address] documented as of this encounter Visit Diagnoses Not on filedocumented in this encounter Additional Health Concerns Assessment Noted Time PHQ-9 Depression Total Score: 0 03/05/20 23 3:51 PM EDT documented as of this encounter Care Teams Matrix Repairer Relationship Specialty Start Date End Date Cheryl Hogan MD [address] [place] [id number] PCP - General Family Medicine 10/11/20 documented as of this encounter
== END 2024-10-14 14:12 | disposition home or self-care (01) ==
LOC: HO.HOS 13:12
PROVIDERS: PCP Internal Medicine; Visit Provider Orthopaedic Surgery
DX: S52.502A Unspecified fracture of the lower end of left radius, initial encounter for closed fracture (principal)
CPT/HCPCS: 99024

== ENCOUNTER → 2024-10-14 13:21 | Outpatient (BNV) | payer OTHER, SELFPAY | PROVIDERS: Visit Provider Radiology Diagnostic Radiology | DX: S52.502D Unspecified fracture of the lower end of left radius, subsequent encounter for closed fracture with routine healing (principal); S52.612D Displaced fracture of left ulna styloid process, subsequent encounter for closed fracture with routine healing | CPT/HCPCS: 73110 ==

== ENCOUNTER 2024-10-19 13:19 | Outpatient (AMB) | payer OTHER, SELFPAY ==
--- NOTE | 2024-10-19 13:22 | MHC.OFFVIS ---
Intake Visit Reasons: 6 month follow up/ PSA/ PVR Intake Note: Patient is present for follow up Medical Collections Urology Rx: finasteride PVR:0 Blood Thinners: none psa:0.57 Allergies fish derived [FISH] Allergy (Intermediate, Verified 10/19/24 16:32) rash/hives Medication List - Last Reconciled 10/19/24 by Melly Null SHINGLE BOLT CUTTER- amlodipine 10 mg PO DAILY atorvastatin 40 mg PO BEDTIME cholecalciferol (vitamin D3) 100 mcg PO DAILY finasteride 5 mg PO DAILY 90 days fluticasone propionate 50 mcg/actuation 1 spray intranasal DAILY melatonin 10 mg PO BEDTIME PRN omeprazole 20 mg PO DAILY 90 days oxycodone 5 mg PO Q8H PRN 3 days oxycodone-acetaminophen 5-325 mg 1 tab PO Q6H PRN sennosides (senna) 17.2 mg (2 x 8.6 mg) PO BEDTIME simethicone (Gas Relief Extra Strength) 125 mg PO BID-QID HPI Comments Details: Dk is a very pleasant 79 year old Swedish speaking male patient of Dr. Luisa Richardson who was accompanied by his granddaughter at today's office visit. He has a past medical history of hypercholesteremia, GERD, hypertension, prostate cancer, and restrictive airway disease. He presents to the office today for follow-up of his prostate cancer. In discussion with the patient today he reports to be doing and feeling well. Recent PSA results reviewed with the patient today as noted and trended below. When asked he denies any bothersome urinary issues or concerns. He reports be happy with his current voiding parameters. In office urinalysis results reviewed with the patient today. When asked he denies urinary urgency, urinary frequency, incontinence, nocturia, hematuria, dysuria, foul smelling urine, changes to urinary stream, flank pain, fever, and or chills. We did discussed slight rise in PSA. And potential causes as well as further treatment options and risks and benefits of these treatment options. Patient with a previous history of rise in PSA status post radiation therapy and underwent intermittent hormone therapy. He does report compliance and finasteride as prescribed. He otherwise offers no issues or concerns at this time. Will consider restart of Intermittent hormone therapy with PSA above 4. PREVIOUS OFFICE NOTE: Slight rise in PSA noted from February 2022 to June 2022. Review again in 4 months as PSA has remained unchanged since June May benefit from PSMA imaging if PSA continues to rise Prostate cancer initial treatment external beam radiation 2012, postprocedure PSA recurrence with intermittent hormone therapy Status post radiation therapy 2012 PSA follow-up - 11/23 PSA <0.05, 03/26 0.05 T 38, 09/24 0.05 T 156, 02/24 0.1 T 141, 2 .36, 8 .36, 02/26 T 257 PSA 0.2, 09/27 PSA 0.6 Has been managed with intermittent hormone therapy Continue with interval surveillance laboratories every 4-6 months. [facility] Medical History Elevated cholesterol HTN (hypertension) GERD (gastroesophageal reflux disease) Restrictive airway disease Prostate cancer Surgical History Hx of excision of mass (06/25/23) History of open reduction and internal fixation (ORIF) procedure History of esophagogastroduodenoscopy (EGD) Hx of colonoscopy History of cardiac cath Family History Father Throat cancer Mother Diabetes Kidney disease Social History Household Members: Children Housing: Apartment Do you presently have visiting nurse or other home services: No Alcohol intake: never Patient Tobacco Use Status: Former Tobacco user Second Hand Smoke Exposure: No service: No Current occupational status: retired Current occupation: right hand dominant Review of Systems Const Reports as per HPI Eyes Reports no additional complaints ENT Reports no additional complaints Card Reports as per HPI Resp Reports as per HPI GI Reports as per HPI Reports as per HPI Musc Reports no additional complaints Neuro Reports no additional complaints Psych Reports no additional complaints Endo Reports no additional complaints Physical Exam Const General: cooperative, comfortable, no acute distress, well developed, alert and awake Orientation/consciousness: patient oriented x3 Limitations: no limitations HEENT Head: Yes normal to inspection, Yes normocephalic and Yes atraumatic Ears: hearing grossly normal bilaterally Eyes General: appearance normal, both eyes and all related structures Neck Neck: Yes normal visual inspection and Yes trachea midline Chest Chest palpation & inspection: normal inspection of the chest Resp Effort & Inspection: normal respiratory effort and able to speak in complete sentences Cardio Rate: regular rate GI Inspection: Yes normal to inspection General: Yes no CVA tenderness Back/Spine/Pelvis Back: no CVA tenderness Skin General skin exam: no rashes or lesions noted Neuro General: patient oriented x3 Extrem General: Yes normal to inspection Psych Appearance: grossly normal and well kempt Mental Status: mental status grossly normal Speech and movement: Normal speech and movement present and Clear speech present Affect: normal affect Attitude: cooperative Thought process: Normal thought process present Thought content: Normal thought content present Insight: Fair insight present (Psych) Judgement: Fair judgement present (Psych) Results AMB Urinalysis, Automated UA Leukoctes 0 Taya/uL Last Edit by Winsome Taylor MA on 10/19/24 13:40 UA Nitrite Negative Last Edit by Winsome Taylor MA on 10/19/24 13:40 UA Urobilinogen 0.2 mg/dL Last Edit by Winsome Taylor MA on 10/19/24 13:40 UA Protein 15 mg/dL Last Edit by Winsome Taylor [place] on 10/19/24 13:40 UA pH 6.0 Last Edit by Winsome Taylor [place] on 10/19/24 13:40 UA Blood 0 Jc/uL Last Edit by Winsome Taylor [place] on 10/19/24 13:40 UA Specific [place] 1.030 Last Edit by Winsome Taylor MA on 10/19/24 13:40 UA Ketone Negative Last Edit by Winsome Taylor MA on 10/19/24 13:40 UA Bilirubin 1 mg/dL Last Edit by Winsome Taylor [place] on 10/19/24 13:40 UA Glucose 0 mg/dL Last Edit by Winsome Taylor [place] on 10/19/24 13:40 Results Reviewed Results Reviewed: Laboratory Last Values Urine pH (Auto) 6.0 10/19/24 13:35 Specific [place] (Auto) 1.030 10/19/24 13:35 Urine Protein (Auto) 15 mg/dL 10/19/24 13:35 Glucose (UA)(Auto) 0 mg/dL 10/19/24 13:35 Urine Ketones (Auto) Negative 10/19/24 13:35 Urine Blood (Auto) 0 Jc/uL 10/19/24 13:35 Urine Nitrite (Auto) Negative 10/19/24 13:35 Urine Bilirubin (Auto) 1 mg/dL 10/19/24 13:35 Urine Urobilinogen (Auto) 0.2 mg/dL 10/19/24 13:35 Leukocyte Esterase (Auto) 0 Taya/uL 10/19/24 13:35 Assessment & Plan Assessment & Plan (1) Prostate cancer: Code(s): C61 - Malignant neoplasm of prostate Category: Medical Plan In office urinalysis results reviewed with the patient today; as noted above. PVR 0 mL. Recent PSA results reviewed with the patient today; as noted above. We did discussed slight increase in PSA and further treatment options to include surveillance monitoring verses further treatment options and risks and benefits of these treatment options. He currently denies any bothersome urinary issues or concerns. He reports be happy with current voiding parameters. Continue finasteride; we also discussed taking finasteride daily verses every other day. Will obtain PSA and testosterone in 4-6 months. Follow-up in 4 months with labs to be completed prior; or sooner with any issues, concerns, and or questions. Orders: Orders AMB Urinalysis Automated 10/19/24 Z13.9 - Encounter for screening, unspecified AMB Post Void Residual by ultrasound 10/19/24 C61 - Malignant neoplasm of prostate Prostate Specific Antigen 4 Months C61 - Malignant neoplasm of prostate Testosterone, Total 4 Months C61 - Malignant neoplasm of prostate Patient Instructions: The patient had an opportunity to ask questions regarding the treatment plan. All questions were answered. Physical exam, labs, and imaging were discussed and reviewed in detail. As well as risks, benefits, and discussion of treatment choices. No major barriers to understanding were identified. The patient expressed understanding and agreement with the above treatment plan. The patient was made aware they should contact our office by phone for worsening of their current condition, the appearance of new symptoms, or with any questions or concerns. Compliance is encouraged with any medications and follow up testing that is ordered. It is a privilege to be allowed the opportunity to participate in? your urological care.? Again, if you have any questions or concerns If you have any questions or concerns please do not hesitate to contact me. The office is [phone]. This note is constructed using voice recognition software. While every effort has been made to ensure accuracy wastewater treatment engineer errors may have been included. Yours sincerely, Melly Null, SHINGLE BOLT CUTTER-BC Coding Level of Care Code Est Pt Level 3 (34377) Complex EM visit Add On G2211 Diagnoses Prostate cancer C61
--- OUTSIDE RECORDS SUMMARY | 2024-10-19 14:48 | XMS_ITS | Encounter Summary ---
Author Organization [employer] Address [address] [facility] 7[address] [place] [address] Care Team Providers Care Tube Station Attendant Name Role Phone Cheryl Hogan MD Primary Care Provide r Encounter Details Date Type Department Care Team ([facility] Contact Info) Description 03/26/2023 Orders Only [facility] [address] [place] [address] So Katz LPN Social History Tobacco Use [...] Description 11/25/2024 2:45 PM EDT Office Visit [facility] [address] [place] [address] Cheryl Hogan MD [address] [place] [address] documented as of this encounter Visit Diagnoses Not on filedocumented in this encounter Additional Health Concerns Assessment Noted Time PHQ-9 Depression Total Score: 0 03/05/20 23 3:51 PM EDT documented as of this encounter Care Teams Tube Station Attendant Relationship Specialty Start Date End Date Cheryl Hogan MD [address] [place] [id number] PCP - General Family Medicine 10/11/20 documented as of this encounter
== END 2024-10-19 14:03 | disposition home or self-care (01) ==
LOC: HO.HUSH 13:19
PROVIDERS: PCP Internal Medicine; Visit Provider Nurse Practitioner Family
DX: C61 Malignant neoplasm of prostate (principal)
CPT/HCPCS: 99213; G2211

== ENCOUNTER → 2024-10-19 13:19 | Outpatient (BNVA) | payer OTHER, SELFPAY | PROVIDERS: PCP Internal Medicine; Visit Provider Nurse Practitioner Family | DX: C61 Malignant neoplasm of prostate (principal) | CPT/HCPCS: 81003; 99212 ==

== ENCOUNTER 2024-11-04 12:58 | Outpatient (REF) | payer OTHER, SELFPAY ==
--- NOTE | ~2024-11-04 | XR_ITS ---
EXAMINATION: XR WRIST 3 OR MORE VIEWS LEFT HISTORY: M25.532 - Pain in left wrist COMPARISON: Comparison is made with the prior examination dated 10/14/2024. FINDINGS: Three views of the left wrist are submitted. The bones are osteopenic. The patient is again noted to be status post internal fixation of a comminuted fracture of the distal radial metaphysis. The fracture lines remain visible, but are slightly blurred, consistent with healing. A fracture of the ulnar styloid is again noted. There is moderate degenerative change involving the 1st carpometacarpal and metacarpophalangeal joints with joint space narrowing and osteophyte formation. The soft tissues are unremarkable. XR/XR wrist LT min 3V IMPRESSION: Healing internally fixed fracture of the distal radial metaphysis. Ulnar styloid fracture. Electronically signed by: Aric Parikh MD 11/04/2024 02:37 PM EDT
--- OUTSIDE RECORDS SUMMARY | 2024-11-04 13:31 | XMS_ITS | Encounter Summary ---
Author Organization [employer] Address [address] [facility] [address] [place] [address] Care Team Providers Care Team Assistant Name Role Phone Cheryl Hogan MD Primary Care Provide r Encounter Details Date Type Department Care Team ([facility] Contact Info) Description 03/26/2023 Orders Only [facility] & PEDS [address] [place] [address] So Katz LPN Social History Tobacco Use [...] Description 11/25/2024 2:45 PM EDT Office Visit [facility] [address] [place] [address] Cheryl Hogan MD [address] [place] [address] documented as of this encounter Visit Diagnoses Not on filedocumented in this encounter Additional Health Concerns Assessment Noted Time PHQ-9 Depression Total Score: 0 03/05/20 23 3:51 PM EDT documented as of this encounter Care Teams Team Assistant Relationship Specialty Start Date End Date Cheryl Hogan MD [address] [place] [id number] PCP - General Family Medicine 10/11/20 documented as of this encounter
== END 2024-11-04 12:59 | disposition home or self-care (01) ==
LOC: HO.HOSX 12:58
DX: S52.502D Unspecified fracture of the lower end of left radius, subsequent encounter for closed fracture with routine healing (principal)
CPT/HCPCS: 73110; 99212

== ENCOUNTER 2024-11-04 13:13 | Outpatient (AMB) | payer OTHER, SELFPAY ==
--- NOTE | 2024-11-04 13:23 | A.OFFVIS_ITS ---
Intake Visit Reasons: PO LT distal radius ORIF 09/30/24 AR Intake Note: Dk is a 79 year old right hand dominant man who presents post operatively status post left distal radius ORIF, DOS: 09/30/[address] Abby Davies. Patient reports pain in the morning when he wakes up and when attempting to make a full closed fist. Reports numbness and tingling that has been coming and going in the 3rd and 4th digits of the left hand. At home he has a stress ball and says he has been squeezing it daily. Employment Training Specialist Required: Yes Employment Training Specialist Language: Norwegian Allergies fish derived (FISH) Allergy (Intermediate, Verified 11/04/24 13:25) rash/hives HPI HPI PO LT distal radius ORIF 09/30/24 AR: Details: Dk is a 79 year old right hand dominant man who presents post operatively status post left distal radius ORIF, DOS: 09/30/[address] Abby Davies. Patient reports pain in the morning when he wakes up and when attempting to make a full closed fist. Reports numbness and tingling that has been coming and going in the 3rd and 4th digits of the left hand. At home he has a stress ball and says he has been squeezing it daily. [facility] Medical History Elevated cholesterol HTN (hypertension) GERD (gastroesophageal reflux disease) Restrictive airway disease Prostate cancer Surgical History Hx of excision of mass (06/25/23) History of open reduction and internal fixation (ORIF) procedure History of esophagogastroduodenoscopy (EGD) Hx of colonoscopy History of cardiac cath Family History Father Throat cancer Mother Diabetes Kidney disease Social History Household Members: Children Housing: Apartment Do you presently have visiting nurse or other home services: No Alcohol intake: never Patient Tobacco Use Status: Former Tobacco user Second Hand Smoke Exposure: No service: No Current occupational status: retired Current occupation: right hand dominant Review of Systems Const All systems reviewed & are unremarkable except as noted in HPI and below Physical Exam Const General: no acute distress and alert Orientation/consciousness: patient oriented x3 Neuro General: patient oriented x3 Extrem Other: The patient was alert oriented and in no acute distress The incision is healing well with no erythema drainage or evidence of infection. Sutures removed and Steri-Strips applied No tenderness to palpation about the left distal radius He can bring his fingers closed to a fist and back into extension, without difficulty Full pronation Supination ~90 degrees, without pain Patient is able to gently flex and extend the wrist Sensation is intact Cap refill is brisk Radiographs: 3 views of the left wrist were taken and viewed by me today in clinic. They show a left distal radius fracture with satisfactory fracture alignment and position of all implants. Psych Appearance: grossly normal Affect: normal affect Attitude: cooperative Assessment & Plan Assessment & Plan (1) Distal radius fracture, left: Code(s): S52.502A - Unspecified fracture of the lower end of left radius, initial encounter for closed fracture Category: Medical Plan 1. Status post left distal radius ORIF DOS 09/30/2024 Patient appears to be recovering very well postoperatively Patient is educated about the typical recovery course 2 lb weight limit reinforced at this time At this time, patient is sent to occupational therapy to work on gentle range of motion of the left wrist Patient is also provided with a Velcro wrist splint to be worn with daytime activities Follow-up in 4 weeks for reassessment, sooner with any acute concerns Orders: Orders XR wrist LT min 3V 11/04/24 M25.532 - Pain in left wrist OT Evaluation and Treatment 11/04/24 S52.502A - Unspecified fracture of the lower end of left radius, initial encounter for closed fracture Coding Level of Care Code Global (76243) Diagnoses Distal radius fracture, left S52.502A
== END 2024-11-04 13:44 | disposition home or self-care (01) ==
LOC: HO.HOS 13:14
PROVIDERS: PCP Internal Medicine
DX: S52.502A Unspecified fracture of the lower end of left radius, initial encounter for closed fracture (principal)
CPT/HCPCS: 99024

== ENCOUNTER → 2024-11-04 13:17 | Outpatient (BNV) | payer OTHER, SELFPAY | PROVIDERS: Visit Provider Radiology Diagnostic Radiology | DX: S52.591D Other fractures of lower end of right radius, subsequent encounter for closed fracture with routine healing (principal); S52.612A Displaced fracture of left ulna styloid process, initial encounter for closed fracture | CPT/HCPCS: 73110 ==

== ENCOUNTER 2024-12-02 14:18 | Outpatient (AMB) | payer OTHER, SELFPAY ==
--- NOTE | 2024-12-02 14:21 | A.OFFVIS_ITS ---
Vital Signs 12/02/24 14:29 Height 5 ft 6 in Weight 172 lb 9.951 oz BMI 27.9 BP 122/94 H Blood Pressure Location Rt brachial Position Sitting Pulse 106 H Pulse Source Pulse Oximeter Pulse Oximetry (%) 97 Oxygen Delivery Method Room Air Intake Visit Reasons: Having trouble swallowing Intake Note: Est pt for mgmt of GERD + Dysphagia. New onset of post prandial vomiting and co ncern for malnourishment. CC; C.O dysphagia without any identifiable triggers. Pt states that he will choke on anything from water to his own saliva. Pt denies any burning sensation from his GERD. No additional sx at this time. Knitting Machine Fixer Head Required: Yes Knitting Machine Fixer Head Services: Knitting Machine Fixer Head Present Knitting Machine Fixer Head Name: Dayron [id number], Tino [id number] Information Interpreted: clinical only Accompanied by: Family/Other Allergies fish derived (FISH) Allergy (Intermediate, Verified 12/02/24 14:21) rash/hives HPI HPI Having trouble swallowing: Details: LAST VISIT 12/16/2023 Duodenal ulcer GERD (gastroesophageal reflux disease) Diverticulosis Postprandial abdominal bloating Constipation Plan What to expect before during and after procedure discussed with patient. Patient will set up colonoscopy and upper endoscopy today. Patient will follow-up in the office sooner if he will have any GI concerning symptoms. Patient denies any issues with anesthesia. Currently no chest pain or shortness of breath with or without activity. Denies any presyncope or syncope. Back in September patient's weight same as today. No weight loss documented. Continue Senokot, patient reports that it helps him it bloating. I will see patient after the procedure, sooner on as needed basis. He is agreeable to this plan and verbalizes understanding of instr uctions. He was given the opportunity to ask questions and all questions answered. ENDOSCOPY: 04/17/2024 Findings: Larynx: Normal Esophagus: GE junction at 38 cms. Tortuous esophagus with increased tertiary contractions without stricture or ring. A 1 cms chronic appearing erosion at the GE junction. Empiric balloon dilation of the distal esophagus was performed with a 19 mm CRE balloon x 60 seconds Stomach: Moderate diffuse gastric erythema - biopsies were obtained from the gastric body and antrum. A few 5 to 10 mm benig appearing polyps in the gastric body - biopsied. Grade 2 flap valve on retroflexed examination of the cardia. Duodenum: Normal bulb and descending duodenum Intervention: Biopsies and esophageal balloon dilation as noted above Impression and Post Procedure Diagnosis: Endoscopy Findings: ESOPHAGUS: Tortuous esophagus with increased tertiary contractions without stricture or ring. A 1 cms chronic appearing erosion at the GE junction. Empiric balloon dilation of the distal esophagus was performed with a 19 mm CRE balloon x 60 seconds Dysphagia is likely related to esophageal motility disorder. Pt advised to chew his food well, eat slowly in the upright position and take fluids while eating. If dysphagia persist, further evaluation with a barium swallow can be performed STOMACH: Moderate gastritis and benign-appearing gastric polyps Plan: Pt is scheduled for a colonoscopy on 05/18/24 as an outpatient. Above findings were reviewed with the patient and relevant handouts were given and the discharge area. ADDENDUM: 2013 barium swallow showed moderate esophageal dysmotility with a corkscrew appearance of the mid to distal esophagus consistent with diffuse esophageal spasm. BIOPSIES SHOWED: A. Stomach, antrum, biopsy: Antral-type mucosa with mild chronic inactive inflammation; no Helicobacter organisms seen. B. Stomach, body, biopsy: Oxyntic mucosa with moderate chronic, focally active, inflammation; no Helicobacter organisms seen. C. Stomach, polypectomy: Fundic gland polyp with background mild chronic inactive inflammation; no Helicobacter organisms seen. TODAY'S VISIT Patient is here today for requested visit. Patient continues to have ongoing dysphagia. Trouble swallowing liquids as well as some of his saliva. Patient reports occasional choking episodes. History of endoscopy. Patient was supposed to go for colonoscopy in May and somehow patient never showed up for the procedure. Patient's daughter is requesting to call her and set of her father. Patient denies any nausea or vomiting. Patient is afraid to eat anything as he is choking frequently. Last endoscopy no H pylori, chronic inactive inflammation seen in the stomach esophagus showed no strictures, there was an erosion in at GE junction dilation of distal esophagus was performed. Patient denies any abdominal pain or discomfort. Currently he is taking omeprazole 20 mg daily [facility] Medical History Elevated cholesterol HTN (hypertension) GERD (gastroesophageal reflux disease) Restrictive airway disease Prostate cancer Surgical History Hx of excision of mass (06/25/23) History of open reduction and internal fixation (ORIF) procedure History of esophagogastroduodenoscopy (EGD) Hx of colonoscopy History of cardiac cath Family History Father Throat cancer Mother Diabetes Kidney disease Social History Household Members: Children Housing: Apartment Do you presently have visiting nurse or other home services: No Alcohol intake: never Patient Tobacco Use Status: Former Tobacco user Second Hand Smoke Exposure: No service: No Current occupational status: retired Current occupation: right hand dominant Review of Systems Const Denies weight gain and Denies weight loss ENT Reports no additional complaints, Reports dysphagia and Denies odynophagia Card Reports no additional complaints Resp Reports no additional complaints GI Denies abdominal pain, Denies belching, Denies melena, Reports bloating, Denies change in bowel habits, Reports dysphagia, Denies excessive flatus, Denies dyspepsia, Reports heartburn, Denies diarrhea, Denies loose stools, Denies nausea, Denies odynophagia and Denies vomiting Reports no additional complaints Musc Reports no additional complaints Neuro Reports no additional complaints Psych Reports no additional complaints Endo Reports no additional complaints Physical Exam Vital Signs: Last Vital Signs Pulse 106 H 12/02/24 14:29 BP 122/94 H 12/02/24 14:29 Pulse Ox 97 12/02/24 14:29 Oxygen Delivery Method Room Air 12/02/24 14:29 BMI result Body Mass Index 27.9 Const General: healthy appearing, no acute distress and well developed Nutritional Appearance: well nourished Orientation/consciousness: patient oriented x3 Resp Effort & Inspection: normal respiratory effort, able to speak in complete sentences, no tracheal deviation and symmetric chest movement Auscultation: clear to auscultation bilaterally Cardio Rate: regular rate GI Inspection: Yes normal to inspection and No distended Palpation (GI): Soft to palpation, not firm, nontender and No hepatosplenomegaly present Auscultation: normal bowel sounds General: Yes no CVA tenderness Back/Spine/Pelvis Back: no CVA tenderness Skin General skin exam: elasticity normal, turgor normal and dry skin Neuro General: patient oriented x3 Psych Appearance: grossly normal Mental Status: mental status grossly normal Assessment & Plan Assessment & Plan (1) Duodenal ulcer: Code(s): K26.9 - Duodenal ulcer, unspecified as acute or chronic, without hemorrhage or perforation Category: Medical (2) Dysphagia: Code(s): R13.10 - Dysphagia, unspecified Category: Medical Qualifiers: Dysphagia type: pharyngoesophageal phase Qualified Code(s): R13.14 - Dysphagia, pharyngoesophageal phase (3) Gastroesophageal reflux disease: Code(s): K21.9 - Gastro-esophageal reflux disease without esophagitis Qualifiers: Esophagitis presence: without esophagitis Qualified Code(s): K21.9 - Gastro-esophageal reflux disease without esophagitis (4) Diverticular disease: Code(s): K57.90 - Diverticulosis of intestine, part unspecified, without perforation or abscess without bleeding (5) Postprandial abdominal bloating: Code(s): R14.0 - Abdominal distension (gaseous) Plan Message sent to Surgical schedules tubal procedure for patient. We will have him stop taking omeprazole and start Nexium. Avoid dietary triggers. Dysphagia most likely related to disorganized peristalsis. Patient will be sent for upper endoscopy for possible dilation. Stressed the importance of staying upright for minimum 3 hours after meals discussed with patient. After endoscopy he will most likely be sent for modified barium swallow. I will see him after the procedure, sooner on as needed basis. Patient is agreeable to this plan and verbalizes understanding of instructions. He was given the opportunity to ask questions and all questions answered. Thank you for allowing me to participate in his care Medications: New esomeprazole magnesium (Nexium) 40 mg PO DAILY 30 caps 2RF K21.9 - Gastro- esophageal reflux disease without esophagitis Discontinued omeprazole Discontinued Reason: Doctor's Order 20 mg PO DAILY 90 days 90 caps 2RF Coding Level of Care Code Est Pt Level 4 (67022) Complex EM visit Add On G2211 Diagnoses Duodenal ulcer K26.9 Pharyngoesophageal dysphagia R13.14 Dysphagia type: pharyngoesophageal phase Gastroesophageal reflux disease without esophagitis K21.9 Esophagitis presence: without esophagitis Diverticular disease K57.90 Postprandial abdominal bloating R14.0 Time Spent (min) 40 Comment 25 minutes spent with patient and additional 15 minutes spent reviewing his records
[2024-12-02 14:29] VITALS: BP 122/94; PULSE 106; O2SAT 97; BMI 27.9
--- OUTSIDE RECORDS SUMMARY | 2024-12-02 15:02 | XMS_ITS | Encounter Summary ---
Author Organization [employer] Address [address] [facility] [address] [place] [address] Care Team Providers Care Television Engineer Name Role Phone Cheryl Hogan MD Primary Care Provide r Encounter Details Date Type Department Care Team ([facility] Contact Info) Description 03/26/2023 Orders Only [facility] & PEDS [address] [place] [address] So Katz LPN Social History Tobacco Use [...] Care Team (Late st Contact Info) Description 02/08/2025 2:45 PM EDT Office Visit [facility] [address] [place] [address] Cheryl Hogan MD [address] [place] [address] documented as of this encounter Visit Diagnoses Not on filedocumented in this encounter Additional Health Concerns Assessment Noted Time PHQ-9 Depression Total Score: 0 03/05/20 23 3:51 PM EDT documented as of this encounter Care Teams Television Engineer Relationship Specialty Start Date End Date Cheryl Hogan MD [address] [place] [id number] PCP - General Family Medicine 10/11/20 documented as of this encounter
== END 2024-12-02 14:51 | disposition home or self-care (01) ==
LOC: HO.HGI 14:18
PROVIDERS: Visit Provider Nurse Practitioner Family
DX: K26.9 Duodenal ulcer, unspecified as acute or chronic, without hemorrhage or perforation (principal); R13.14 Dysphagia, pharyngoesophageal phase; K21.9 Gastro-esophageal reflux disease without esophagitis; K57.90 Diverticulosis of intestine, part unspecified, without perforation or abscess without bleeding; R14.0 Abdominal distension (gaseous)
CPT/HCPCS: 99214; G2211

== ENCOUNTER → 2024-12-02 14:18 | Outpatient (BNVA) | payer OTHER, SELFPAY | PROVIDERS: Visit Provider Nurse Practitioner Family | DX: K21.9 Gastro-esophageal reflux disease without esophagitis (principal); R13.10 Dysphagia, unspecified; K26.9 Duodenal ulcer, unspecified as acute or chronic, without hemorrhage or perforation; K57.90 Diverticulosis of intestine, part unspecified, without perforation or abscess without bleeding; R14.0 Abdominal distension (gaseous) | CPT/HCPCS: 99212 ==

== ENCOUNTER 2024-12-04 13:25 | Outpatient (AMB) | payer OTHER, SELFPAY ==
--- OUTSIDE RECORDS SUMMARY | 2024-12-04 13:29 | XMS_ITS | Encounter Summary ---
Author Organization [employer] Address [address] [facility] [address] [place] [address] Care Team Providers Care Truck Jumper Name Role Phone Cheryl Hogan MD Primary Care Provide r Encounter Details Date Type Department Care Team ([facility] Contact Info) Description 03/26/2023 Orders Only [facility] MED & PEDS [address] [place] [address] So Katz LPN Social History Tobacco Use [...] Description 02/08/2025 2:45 PM EDT Office Visit [facility] [address] [place] [address] Cheryl Hogan MD [address] [place] [address] documented as of this encounter Visit Diagnoses Not on filedocumented in this encounter Additional Health Concerns Assessment Noted Time PHQ-9 Depression Total Score: 0 03/05/20 23 3:51 PM EDT documented as of this encounter Care Teams Truck Jumper Relationship Specialty Start Date End Date Cheryl Hogan MD [address] [place] [id number] PCP - General Family Medicine 10/11/20 documented as of this encounter
[2024-12-04 13:37] VITALS: BMI 27.8
--- NOTE | 2024-12-04 13:37 | MHC.OFFVIS ---
Vital Signs 12/04/24 13:37 Height 5 ft 6 in Weight 172 lb BMI 27.8 Intake Visit Reasons: PO LT distal radius ORIF 09/30/24 AR Intake Note: Dk is a 79 year old right hand dominant male who presents today for a post operative ROM check s/p Left Distal Radius ORIF 09/30/24. At his last visit he was placed in a velcro wrist brace and given a 2lb weight limit with the left hand. Patient reports occasional morning numbness all around the hand. He has been working on ROM exercises at home, however he finds it painful when making a tight closed fist. He is not taking any pain medications for the left hand at this time. Post Exchange Manager Required: Yes Post Exchange Manager Language: Medical Collector Services: Post Exchange Manager Present Post Exchange Manager Name: JuanaRUBIA/FLORY Allergies fish derived (FISH) Allergy (Intermediate, Verified 12/04/24 13:42) rash/hives HPI HPI PO LT distal radius ORIF 09/30/24 AR: Details: Dk is a 79 year old right hand dominant male who presents today for a post operative ROM check s/p Left Distal Radius ORIF 09/30/24. At his last visit he was placed in a velcro wrist brace and given a 2lb weight limit with the left hand. Patient reports occasional morning numbness all around the hand. He has been working on ROM exercises at home, however he finds it painful when making a tight closed fist. He is not taking any pain medications for the left hand at this time. [facility] Medical History Elevated cholesterol HTN (hypertension) GERD (gastroesophageal reflux disease) Restrictive airway disease Prostate cancer Surgical History Hx of excision of mass (06/25/23) History of open reduction and internal fixation (ORIF) procedure History of esophagogastroduodenoscopy (EGD) Hx of colonoscopy History of cardiac cath Family History Father Throat cancer Mother Diabetes Kidney disease Social History Household Members: Children Housing: Apartment Do you presently have visiting nurse or other home services: No Alcohol intake: never Patient Tobacco Use Status: Former Tobacco user Second Hand Smoke Exposure: No service: No Current occupational status: retired Current occupation: right hand dominant Review of Systems Const All systems reviewed & are unremarkable except as noted in HPI and below Physical Exam Vital Signs: BMI result Body Mass Index 27.8 Const General: no acute distress and alert Orientation/consciousness: patient oriented x3 Neuro General: patient oriented x3 Extrem Other: The patient was alert oriented and in no acute distress The incision is healing well with no erythema drainage or evidence of infection. Sutures removed and Steri-Strips applied No tenderness to palpation about the left distal radius He can bring his fingers closed to a fist and back into extension, without difficulty Full pronation Supination ~90 degrees, without pain Patient is able to gently flex and extend the wrist Sensation is intact Cap refill is brisk Radiographs: 3 views of the left wrist were taken and viewed by me today in clinic. They show a left distal radius fracture with satisfactory fracture alignment and position of all implants. Psych Appearance: grossly normal Affect: normal affect Attitude: cooperative Assessment & Plan Assessment & Plan (1) Distal radius fracture, left: Code(s): S52.502A - Unspecified fracture of the lower end of left radius, initial encounter for closed fracture Category: Medical Plan 1. Status post left distal radius ORIF DOS 09/30/2024 Patient appears to be recovering very well postoperatively Patient is educated about the typical recovery course Patient may begin to slowly increase his weightlifting capacity do approximately 5 lb over the next 4 weeks At this time, patient is sent to occupational therapy to work on gentle range of motion of the left wrist Continue Velcro wrist splint with daytime activities Follow-up in 4 weeks for reassessment and [id number] check, sooner with any acute concerns Coding Level of Care Code Global (83021) Diagnoses Distal radius fracture, left S52.502A
== END 2024-12-04 13:47 | disposition home or self-care (01) ==
LOC: HO.HOS 13:26
PROVIDERS: PCP Internal Medicine
DX: S52.502A Unspecified fracture of the lower end of left radius, initial encounter for closed fracture (principal)
CPT/HCPCS: 99024

== ENCOUNTER → 2024-12-04 13:25 | Outpatient (BNVA) | payer OTHER, SELFPAY | PROVIDERS: PCP Internal Medicine | DX: S52.502A Unspecified fracture of the lower end of left radius, initial encounter for closed fracture (principal); Z98.890 Other specified postprocedural states | CPT/HCPCS: 99212 ==

== ENCOUNTER 2024-12-18 11:31 | Day surgery (SDC) | payer OTHER, SELFPAY ==
--- OUTSIDE RECORDS SUMMARY | 2024-12-11 11:52 | XMS_ITS | Encounter Summary ---
Author Organization [employer] Address [address] [facility] [address] [place] [address] Care Team Providers Care Shop Hand Name Role Phone Cheryl Hogan MD Primary Care Provide r Encounter Details Date Type Department Care Team ([facility] Contact Info) Description 03/26/2023 Orders Only [facility] & PEDS [address] [place] [address] So Katz LPN Social History Tobacco Use [...] Description 02/08/2025 2:45 PM EDT Office Visit [facility] [address] [place] [address] Cheryl Hogan MD [address] [place] [address] documented as of this encounter Visit Diagnoses Not on filedocumented in this encounter Additional Health Concerns Assessment Noted Time PHQ-9 Depression Total Score: 0 03/05/20 23 3:51 PM EDT documented as of this encounter Care Teams Shop Hand Relationship Specialty Start Date End Date Cheryl Hogan MD [address] [place] [id number] PCP - General Family Medicine 10/11/20 documented as of this encounter
[2024-12-16 09:19] VITALS: BMI 27.8
--- NOTE | 2024-12-17 09:07 | HO.ANESPROP2 ---
Documented by User: Catalina Long NP 12/17/24 09:22 HPI - Anesthesia Eval Consult details Narrative: 79yo M for Upper Endoscopy with Balloon Dilitation PMFSH Active Problems Active Problems: All Active Problems Dysphagia (Acute) Fatigue (Acute) GLENN (acute kidney injury) (Acute) Epidermal inclusion cyst (Acute) Duodenal ulcer (Acute) Proteinuria (Acute) FREY (dyspnea on exertion) (Acute) Prostate cancer (Acute) Past Medical History Medical History Elevated cholesterol HTN (hypertension) GERD (gastroesophageal reflux disease) Restrictive airway disease Prostate cancer Family History Family History Father Throat cancer Mother Diabetes Kidney disease Family history of problems with anesthesia: No Surgical History Surgical History Hx of excision of mass (06/25/23) History of open reduction and internal fixation (ORIF) procedure History of esophagogastroduodenoscopy (EGD) Hx of colonoscopy History of cardiac cath History of Problems with Anesthesia: No Social History Social History Household Members: Children Housing: Apartment Do you presently have visiting nurse or other home services: No Alcohol intake: never Patient Tobacco Use Status: Former Tobacco user Second Hand Smoke Exposure: No Use of substances other than those prescribed or required for medical reasons: No Advance Directives: No Advance Directives Information Provided: Yes service: No Current occupational status: retired Current occupation: right hand dominant Meds Allergies Allergy/AdvReac Type Severity Reaction Status Date / Time fish derived (FISH) Allergy Intermediate rash/hives Verified 12/04/24 13:42 Home Medications ?Medication ?Instructions ?Recorded ?Confirmed ?Last Taken ?Type atorvastatin 40 mg tablet 40 mg PO BEDTIME 04/06/21 09/30/24 04/14/24 History cholecalciferol (vitamin D3) 50 100 mcg PO DAILY 02/22/22 09/30/24 04/15/24 History mcg (2,000 unit) tablet melatonin 5 mg tablet 10 mg PO BEDTIME PRN Sleep 03/27/23 09/30/24 Unknown History amlodipine 10 mg tablet 10 mg PO DAILY 04/15/24 09/30/24 04/15/24 History fluticasone propionate 50 1 spray intranasal DAILY 04/15/24 09/30/24 04/15/24 History mcg/actuation nasal spray,suspension Exam Height,Weight and Vital Signs: Height 5 ft 6 in Weight 78.018 kg Pertinent Lab Results Pertinent Lab Results: Laboratory Tests 05/15/24 09/09/24 14:45 12:12 WBC 6.2 Hgb 13.0 L D Hct 37.9 L D Plt Count 218 D Sodium 147 H Potassium 3.6 Chloride 113 H Carbon Dioxide 27 BUN 11 Creatinine 1.09 Assessment and Plan Assessment Anesthesia Assessment: Chart Reviewed Final Anesthetic Review Family History of Problems with Anesthesia: No History of Problems with Anesthesia: No Documented by User: Jua nA Moeller MD 12/18/24 12:31 [facility] Past Medical History Medical History Elevated cholesterol HTN (hypertension) GERD (gastroesophageal reflux disease) Restrictive airway disease Prostate cancer Functional capacity: independent ambulation Family History Family History Father Throat cancer Mother Diabetes Kidney disease Surgical History Surgical History Hx of excision of mass (06/25/23) History of open reduction and internal fixation (ORIF) procedure History of esophagogastroduodenoscopy (EGD) Hx of colonoscopy History of cardiac cath Social History Social History Household Members: Children Housing: Apartment Do you presently have visiting nurse or other home services: No Alcohol intake: never Patient Tobacco Use Status: Former Tobacco user Second Hand Smoke Exposure: No Use of substances other than those prescribed or required for medical reasons: No Advance Directives: No Advance Directives Information Provided: Yes service: No Current occupational status: retired Current occupation: right hand dominant Meds Allergies Allergy/AdvReac Type Severity Reaction Status Date / Time fish derived (FISH) Allergy Intermediate rash/hives Verified 12/04/24 13:42 Home Medications ?Medication ?Instructions ?Recorded ?Confirmed ?Last Taken ?Type atorvastatin 40 mg tablet 40 mg PO BEDTIME 04/06/21 09/30/24 04/14/24 History cholecalciferol (vitamin D3) 50 100 mcg PO DAILY 02/22/22 09/30/24 04/15/24 History mcg (2,000 unit) tablet melatonin 5 mg tablet 10 mg PO BEDTIME PRN Sleep 03/27/23 09/30/24 Unknown History amlodipine 10 mg tablet 10 mg PO DAILY 04/15/24 09/30/24 04/15/24 History fluticasone propionate 50 1 spray intranasal DAILY 04/15/24 09/30/24 04/15/24 History mcg/actuation nasal spray,suspension Exam Exam Date and Time: 12/18/2024 Airway Mallampati Class: II TM Dist: >3cm Neck ROM: Full Partial: Lower (to be removed prior to procedure) Loose/Missing/Broken Teeth: No Heart: rrr Lungs: cta Other: no problems Assessment and Plan Final Anesthetic Review NPO: Yes ASA Class: II Final Preanesthetic Review: No Changes in Pt Med Stat, Meds/Allgs Chart Reviewed, Consent Obtained/Reviewed and Anes Risks/Benef Reviewed Patient Risk: Low Procedure Risk: Low Anesthetic Plan Anesthetic Plan: MAC: Disposition: Standard PACU
[2024-12-18 11:58] VITALS: BP 139/71; PULSE 73; RESP 16; TEMP 36.2; O2SAT 98
[2024-12-18] MEDS: Lactated Ringers 1,000 ML 100 ML IVCONT (12:06)
--- NOTE | 2024-12-18 13:06 | MHC.SHP ---
Pre-Procedural Eval Section A - 24 Hr Update-Section A only Date of Service: 12/18/24 Section B - Complete if H&P > 30 days Chief Complaint: Dysphagia Details of Present Illness: Elevated cholesterol HTN (hypertension) GERD (gastroesophageal reflux disease) Restrictive airway disease Prostate cancer Surgical History Hx of excision of mass (06/25/23) History of open reduction and internal fixation (ORIF) procedure History of esophagogastroduodenoscopy (EGD) Hx of colonoscopy History of cardiac cath Allergies: Allergies Allergy/AdvReac Type Severity Reaction Status Date / Time fish derived (FISH) Allergy Intermediate rash/hives Verified 12/04/24 13:42 Review of Systems Review of Systems Comment: 10 point ROS negative Exam Exam Comment: Gen appear: No acute distress HEENT: no icterus Chest: No overt resp distress Abd: soft, nontender, nondistended Psych: Stable affect, answering questions appropriately Neuro: A/Ox3 noted to move all extremities spontaneously Ext: no peripheral edema Plan I have reviewed the history and physical and performed a pertinent physical examination on my patient. No changes have occurred unless specified. Time Spent With Patient Time: Total time managing care of this patient today ____ minutes.
[2024-12-18 13:48] VITALS: BP 126/73; PULSE 78; RESP 18; TEMP 36.5; O2SAT 96
--- NOTE | 2024-12-18 13:56 | P.OP_ITS ---
Operative Note Operative Note Date of Service: 12/18/24 Narrative: Procedure: Esophagogastroduodenoscopy Endoscopist: Jazmin Hutson MD Indication: Dysphagia Anesthesia Provider: Dr Moellre Anesthesia Type: MAC ?? EGD Procedure:?? The procedure, indications, preparation and potential complications were reviewed with the patient, who indicated understanding and gave written informed consent to proceed. A physical exam was performed. The endoscope was introduced through the mouth, and advanced to the second part of duodenum. The mucosa was carefully examined on slow withdrawal of the endoscope. The patient tolerated the procedure well. There were no immediate complications.? ? EGD Findings:? * Esophagus:? Corkscrew appearance of the esophagus was noted. The Z line was at 35. Middle and lower esophagus forceps biopsies were obtained to rule out eosinophilic esophagitis. * Stomach:? Normal mucosa was noted in the stomach. Retroflexion was performed in the cardia. * Duodenum:? Diffuse redness, edema and erosions were noted in the duodenal bulb and 1st portion of the duodenum. Cold forceps biopsies were taken for hi stology. ? Additional intervention: Soft tip Savary wire was introduced through the biopsy channel of the gastroscope and advanced to the antrum. ?The gastroscope was then backed out. ?Savary Ryan bougie was advanced over the guidewire and the esophagus was dilated from 17 to 19 mm with resistance felt. ?On relook, heme and small supeficial tears were noted at the level of cricopharyngeus, as well as another tear just above the GE junction confirming successful dilation.. ? EGD Impressions:? 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 Recommendations:?? * Follow biopsy results. Our office will call or send a letter with results within 7-10 days. * Continue PPI therapy. Add famotidine 20 mg at night time for maximal antisecretory therapy. * Consider H Pylori testing after 8 weeks of uninterrupted PPI therapy. * Avoid NSAIDs. * Suspect some of the dysphagia is also secondary to muscular discoordination. However, if the dilation helps his symptoms, EGD can be repeated as needed for recurrence of symptoms. Above has been reviewed with the patient.
[2024-12-18 14:03] VITALS: BP 127/70; PULSE 66; RESP 16; TEMP 36.1; O2SAT 99
== END 2024-12-18 14:40 | disposition home or self-care (01) ==
PROVIDERS: PCP Internal Medicine; Visit Provider Internal Medicine
PROC: (CPT 43248; principal; 2024-12-18 13:30)
DX: R13.14 Dysphagia, pharyngoesophageal phase (principal); K22.4 Dyskinesia of esophagus; K29.80 Duodenitis without bleeding; K21.9 Gastro-esophageal reflux disease without esophagitis; I10 Essential (primary) hypertension; E78.5 Hyperlipidemia, unspecified; Z85.46 Personal history of malignant neoplasm of prostate; Z87.891 Personal history of nicotine dependence
CPT/HCPCS: 43248; 43239; 88305; C1769; J2003; J2704; J3010

== ENCOUNTER → 2024-12-18 11:31 | Outpatient (BNV) | payer OTHER, SELFPAY | PROVIDERS: PCP Internal Medicine; Visit Provider Internal Medicine | DX: R13.10 Dysphagia, unspecified (principal); K22.89 Other specified disease of esophagus; K29.80 Duodenitis without bleeding; J38.6 Stenosis of larynx | CPT/HCPCS: 43239; 43248 ==

== ENCOUNTER 2024-12-30 13:11 | Outpatient (AMB) | payer OTHER, SELFPAY ==
--- NOTE | 2024-12-30 13:15 | MHC.OFFVIS ---
Vital Signs 12/30/24 13:16 Height 5 ft 6 in Weight 172 lb BMI 27.8 Intake Visit Reasons: PO LT distal radius ORIF 09/30/24 AR-ROM check Intake Note: Dk is a 79 year old right hand dominant male who presents today post-operatively status post Left Distal Radius ORIF, DOS: 09/30/[address] Davies. At his last visit he was advised to slowly increase his weightlifting capacity do approximately 5 lb and to continue wearing Velcro wrist brace. A referral to OT was placed at the previous visit but the order was rejected. Patient reports today he is doing well. He is still using his Velcro wrist brace for certain activities. He is taking a little pill he has at home for pain, with relief. No further concerns today. Allergies fish derived (FISH) Allergy (Intermediate, Verified 12/30/24 13:19) rash/hives HPI HPI PO LT distal radius ORIF 09/30/24 AR-ROM check: Details: Dk is a 79 year old right hand dominant male who presents today post-operatively status post Left Distal Radius ORIF, DOS: 09/30/[address] Davies. At his last visit he was advised to slowly increase his weightlifting capacity do approximately 5 lb and to continue wearing Velcro wrist brace. A referral to OT was placed at the previous visit but the order was rejected. Patient reports today he is doing well. He is still using his Velcro wrist brace for certain activities. He is taking a little pill he has at home for pain, with relief. No further concerns today. [facility] Medical History Elevated cholesterol HTN (hypertension) GERD (gastroesophageal reflux disease) Restrictive airway disease Prostate cancer Surgical History Hx of excision of mass (06/25/23) History of open reduction and internal fixation (ORIF) procedure History of esophagogastroduodenoscopy (EGD) Hx of colonoscopy History of cardiac cath Family History Father Throat cancer Mother Diabetes Kidney disease Social History Household Members: Children Housing: Apartment Do you presently have visiting nurse or other home services: No Alcohol intake: never Patient Tobacco Use Status: Former Tobacco user Second Hand Smoke Exposure: No service: No Current occupational status: retired Current occupation: right hand dominant Review of Systems Const All systems reviewed & are unremarkable except as noted in HPI and below Physical Exam Vital Signs: BMI result Body Mass Index 27.8 Const General: no acute distress and alert Orientation/consciousness: patient oriented x3 Neuro General: patient oriented x3 Extrem Other: The patient was alert oriented and in no acute distress The incision is healed well with no erythema drainage or evidence of infection. Sutures removed and Steri-Strips applied No tenderness to palpation about the left distal radius He can bring his fingers closed to a fist and back into extension, without difficulty Full pronation Supination ~90 degrees, without pain Patient is able to gently flex and extend the wrist Sensation is intact Cap refill is brisk Psych Appearance: grossly normal Affect: normal affect Attitude: cooperative Assessment & Plan Assessment & Plan (1) Distal radius fracture, left: Code(s): S52.502A - Unspecified fracture of the lower end of left radius, initial encounter for closed fracture Category: Medical Plan 1. Status post left distal radius ORIF DOS 09/30/2024 Patient appears to be recovering very well postoperatively Patient is educated about the typical recovery course Patient may begin to slowly increase his weightlifting capacity to normal lifting for the next 4-6 weeks I do not feel that OT is any longer indicated for this patient, as his range of motion appears to be quite good Continue Velcro wrist splint with daytime activities for the next 2-3 weeks, can wean out over that timeframe Follow-up as needed with any acute concerns Coding Level of Care Code Global (51153) Diagnoses Distal radius fracture, left S52.502A
[2024-12-30 13:16] VITALS: BMI 27.8
--- OUTSIDE RECORDS SUMMARY | 2024-12-30 13:51 | XMS_ITS | Encounter Summary ---
Author Organization [employer] Address [address] [facility] [address] [place] [address] Care Team Providers Care Material Preparation Worker Name Role Phone Cheryl Hogan MD Primary Care Provide r Encounter Details Date Type Department Care Team (Late st Contact Info) Description 12/17/2022 Orders Only [facility] [address] [place] [address] Karey Juan LPN Social History Tobacco Use [...] Description 02/08/2025 2:45 PM EDT Office Visit [facility] [address] [place] [phone] Cheryl Hogan MD [address] [place] [phone] documented as of this encounter Visit Diagnoses Not on filedocumented in this encounter Care Teams Material Preparation Worker Relationship Specialty Start Date End Date Cheryl Hogan MD [address] [place] [phone] PCP - General Family Medicine 10/11/20 documented as of this encounter
--- OUTSIDE RECORDS SUMMARY | 2024-12-30 13:51 | XMS_ITS | Encounter Summary ---
Author Organization [employer] Address [address] [place] [address] Care Team Providers Care Guitar Maker Hand Name Role Phone Cheryl Hogan MD Primary Care Provide r Encounter Details Date Type Department Care Team ( Contact Info) Description 02/10/2024 Orders Only [facility] [address] [place], [place] [phone] Cheryl Hogan MD [address] [place] [address] Hypokalemia (Primary Dx) Social History Tobacco Use [...] is your housing situation today? I have lauranavid piña 03/05/[address] you [...] Description 02/08/2025 2:45 PM EDT Office Visit [facility] [address] [place] [address] Cheryl Hogan MD [address] [place] [address] documented as of this encounter Procedures Procedure Name Priority Date/Time Associated Diagnosis Comments BASIC METABOLIC PANEL Routine 04/14/2024 11:42 AM EST Hypokalemia documented in this encounter Results * (ABNORMAL) Basic Metabolic Panel (04/14/2024 11:42 AM EST) Sodium 141 135 - 145 mmol/L [facility] Potassium 3.1(L) 3.3 - 5.1 mmol/L [facility] Chloride 105 96 - 108 mmol/L [facility] Carbon Dioxide 21(L) 22 - 29 mmol/L [facility] Anion Gap 18 12 - 20 [facility] Urea Nitrogen (BUN) 21(H) 9 - 16 mg/dL [facility] Creatinine, Serum 2.67(H) 0.5 - 1.4 mg/dL [facility] Estimated Glomerular Filt Rate 23 [facility] Comment:Chronic Kidney Disea se: Estimated GFR < 60 mL/min/[id number] Kidney Disease: Estimated GFR < 15 mL/min/1.73m2 Glucose 137(H) 60 - 115 mg/dL [facility] Calcium 9.4 8.4 - 10.2 mg/dL [facility] Blood Venous blood specimen / Unknown 04/14/2024 11:42 AM EST 04/14/2024 1:03 PM EST us Cheryl Richardson MD LAB BLOOD ORDERABLES Final Result [facility] [address] [place] [phone] [phone] documented in this encounter Visit Diagnoses Diagnosis Hypokalemia- Primary Hypopotassemia documented in this encounter Additional Health Concerns Assessment Noted Time PHQ-9 Depression Total Score: 0 03/05/20 23 3:51 PM EDT documented as of this encounter Care Teams Guitar Maker Hand Relationship Specialty Start Date End Date Cheryl Hogan MD [address] [place] [phone] PCP - General Family Medicine 10/11/20 documented as of this encounter
--- OUTSIDE RECORDS SUMMARY | 2024-12-30 13:51 | XMS_ITS | Clinical Summary ---
Author Organization [employer] Address [address] [facility] [address]t [place] [address] Care Team Providers Care Resource Forester Name Role Phone Cheryl Hogan MD Primary Care Provide r Allergies Active Allergy Reactions Criticality Noted Date Comments Fish Allergy 04/01/2023 Medications finasteride (Proscar) 5 MG tablet TAKE 1 TABLET BY MOUTH AT BEDTIME 3 Active omeprazole (PriLOSEC) [address] capsuleIndications :Erosive gastritis with hemorrhage Take 1 capsule (20 mg) by mouth before breakfast. Take 1 capsule by mouth twice daily 30 capsule 11 4 Active amLODIPine (Norvasc) 10 MG tabletIndications: Essential hypertension Take 1 tablet (10 mg) by mouth Once per day. 30 tablet 11 4 Active Blood Pressure kitIndications:Ess ential hypertension 1 each Once per day. 1 kit 4 Active fluticasone (Flonase) 50 MCG/ACT nasal sprayIndications:A llergic rhinitis, unspecified seasonality, unspecified trigger INHALE 1 SPRAY IN EACH NOSTRIL ONCE DAILY IN THE MORNING 16 g 2 4 Active senna (Senokot) 8.6 MG tablet Take 2 tablets by mouth at bedtime. 4 Active GAS RELIEF 125 MG capsule Take 1 capsule by mouth 2 times daily. To four times daily as needed for abdominal pain 4 Active melatonin 5 MG tabletIndications: Primary insomnia TAKE 2 TABLETS BY MOUTH EVERY DAY AT BEDTIME 60 tablet 3 5 Active cholecalciferol VITAMIN D (Vitamin D-3) 50 MCG (1999) tablet TAKE 2 TABLETS BY MOUTH ONCE DAILY IN THE MORNING 180 tablet 3 5 Active atorvastatin (Lipitor) 40 MG tabletIndications: Mixed hyperlipidemia TAKE 1 TABLET BY MOUTH AT BEDTIME 90 tablet 3 5 Active acetaminophen (Tylenol 8 Hour) 650 MG ER tabletIndications: Polyarthralgia Take 2 tablets (1,300 mg) by mouth every 8 (eight) hours if needed for mild pain or moderate pain. Do not crush, chew, or split. 60 tablet 3 5 Active Active Problems Problem Noted Date Diagnosed Date Esophageal dysmotility 09/09/2024 Assessment & Plan (09/09/2024 2:19 PM EDT): I printed the results of the barium swallow and they information of the GI referral and gave it to him Achalasia of esophagus 09/09/2024 Assessment & Plan (11/25/2024 7:53 PM EDT): Patient has upcoming appointment with specialist I advised not to miss this appointment Assessment & Plan (09/09/2024 2:19 PM EDT): I printed the GI referral and give it to him Acute maxillary sinusitis 04/14/2024 Assessment & Plan [...] See HPI Hypokalemia 12/20/2023 Assessment & Plan (09/09/2024 2:18 PM EDT): I will recheck his potassium levels Assessment & Plan (05/30/2024 11:06 AM EST): Trend labs Assessment & Plan (04/14/2024 3:27 PM EST): BMP will be order to monitor electrolytes Assessment & Plan (02/03/2024 4:56 PM EDT): BMP will be re-check Sebaceous cyst 05/27/2023 Polyarthralgia 05/27/2023 Assessment & Plan (09/09/2024 2:17 PM EDT): I advised to take acetaminophen as needed for joint pain Assessment & Plan (12/20/2023 1:09 PM EDT): [...] omeprazole BID x4 weeks Refer to GI Cardio Clinician to avoid alcohol and smoking Duodenal ulcer [...] 01/10/2023 Essential hypertension 03/12/2017 Assessment & Plan (11/25/2024 7:53 PM EDT): I advised: - Aerobic exercise to reduce [...] consulting health care provider Assessment & Plan (09/09/2024 2:17 PM EDT): Today patient forgot to take his blood pressure medication I advised low-sodium diet I advised to take his medication every day without missing any dose Assessment & Plan (04/14/2024 3:27 PM EST): [...] Encounters Date Type Department Care Team Description 12/18/2024 Orders Only GENERIC EXTERNAL DATA DEPARTMENT Provider, Generic External Data 11/25/2024 2:45 PM EDT Office Visit [address] [address] Cheryl Hogan MD Essential hypertension; Polyarthralgia; Achalasia of esophagus 11/25/2024 Travel 11/23/[address] [address] Cheryl Hogan MD Chart Prep from Last 3 Months Immunizations Immunization Administration Dates Next Due Hep A, Adult 09/06/2008,03/12/2008 Hep B, adult 04/27/2010, 9,04/13/2008,03/12 Influenza High-dose Quadriva lent Preservative Free 03/05/2023,02/10/2021 Influenza injectable quadriv alent IIV4 with preservative 02/17/2016 Influenza injectable quadriv alent preservative free 02/06/2017,02/07/2015 Influenza, High Dose Seasona l, Preservative Free 03/18/2018 Influenza, IIV3, injectable 01/22/2011 Influenza, Split (incl. gladys fied surface antigen) 02/09/2013,04/04/2012 Pneumococcal Conjugate PCV [...] Sign Reading Time Taken Comments Blood Pressure 140/72 11/25/2024 2:58 PM EDT Pulse 80 11/25/2024 2:58 PM EDT Temperature 36.6 C (97.8 F) 11/25/2024 2:58 PM EDT Respiratory Rate 18 11/25/2024 2:58 PM EDT Oxygen Saturation 92% 04/14/2024 10:37 AM EST Inhaled Oxygen Concentration - - Weight 77.1 kg (170 lb) 11/25/2024 2:58 PM EDT Height 167.6 cm (5' 6 ) 11/25/2024 2:58 PM EDT Body Mass Index 27.44 11/25/2024 2:58 PM EDT Plan of Treatment Upcoming Encounters Date Type Department Care Team (Late st Contact Info) Description 02/08/2025 2:45 PM EDT Office Visit [facility] [address] [place] [address] Cheryl Hoagn MD [address] [place], [place] [phone] Health Maintenance Due Date Last Done Comments DTaP/Tdap/Td Vaccines (2 - Td or Tdap) 04/27/2020 04/27/2010 RSV Patients and Patients Aged 60 years or older (1 - 1-dose 75+ series) 2021 COVID-19 Vaccine ( season) 2024 04/24/2021, 08/16/2020, 07/19/2020 Influenza Vaccine (#1) 2025 , 02/10/2021, 03/18/2018, Additional history exists Alcohol/Substance Use [...] patient's age to complete this topic Meningococcal B Vaccine Aged Out No l onger eligible based on patient's age to complete [...] Procedure Name Priority Date/Time Associated Diagnosis Comments HEMATOXYLIN AND EOSIN STAIN Routine 12/18/2024 1:40 PM EDT FL GUIDANCE IN OR Routine 09/30/2024 2:3 8 PM EDT LIPID PANEL WITH REFLEX TO DIRECT LDL Routine 12/20/2023 10:25 AM EDT Encounter for preventive care ZZZ HISTORICAL HEPATITIS C AB W/REFL TO HCV RNA, QN, PCR Routine 03/13/2021 10:05 AM EST from Last 3 Months or Most Recently Relevant to Health Maintenance Results * Hematoxylin and Eosin Stain (12/18/2024 1:40 PM EDT) 12/18/2024 1:40 PM EDT 12/18/2024 2:02 PM EDT Mireya [facility] - 12/21/2024 11:35 AM EDT ----- ------- Name: Dk Coffey Age/Sex: 79/M : 1945 Unit#: [id number] Attend Dr: Jazmin Hutson MD Re12/18/24 Status: [facility] Location: [facility] Disch: ----- ------- SPEC : [id number] RECD: 12/18/24-1402 STATUS: EVANGELINA BETANCOURT NUM: [id number] MARY: 12/18/24-13[address] [facility] [address]: Jazmin Hutson MD ENTERED: 12/18/24-141 SP TYPE: Surgical OTHR DR: Cherly Hogan MD ORDERED: HE Stain/3, Gross Micro L4/3 Diagnosis A. Duodenum, biopsy: Duodenal mucosa with predominantly preserved villi and chronic/non-specific duodenitis. B. Esophagus, lower, biopsy: Squamous mucosa with no specific change; no columnar mucosa present. C. Esophagus, middle, biopsy: Squamous mucosa with no specific change; no columnar mucosa present. Clinical History Pre-Op Dx: Dysphagia Post-Op Dx: Duodenitis, esophageal stricture, cricopharyngeal stenosis Microscopic Description Microscopic sections reviewed. Material Received A. Duodenum B. Lower esophagus C. Middle esophagus Gross Description Received in 3 parts. A. Received in formalin labeled duodenum are 2 fragments of pink-griggs soft tissue measuring 0.3 and 0.4 cm in greatest dimension which are wrapped in lens paper and entirely submitted for microscopic examination, 2 pieces in cassette A. B. Received in formalin labeled lower esophagus are 2 fragments of translucent, white soft tissue measuring 0.3 and 0.4 cm in greatest dimension which are wrapped in lens paper and entirely submitted for microscopic examination, 2 pieces in cassette B. C. Received in formalin labeled middle esophagus are 3 fragments of translucent, white soft tissue measuring 0.2-0.3 cm in greatest dimension which are wrapped in lens paper and entirely submitted for microscopic examination, 3 pieces in cassette C. ([facility]) CONTINUED ON NEXT PAGE ----- ------- Name: Dk Coffey Age/Sex: 79/M : 1945 Unit#: [id number] Attend Dr: Jazmin Hutson MD Re12/18/24 Status: [facility] Location: [facility] Disch: ----- ------- SPEC : [id number] RECD: 12/18/24 STATUS: EVANGELINA LEONGuerline NUM: [id number] MARY: 12/18/240 [facility] [address]: Jazmin Hutson MD ENTERED: 12/18/243562 SP TYPE: Surgical OTHR DR: Cheryl Hogan MD ORDERED: HE Stain/3, Gross Micro L4/3 IHC S/NG Disclaimer NOTE: Unless otherwise stated, all tissue is formalin-fixed and paraffin-embedded. Some or all of the immunohistochemical tests reported herein may have been developed and their performance characteristics determined by [facility]. They have not been cleared or approved by the U.S. Food and Drug Administration (FDA). However, the FDA has determined that such clearance or approval is not necessary. This laboratory is certified under the Clinical Laboratory Improvement Amendments of 1988 (CLIA) as qualified to perform high complexity clinical laboratory testing. Copies To: Cheryl Hogan MD [address] [address] Jazmin Hutson MD [facility] [address] [place] [phone] [email or web address] ------- Signed (signature on file) Jeanette Aidan 12/21/24 1135 ----- ------- END OF REPORT us Generic External Data Provider LAB BLOOD ORDERAB LES Final Result [facility] [address] [place] [phone] * FL Guidance in OR (09/30/2024 2:38 PM EDT) Anatomical Region Laterality Modality X-Ray Angiograph y 09/30/2024 2:38 PM EDT Narrative 10/01/2024 7:18 AM EDT [place] [address] Fluoroscopy Report Signed Patient: Dk Coffey MR#: [id number] 238 : 1945 Acct:[id number] Age/Sex: 79 / M ADM Date: 09/30/24 Loc: HO.SSS Attending Dr: Abby Davies MD Ordering Physician: Abby Davies MD Date of Service: 09/30/24 Procedure(s): FL guidance in OR Accession Number(s): [id number] cc: Cheryl Hogan MD; Abby Davies MD EXAMINATION: FL GUIDANCE ONLY HISTORY: Distal radius ORIF left COMPARISON: Correlation is made with plain films of the left wrist dated 09/29/2024. TECHNIQUE: Fluoroscopy time: 16.12 seconds. Cumulative Dose: 0.5222 mGy. DAP: 0.0316 mGym2 Images: 3. FINDINGS: Fluoroscopic spot films of the left wrist demonstrate internal fixation of the previously seen fracture of the distal radius with a sideplate and multiple orthopedic screws. FL/FL guidance in OR IMPRESSION: Fluoroscopy during procedure. Please see procedure report for additional information. Electronically signed by: Aric Parikh MD 10/01/2024 07:15 AM EDT RP Dictated By: Aric Parikh MD Signed By: <Electronically signed by Aric Parikh MD in OV> 10/01/24 0715 DD/ 1438 TD/TT: 09/30/24 1800 [employer] Team Member: Procedure Note Donotuseinterpreter, Image - 10/01/2024 [place] [address] Fluoroscopy Report Signed Patient: Renee Coffey#: [id number] 238 : 1945cct:[id number] Age/Sex: 79 / MADM Date: 09/30/24 Loc: .SSS Attending Dr: Abby Davies MD Ordering Physician: Abby Davies MD Date of Service: 09/30/24 Procedure(s): FL guidance in OR Accession Number(s): [id number] cc: Cheryl Hogan MD; Abby Davies MD EXAMINATION: FL GUIDANCE ONLY HISTORY: Distal radius ORIF left COMPARISON: Correlation is made with plain films of the left wrist dated 09/29/2024. TECHNIQUE: Fluoroscopy time: 16.12 seconds. Cumulative Dose: 0.5222 mGy. DAP: 0.0316 mGym2 Images: 3. FINDINGS: Fluoroscopic spot films of the left wrist demonstrate internal fixation of the previously seen fracture of the distal radius with a sideplate and multiple orthopedic screws. FL/FL guidance in OR IMPRESSION: Fluoroscopy during procedure. Please see procedure report for additional information. Electronically signed by: Aric Parikh MD 10/01/2024 07:15 AM EDT RP Dictated By: Aric Parikh MD Signed By: <Electronically signed by Aric Parikh MD in OV> 10/01/24 0715 DD/ 1438 TD/TT: 09/30/24 1800 [employer] Team Member: us [facility] External Provider IMG IR PROCEDURES Final Result * Lipid Panel with Reflex to Direct LDL (12/20/2023 10:25 AM EDT) Triglycerides 93 <150 mg/dL [facility] Comment:Desirable Triglyceri de: less than 150 mg/dLBorderline High Triglyceride 150-199 mg/dLHigh Triglyceride: 200-499 mg/dLVery High Triglyceride: greater than or equal to 5OO mg/dL Cholesterol 135 <200 mg/dL [facility] Comment:Desirable Cholestero l: less than 200 mg/dLBorderline High Cholesterol: 200-239 mg/dLHigh Cholesterol: greater than 239 mg/dL LDL Cholesterol Calculated 66 <100 mg/dL [facility] Comment:Desirable LDL: less than 100 mg/dLNear Optimal/Above Optimal LDL: 110- 129 mg/dLBorderline High LDL: 130-159 mg/dLHigh LDL: 160-189 mg/dLVery High LDL: greater than or equal to 190 mg/dL HDL Cholesterol 51 >40 mg/dL [facility] Comment:Desirable HDL: great er than 40 mg/dL Note: This HDL assay may give artificially low results in patients with liver disease. Blood 12/20/2023 10:2 5 AM EDT 12/20/2023 1:16 PM EDT us Cheryl Richardson MD LAB BLOOD ORDERABLES Final Result [facility] [address] [place] [phone] * HEPATITIS C AB W/REFL TO HCV RNA, QN, PCR (03/13/2021 10:05 AM EST) HEPATITIS C ANTIBODY NON-REACT [facility] NON-REACT [facility] INDEX 0.02 <1.00 [facility] Comment: HCV antibody was non-reactive. There is no laboratory evidence of HCV infection. In most cases, no further action is required. However, if recent HCV exposure is suspected, a test for HCV RNA (test code 58898) is suggested. For additional information please refer to http://education.140 Proof/faq/QBG78z6 (This link is being provided for informational/ educational purposes only.) 03/13/2021 10:0 5 AM EST Cheryl Richardson MD HISTORICAL/NON ORDERA BLE LABS Final Result [facility] [address] [place] [phone], from Last 3 Months or Most Recently Relevant to Health Maintenance Insurance spring [address] [facility] [employer] [employer] (HMO D-SNP) * Guarantor: Dk Coffey Account Type Relation to Patient Date of Phone Billing Address Personal/Family Self spring [address] * Guarantor: Dk oCffey Account Type Relation to Patient Date of Phone Billing Address Personal/Family Self spring [address] * Guarantor: Dk Coffey Account Type Relation to Patient Date of Phone Billing Address Personal/Family Self spring [address] [address] Care Teams Resource Forester Relationship Specialty Start Date End Date Cheryl Hogan MD [address] [place] [phone] PCP - General Family Medicine 10/11/20
--- OUTSIDE RECORDS SUMMARY | 2024-12-30 13:51 | XMS_ITS | Encounter Summary ---
Author Organization [employer] Address [address] [facility] 7t [place] [address] Care Team Providers Care Optimization Analyst Name Role Phone Cheryl Hogan MD Primary Care Provide r Reason for Visit * Reason Comments Med Refill Encounter Details Date Type Department Care Team ([facility] st Contact Info) Description 07/05/2023 Refill [facility] [address] [place] [address] Cheryl Hogan MD [address] [place] [address] Polyarthralgia Social History Tobacco Use Types Packs/Day [...] Description 02/08/2025 2:45 PM EDT Office Visit [facility] [address] [place] [address] Cheryl Hogan MD [address] [place] [address] documented as of this encounter Visit Diagnoses Diagnosis Polyarthralgia Pain in joint, multiple sites documented in this encounter Additional Health Concerns Assessment Noted Time PHQ-9 Depression Total Score: 0 03/05/20 23 3:51 PM EDT documented as of this encounter Care Teams Optimization Analyst Relationship Specialty Start Date End Date Cheryl Hogan MD [address] [place] [phone] PCP - General Family Medicine 10/11/20 documented as of this encounter
--- OUTSIDE RECORDS SUMMARY | 2024-12-30 13:51 | XMS_ITS | Encounter Summary ---
Author Organization [employer] Address 75 [facility] 7t [place] [address] Care Team Providers Care Pallet Stone Positioner Name Role Phone Cheryl Hogan MD Primary Care Provide r Encounter Details Date Type Department Care Team (Latest Contact Info) Description 06/11/2018 Abstract [facility] CONVERSIONS Dental, Provider, DDS Social History Tobacco [...] Upcoming Encounters Date Type Department Care Team ( Contact Info) Description 02/08/2025 2:45 PM EDT Office Visit [facility] [address] [place] [address] Cheryl Hogan MD [address] [place] [phone] documented as of this encounter Visit Diagnoses Not on filedocumented in this encounter Care Teams Pallet Stone Positioner Relationship Specialty Start Date End Date Cheryl Hogan MD [address] [place] [phone] PCP - General Family Medicine 10/11/20 documented as of this encounter
--- OUTSIDE RECORDS SUMMARY | 2024-12-30 13:51 | XMS_ITS | Encounter Summary ---
Author Organization [employer] [facility] Address [address] [place] [address] 7t [place] [address] Care Team Providers Care Gas Dispenser Name Role Phone Cheryl Hogan MD Primary Care Provide r Reason for Visit * Reason Comments Med Refill Encounter Details Date Type Department Care Team (Late st Contact Info) Description 12/16/2022 Refill [facility] [address] [place] [address] OrestesRebeca, LOST AND FOUND CLERK Mixed hyperlipidemia Social History Tobacco Use Types [...] Description 02/08/2025 2:45 PM EDT Office Visit [facility] [address] [place] [phone] hCeryl Hogan MD [address] [place] [address] documented as of this encounter Visit Diagnoses Diagnosis Mixed hyperlipidemia documented in this encounter Care Teams Gas Dispenser Relationship Specialty Start Date End Date Cheryl Hogan MD [address] [place] [phone] PCP - General Family Medicine 10/11/20 documented as of this encounter
--- OUTSIDE RECORDS SUMMARY | 2024-12-30 13:51 | XMS_ITS | Encounter Summary ---
Author Organization [employer] Address 75 [facility] 7t [place] [address] Care Team Providers Care Double End Tenoner Setter Name Role Phone Cheryl Hogan MD Primary Care Provide r Encounter Details Date Type Department Care Team ([facility] Contact Info) Description 03/26/2023 Orders Only [facility] [address] [place] [address] So Katz LPN Social History Tobacco Use [...] 2:45 PM EDT Office Visit [facility] [address] [place] [address] Cheryl Hogan MD [address] [place] [address] documented as of this encounter Visit Diagnoses Not on filedocumented in this encounter Additional Health Concerns Assessment Noted Time PHQ-9 Depression Total Score: 0 03/05/20 23 3:51 PM EDT documented as of this encounter Care Teams Double End Tenoner Setter Relationship Specialty Start Date End Date Cheryl Hogan MD [address] [place] [phone] PCP - General Family Medicine 10/11/20 documented as of this encounter
== END 2024-12-30 13:29 | disposition home or self-care (01) ==
LOC: HO.HOS 13:11
PROVIDERS: PCP Internal Medicine
DX: S52.502A Unspecified fracture of the lower end of left radius, initial encounter for closed fracture (principal)
CPT/HCPCS: 99213

== ENCOUNTER → 2024-12-30 13:11 | Outpatient (BNVA) | payer OTHER, SELFPAY | PROVIDERS: PCP Internal Medicine | DX: S52.502A Unspecified fracture of the lower end of left radius, initial encounter for closed fracture (principal) | CPT/HCPCS: 99212 ==

== ENCOUNTER 2025-02-08 15:25 | Outpatient (REF) | payer OTHER, SELFPAY ==
--- OUTSIDE RECORDS SUMMARY | 2025-02-08 14:45 | XMS_ITS | Encounter Summary ---
Author Organization [employer] Address [address] [facility] 7[address] [place] [address] Care Team Providers Care Bottle Sorter Name Role Phone Cheryl Hogan MD Primary Care Provide r Encounter Details Date Type Department Care Team ([facility] Contact Info) Description 02/08/2025 2:45 PM EDT Office Visit [facility] [address] [place] [address] Cheryl Hogan MD [address] [place], [place] [phone] Essential hypertension (Primary Dx); Esophageal dysphagia; Esophageal dysmotility; Anxiety; Encounter for immunization; Dietary counseling; Exercise counseling; Encounter for preventive care Social History Tobacco Use Types Packs/Day Years [...] Sign Reading Time Taken Comments Blood Pressure 134/82 02/08/2025 3:04 PM EDT Pulse 101 02/08/2025 2:33 PM EDT Temperature 35.6 C (96.1 F) 02/08/2025 2:33 PM EDT Respiratory Rate 19 02/08/2025 2:33 PM EDT Oxygen Saturation 95% 02/08/2025 2:33 PM EDT Inhaled Oxygen Concentration - - Weight 77.2 kg (170 lb 3.2 oz) 02/08/2025 2:33 P M EDT Height 167.6 cm (5' 6 ) 02/08/2025 2:33 PM EDT Body Mass Index 27.47 02/08/2025 2:33 PM EDT documented in this encounter Progress Notes * Cheryl Richardson MD - 02/08/2025 2:45 PM EDT SUBJECTIVE: Dk Coffey is a 79 y.o. year old male who presents for Physical . Occupation:retired Lives with:daughter Social Hx: denies drinking EtOH, denies smoking cigarettes and denies recreational drug use. 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 HENT: Positive for trouble swallowing and voice change. Negative for congestion, dental problem, drooling, ear discharge, ear pain, facial swelling, hearing loss, mouth sores, nosebleeds, postnasal drip, rhinorrhea, sinus pressure, sinus pain, sneezing, sore throat and tinnitus. Respiratory: Negative. Cardiovascular: Negative. OBJECTIVE: Vitals: 02/08/25 1433 02/08/25 1504 BP: (!) 124/92 134/82 BP Location: Left arm Left arm Patient Position: Sitting BP Cuff Size: Adult Pulse: 101 Resp: 19 Temp: 96.1 ??F (35.6 ??C) TempSrc: Temporal SpO2: 95% Weight: 170 lb 3.2 oz (77.2 kg) Height: 5' 6 (1.676 m) Physical Exam Constitutional: Appearance: Normal appearance. Cardiovascular: Rate and Rhythm: Normal rate and regular rhythm. Pulmonary: Effort: Pulmonary effort is normal. Breath sounds: Normal breath sounds. Abdominal: General: Abdomen is flat. Palpations: Abdomen is soft. Musculoskeletal: Right lower leg: No edema. Left lower leg: No edema. Neurological: Mental Status: He is alert. Follow Up: No follow-ups on file. Medications Ordered Prior to Encounter[3] Problem List Items Addressed This Visit Esophageal dysphagia Counseling was done regarding routine for eating, it is better if he has a poor diet he eats alwaysupright and he needs to be maintained in an upright position 3 hours after eating I will prescribe for him Ensure/boost/genetic supplement 1 can daily Advised to continue to follow-up with specialist Esophageal dysmotility Counseling was done regarding routine for eating, it is better if he has a poor diet he eats alwaysupright and he needs to be maintained in an upright position 3 hours after eating I will prescribe for him Ensure/boost/genetic supplement 1 can daily Anxiety Counseling done I decided to start him on mirtazapine 7.5 mg at bedtime Relevant Medications mirtazapine (Remeron) 7.5 MG tablet Essential hypertension - Primary Advised: - Aerobic exercise to reduce BP. Initial goal of 30 min walk 3-5x/week. Increase as tolerated. - low-sodium diet (goal: <2g/day) and heart healthy diet such as DASH to reduce BP and prevent ASCVD. - Home BP monitoring 1-2 x day with goal of <140/90. - Seek immediate medical attention for chest pain, palpitations, SOB, syncope, or sudden changes inmental status. - Do not change or discontinue current prescriptions without first consulting health care provider Encounter for preventive care See HPI Other Visit Diagnoses Encounter for immunization Relevant Orders FLU VACCINE TRIVALENT HIGH DOSE [id number] (Fluzone) 65 yrs + (Completed) Dietary counseling Exercise counseling [1] Patient Active Problem List Diagnosis Raised prostate specific antigen Overweight (BMI 25.0-29.9) Osteoarthritis of multiple joints Inflammation of small intestine Hypoalphalipoproteinemia Near syncope Essential hypertension Hypertensive disorder Esophageal dysphagia Dyspnea on exertion Allergic rhinitis Alkaline phosphatase elevation Primary insomnia Precordial pain Erosive gastritis with hemorrhage Duodenal ulcer Sebaceous cyst Polyarthralgia Primary osteoarthritis of both knees Dizziness Dizziness and giddiness Encounter for preventive care Hypokalemia Acute maxillary sinusitis Sinus tachycardia Esophageal dysmotility Achalasia of esophagus Anxiety [2] No family history on file. [3] Current Outpatient Medications on File Prior to Visit Medication Sig Dispense Refill acetaminophen (Tylenol 8 Hour) 650 MG ER tablet Take 2 tablets (1,300 mg) by mouth every 8 (eight) hours if needed for mild pain or moderate pain. Do not crush, chew, or split. 60 tablet 3 amLODIPine (Norvasc) 10 MG tablet Take 1 tablet (10 mg) by mouth Once per day. 30 tablet 11 atorvastatin (Lipitor) 40 MG tablet TAKE 1 TABLET BY MOUTH AT BEDTIME 90 tablet 3 Blood Pressure kit 1 each Once per day. 1 kit 0 cholecalciferol VITAMIN D (Vitamin D-3) 50 MCG (1999 UT) tablet TAKE 2 TABLETS BY MOUTH ONCE DAILY IN THE MORNING 180 tablet 3 finasteride (Proscar) 5 MG tablet TAKE 1 TABLET BY MOUTH AT BEDTIME fluticasone (Flonase) 50 MCG/ACT nasal spray INHALE 1 SPRAY IN EACH NOSTRIL ONCE DAILY IN THE MORNING 16 g 2 GAS RELIEF 125 MG capsule Take 1 capsule by mouth 2 times daily. To four times daily as needed for abdominal pain melatonin 5 MG tablet TAKE 2 TABLETS BY MOUTH EVERY DAY AT BEDTIME 60 tablet 3 omeprazole (PriLOSEC) [address] capsule Take 1 capsule (20 mg) by mouth before breakfast. Take 1 capsule by mouth twice daily 30 capsule 11 senna (Senokot) 8.6 MG tablet Take 2 tablets by mouth at bedtime. No current facility-administered medications on file prior to visit. documented in this encounter Miscellaneous Notes * Assessment & Plan Note - Cheryl Richardson MD - 02/08/2025 4:29 PM EDT Associated Problem(s): Encounter for preventive care See HPI * Assessment & Plan Note - Cheryl Richardson MD - 02/08/2025 4:28 PM EDT Associated Problem(s): Essential hypertension Advised: - Aerobic exercise to reduce BP. Initial goal of 30 min walk 3-5x/week. Increase as tolerated. - low-sodium diet (goal: <2g/day) and heart healthy diet such as DASH to reduce BP and prevent ASCVD. - Home BP monitoring 1-2 x day with goal of <140/90. - Seek immediate medical attention for chest pain, palpitations, SOB, syncope, or sudden changes inmental status. - Do not change or discontinue current prescriptions without first consulting health care provider * Assessment & Plan Note - Cheryl Richardson MD - 02/08/2025 4:28 PM EDT Associated Problem(s): Anxiety Counseling done I decided to start him on mirtazapine 7.5 mg at bedtime * Assessment & Plan Note - Cheryl Richardson MD - 02/08/2025 4:27 PM EDT Associated Problem(s): Esophageal dysphagia Counseling was done regarding routine for eating, it is better if he has a poor diet he eats alwaysupright and he needs to be maintained in an upright position 3 hours after eating I will prescribe for him Ensure/boost/genetic supplement 1 can daily Advised to continue to follow-up with specialist * Assessment & Plan Note - Cheryl Richardson MD - 02/08/2025 4:27 PM EDT Associated Problem(s): Esophageal dysmotility Counseling was done regarding routine for eating, it is better if he has a poor diet he eats alwaysupright and he needs to be maintained in an upright position 3 hours after eating I will prescribe for him Ensure/boost/genetic supplement 1 can daily documented in this encounter Plan of Treatment Not on file documented as of this encounter Visit Diagnoses Diagnosis Essential hypertension- Primary Unspecified essential hypertension Esophageal dysphagia Dysphagia, pharyngoesophageal phase Esophageal dysmotility Dyskinesia of esophagus Anxiety Anxiety state, unspecified Encounter for immunization Dietary counseling Dietary surveillance and counseling Exercise counseling Encounter for preventive care documented in this encounter Additional Health Concerns Assessment Noted Time PHQ-9 Depression Total Score: 0 04/14/20 24 10:38 AM EST documented as of this encounter Care Teams Bottle Sorter Relationship Specialty Start Date End Date Cheryl Hogan MD [address] [place] [id number] PCP - General Family Medicine 10/11/20 documented as of this encounter
[2025-02-08 16:32] LABS: Anion Gap 11 (12-20); Blood Urea Nitrogen 23 mg/dL (9-16); Calcium 8.9 mg/dL (8.4-10.2); Carbon Dioxide 22 mmol/L (22-29); Chloride 107 mmol/L (96-108); Cholesterol 150 mg/dL (<200); Estimated Glomerular Filt Rate 44; HDL Cholesterol 46 mg/dL (>40); Potassium 3.2 mmol/L (3.3-5.1); Sodium 137 mmol/L (135-145); Triglycerides 109 mg/dL (<150)
--- OUTSIDE RECORDS SUMMARY | 2025-02-08 17:49 | XMS_ITS | Encounter Summary ---
Author Organization [employer] Address [address] [facility] 7t [place] [address] Care Team Providers Care Manufacturing Sr Engineer Name Role Phone Cheryl Hogan MD Primary Care Provide r Encounter Details Date Type Department Care Team ([facility] Contact Info) Description 03/26/2023 Orders Only [facility] [address] [place] [address] So Katz LPN Social History Tobacco Use [...] documented as of this encounter Care Teams Manufacturing Sr Engineer Relationship Specialty Start Date End Date Cheryl Hogan MD [address] [place] [phone] PCP - General Family Medicine 10/11/20 documented as of this encounter
--- OUTSIDE RECORDS SUMMARY | 2025-02-08 17:49 | XMS_ITS | Encounter Summary ---
Author Organization [employer] Address [address] [facility] [address]t [place] [address] Care Team Providers Care Psychiatry Instructor Name Role Phone Cheryl Hogan MD Primary Care Provide r Reason for Visit * Reason Comments Med Refill Encounter Details Date Type Department Care Team ([facility] st Contact Info) Description 07/05/2023 Refill [facility] [address] [place] [address] Cheryl Hogan MD [address] [place] [address] Polyarthralgia Social History Tobacco Use Types Packs/Day [...] documented as of this encounter Care Teams Psychiatry Instructor Relationship Specialty Start Date End Date Cheryl Hogan MD [address] [place] [phone] PCP - General Family Medicine 10/11/20 documented as of this encounter
--- OUTSIDE RECORDS SUMMARY | 2025-02-08 17:49 | XMS_ITS | Encounter Summary ---
Author Organization [employer] Address [address] [facility] [address] [place] [address] Care Team Providers Care Roll Filler Name Role Phone Cheryl Hogan MD Primary Care Provide r Encounter Details Date Type Department Care Team ([facility] Contact Info) Description 12/17/2022 Orders Only [facility] [address] [place] [address] Karey Juan LPN Social History Tobacco Use [...] on filedocumented in this encounter Care Teams Roll Filler Relationship Specialty Start Date End Date Cheryl Hogan MD [address] [place] [phone] PCP - General Family Medicine 10/11/20 documented as of this encounter
--- OUTSIDE RECORDS SUMMARY | 2025-02-08 17:49 | XMS_ITS | Encounter Summary ---
Author Organization [employer] Address [address] [facility] [address] [place] [address] Care Team Providers Care Refrigerated National Truck Driver Name Role Phone Cheryl Hogan MD Primary Care Provide r Encounter Details Date Type Department Care Team ( Contact Info) Description 02/10/2024 Orders Only [facility] [address] [place], [place] [phone] Cheryl Hogan MD [address] [place] [address] Hypokalemia (Primary Dx) Social History Tobacco Use [...] EST) Sodium 141 135 - 145 mmol/L [facility] Potassium 3.1(L) 3.3 - 5.1 mmol/L [facility] Chloride 105 96 - 108 mmol/L [facility] Carbon Dioxide 21(L) 22 - 29 mmol/L [facility] Anion Gap 18 12 - 20 [facility] Urea Nitrogen (BUN) 21(H) 9 - 16 mg/dL [facility] Creatinine, Serum 2.67(H) 0.5 - 1.4 mg/dL [facility] Estimated Glomerular Filt Rate 23 [facility] Comment:Chronic Kidney Disea se: Estimated GFR < 60 mL/min/1.10g1Gianmz Kidney Disease: Estimated GFR < 15 mL/min/1.73m2 Glucose 137(H) 60 - 115 mg/dL [facility] Calcium 9.4 8.4 - 10.2 mg/dL [facility] Blood Venous blood specimen / Unknown 04/14/2024 11:42 AM EST 04/14/2024 1:03 PM EST us Cheryl Richardson MD LAB BLOOD ORDERABLES Final Result [facility] [address] [place] [address] [phone] documented in this encounter Visit Diagnoses Diagnosis Hypokalemia- Primary Hypopotassemia documented in this encounter Additional Health Concerns Assessment Noted Time PHQ-9 Depression Total Score: 0 03/05/20 23 3:51 PM EDT documented as of this encounter Care Teams Refrigerated National Truck Driver Relationship Specialty Start Date End Date Cheryl Hogan MD [address] [place] [phone] PCP - General Family Medicine 10/11/20 documented as of this encounter
--- OUTSIDE RECORDS SUMMARY | 2025-02-08 17:49 | XMS_ITS | Clinical Summary ---
Author Organization ? [employer] Address [address] [facility] 7[address] [place] [address] Care Team Providers Care Supervisor Cutting And Sewing Room Name Role Phone Cheryl Hogan MD Primary [...] or split. 60 tablet 3 5 Active mirtazapine (Remeron) 7.5 MG tabletIndications: Anxiety Take 1 tablet (7.5 mg) by mouth at bedtime. 30 tablet 2 5 05/09/19 26 Active Active Problems Problem Noted Date Diagnosed Date Anxiety 02/08/2025 Assessment & Plan (02/08/2025 4:28 PM EDT): Counseling done I decided to start him on mirtazapine 7.5 mg at bedtime Esophageal dysmotility 09/09/2024 Assessment & Plan (02/08/2025 4:27 PM EDT): Counseling was done regarding routine for eating, it is better if he has a poor diet he eats always upright and he needs to be maintained in an upright position 3 hours after eating I will prescribe for him Ensure/boost/genetic supplement 1 can daily Assessment & Plan (09/09/2024 2:19 PM EDT): [...] for preventive care 12/20/2023 Assessment & Plan (02/08/2025 4:29 PM EDT): See HPI Assessment & Plan (12/20/2023 1:10 PM EDT): [...] Overview (04/03/2023): Sp EGD 03/27/23, cauterization/GIB Neg Nitin Assessment & Plan (05/28/2023 9:36 AM EST): [...] omeprazole BID x4 weeks Refer to GI School Lunch Manager to avoid alcohol and smoking Duodenal ulcer 04/03/2023 Overview (04/03/2023): Sp EGD 03/27/23, cauterization/GIB Assessment & Plan (04/03/2023 11:45 AM EST): See above Primary insomnia 03/05/2023 Precordial pain 03/05/2023 Near syncope 01/10/2023 Hypertensive disorder 01/10/2023 Esophageal dysphagia 01/10/2023 Assessment & Plan (02/08/2025 4:27 PM EDT): Counseling was done regarding routine for eating, it is better if he has a poor diet he eats always upright and he needs to be maintained in an upright position 3 hours after eating I will prescribe for him Ensure/boost/genetic supplement 1 can daily Advised to continue to follow-up with specialist Assessment & Plan (05/30/2024 11:06 AM EST): Pt with demonstrated tortuous esophagus, Barium swallow ordered Referral to GI Pt educated regarding food precautions and s/s of aspiration Dyspnea on exertion 01/10/2023 Essential hypertension 03/12/2017 Assessment & Plan (02/08/2025 4:28 PM EDT): Advised: - Aerobic exercise to reduce BP. 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 Inflammation of small intestine 02/22/2012 Osteoarthritis of multiple joints 01/29/2012 Raised prostate specific antigen 10/16/2011 Allergic rhinitis 09/27/2011 Resolved Problems Problem Noted Date Diagnosed Date Resolved Date Malignant tumor of prostate (CMS/HCC) 08/06/2012 02/08/2025 Encounters Date Type Department Care Team Description 02/08/2025 2:45 PM EDT Office Visit [address] [address] Cheryl Hogan MD Essential hypertension (Primary Dx); Esophageal dysphagia; Esophageal dysmotility; Anxiety; Encounter for immunization; Dietary counseling; Exercise counseling; Encounter for preventive care 02/08/2025 Orders Only [address] [address] Cheryl Hogan MD 02/08/2025 Travel 01/20/[address] [address] Cheryl Hogan MD fyi 12/18/2024 Orders Only GENERIC EXTERNAL DATA DEPARTMENT Provider, Generic External Data 11/25/2024 2:45 PM EDT Office Visit [address] [address] Cheryl Hogan MD Essential hypertension; Polyarthralgia; Achalasia of esophagus 11/25/2024 Travel 11/23/[address] [address] Cheryl Hogan MD Chart Prep from Last 3 Months Immunizations Immunization Administration Dates Next Due Hep A, Adult 09/06/2008,03/12/2008 Hep B, adult 04/27/2010, 9,04/13/2008,03/12 Influenza High-dose Quadriva lent Preservative Free 03/05/2023,02/10/2021 Influenza injectable quadriv alent IIV4 with preservative 02/17/2016 Influenza injectable quadriv alent preservative free 02/06/2017,02/07/2015 Influenza, High Dose Seasona l, Preservative Free 02/08/2025,03/18/2018 Influenza, IIV3, injectable 01/22/2011 Influenza, Split (incl. [...] Mass Index 27.47 02/08/2025 2:33 PM EDT Plan of Treatment Health Maintenance Due Date Last Done Comments DTaP/Tdap/Td Vaccines (2 - Td or Tdap) 04/27/2020 04/27/2010 RSV Patients and Patients Aged 60 years or older (1 - 1-dose 75+ series) 2021 COVID-19 Vaccine ( season) 2025 04/24/2021, 08/16/2020, 07/19/2020 Alcohol/Substance Use Screening 04/14/2025 04/14/2024 Depression Screening 04/14/2025 04/14/2024, 04/14/20 24 SDOH Screening 09/02/2025 09/02/2024 Tobacco Screening 02/08/2026 02/08/2025 Lipid Panel 02/08/2030 02/08/2025, 08/10/2023, 03/06/2023, Additional history exists Hepatitis A Vaccines Aged Out 09/06/2008, 03/12/20 08 No longer eligible based on patient's age to complete this topic Hepatitis B Vaccines Completed 04/27/2010, 09/06/2008, 04/13/2008, Additional history exists Pneumococcal Vaccine: 50+ Years Completed 10/14/2018, 02/07/2015 Zoster Vaccines Completed 04/07/2019, 01/05, 04/25/2015 Hepatitis C Screening Completed 03/13/2021 Influenza Vaccine Completed 02/08/2025, , 02/10/2021, Additional history exists HIB Vaccines Aged Out No longer eligi [...] Associated Diagnosis Comments BASIC METABOLIC PANEL Routine 02/08/2025 3:29 PM EDT LIPID PANEL, STANDARD Routine 02/08/2025 3:29 PM EDT Essential hypertension HEMATOXYLIN AND EOSIN STAIN Routine 12/18/2024 1:40 PM EDT ZZZ HISTORICAL HEPATITIS C AB W/REFL TO HCV RNA, QN, PCR Routine 03/13/2021 10:05 AM EST from Last 3 Months or Most Recently Relevant to Health Maintenance Results * Lipid Panel, Standard (02/08/2025 3:29 PM EDT) Triglycerides 109 <150 mg/dL [facility] Comment:Desirable Triglyceri de: less than 150 mg/dLBorderline High Triglyceride 150-199 mg/dLHigh Triglyceride: 200-499 mg/dLVery High Triglyceride: greater than or equal to 5OO mg/dL Cholesterol 150 <200 mg/dL [facility] Comment:Desirable Cholestero l: less than 200 mg/dLBorderline High Cholesterol: 200-239 mg/dLHigh Cholesterol: greater than 239 mg/dL LDL Cholesterol Calculated 83 <100 mg/dL [facility] Comment:Desirable LDL: less than 100 mg/dLNear Optimal/Above Optimal LDL: 110- 129 mg/dLBorderline High LDL: 130-159 mg/dLHigh LDL: 160-189 mg/dLVery High LDL: greater than or equal to 190 mg/dL HDL Cholesterol 46 >40 mg/dL [facility] Comment:Desirable HDL: great er than 40 mg/dL Note: This HDL assay may give artificially low results in patients with liver disease. Blood Venous blood specimen / Unknown 02/08/2025 3:29 PM EDT 02/08/2025 4:03 PM EDT us Cheryl Richardson MD LAB BLOOD ORDERABLES Final Result [facility] [address] [place] [phone] * (ABNORMAL) Basic Metabolic Panel (02/08/2025 3:29 PM EDT) Sodium 137 135 - 145 mmol/L [facility] Potassium 3.2(L) 3.3 - 5.1 mmol/L [facility] Chloride 107 96 - 108 mmol/L [facility] Carbon Dioxide 22 22 - 29 mmol/L [facility] Anion Gap 11(L) 12 - 20 [facility] Urea Nitrogen (BUN) 23(H) 9 - 16 mg/dL [facility] Creatinine, Serum 1.55(H) 0.5 - 1.4 mg/dL [facility] Estimated Glomerular Filt Rate 44 [facility] Comment:Chronic Kidney Disea se: Estimated GFR < 60 mL/min/1.67h7Lndgev Kidney Disease: Estimated GFR < 15 mL/min/1.73m2 Glucose 115 60 - 115 mg/dL [facility] Calcium 8.9 8.4 - 10.2 mg/dL [facility] 02/08/2025 3:29 PM EDT 02/08/2025 4:03 PM EDT us Cheryl Richardson MD LAB BLOOD ORDERABLES Final Result [facility] [address] [place] [address] [phone] * Hematoxylin and Eosin Stain (12/18/2024 1:40 PM EDT) 12/18/2024 1:40 PM EDT 12/18/2024 2:02 PM EDT Mireya [facility] - 12/21/2024 11:35 AM EDT ----- ------- Name: Dk Coffey Age/Sex: 79/M : 1945 Unit#: [id number] Attend Dr: Jazmin Hutson MD Re12/18/24 Status: [facility] Location: [facility] Disch: ----- ------- SPEC : [id number] RECD: 12/18/24 STATUS: EVANGELINA BETANCOURT NUM: [id number] MARY: 12/18/[address] [facility] [address]: Jazmin Hutson MD ENTERED: 12/18/24 SP TYPE: Surgical OTHR DR: Cheryl Hogan [...] microscopic examination, 3 pieces in cassette C. ([facility]) CONTINUED ON NEXT PAGE ----- ------- Name: Dk Coffey Age/Sex: 79/M : 1945 Unit#: [id number] Attend Dr: Jazmin Hutson MD Re12/18/24 Status: [facility] Location: [facility] Disch: ----- ------- SPEC : [id number] RECD: 12/18/24-7017 STATUS: EVANGELINA BETANCOURT NUM: [id number] MARY: 12/18/24-0 [facility] DR: Jazmin Hutson MD ENTERED: 12/18/243647 SP TYPE: Surgical OTHR DR: Cheryl Hogan MD ORDERED: HE Stain/3, Gross Micro L4/3 IHC S/NG Disclaimer NOTE: Unless otherwise stated, all tissue is formalin-fixed and paraffin-embedded. Some or all of the immunohistochemical tests reported herein may have been developed and their performance characteristics determined by Laboratory. They have not been cleared or approved by the U.S. Food and Drug Administration (FDA). However, the FDA has determined that such clearance or approval is not necessary. This laboratory is certified under the Clinical Laboratory Improvement Amendments of 1988 (CLIA) as qualified to perform high complexity clinical laboratory testing. Copies To: Cheryl Hogan MD [address] [address] Jazmin Hutson MD [facility] [address] [place] [phone] [email or web address] ----- ------- Signed (signature on file) Jeanette Cub Run 12/21/24 1135 ----- ------- END OF REPORT us Generic External Data Provider LAB BLOOD ORDERAB LES Final Result [facility] [address] [place] [address] [phone] * HEPATITIS C AB W/REFL TO HCV RNA, QN, PCR (03/13/2021 10:05 AM EST) HEPATITIS C ANTIBODY NON-REACT ANGELICA NON-REACT ANGELICA [facility] INDEX 0.02 <1.00 [facility] Comment: HCV antibody was non-reactive. There is no laboratory evidence of HCV infection. In most cases, no further action is required. However, if recent HCV exposure is suspected, a test for HCV RNA (test code 50694) is suggested. For additional information please refer to http://education.[employer]/faq/BDL26i1 (This link is being provided for informational/ educational purposes only.) 03/13/2021 10:0 5 AM EST us Cheryl Richardson MD HISTORICAL/NON ORDERA BLE LABS Final Result [facility] [address] [place] [address], from Last 3 Months or Most Recently Relevant to Health Maintenance Insurance spring [address] [facility] USP OPTIONS (O D-SNP) GARO FISHER [id number] * Guarantor: Dk Coffey Account Type Relation to Patient Date of Phone Billing Address Personal/Family Self spring [address] * Guarantor: Dk Coffey Account Type Relation to Patient Date of Phone Billing Address Personal/Family Self spring [address] * Guarantor: Dk Coffey Account Type Relation to Patient Date of Phone Billing Address Personal/Family Self spring [address] Care Teams Supervisor Cutting And Sewing Room Relationship Specialty Start Date End Date Cheryl Hogan MD [address] [place] [phone] PCP - General Family Medicine 10/11/20
--- OUTSIDE RECORDS SUMMARY | 2025-02-08 17:49 | XMS_ITS | Encounter Summary ---
Author Organization [employer] Address [address] [facility] 7t [place] [address] Care Team Providers Care Astrochemist Name Role Phone hCeryl Hogan MD Primary Care Provide r Reason for Visit * Reason Comments Med Refill Encounter Details Date Type Department Care Team ([facility] st Contact Info) Description 12/16/2022 Refill [facility] [address] [place] [address] Rebeca Carlisle, MAYUR Mixed hyperlipidemia Social History Tobacco Use Types [...] hyperlipidemia documented in this encounter Care Teams Astrochemist Relationship Specialty Start Date End Date Cheryl Hogan MD [address] [place] [address] PCP - General Family Medicine 10/11/20 documented as of this encounter
--- OUTSIDE RECORDS SUMMARY | 2025-02-08 17:49 | XMS_ITS | Encounter Summary ---
Author Organization [employer] Address [address] [facility] [address] [place] [address] Care Team Providers Care Talent Coordinator Name Role Phone Cheryl Hogan MD Primary Care Provide r Encounter Details Date Type Department Care Team (Latest Contact Info) Description 02/08/2025 Travel Social History Tobacco Use Types Packs/Day Years [...] documented as of this encounter Care Teams Talent Coordinator Relationship Specialty Start Date End Date hCeryl Hogan MD [address] [place] [address] PCP - General Family Medicine 10/11/20 documented as of this encounter
--- OUTSIDE RECORDS SUMMARY | 2025-02-08 17:49 | XMS_ITS | Encounter Summary ---
Author Organization [employer] Address [address] [facility] [address]t [place] [address] Care Team Providers Care Admin Secretary Name Role Phone Cheryl Hogan MD Primary Care Provide r Encounter Details Date Type Department Care Team (Latest Contact Info) Description 06/11/2018 Abstract [facility] CONVERSIONS Dental, Provider, DDS Social History Tobacco [...] on filedocumented in this encounter Care Teams Admin Secretary Relationship Specialty Start Date End Date Cheryl Hogan MD [address] [place] [phone] PCP - General Family Medicine 10/11/20 documented as of this encounter
--- OUTSIDE RECORDS SUMMARY | 2025-02-08 17:49 | XMS_ITS | Encounter Summary ---
Author Organization [employer] Address [address] [facility] [address]t [place] [address] Care Team Providers Care Pipe Stem Aligner Name Role Phone Cheryl Hogan MD Primary Care Provide r Encounter Details Date Type Department Care Team ([facility] st Contact Info) Description 02/08/2025 Orders Only [facility] [address] [place] [address] Cheryl Hogan MD [address] [place] [address] Social History Tobacco Use Types Packs/Day Years [...] METABOLIC PANEL Routine 02/08/2025 3:29 PM EDT documented in this encounter Results * (ABNORMAL) Basic Metabolic Panel (02/08/2025 3:29 PM EDT) Sodium 137 135 - 145 mmol/L [facility] Potassium 3.2(L) 3.3 - 5.1 mmol/L [facility] Chloride 107 96 - 108 mmol/L [facility] Carbon Dioxide 22 22 - 29 mmol/L [facility] Anion Gap 11(L) 12 - 20 [facility] Urea Nitrogen (BUN) 23(H) 9 - 16 mg/dL [facility] Creatinine, Serum 1.55(H) 0.5 - 1.4 mg/dL [facility] Estimated Glomerular Filt Rate 44 [facility] Comment:Chronic Kidney Disea se: Estimated GFR < 60 mL/min/1.14b5Uadznp Kidney Disease: Estimated GFR < 15 mL/min/1.73m2 Glucose 115 60 - 115 mg/dL [facility] Calcium 8.9 8.4 - 10.2 mg/dL [facility] 02/08/2025 3:29 PM EDT 02/08/2025 4:03 PM EDT Cheryl Richardson MD LAB BLOOD ORDERABLES Final Result [facility] [address] [place] [phone] [phone] documented in this encounter Visit Diagnoses Not on filedocumented in this encounter Additional Health Concerns Assessment Noted Time PHQ-9 Depression Total Score: 0 04/14/20 24 10:38 AM EST documented as of this encounter Care Teams Pipe Stem Aligner Relationship Specialty Start Date End Date Cheryl Hogan MD [address] [place] [address] PCP - General Family Medicine 10/11/20 documented as of this encounter
[2025-02-08 18:17] LABS: Prostate Specific Antigen 0.37 ng/mL (<0.05-4.0)
== END 2025-02-08 15:26 | disposition home or self-care (01) ==
LOC: HO.HHCL 15:25
PROVIDERS: Nurse Practitioner Family; PCP Internal Medicine; Visit Provider Internal Medicine
DX: Z12.5 Encounter for screening for malignant neoplasm of prostate (principal); I10 Essential (primary) hypertension; C61 Malignant neoplasm of prostate; E87.6 Hypokalemia
CPT/HCPCS: 36415; 80048; 80061; 84153; 84403

== ENCOUNTER 2025-03-09 10:28 | Outpatient (AMB) | payer OTHER, SELFPAY ==
--- NOTE | 2025-03-09 10:27 | HO.NEPHOV_ITS ---
Vital Signs 03/09/25 10:28 Height 5 ft 6 in Weight 168 lb BMI 27.1 BP 118/82 Blood Pressure Location Lt brachial Position Sitting Pulse 112 H Pulse Source Pulse Oximeter Pulse Oximetry (%) 95 Oxygen Delivery Method Room Air Intake Visit Reasons: Hypokalemia, Acute kidney injury superimposed Space Control Supervisor Required: Yes Space Control Supervisor Name: Stone [id number] Accompanied by: Self / Same As Patient Allergies fish derived (FISH) Allergy (Intermediate, Verified 03/09/25 10:30) rash/hives Medication List - Last Reconciled 03/09/25 by Jose A Piper MD amlodipine 10 mg PO DAILY atorvastatin 40 mg PO BEDTIME cholecalciferol (vitamin D3) 100 mcg PO DAILY famotidine 20 mg PO BEDTIME 90 days finasteride 5 mg PO DAILY 90 days fluticasone propionate 50 mcg/actuation 1 spray intranasal DAILY melatonin 10 mg PO BEDTIME PRN mirtazapine 7.5 mg PO BEDTIME omeprazole 20 mg PO DAILY potassium chloride ER 20 mEq PO BID sennosides (senna) 17.2 mg (2 x 8.6 mg) PO BEDTIME simethicone (Gas Relief Extra Strength) 125 mg PO BID-QID HPI Comments Details: The patient is a 79-year-old male . Usually serum creatinine is around 1.1 mg/dL or less. Recent creatinine was 1.55. He has a history of prostate cancer. He has been followed by Urology. Status post radiation therapy 2012 Has been managed with intermittent hormone therapy In 2023 he had acute kidney injury with a creatinine of 2.5 which later returned to baseline. The patient denies urinary symptoms and reports no respiratory or significant cardiac issues, though he has occasional hypertension. In 2021, a coronary angiogram showed mild coronary artery stenosis- 60% proximal circumflex. History of hypertension He is on amlodipine and received potassium supplements for low levels. [facility] Medical History Elevated cholesterol HTN (hypertension) GERD (gastroesophageal reflux disease) Restrictive airway disease Prostate cancer Surgical History Hx of excision of mass (06/25/23) History of open reduction and internal fixation (ORIF) procedure History of esophagogastroduodenoscopy (EGD) Hx of colonoscopy History of cardiac cath Family History Father Throat cancer Mother Diabetes Kidney disease Social History Household Members: Children Housing: Apartment Do you presently have visiting nurse or other home services: No Alcohol intake: never Patient Tobacco Use Status: Former Tobacco user Second Hand Smoke Exposure: No service: No Current occupational status: retired Current occupation: right hand dominant Review of Systems Const Denies fever(s) and Denies weight loss Card Denies chest pain Resp Denies cough and Denies hemoptysis GI Denies abdominal pain, Denies diarrhea and Denies nausea Musc Denies back pain Neuro Denies focal weakness Physical Exam Vital Signs: Last Vital Signs Pulse 112 H 03/09/25 10:28 BP 118/82 03/09/25 10:28 Pulse Ox 95 03/09/25 10:28 Oxygen Delivery Method Room Air 03/09/25 10:28 BMI result Body Mass Index 27.1 Comfortable Neck supple no JVD. Lungs entry equal no rales. Heart S1-S2 heard no gallop or rub. Abdomen soft nontender. Neuro alert awake oriented. No asterixis. Extremities no edema. Results Reviewed Nephrology Results: Sodium, (135-145) 137 mmol/L 02/08/25 Potassium, (3.3-5.1) 3.2 mmol/L L 02/08/25 Chloride, (96-108) 107 mmol/L 02/08/25 Carbon Dioxide, (22-29) 22 mmol/L 02/08/25 BUN, (9-16) 23 mg/dL H 02/08/25 Creatinine, (0.5-1.4) 1.55 mg/dL H 02/08/25 Calcium, (8.4-10.2) 8.9 mg/dL 02/08/25 Renal US 04/15/24 Assessment & Plan Assessment & Plan (1) GLENN (acute kidney injury): Code(s): N17.9 - Acute kidney failure, unspecified Category: Medical Plan: GLENN superimposed on CKD. 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 The could be age-related nephron loss as well. Superimposed GLENN. Differential diagnosis would include obstruction. Hypoperfusion could be contributing. Based on recent urine studies I do not believe he has any active glomerular nephritis or interstitial disease. Mild hypokalemia. Recommendations Goal is to slow the progression of renal disease. At present blood pressure is well controlled. Continue to avoid nephrotoxic agents including NSAIDs. Increase p.o. fluid intake. Stay on low-sodium diet. Agree with potassium supplementation. Obtain renal ultrasonogram to rule out obstruction. Further workup will be based on the outcome of the above investigations. Next Orders: Orders Basic Metabolic Panel 1 Week N17.9 - Acute kidney failure, unspecified US renal BI Today N17.9 - Acute kidney failure, unspecified Creatinine Urine 1 Week N17.9 - Acute kidney failure, unspecified Total Protein Urine Random 1 Week N17.9 - Acute kidney failure, unspecified UA and rflx microscopic 1 Week N17.9 - Acute kidney failure, unspecified Patient Instructions: - Drink more water to help improve kidney function. - Attend the scheduled ultrasound for kidney evaluation. - Follow up with blood tests next week to monitor kidney function and potassium levels. - Continue taking amlodipine as prescribed and monitor blood pressure regularly. Coding Level of Care Code New Pt Level 4 (13416) Diagnoses GLENN (acute kidney injury) N17.9
[2025-03-09 10:28] VITALS: BP 118/82; PULSE 112; O2SAT 95; BMI 27.1
--- OUTSIDE RECORDS SUMMARY | 2025-03-09 12:16 | XMS_ITS | Clinical Summary ---
Author Organization [employer] Address [address] [facility] 7t [place] [address] Care Team Providers Care Manager Aviation Name Role Phone Cheryl Hogan MD Primary [...] daily 30 capsule 11 05/27/19 24 Active Blood Pressure kitIndications:Es sential hypertension 1 [...] BEDTIME 60 tablet 3 08/29/19 25 Active cholecalciferol VITAMIN D (Vitamin D-3) 50 MCG (1999) tablet TAKE 2 TABLETS BY MOUTH ONCE DAILY IN THE MORNING 180 tablet 3 09/18/19 25 Active atorvastatin (Lipitor) 40 MG tabletIndications :Mixed hyperlipidemia TAKE 1 TABLET BY MOUTH AT BEDTIME 90 tablet 3 09/18/19 25 Active acetaminophen (Tylenol 8 Hour) 650 MG ER tabletIndications :Polyarthralgia Take 2 tablets (1,300 mg) by mouth every 8 (eight) hours if needed for mild pain or moderate pain. Do not crush, chew, or split. 60 tablet 3 11/26/19 25 Active mirtazapine (Remeron) 7.5 MG tabletIndications :Anxiety Take 1 tablet (7.5 mg) by mouth at bedtime. 30 tablet 2 02/09/20 25 026 Active potassium chloride CR (Klor-Con M20) 20 MEQ ER tabletIndications :Hypokalemia,Acut e kidney injury superimposed on CKD Take 1 tablet (20 mEq) by mouth 2 times daily. Do not crush or chew. 6 tablet 02/10/20 25 026 Active amLODIPine (Norvasc) 10 MG tabletIndications :Essential hypertension TAKE 1 TABLET BY MOUTH EVERY MORNING 30 tablet 11 03/04/20 25 Active amLODIPine (Norvasc) 10 MG tabletIndications :Essential hypertension Take 1 tablet (10 mg) by mouth Once per day. 30 tablet 11 12/20/19 24 025 Discontinued Active Problems Problem Noted Date Diagnosed Date Acute kidney injury superimposed on CKD 02/10/20 25 Anxiety 02/08/2025 Assessment & Plan (02/08/2025 4:28 [...] omeprazole BID x4 weeks Refer to GI Lube Technician to avoid alcohol and smoking Duodenal ulcer [...] Encounters Date Type Department Care Team Description 03/04/2025 Orders Only [facility] MED[facility] [address] [place] [address] Cheryl Hogan MD 03/03/2025 Refill [facility] [address] [place] [phone] Cheryl Hogan MD Essential hypertension 02/09/2025 Results Follow-Up [address] [address] Cheryl Hogan MD Basic Metabolic Panel, PSA,Total 02/09/2025 Telephone [facility] [address] [place] [phone] Cheryl Hogan MD DME Ensure 02/09/2025 Telephone [facility] [address] [place] [phone] Cheryl Hogan MD DME Ensure 02/08/2025 2:45 PM EDT Office Visit [facility] [address] [place] [phone] Cheryl Hogan MD Essential hypertension (Primary Dx); Esophageal dysphagia; Esophageal dysmotility; Anxiety; Encounter for immunization; Dietary counseling; Exercise counseling; Encounter for preventive care 02/08/2025 Orders Only [facility] [address] [facility] [address] Cheryl Hogan MD 02/08/2025 Travel 01/20/2025 Telephone [facility] [address] [place] [address] Cheryl Hogan MD fyi 12/18/2024 Orders Only GENERIC EXTERNAL DATA DEPARTMENT Provider, Generic External Data from Last 3 Months Immunizations Immunization Administration [...] - 1-dose 75+ series) 2021 COVID-19 Vaccine (4 - 5-26 season) 2025 04/24/2021, 08/16/2020, 07/19/2020 Alcohol/Substance Use Screening 04/14/2025 04/14/2024 Depression Screening 04/14/2025 04/14/2024, 04/14/20 24 SDOH Screening 09/02/2025 09/02/2024 Tobacco Screening 02/08/2026 02/08/2025 Lipid Panel 02/08/2030 02/08/2025, 12/04, 03/06/2023, Additional history exists Hepatitis A Vaccines [...] Procedure Name Priority Date/Time Associated Diagnosis Comments TESTOSTERONE, TOTAL, MALES (ADULT), IA Routine 02/08/2025 3:29 PM EDT PSA, TOTAL Routine 02/08/2025 3:29 PM EDT BASIC METABOLIC PANEL Routine 02/08/2025 3:29 PM EDT LIPID PANEL, STANDARD Routine 02/08/2025 3:29 PM EDT Essential hypertension HEMATOXYLIN AND EOSIN STAIN Routine 12/18/2024 1:40 PM EDT ZZZ HISTORICAL HEPATITIS C AB W/REFL TO HCV RNA, QN, PCR Routine 03/13/2021 10:05 AM EST from Last 3 Months or Most Recently Relevant to Health Maintenance Results * Testosterone, Total, males (Adult), IA (02/08/2025 3:29 PM EDT) Pathologist [facility] Testosterone, Total 488 250 - 1100 ng/dL [facility] Comment:Men with clinically significant hypogonadalsymptoms and testosterone values repeatedly inthe range of the 200-300 ng/dL or less, maybenefit from testosterone treatment afteradequate risk and benefits counseling.For additional information, please refer tohttp://education.PHmHealth/faq/OrhxgCnqcpqwlknouWXRFJQQQU553(This link is being provided for informational/educational purposes only.)This test was developed and its analytical performancecharacteristics have been determined by [employer] [place], [place]. It hasnot been cleared or approved by the U.S. Food and DrugAdministration. This assay has been validated pursuantto the CLIA regulations and is used for clinicalpurposes.THIS TEST WAS PERFORMED AT:[employer] [place] [address]JUDIRJDJOSE BALTAZAR MD,PHD 02/08/2025 3:29 PM EDT 02/08/2025 4:03 PM EDT us Generic External Data Provider LAB BLOOD ORDERAB LES Final Result [facility] [address] [place] [phone] * PSA,Total (02/08/2025 3:29 PM EDT) Prostate Specific Antigen 0.37 <0.05 - 4.0 ng/mL [facility] Comment:PSA methodology: Ismael Melendrez i ChemiluminescentMicroparticle Immunoassay (CMIA) 02/08/2025 3:29 PM EDT 02/08/2025 4:03 PM EDT us Generic External Data Provider LAB BLOOD ORDERAB LES Final Result Performing Organization Address [facility] Co de Phone Number [facility] [address] [place] [phone] * Lipid Panel, Standard (02/08/2025 3:29 PM EDT) Triglycerides 109 <150 mg/dL [facility] Comment:Desirable Triglyceri de: less than 150 mg/dLBorderline High Triglyceride 150-199 mg/dLHigh Triglyceride: 200-499 mg/dLVery High Triglyceride: greater than or equal to 5OO mg/dL Cholesterol 150 <200 mg/dL [facility] Comment:Desirable Cholestero l: less than 200 mg/dLBorderline High Cholesterol: 200-239 mg/dLHigh Cholesterol: greater than 239 mg/dL LDL Cholesterol Calculated 83 <100 mg/dL [facility] Comment:Desirable LDL: less than 100 mg/dLNear Optimal/Above Optimal LDL: 110- 129 mg/dLBorderline High LDL: 130-159 mg/dLHigh LDL: 160-189 mg/dLVery High LDL: greater than or equal to 190 mg/dL HDL Cholesterol 46 >40 mg/dL [facility] Comment:Desirable HDL: great er than 40 mg/dL Note: This HDL assay may give artificially low results in patients with liver disease. Blood Venous blood specimen / Unknown 02/08/2025 3:29 PM EDT 02/08/2025 4:03 PM EDT us Cheryl Richardson MD LAB BLOOD ORDERABLES Final Result Performing Organization Address [facility]/ZIP Co de Phone Number [facility] [address] [place] [phone] * (ABNORMAL) Basic Metabolic Panel (02/08/2025 3:29 PM EDT) Sodium 137 135 - 145 mmol/L [facility] Potassium 3.2(L) 3.3 - 5.1 mmol/L [facility] Chloride 107 96 - 108 mmol/L [facility] Carbon Dioxide 22 22 - 29 mmol/L [facility] Anion Gap 11(L) 12 - 20 [facility] Urea Nitrogen (BUN) 23(H) 9 - 16 mg/dL [facility] Creatinine, Serum 1.55(H) 0.5 - 1.4 mg/dL [facility] Estimated Glomerular Filt Rate 44 [facility] Comment:Chronic Kidney Disea se: Estimated GFR < 60 mL/min/1.46e5Pvgjbk Kidney Disease: Estimated GFR < 15 mL/min/1.73m2 Glucose 115 60 - 115 mg/dL [facility] Calcium 8.9 8.4 - 10.2 mg/dL [facility] 02/08/2025 3:29 PM EDT 02/08/2025 4:03 PM EDT Cheryl Richardson MD LAB BLOOD ORDERABLES Final Result [facility] [address] [place] [phone] * Hematoxylin and Eosin Stain (12/18/2024 1:40 PM EDT) 12/18/2024 1:40 PM EDT 12/18/2024 2:02 PM EDT Narrative [facility] - 12/21/2024 11:35 AM EDT ----- ------- Name: Dk Coffey Age/Sex: 79/M : 1945 Unit#: [id number] Attend Dr: Jazmin Hutson MD Re12/18/24 Status: [facility] [place] Location: [facility] Disch: ----- ------- SPEC : [id number] RECD: 12/18/24-1402 STATUS: [facility] NUM: [id number] MARY: 12/18/24-13[address] [facility] [address]: Jazmin Hutson MD ENTERED: 12/18/24-1414 SP TYPE: Surgical OTHR DR: Cheryl Hogan [...] microscopic examination, 3 pieces in cassette C. ([facility]) CONTINUED ON NEXT PAGE ----- ------- Name: Dk Coffey Age/Sex: 79/M : 1945 Unit#: [id number] Attend Dr: Jazmin Hutson MD Re12/18/24 Status: [facility] [place] Location: [facility] Disch: ----- ------- SPEC : [id number] RECD: 12/18/24-1401 STATUS: [facility] NUM: [id number] MARY: 12/18/24-1340 [facility] [address]: Jazmin Hutson MD ENTERED: 12/18/24-6488 SP TYPE: Surgical OTHR DR: Cheryl Hogan MD ORDERED: HE Stain/3, Gross Micro L4/3 IHC S/NG Disclaimer NOTE: Unless otherwise stated, all tissue is formalin-fixed and paraffin-embedded. Some or all of the immunohistochemical tests reported herein may have been developed and their performance characteristics determined by [facility]. They have not been cleared or approved by the U.S. Food and Drug Administration (FDA). However, the FDA has determined that such clearance or approval is not necessary. This laboratory is certified under the Clinical Laboratory Improvement Amendments of 1988 (CLIA) as qualified to perform high complexity clinical laboratory testing. Copies To: Cheryl Hogan MD [facility] [address] [place] [address] Jazmin Hutson MD [facility] [address] [place] [address] [email or web address] ----- ------- Signed (signature on file) Jeanette Aidan 12/21/24 1135 ----- ------- END OF REPORT us Generic External Data Provider LAB BLOOD ORDERAB LES Final Result [facility] [address] [place] [phone] [phone] * HEPATITIS C AB W/REFL TO HCV RNA, QN, PCR (03/13/2021 10:05 AM EST) HEPATITIS C ANTIBODY NON-REACT ANGELICA NON-REACT ANGELICA [facility] INDEX 0.02 <1.00 [facility] Comment: HCV antibody was non-reactive. There is no laboratory evidence of HCV infection. In most cases, no further action is required. However, if recent HCV exposure is suspected, a test for HCV RNA (test code 36870) is suggested. For additional information please refer to http://education.PHmHealth/faq/ASP24o3 (This link is being provided for informational/ educational purposes only.) 03/13/2021 10:0 5 AM EST Cheryl Richardson MD HISTORICAL/NON ORDERA BLE LABS Final Result [facility] [address] [place] [address], from Last 3 Months or Most Recently Relevant to Health Maintenance Insurance * Guarantor: Dk Coffey Account Type Relation to Patient Date of Phone Billing Address Personal/Family Self [address] Care Teams Manager Aviation Relationship Specialty Start Date End Date Cheryl Hogan MD [address] [place] [address] PCP - General Family Medicine 10/11/20
--- OUTSIDE RECORDS SUMMARY | 2025-03-09 12:16 | XMS_ITS | Encounter Summary ---
Author Organization [employer] Address [address] [facility] [address] 7t [place] [address] Care Team Providers Care Jail Officer Name Role Phone Cheryl Hogan MD Primary Care Provide r Encounter Details Date Type Department Care Team ([facility] st Contact Info) Description 12/17/2022 Orders Only [facility] CHC MED & PEDS [address] [place] [address] Karey Juan LPN Social History Tobacco Use [...] on filedocumented in this encounter Care Teams Jail Officer Relationship Specialty Start Date End Date Cheryl Hogan MD [address] [place] [phone] PCP - General Family Medicine 10/11/20 documented as of this encounter
--- OUTSIDE RECORDS SUMMARY | 2025-03-09 12:16 | XMS_ITS | Encounter Summary ---
Author Organization [employer] Address [address] [facility] 7t [place] [address] Care Team Providers Care Network Engineer Administrator Name Role Phone Cheryl Hogan MD Primary Care Provide r Reason for Visit * Reason Comments Med Refill Encounter Details Date Type Department Care Team ([facility] st Contact Info) Description 12/16/2022 Refill [facility] MEDICINE [address] [place] [address] Rebeca Carlisle, MAYUR Mixed hyperlipidemia Social History [...] hyperlipidemia documented in this encounter Care Teams Network Engineer Administrator Relationship Specialty Start Date End Date Cheryl Hogan MD [address] [place] [address] PCP - General Family Medicine 10/11/20 documented as of this encounter
--- OUTSIDE RECORDS SUMMARY | 2025-03-09 12:16 | XMS_ITS | Encounter Summary ---
Author Organization [employer] Address [address] [facility] 7t [place] [address] Care Team Providers Care Senior Windows Engineer Name Role Phone Cheryl Hogan MD Primary Care Provide r Encounter Details Date Type Department Care Team (Latest Contact Info) Description 06/11/2018 Abstract [facility] CONVERSIONS Dental, Provider, DDS Social History [...] on filedocumented in this encounter Care Teams Senior Windows Engineer Relationship Specialty Start Date End Date Cheryl Hogan MD [address] [place] [phone] PCP - General Family Medicine 10/11/20 documented as of this encounter
--- OUTSIDE RECORDS SUMMARY | 2025-03-09 12:16 | XMS_ITS | Encounter Summary ---
Author Organization [employer] Address [address] [facility] 7t [place] [address] Care Team Providers Care Mainframe Consultant Name Role Phone Cheryl Hogan MD Primary Care Provide r Encounter Details Date Type Department Care Team ([facility] st Contact Info) Description 03/04/2025 Orders Only [facility] MEDICINE [address] [place] [address] Cheryl Hogan MD [address] [place] [address] Social History Tobacco Use Types Packs/Day Years [...] documented as of this encounter Care Teams Mainframe Consultant Relationship Specialty Start Date End Date Cheryl Hogan MD [address] [place] [phone] PCP - General Family Medicine 10/11/20 documented as of this encounter
--- OUTSIDE RECORDS SUMMARY | 2025-03-09 12:16 | XMS_ITS | Encounter Summary ---
Author Organization [employer] Address [address] [facility] [address] 7t [place] [address] Care Team Providers Care Online Retailer Name Role Phone Cheryl Hogan MD Primary Care Provide r Reason for Visit * Reason Comments Med Refill Encounter Details Date Type Department Care Team ([facility] Contact Info) Description 03/03/2025 Refill [facility] [address] [place] [phone] Cheryl Hogan MD [address] [place] [phone] Essential hypertension Social History Tobacco Use Types Packs/Day Years [...] of this encounter Visit Diagnoses Diagnosis Essential hypertension Unspecified essential hypertension documented in this encounter Additional Health Concerns Assessment Noted Time PHQ-9 Depression Total Score: 0 04/14/20 24 10:38 AM EST documented as of this encounter Care Teams Online Retailer Relationship Specialty Start Date End Date Cheryl Hogan MD [address] [place] [phone] PCP - General Family Medicine 10/11/20 documented as of this encounter
--- OUTSIDE RECORDS SUMMARY | 2025-03-09 12:16 | XMS_ITS | Encounter Summary ---
Author Organization [employer] Address [address] [place] [address] Care Team Providers Care Paper Folder Name Role Phone Cheryl Hogan MD Primary Care Provide r Encounter Details Date Type Department Care Team ( Contact Info) Description 02/10/2024 Orders Only [facility] [address] [place], [place] [phone] Cheryl Hogan MD [address] [place] [address] Hypokalemia (Primary Dx) Social History Tobacco Use [...] EST) Sodium 141 135 - 145 mmol/L [facility] Potassium 3.1(L) 3.3 - 5.1 mmol/L [facility] Chloride 105 96 - 108 mmol/L [facility] Carbon Dioxide 21(L) 22 - 29 mmol/L [facility] Anion Gap 18 12 - 20 [facility] Urea Nitrogen (BUN) 21(H) 9 - 16 mg/dL [facility] Creatinine, Serum 2.67(H) 0.5 - 1.4 mg/dL [facility] Estimated Glomerular Filt Rate 23 [facility] Comment:Chronic Kidney Disea se: Estimated GFR < 60 mL/min/1.43q7Mfgsmc Kidney Disease: Estimated GFR < 15 mL/min/1.73m2 Glucose 137(H) 60 - 115 mg/dL [facility] Calcium 9.4 8.4 - 10.2 mg/dL [facility] Blood Venous blood specimen / Unknown 04/14/2024 11:42 AM EST 04/14/2024 1:03 PM EST us Cheryl Richardson MD LAB BLOOD ORDERABLES Final Result [facility] [address] [place] [phone] documented in this encounter Visit Diagnoses Diagnosis Hypokalemia- Primary Hypopotassemia documented in this encounter Additional Health Concerns Assessment Noted Time PHQ-9 Depression Total Score: 0 03/05/20 23 3:51 PM EDT documented as of this encounter Care Teams Paper Folder Relationship Specialty Start Date End Date Cheryl Hogan MD [address] [place] [phone] PCP - General Family Medicine 10/11/20 documented as of this encounter
--- OUTSIDE RECORDS SUMMARY | 2025-03-09 12:16 | XMS_ITS | Encounter Summary ---
Author Organization [employer] Address [address] [facility] 7t [place] [address] Care Team Providers Care Correctional Officer Name Role Phone Cheryl Hogan MD Primary Care Provide r Reason for Visit * Reason Comments Med Refill Encounter Details Date Type Department Care Team ([facility] st Contact Info) Description 07/05/2023 Refill [facility] MEDICINE [address] [place] [address] Cheryl Hogan MD [address] [place] [address] Polyarthralgia Social History Tobacco Use Types Packs/Day [...] documented as of this encounter Care Teams Correctional Officer Relationship Specialty Start Date End Date Cheryl Hogan MD [address] [place] [phone] PCP - General Family Medicine 10/11/20 documented as of this encounter
--- OUTSIDE RECORDS SUMMARY | 2025-03-09 12:16 | XMS_ITS | Encounter Summary ---
Author Organization [employer] Address [address] [facility] 7t [place] [address] Care Team Providers Care Unix Developer Name Role Phone Cheryl Hogan MD Primary Care Provide r Encounter Details Date Type Department Care Team ([facility] Contact Info) Description 03/26/2023 Orders Only [facility] CHC MED & PEDS [address] [place] [address] So Katz LPN Social History Tobacco Use [...] documented as of this encounter Care Teams Unix Developer Relationship Specialty Start Date End Date Cheryl Hogan MD [address] [place] [phone] PCP - General Family Medicine 10/11/20 documented as of this encounter
== END 2025-03-09 10:47 | disposition home or self-care (01) ==
LOC: HO.HKA 10:28
PROVIDERS: PCP Internal Medicine; Visit Provider Internal Medicine Hypertension Specialist
DX: N17.9 Acute kidney failure, unspecified (principal)
CPT/HCPCS: 99204

== ENCOUNTER 2025-03-09 11:45 | Outpatient (REF) | payer OTHER, SELFPAY ==
[2025-03-09 13:39] LABS: Anion Gap 14 (12-20); Blood Urea Nitrogen 25 mg/dL (9-16); Calcium 9.2 mg/dL (8.4-10.2); Carbon Dioxide 24 mmol/L (22-29); Chloride 107 mmol/L (96-108); Estimated Glomerular Filt Rate 40; Potassium 3.5 mmol/L (3.3-5.1); Sodium 141 mmol/L (135-145)
[2025-03-09 13:47] LABS: Appearance Urine Cloudy; Glucose Urine UA Negative (Negative); PH 5.5 (5.0-9.0); Specific Gravity - Urine >= 1.030 (1.005-1.025); UMIC TRIGGER UA YES
[2025-03-09 13:56] LABS: Total Protein Urine Random 70 mg/dL (<12)
== END 2025-03-09 11:46 | disposition home or self-care (01) ==
LOC: HO.10HDL 11:45
PROVIDERS: Visit Provider Internal Medicine Hypertension Specialist
DX: N17.9 Acute kidney failure, unspecified (principal)
CPT/HCPCS: 36415; 80048; 81001; 82570; 84156; 99202

== ENCOUNTER 2025-03-12 10:33 | Outpatient (REF) | payer OTHER, SELFPAY ==
--- NOTE | ~2025-03-12 | US_ITS ---
CLINICAL HISTORY: N17.9 - Acute kidney failure, unspecified US renal Comparison: 04/15/2024 Findings: Right kidney 10.8 cm length. No significant focal abnormality. Left kidney 11.4 cm length. No significant focal abnormality. Prominent column of Nathan. No bilateral hydronephrosis. Normal bilateral renal echogenicity. Impression: No significant abnormalities. This document has been electronically signed by: Ramírez Alcantar MD on 03/12/2025 20:57:46
--- OUTSIDE RECORDS SUMMARY | 2025-03-12 12:30 | XMS_ITS | Clinical Summary ---
Author Organization [employer] Address [address] [facility] 7t [place] [address] Care Team Providers Care Chicken Sexer Name Role Phone Cheryl Hogan MD Primary [...] omeprazole BID x4 weeks Refer to GI Optical Laboratory Manager to avoid alcohol and smoking Duodenal [...] Department Care Team Description 03/04/2025 Orders Only [facility] [address] [place] [address] Cheryl Hogan MD 03/03/2025 Refill [facility] [address] [place] [phone] Cheryl Hogan MD Essential hypertension 02/09/2025 Results Follow-Up [address] [address] Cheryl Hogan MD Basic Metabolic Panel, PSA,Total 02/09/2025 Telephone [facility] [address] [place] [phone] Cheryl Hogan MD DME Ensure 02/09/2025 Telephone [facility] [address] [place] [phone] Cheryl Hogan MD DME Ensure 02/08/2025 2:45 PM EDT Office Visit [facility] [address] [place] [phone] Cheryl Hogan MD Essential hypertension (Primary Dx); Esophageal dysphagia; Esophageal dysmotility; Anxiety; Encounter for immunization; Dietary counseling; Exercise counseling; Encounter for preventive care 02/08/2025 Orders Only [facility] [address] [facility] [address] Cheryl Hogan MD 02/08/2025 Travel 01/20/2025 Telephone [facility] [address] [place] [address] Cheryl Hogan MD fyi 12/18/2024 Orders Only [...] (Adult), [place] (02/08/2025 3:29 PM EDT) Pathologist [facility] Testosterone, Total 488 250 - 1100 ng/dL [facility] Comment:Men with clinically significant hypogonadalsymptoms and testosterone values repeatedly inthe range of the 200-300 ng/dL or less, maybenefit from testosterone treatment afteradequate risk and benefits counseling.For additional information, please refer tohttp://education.[employer]/faq/AtnlfWlzhqycgpevpWUJCHQQEQ023(This link is being provided for informational/educational purposes only.)This test was developed and its analytical performancecharacteristics have been determined by [employer] [place], [place]. It hasnot been cleared or approved by the U.S. Food and DrugAdministration. This assay has been validated pursuantto the CLIA regulations and is used for clinicalpurposes.THIS TEST WAS PERFORMED AT:[id number] [place] [phone] BALTAZAR MD,PHD 02/08/2025 3:29 PM EDT 02/08/2025 4:03 PM EDT us Generic External Data Provider LAB BLOOD ORDERAB LES Final Result [facility] [address] [place] [phone] * PSA,Total (02/08/2025 3:29 PM EDT) Prostate Specific Antigen 0.37 <0.05 - 4.0 ng/mL [facility] Comment:PSA methodology: Ismael Melendrez i ChemiluminescentMicroparticle Immunoassay (CMIA) 02/08/2025 3:29 PM EDT 02/08/2025 4:03 PM EDT us Generic External Data Provider LAB BLOOD ORDERAB LES Final Result Performing Organization Address [facility] Co de Phone Number [facility] [address] [place] [phone] * Lipid Panel, Standard (02/08/2025 3:29 PM EDT) Triglycerides 109 <150 mg/dL [facility] Comment:Desirable Triglyceri de: less than 150 mg/dLBorderline High Triglyceride 150-199 mg/dLHigh Triglyceride: 200-499 mg/dLVery High Triglyceride: greater than or equal to 5OO mg/dL Cholesterol 150 <200 mg/dL [facility] Comment:Desirable Cholestero l: less than 200 mg/dLBorderline High Cholesterol: 200-239 mg/dLHigh Cholesterol: greater than 239 mg/dL LDL Cholesterol Calculated 83 <100 mg/dL [facility] Comment:Desirable LDL: less than 100 mg/dLNear Optimal/Above Optimal LDL: 110- 129 mg/dLBorderline High LDL: 130-159 mg/dLHigh LDL: 160-189 mg/dLVery High LDL: greater than or equal to 190 mg/dL HDL Cholesterol 46 >40 mg/dL [facility] Comment:Desirable HDL: great er than 40 mg/dL Note: This HDL assay may give artificially low results in patients with liver disease. Blood Venous blood specimen / Unknown 02/08/2025 3:29 PM EDT 02/08/2025 4:03 PM EDT us Cheryl Richardson MD LAB BLOOD ORDERABLES Final Result Performing Organization Address [facility]/ZIP Co de Phone Number [facility] [address] [place] [address] [phone] * (ABNORMAL) Basic Metabolic Panel (02/08/2025 3:29 PM EDT) Sodium 137 135 - 145 mmol/L [facility] Potassium 3.2(L) 3.3 - 5.1 mmol/L [facility] Chloride 107 96 - 108 mmol/L [facility] Carbon Dioxide 22 22 - 29 mmol/L [facility] Anion Gap 11(L) 12 - 20 [facility] Urea Nitrogen (BUN) 23(H) 9 - 16 mg/dL [facility] Creatinine, Serum 1.55(H) 0.5 - 1.4 mg/dL [facility] Estimated Glomerular Filt Rate 44 [facility] Comment:Chronic Kidney Disea se: Estimated GFR < 60 mL/min/1.12d7Lwowyb Kidney Disease: Estimated GFR < 15 mL/min/1.73m2 Glucose 115 60 - 115 mg/dL [facility] Calcium 8.9 8.4 - 10.2 mg/dL [facility] 02/08/2025 3:29 PM EDT 02/08/2025 4:03 PM EDT Cheryl Richardson MD LAB BLOOD ORDERABLES Final Result [facility] [address] [place] [phone] * Hematoxylin and Eosin Stain (12/18/2024 1:40 PM EDT) 12/18/2024 1:40 PM EDT 12/18/2024 2:02 PM EDT Narrative [facility] - 12/21/2024 11:35 AM EDT ----- ------- Name: Dk Coffey Age/Sex: 79/M : 1945 Unit#: [id number] Attend Dr: Jazmin Hutson MD Re12/18/24 Status: [facility] Location: [facility] Disch: ----- ------- SPEC : [id number] RECD: 12/18/24-1402 STATUS: [facility] NUM: [id number] MARY: 12/18/24-[address] [facility] [address]: Jazmin Hutson MD ENTERED: 12/18/24-1414 SP [...] microscopic examination, 3 pieces in cassette C. ([facility]) CONTINUED ON NEXT PAGE ----- ------- Name: Dk Coffey Age/Sex: 79/M : 1945 Unit#: [id number] Attend Dr: Jazmin Hutson MD Re12/18/24 Status: [facility] Location: [facility] Disch: ----- ------- SPEC : [id number] RECD: 12/18/24-1401 STATUS: [facility] NUM: [id number] MARY: 12/18/24-[address] [facility] [address]: Jazmin Hutson MD ENTERED: 12/18/24-8004 SP TYPE: Surgical OTHR DR: Cheryl Hogan MD ORDERED: HE Stain/3, Gross Micro L4/3 IHC S/NG Disclaimer NOTE: Unless otherwise stated, all tissue is formalin-fixed and paraffin-embedded. Some or all of the immunohistochemical tests reported herein may have been developed and their performance characteristics determined by [facility]. They have not been cleared or approved by the U.S. Food and Drug Administration (FDA). However, the FDA has determined that such clearance or approval is not necessary. This laboratory is certified under the Clinical Laboratory Improvement Amendments of 1988 (CLIA) as qualified to perform high complexity clinical laboratory testing. Copies To: Cheryl Hogan MD [facility] [address] [place] [address] Jazmin Hutson MD [facility] [address] [place] [address] [email or web address] ----- ------- Signed (signature on file) Jeanette Aidan 12/21/24 1135 ----- ------- END OF REPORT us Generic External Data Provider LAB BLOOD ORDERAB LES Final Result [facility] [address] [place] [phone] [phone] * HEPATITIS C AB W/REFL TO HCV RNA, QN, PCR (03/13/2021 10:05 AM EST) HEPATITIS C ANTIBODY NON-REACT ANGELICA NON-REACT ANGELICA [facility] INDEX 0.02 <1.00 [facility] Comment: HCV antibody was non-reactive. There is no laboratory evidence of HCV infection. In most cases, no further action is required. However, if recent HCV exposure is suspected, a test for HCV RNA (test code 27168) is suggested. For additional information please refer to http://education.[employer]/faq/PXB95g2 (This link is being provided for informational/ educational purposes only.) 03/13/2021 10:0 5 AM EST Cheryl Richardson MD HISTORICAL/NON ORDERA BLE LABS Final Result [facility] [address] [place] [address], from Last 3 Months or Most Recently Relevant to Health Maintenance Insurance * Guarantor: Dk Coffey Account Type Relation to Patient Date of Phone Billing Address Personal/Family Self [address] Care Teams Chicken Sexer Relationship Specialty Start Date End Date Cheryl Hogan MD [address] [place] [address] PCP - General Family Medicine 10/11/20
--- OUTSIDE RECORDS SUMMARY | 2025-03-12 12:30 | XMS_ITS | Encounter Summary ---
Author Organization [employer] Address [address] [facility] 7t [place] [address] Care Team Providers Care Rn Neonatal Icu Name Role Phone Cheryl Hogan MD Primary Care Provide r Encounter Details Date Type Department Care Team (Latest Contact Info) Description 06/11/2018 Abstract [facility] CONVERSIONS Dental, Provider, DDS Social History Tobacco [...] on filedocumented in this encounter Care Teams Rn Neonatal Icu Relationship Specialty Start Date End Date Cheryl Hogan MD [address] [place] [phone] PCP - General Family Medicine 10/11/20 documented as of this encounter
--- OUTSIDE RECORDS SUMMARY | 2025-03-12 12:30 | XMS_ITS | Encounter Summary ---
Author Organization [employer] Address [address] [facility] 7t [place] [address] Care Team Providers Care Navigation Officer Name Role Phone Cheryl Hogan MD Primary Care Provide r Reason for Visit * Reason Comments Med Refill Encounter Details Date Type Department Care Team ([facility] st Contact Info) Description 07/05/2023 Refill [facility] [address] [place] [address] Cheryl Hogan MD [address] [place] [address] Polyarthralgia Social History Tobacco Use Types Packs/Day [...] documented as of this encounter Care Teams Navigation Officer Relationship Specialty Start Date End Date Cheryl Hogan MD [address] [place] [phone] PCP - General Family Medicine 10/11/20 documented as of this encounter
--- OUTSIDE RECORDS SUMMARY | 2025-03-12 12:30 | XMS_ITS | Encounter Summary ---
Author Organization [employer] Address [address] [facility] [address] 7t [place] [address] Care Team Providers Care Aco Coordinator Name Role Phone Cheryl Hogan MD Primary Care Provide r Encounter Details Date Type Department Care Team ([facility] st Contact Info) Description 12/17/2022 Orders Only [facility] [address] [place] [address] Karey Juan LPN Social History Tobacco Use [...] on filedocumented in this encounter Care Teams Aco Coordinator Relationship Specialty Start Date End Date Cheryl Hogan MD [address] [place] [phone] PCP - General Family Medicine 10/11/20 documented as of this encounter
--- OUTSIDE RECORDS SUMMARY | 2025-03-12 12:30 | XMS_ITS | Encounter Summary ---
Author Organization [employer] Address [address] [facility] 7t [place] [address] Care Team Providers Care Business Performance Specialist Name Role Phone Cheryl Hogan MD Primary Care Provide r Encounter Details Date Type Department Care Team ([facility] st Contact Info) Description 03/04/2025 Orders Only [facility] [address] [place] [address] Cheryl Hogan MD [address] [place] [address] Social History Tobacco Use Types Packs/Day Years [...] documented as of this encounter Care Teams Business Performance Specialist Relationship Specialty Start Date End Date Cheryl Hogan MD [address] [place] [address] PCP - General Family Medicine 10/11/20 documented as of this encounter
--- OUTSIDE RECORDS SUMMARY | 2025-03-12 12:30 | XMS_ITS | Encounter Summary ---
Author Organization [employer] Address [address] [facility] [address] [place] [address] Care Team Providers Care Isotope Technician Name Role Phone Cheryl Hogan MD Primary Care Provide r Encounter Details Date Type Department Care Team ( Contact Info) Description 02/10/2024 Orders Only [facility] [address] [place], [place] [phone] Cheryl Hogan MD [address] [place] [address] Hypokalemia (Primary Dx) Social History Tobacco Use [...] EST) Sodium 141 135 - 145 mmol/L [facility] Potassium 3.1(L) 3.3 - 5.1 mmol/L [facility] Chloride 105 96 - 108 mmol/L [facility] Carbon Dioxide 21(L) 22 - 29 mmol/L [facility] Anion Gap 18 12 - 20 [facility] Urea Nitrogen (BUN) 21(H) 9 - 16 mg/dL [facility] Creatinine, Serum 2.67(H) 0.5 - 1.4 mg/dL [facility] Estimated Glomerular Filt Rate 23 [facility] Comment:Chronic Kidney Disea se: Estimated GFR < 60 mL/min/1.14d2Tzkcqh Kidney Disease: Estimated GFR < 15 mL/min/1.73m2 Glucose 137(H) 60 - 115 mg/dL [facility] Calcium 9.4 8.4 - 10.2 mg/dL [facility] Blood Venous blood specimen / Unknown 04/14/2024 11:42 AM EST 04/14/2024 1:03 PM EST us Cheryl Richardson MD LAB BLOOD ORDERABLES Final Result [facility] [address] [place] [phone] [phone] documented in this encounter Visit Diagnoses Diagnosis Hypokalemia- Primary Hypopotassemia documented in this encounter Additional Health Concerns Assessment Noted Time PHQ-9 Depression Total Score: 0 03/05/20 23 3:51 PM EDT documented as of this encounter Care Teams Isotope Technician Relationship Specialty Start Date End Date Cheryl Hogan MD [address] [place] [phone] PCP - General Family Medicine 10/11/20 documented as of this encounter
--- OUTSIDE RECORDS SUMMARY | 2025-03-12 12:30 | XMS_ITS | Encounter Summary ---
Author Organization [employer] Address [address] [facility] 7t [place] [address] Care Team Providers Care Slag Motor Operator Name Role Phone Cheryl Hogan MD Primary Care Provide r Encounter Details Date Type Department Care Team ([facility] Contact Info) Description 03/26/2023 Orders Only [facility] [address] [place] [address] So Katz LPN Social History Tobacco Use [...] documented as of this encounter Care Teams Slag Motor Operator Relationship Specialty Start Date End Date Cheryl Hogan MD [address] [place] [phone] PCP - General Family Medicine 10/11/20 documented as of this encounter
--- OUTSIDE RECORDS SUMMARY | 2025-03-12 12:30 | XMS_ITS | Encounter Summary ---
Author Organization [employer] Address [address] [facility] 7t [place] [address] Care Team Providers Care Panel Saw Operator Name Role Phone Cheryl Hogan MD Primary Care Provide r Reason for Visit * Reason Comments Med Refill Encounter Details Date Type Department Care Team ([facility] st Contact Info) Description 12/16/2022 Refill [facility] [address] [place] [address] Rebeca Carlisle, MAYUR Mixed hyperlipidemia Social History [...] hyperlipidemia documented in this encounter Care Teams Panel Saw Operator Relationship Specialty Start Date End Date Cheryl Hogan MD [address] [place] [address] PCP - General Family Medicine 10/11/20 documented as of this encounter
== END 2025-03-12 10:34 | disposition home or self-care (01) ==
LOC: HO.US 10:33
PROVIDERS: PCP Internal Medicine; Visit Provider Internal Medicine Hypertension Specialist
DX: N17.9 Acute kidney failure, unspecified (principal)
CPT/HCPCS: 76775

== ENCOUNTER → 2025-03-12 10:37 | Outpatient (BNV) | payer OTHER, SELFPAY | PROVIDERS: PCP Internal Medicine; Visit Provider Radiology Diagnostic Radiology | DX: N17.9 Acute kidney failure, unspecified (principal) | CPT/HCPCS: 76775 ==

== ENCOUNTER 2025-04-06 11:09 | Outpatient (AMB) | payer OTHER, SELFPAY ==
[2025-04-06 11:11] VITALS: BP 110/72; PULSE 102; O2SAT 98; BMI 27.3
--- NOTE | 2025-04-06 11:11 | HO.NEPHOV_ITS ---
Vital Signs 04/06/25 11:11 Height 5 ft 6 in Weight 169 lb BMI 27.3 BP 110/72 Blood Pressure Location Rt brachial Position Sitting Pulse 102 H Pulse Source Pulse Oximeter Pulse Oximetry (%) 98 Oxygen Delivery Method Room Air Intake Visit Reasons: 4 wks f/u w/ labs Manager Outreach Required: Yes Manager Outreach Name: Hakeem [id number] Accompanied by: Self / Same As Patient Allergies fish derived (FISH) Allergy (Intermediate, Verified 04/06/25 11:13) rash/hives Medication List - Last Reconciled 04/06/25 by Jose A Piper MD amlodipine 10 mg PO DAILY atorvastatin 40 mg PO BEDTIME cholecalciferol (vitamin D3) 100 mcg PO DAILY famotidine 20 mg PO BEDTIME 90 days finasteride 5 mg PO DAILY 90 days fluticasone propionate 50 mcg/actuation 1 spray intranasal DAILY melatonin 10 mg PO BEDTIME PRN mirtazapine 7.5 mg PO BEDTIME pantoprazole (Protonix) 40 mg PO DAILY 30 days potassium chloride ER 20 mEq PO BID sennosides (senna) 17.2 mg (2 x 8.6 mg) PO BEDTIME simethicone (Gas Relief Extra Strength) 125 mg PO BID-QID HPI Comments Details: The patient is a 79-year-old male . Usually serum creatinine is around 1.1 mg/dL or less. Recent creatinine was 1.55. He has a history of prostate cancer. He has been followed by Urology. Status post radiation therapy 2012 Has been managed with intermittent hormone therapy In 2023 he had acute kidney injury with a creatinine of 2.5 which later returned to baseline. The patient denies urinary symptoms and reports no respiratory or significant cardiac issues, though he has occasional hypertension. In 2021, a coronary angiogram showed mild coronary artery stenosis- 60% proximal circumflex. History of hypertension He is on amlodipine and received potassium supplements for low levels. 04/06/25 The patient is a 79 year old individual presenting for a follow-up visit to review recent labs and manage kidney health. Recent blood and urine tests showed a slight decline in kidney function, though potassium levels remain normal. The patient reports experiencing shortness of breath when climbing two or three flights of stairs. There is no reported trouble with urination. The patient denies taking NSAIDs such as Aleve, Advil, or Motrin. The patient reports no changes to their medications and is noted to be taking both famotidine and Protonix concurrently. [facility] Medical History Elevated cholesterol HTN (hypertension) GERD (gastroesophageal reflux disease) Restrictive airway disease Prostate cancer Surgical History Hx of excision of mass (06/25/23) History of open reduction and internal fixation (ORIF) procedure History of esophagogastroduodenoscopy (EGD) Hx of colonoscopy History of cardiac cath Family History Father Throat cancer Mother Diabetes Kidney disease Social History Household Members: Children Housing: Apartment Do you presently have visiting nurse or other home services: No Alcohol intake: never Patient Tobacco Use Status: Former Tobacco user Second Hand Smoke Exposure: No service: No Current occupational status: retired Current occupation: right hand dominant Physical Exam Vital Signs: Last Vital Signs Pulse 102 H 04/06/25 11:11 BP 110/72 04/06/25 11:11 Pulse Ox 98 04/06/25 11:11 Oxygen Delivery Method Room Air 04/06/25 11:11 BMI result Body Mass Index 27.3 Comfortable Neck supple no JVD. Lungs entry equal no rales. Heart S1-S2 heard no gallop or rub. Abdomen soft nontender. Neuro alert awake oriented. No asterixis. Extremities no edema. Results Reviewed Nephrology Results: Sodium, (135-145) 141 mmol/L 03/09/25 Potassium, (3.3-5.1) 3.5 mmol/L 03/09/25 Chloride, (96-108) 107 mmol/L 03/09/25 Carbon Dioxide, (22-29) 24 mmol/L 03/09/25 BUN, (9-16) 25 mg/dL H 03/09/25 Creatinine, (0.5-1.4) 1.67 mg/dL H 03/09/25 Calcium, (8.4-10.2) 9.2 mg/dL 03/09/25 Urine Protein, (Neg-Trace) 100 (2+) mg/dL H 03/09/25 Urine Creatinine > 740.00 mg/dL 03/09/25 Renal US 03/12/25 Assessment & Plan Assessment & Plan (1) GLENN (acute kidney injury): Code(s): N17.9 - Acute kidney failure, unspecified Category: Medical Plan: GLENN superimposed on CKD. 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 The could be age-related nephron loss as well. Superimposed GLENN. Most likely due to Hypoperfusion USG- NO obstructions Based on recent urine studies I do not believe he has any active glomerular nephritis or interstitial disease. Mild hypokalemia. - corrected with KCL Goal is to slow the progression of renal disease. At present blood pressure is well controlled. Continue to avoid nephrotoxic agents including NSAIDs. Increase p.o. fluid intake. Stay on low-sodium diet. Agree with potassium supplementation. DC FAmotidine since he is already on Protonix Encouraged ot bring all his medicationds during next visit for reconciliation Orders: Orders Basic Metabolic Panel 2 Months N17.9 - Acute kidney failure, unspecified Coding Level of Care Code Est Pt Level 4 (15383) Diagnoses GLENN (acute kidney injury) N17.9
== END 2025-04-06 11:26 | disposition home or self-care (01) ==
LOC: HO.HKA 11:09
PROVIDERS: PCP Internal Medicine; Visit Provider Internal Medicine Hypertension Specialist
DX: N17.9 Acute kidney failure, unspecified (principal)
CPT/HCPCS: 99214

== ENCOUNTER → 2025-04-06 11:09 | Outpatient (BNVA) | payer OTHER, SELFPAY | PROVIDERS: PCP Internal Medicine; Visit Provider Internal Medicine Hypertension Specialist | DX: N17.9 Acute kidney failure, unspecified (principal); E87.6 Hypokalemia | CPT/HCPCS: 99212 ==

== ENCOUNTER 2025-04-07 12:52 | Outpatient (AMB) | payer OTHER, SELFPAY ==
[2025-04-07 12:56] VITALS: BP 132/58; PULSE 76; O2SAT 98; BMI 27.3
--- NOTE | 2025-04-07 12:56 | A.OFFVIS_ITS ---
Vital Signs 04/07/25 12:56 Height 5 ft 6 in Weight 169 lb BMI 27.3 BP 132/58 L Blood Pressure Location Rt brachial Position Sitting Pulse 76 Pulse Source Pulse Oximeter Pulse Oximetry (%) 98 Oxygen Delivery Method Room Air Intake Visit Reasons: 30 m. FUV GERD mgmt. Intake Note: Est pt for mgmt of GERD + Dysphagia. CC; Pt denies any new GI concerns or sx at this time. Confirms he is taking his current rx w/o complication. Train System Operator Required: Yes Train System Operator Services: Train System Operator Present Train System Operator Name: Miguel [id number] Accompanied by: Family/Other Allergies fish derived (FISH) Allergy (Intermediate, Verified 04/07/25 13:14) rash/hives HPI HPI 30 m. FUV GERD mgmt.: Details: LAST VISIT Duodenal ulcer Dysphagia Gastroesophageal reflux disease Diverticular disease Postprandial abdominal bloating Plan Message sent to Surgical schedules tubal procedure for patient. We will have him stop taking omeprazole and start Nexium. Avoid dietary triggers. Dysphagia most likely related to disorganized peristalsis. Patient will be sent for upper endoscopy for possible dilation. Stressed the importance of staying upright for minimum 3 hours after meals discussed with patient. After endoscopy he will most likely be sent for modified barium swallow. I will see him after the procedure, sooner on as needed basis. Patient is agreeable to this plan and verbalizes understanding of instructions. He was given the opportunity to ask questions and all questions answered. ? Thank you for allowing me to participate in his care New esomeprazole magnesium (Nexium) 40 mg PO DAILY 30 caps 2RF K21.9 Discontinued omeprazole Discontinued Reason: Doctor's Order 20 mg PO DAILY 90 days 90 caps 2RF ENDOSCOPY: EGD Findings:? * Esophagus:? Corkscrew appearance of the esophagus was noted. The Z line was at 35. Middle and lower esophagus forceps biopsies were obtained to rule out eosinophilic esophagitis. * Stomach:? Normal mucosa was noted in the stomach. Retroflexion was performed in the cardia. * Duodenum:? Diffuse redness, edema and erosions were noted in the duodenal bulb and 1st portion of the duodenum. Cold forceps biopsies were taken for histology. ? Additional intervention: Soft tip Savary wire was introduced through the biopsy channel of the gastroscope and advanced to the antrum. ?The gastroscope was then backed out. ?Savary Ryan bougie was advanced over the guidewire and the esophagus was dilated from 17 to 19 mm with resistance felt. ?On relook, heme and small supeficial tears were noted at the level of cricopharyngeus, as well as another tear just above the GE junction confirming successful dilation.. ? EGD Impressions:? 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 Recommendations:?? * Follow biopsy results. Our office will call or send a letter with results within 7-10 days. * Continue PPI therapy. Add famotidine 20 mg at night time for maximal antisecretory therapy. * Consider H Pylori testing after 8 weeks of uninterrupted PPI therapy. * Avoid NSAIDs. * Suspect some of the dysphagia is also secondary to muscular discoordination. However, if the dilation helps his symptoms, EGD can be repeated as needed for recurrence of symptoms. PATHOLOGY RESULTS Diagnosis A. Duodenum, biopsy: Duodenal mucosa with predominantly preserved villi and chronic/non-specific duodenitis. B. Esophagus, lower, biopsy: Squamous mucosa with no specific change; no columnar mucosa present. C. Esophagus, middle, biopsy: Squamous mucosa with no specific change; no columnar mucosa present TODAY'S VISIT: Patient is here today for follow-up and discuss upper endoscopy results. Patient denies any ill effects from anesthesia or procedure itself. Patient is here today with his daughter. Upper endoscopy results discussed with patient. Patient was placed also on famotidine by endoscopist. Dilation was performed, patient continues to have trouble swallowing hoarseness in his voice. He reports that it is happening more in his throat and not lower that would be in his esophagus. However he does report that for the most part he feels well. He is swallowing better and the food passes down below his throat, however he still has trouble swallowing even pills and feels like he has to double swallow. Frequently has to clear his throat. Has not seen ENT in the past. Patient denies any nausea or vomiting. Denies any dyspepsia or odynophagia. Patient denies any other GI concerning symptoms. He is compliant with both PPI and famotidine, however he was told by consultant to stop famotidine and he did not take it last night. He is taking senna and reports that his bowels are moving well. Occasionally takes simethicone for bloating. [facility] Medical History Elevated cholesterol HTN (hypertension) GERD (gastroesophageal reflux disease) Restrictive airway disease Prostate cancer Surgical History Hx of excision of mass (06/25/23) History of open reduction and internal fixation (ORIF) procedure History of esophagogastroduodenoscopy (EGD) Hx of colonoscopy History of cardiac cath Family History Father Throat cancer Mother Diabetes Kidney disease Social History Household Members: Children Housing: Apartment Do you presently have visiting nurse or other home services: No Alcohol intake: never Patient Tobacco Use Status: Former Tobacco user Second Hand Smoke Exposure: No service: No Current occupational status: retired Current occupation: right hand dominant Review of Systems Const Denies weight gain and Denies weight loss ENT Reports no additional complaints, Reports dysphagia and Denies odynophagia Card Reports no additional complaints Resp Reports no additional complaints GI Denies abdominal pain, Denies belching, Denies melena, Reports bloating, Denies change in bowel habits, Reports dysphagia, Denies excessive flatus, Denies dyspepsia, Reports heartburn, Denies diarrhea, Denies loose stools, Denies nausea, Denies odynophagia and Denies vomiting Reports no additional complaints Musc Reports no additional complaints Neuro Reports no additional complaints Psych Reports no additional complaints Endo Reports no additional complaints Physical Exam Vital Signs: Last Vital Signs Pulse 76 04/07/25 12:56 BP 132/58 L 04/07/25 12:56 Pulse Ox 98 04/07/25 12:56 Oxygen Delivery Method Room Air 04/07/25 12:56 BMI result Body Mass Index 27.3 Const General: healthy appearing, no acute distress and well developed Nutritional Appearance: well nourished Orientation/consciousness: patient oriented x3 Resp Effort & Inspection: normal respiratory effort, able to speak in complete sentences, no tracheal deviation and symmetric chest movement Auscultation: clear to auscultation bilaterally Cardio Rate: regular rate GI Inspection: Yes normal to inspection and No distended Palpation (GI): Soft to palpation, not firm, nontender and No hepatosplenomegaly present Auscultation: normal bowel sounds General: Yes no CVA tenderness Back/Spine/Pelvis Back: no CVA tenderness Skin General skin exam: elasticity normal, turgor normal and dry skin Neuro General: patient oriented x3 Psych Appearance: grossly normal Mental Status: mental status grossly normal Assessment & Plan Assessment & Plan (1) Duodenal ulcer: Code(s): K26.9 - Duodenal ulcer, unspecified as acute or chronic, without hemorrhage or perforation Category: Medical (2) Dysphagia: Code(s): R13.10 - Dysphagia, unspecified Category: Medical Qualifiers: Dysphagia type: pharyngoesophageal phase Qualified Code(s): R13.14 - Dysphagia, pharyngoesophageal phase (3) Gastroesophageal reflux disease: Code(s): K21.9 - Gastro-esophageal reflux disease without esophagitis (4) Diverticular disease: Code(s): K57.90 - Diverticulosis of intestine, part unspecified, without perforation or abscess without bleeding (5) Postprandial abdominal bloating: Code(s): R14.0 - Abdominal distension (gaseous) (6) Constipation: Code(s): K59.00 - Constipation, unspecified Qualifiers: Constipation type: slow transit constipation Qualified Code(s): K59.01 - Slow transit constipation Plan Patient will continue taking PPI for now. Will send him for modified barium swallow with speech therapy, check x-ray of the soft tissue neck. I do not suspect any abnormalities, however patient does report trouble swallowing when done swallows small pills. Discussed with patient the importance of being careful how he eats chewing his food really good. Observe for the next few weeks if any postnasal drip that could be causing the symptoms. Patient will follow-up in 2 months. He was encouraged to call us if you have any worsening symptoms. He is agreeable to current plan of care and verbalizes understanding of instructions. He was given the opportunity to ask questions and all questions answered. Thank you for allowing me to participate in his care Orders: Orders XR soft tissue neck 04/07/25 K22.2 - Esophageal obstruction FL Modified Barium Swallow Today R13.10 - Dysphagia, unspecified Referrals Ear/Nose/Throat Referral R13.10 - Dysphagia, unspecified Medications: Discontinued famotidine take esomeprazole in the morning and famotidine at night Discontinued Reason: Patient no longer taking 20 mg PO BEDTIME 90 days 90 tabs 0RF Coding Level of Care Code Est Pt Level 4 (99130) Complex visit Add On G2211 Diagnoses Duodenal ulcer K26.9 Pharyngoesophageal dysphagia R13.14 Dysphagia type: pharyngoesophageal phase Gastroesophageal reflux disease K21.9 Diverticular disease K57.90 Postprandial abdominal bloating R14.0 Slow transit constipation K59.01 Constipation type: slow transit constipation Time Spent (min) 40 Comment 25 minutes spent with patient and additional 15 minutes spent reviewing his records
--- OUTSIDE RECORDS SUMMARY | 2025-04-07 15:16 | XMS_ITS | Encounter Summary ---
Author Organization [employer] Address [address] [facility] 7t [place] [address] Care Team Providers Care Distribution Operations Manager Name Role Phone Cheryl Hogan MD Primary Care Provide r Encounter Details Date Type Department Care Team (Latest Contact Info) Description 06/11/[address] [facility] CONVERSIONS Dental, Provider, DDS Social History [...] Department Care Team ( Contact Info) Description 04/19/2025 9:00 AM EST Office Visit [facility] MEDICINE [address] [place] [address] Cheryl Hogan MD [address] [place] [address] documented as of this encounter Visit Diagnoses Not on filedocumented in this encounter Care Teams Distribution Operations Manager Relationship Specialty Start Date End Date Cheryl Hogan MD [address] [place] [address] [phone] PCP - General Family Medicine 10/11/20 documented as of this encounter
--- OUTSIDE RECORDS SUMMARY | 2025-04-07 15:16 | XMS_ITS | Encounter Summary ---
Author Organization [employer] Address [address] [facility] 7t [place] [address] Care Team Providers Care Director Instructional Material Name Role Phone Cheryl Hogan MD Primary Care Provide r Encounter Details Date Type Department Care Team (Late st Contact Info) Description 12/17/2022 Orders Only [facility] CHC MED & PEDS [address] [place] [address] Karey Juan LPN Social History Tobacco Use [...] Care Team (Late st Contact Info) Description 04/19/2025 9:00 AM EST Office Visit [facility] MEDICINE [address] [place] [phone] Cheryl Hogan MD [address] [place] [address] documented as of this encounter Visit Diagnoses Not on filedocumented in this encounter Care Teams Director Instructional Material Relationship Specialty Start Date End Date Cheryl Hogan MD [address] [place] [phone] PCP - General Family Medicine 10/11/20 documented as of this encounter
--- OUTSIDE RECORDS SUMMARY | 2025-04-07 15:16 | XMS_ITS | Encounter Summary ---
Author Organization [employer] Address [address] [facility] 7t [place] [address] Care Team Providers Care Field Mechanic Name Role Phone Cheryl Hogan MD Primary Care Provide r Encounter Details Date Type Department Care Team ([facility] Contact Info) Description 03/26/2023 Orders Only [facility] CHC MED & PEDS [address] [place] [address] So Katz LPN Social History Tobacco Use [...] Description 04/19/2025 9:00 AM EST Office Visit [facility] MEDICINE [address] [place] [address] Cheryl Hogan MD [address] [place] [address] documented as of this encounter Visit Diagnoses Not on filedocumented in this encounter Additional Health Concerns Assessment Noted Time PHQ-9 Depression Total Score: 0 03/05/20 23 3:51 PM EDT documented as of this encounter Care Teams Field Mechanic Relationship Specialty Start Date End Date Cheryl Hogan MD [address] [place] [phone] PCP - General Family Medicine 10/11/20 documented as of this encounter
--- OUTSIDE RECORDS SUMMARY | 2025-04-07 15:16 | XMS_ITS | Encounter Summary ---
Author Organization [employer] [facility] Address [address] [facility] 7t [place] [address] Care Team Providers Care Histology Technologist Name Role Phone Cheryl Hogan MD Primary Care Provide r Reason for Visit * Reason Comments Med Refill Encounter Details Date Type Department Care Team (Late st Contact Info) Description 12/16/2022 Refill [facility] MEDICINE [address] [place] [phone] Rebeca Carlisle, JEWISH HISTORY PROFESSOR Mixed hyperlipidemia Social History Tobacco Use Types [...] Description 04/19/2025 9:00 AM EST Office Visit [facility] MEDICINE [address] [place] [phone] Cheryl Hogan MD [address] [place] [address] documented as of this encounter Visit Diagnoses Diagnosis Mixed hyperlipidemia documented in this encounter Care Teams Histology Technologist Relationship Specialty Start Date End Date Cheryl Hogan MD [address] [place] [phone] PCP - General Family Medicine 10/11/20 documented as of this encounter
--- OUTSIDE RECORDS SUMMARY | 2025-04-07 15:16 | XMS_ITS | Encounter Summary ---
Author Organization [employer] Address [address] [facility] 7t [place] [address] Care Team Providers Care Animal Rescuer Name Role Phone Cheryl Hogan MD Primary Care Provide r Encounter Details Date Type Department Care Team ([facility] st Contact Info) Description 03/04/2025 Orders Only [facility] MEDICINE [address] [place] [address] Cheryl Hogan MD [address] [place] [address] Social History Tobacco Use Types Packs/Day Years [...] Description 04/19/2025 9:00 AM EST Office Visit [facility] MEDICINE [address] [place] [phone] Cheryl Hogan MD [address] [place] [address] documented as of this encounter Procedures Procedure Name Priority Date/Time Associated Diagnosis Comments US RENAL COMPLETE Routine 03/12/2025 8:5 7 PM EST documented in this encounter Results * US Renal Complete (03/12/2025 8:57 PM EST) Anatomical Region Laterality Modality Kidney Ultrasound 03/12/2025 8:57 PM EST Narrative 03/12/2025 8:58 PM EST [address] [address] Ultrasound Report Signed Patient: Dk Coffey MR#: [id number] 238 : 1945 Acct:[id number] Age/Sex: 79 / M ADM Date: 03/12/25 Loc: HO.US Attending Dr: Jose A Piper MD Ordering Physician: Jose A Piper MD Date of Service: 03/12/25 Procedure(s): US renal BI Accession Number(s): [id number] cc: Jose A Piper MD; Cheryl Hogan MD Reason for Exam: N17.9 - Acute kidney failure, unspecified CLINICAL HISTORY: N17.9 - Acute kidney failure, unspecified US renal Comparison: 04/15/2024 Findings: Right kidney 10.8 cm length. No significant focal abnormality. Left kidney 11.4 cm length. No significant focal abnormality. Prominent column of Nathan. No bilateral hydronephrosis. Normal bilateral renal echogenicity. Impression: No significant abnormalities. This document has been electronically signed by: Ramírez Alcantar MD on 03/12/2025 20:57:46 Dictated By: Ramírez Alcantar MD Signed By: <Electronically signed by Ramírez Alcantar MD in OV> 03/12/252057 DD/ 56 TD/TT: 03/12/252056 Product Coordinator: Procedure Note Donotuseinterpreter, Image - 03/12/2025 [place] [address] Ultrasound Report Signed Patient: Renee Coffey#: [id number] 238 : 1945cct:[id number] Age/Sex: 79 / MADM Date: 03/12/25 Loc: HO. Attending Dr: Jose A Piper MD Ordering Physician: Jose A Piper MD Date of Service: 03/12/25 Procedure(s): US renal BI Accession Number(s): [id number] cc: Jose A Piper MD; Cheryl Hogan MD Reason for Exam: N17.9 - Acute kidney failure, unspecified CLINICAL HISTORY: N17.9 - Acute kidney failure, unspecified US renal Comparison: 04/15/2024 Findings: Right kidney 10.8 cm length. No significant focal abnormality. Left kidney 11.4 cm length. No significant focal abnormality. Prominent column of Nathan. No bilateral hydronephrosis. Normal bilateral renal echogenicity. Impression: No significant abnormalities. This document has been electronically signed by: Ramírez Alcantar MD on 03/12/2025 20:57:46 Dictated By: Ramírez Alcantar MD Signed By: <Electronically signed by Ramírez Alcantar MD in OV> 03/12/252057 DD/ 56 TD/TT: 03/12/252056 Product Coordinator: [facility] External Provider IMG US PROCEDURES Edited Result - Final documented in this encounter Visit Diagnoses Not on filedocumented in this encounter Additional Health Concerns Assessment Noted Time PHQ-9 Depression Total Score: 0 04/14/20 24 10:38 AM EST documented as of this encounter Care Teams Animal Rescuer Relationship Specialty Start Date End Date Cheryl Hogan MD [address] [place] [address] PCP - General Family Medicine 10/11/20 documented as of this encounter
--- OUTSIDE RECORDS SUMMARY | 2025-04-07 15:16 | XMS_ITS | Encounter Summary ---
Author Organization [employer] Address [address] [facility] 7t [place] [address] Care Team Providers Care Director Of Land Name Role Phone Cheryl Hogan MD Primary Care Provide r Encounter Details Date Type Department Care Team ( Contact Info) Description 04/07/2025 Orders Only [facility] External Provider, [facility] Social History Tobacco Use Types Packs/Day Years [...] Description 04/19/2025 9:00 AM EST Office Visit [facility] MEDICINE [address] [place], [place] [phone] Cheryl Hogan MD [address] [place], [place] [phone] documented as of this encounter Procedures Procedure Name Priority Date/Time Associated Diagnosis Comments XR NECK SOFT TISSUE Routine 04/07/2025 1 :44 PM EST documented in this encounter Results * XR Neck Soft Tissue (04/07/2025 1:44 PM EST) Anatomical Region Laterality Modality Head, Neck Radiographic Paola ging 04/07/2025 1:44 PM EST Narrative 04/07/2025 1:54 PM EST [address] [address] XRay Report Signed Patient: Dk Coffey MR#: [id number] 238 : 1945 Acct:[id number] Age/Sex: 79 / M ADM Date: 04/07/25 Loc: [facility] Attending Dr: Arina SCHMITZ Ordering Physician: Arina Saenz Date of Service: 04/07/25 Procedure(s): XR soft tissue neck Accession Number(s): [id number] cc: Cheryl Hogan MD; Arina Saenz Reason for Exam: K22.2 - Esophageal obstruction EXAMINATION: XR SOFT TISSUE NECK CLINICAL INDICATION: K22.2 - Esophageal obstruction COMPARISON: None available. TECHNIQUE: AP and lateral views. FINDINGS: There is gas upper airway/oropharynx and hypopharynx with an abrupt cut off at the thyroid cartilage level/C4 level. There is air in the larynx and trachea. Multilevel cervical spondylosis C3 C7 resulting in reverse curvature apex at C3-4. XR/XR soft tissue neck IMPRESSION: Air-fluid level at the hypopharynx/esophagus junction. Multilevel moderate to severe cervical spondylosis. Electronically signed by: Jack Oro MD 04/07/2025 01:51 PM EST Dictated By: Jack Andersen MD Signed By: <Electronically signed by Jack Quevedo MD in OV> 04/07/25 1351 DD/ 1344 TD/TT: 04/07/25 1345 Line Supply: Procedure Note Donotuseinterpreter, Image - 04/07/2025 [place] [address] XRay Report Signed Patient: Renee Coffey#: [id number] 238 : 1945cct:[id number] Age/Sex: 79 / MADM Date: 04/07/25 Loc: [facility] Attending Dr: Arina MERCHANT-NAIMA Ordering Physician: Arina Saenz Date of Service: 04/07/25 Procedure(s): XR soft tissue neck Accession Number(s): [id number] cc: Cheryl Hogan MD; Arina Saenz-NAIMA Reason for Exam: K22.2 - Esophageal obstruction EXAMINATION: XR SOFT TISSUE NECK CLINICAL INDICATION: K22.2 - Esophageal obstruction COMPARISON: None available. TECHNIQUE: AP and lateral views. FINDINGS: There is gas upper airway/oropharynx and hypopharynx with an abrupt cut off at the thyroid cartilage level/C4 level. There is air in the larynx and trachea. Multilevel cervical spondylosis C3 C7 resulting in reverse curvature apex at C3-4. XR/XR soft tissue neck IMPRESSION: Air-fluid level at the hypopharynx/esophagus junction. Multilevel moderate to severe cervical spondylosis. Electronically signed by: Jack Oro MD 04/07/2025 01:51 PM EST RP Dictated By: Jack Andersen MD Signed By: <Electronically signed by Jack Quevedo MDin OV> 04/07/25 1351 DD/ 1344 TD/TT: 04/07/25 1345 Line Supply: [facility] External Provider IMG XR PROCEDURES Final Result documented in this encounter Visit Diagnoses Not on filedocumented in this encounter Additional Health Concerns Assessment Noted Time PHQ-9 Depression Total Score: 0 04/14/20 24 10:38 AM EST documented as of this encounter Care Teams Director Of Land Relationship Specialty Start Date End Date Cheryl Hogan MD [address] [place] [address] PCP - General Family Medicine 10/11/20 documented as of this encounter
--- OUTSIDE RECORDS SUMMARY | 2025-04-07 15:17 | XMS_ITS | Encounter Summary ---
Author Organization [employer] Address [address] [facility] 7t [place] [address] Care Team Providers Care String Top Sealer Name Role Phone Cheryl Hogan MD Primary Care Provide r Reason for Visit * Reason Comments Med Refill Encounter Details Date Type Department Care Team ([facility] st Contact Info) Description 07/05/2023 Refill [facility] MEDICINE [address] [place] [address] Cheryl Hogan MD [address] [place] [address] Polyarthralgia Social History Tobacco Use Types Packs/Day [...] Description 04/19/2025 9:00 AM EST Office Visit [facility] MEDICINE [address] [place] [address] Cheryl Hogan MD [address] [place] [address] documented as of this encounter Visit Diagnoses Diagnosis Polyarthralgia Pain in joint, multiple sites documented in this encounter Additional Health Concerns Assessment Noted Time PHQ-9 Depression Total Score: 0 03/05/20 23 3:51 PM EDT documented as of this encounter Care Teams String Top Sealer Relationship Specialty Start Date End Date Cheryl Hogan MD [address] [place] [phone] PCP - General Family Medicine 10/11/20 documented as of this encounter
--- OUTSIDE RECORDS SUMMARY | 2025-04-07 15:17 | XMS_ITS | Clinical Summary ---
Author Organization [employer] Address [address] [facility] 7t [place] [address] Care Team Providers Care Emt Paramedic Name Role Phone Cheryl Hogan MD Primary [...] twice daily 30 capsule 11 4 Active Blood Pressure kitIndications:Ess ential [...] 30 tablet 2 5 05/09/19 26 Active potassium chloride CR (Klor-Con M20) 20 MEQ ER tabletIndications: Hypokalemia,Acute kidney injury superimposed on CKD Take 1 tablet (20 mEq) by mouth 2 times daily. Do not crush or chew. 6 tablet 5 02/10/20 26 Active amLODIPine (Norvasc) 10 MG tabletIndications: Essential hypertension TAKE 1 TABLET BY MOUTH EVERY MORNING 30 tablet 11 5 Active Active Problems Problem Noted Date [...] omeprazole BID x4 weeks Refer to GI Health Services Coordinator to avoid alcohol and smoking Duodenal ulcer [...] Encounters Date Type Department Care Team Description 04/07/2025 Orders Only [facility] External Provider, [facility] 03/04/2025 Orders Only [facility] MEDICINE [address] [place] [phone] Cheryl Hogan MD 03/03/2025 Refill [facility] [address] [place] [phone] Cheryl Hogan MD Essential hypertension 02/09/2025 Results Follow-Up [facility] MED[facility]INE [address] [place] [phone] Cheryl Hogan MD Basic Metabolic Panel, PSA,Total 02/09/[address] [address] Cheryl Hogan MD DME Ensure 02/09/2025 Telephone [facility] MED[facility]INE [address] [place] [phone] Cheryl Hogan MD DME Ensure 02/08/2025 2:45 [place] [address] Cheryl Hogan MD Essential hypertension (Primary Dx); Esophageal dysphagia; Esophageal dysmotility; Anxiety; Encounter for immunization; Dietary counseling; Exercise counseling; Encounter for preventive care 02/08/2025 Orders Only [facility] MEDICINE [address] [place] [address] Cheryl Hogan MD 02/08/2025 Travel 01/20/2025 Telephone [facility] MEDICINE [address] [facility] [place] [address] Cheryl Hogan MD fyi from Last 3 Months Immunizations Immunization Administration [...] your housing situation today? I have laura wang 03/05/[address] you li [...] 02/08/2025 2:33 PM EDT Plan of Treatment Upcoming Encounters Date Type Department Care Team (Late st Contact Info) Description 04/19/2025 9:00 AM EST Office Visit [facility] MED[facility]INE [address] [place] [address] Cheryl Hogan MD [address] [place], [place] [phone] Health Maintenance Due Date Last Done Comments DTaP/Tdap/Td Vaccines (2 - Td or Tdap) 04/27/2020 04/27/2010 RSV Patients and Patients Aged 60 years or older (1 - 1-dose 75+ series) 2021 COVID-19 Vaccine (4 - season) 2025 04/24/2021, 08/16/2020, 07/19/2020 Alcohol/Substance Use [...] TISSUE Routine 04/07/2025 1 :44 PM EST US RENAL COMPLETE Routine 03/12/2025 8:5 7 PM EST TESTOSTERONE, TOTAL, MALES (ADULT), IA Routine 02/08/2025 3:29 PM EDT PSA, TOTAL Routine 02/08/2025 3:29 PM EDT BASIC METABOLIC PANEL Routine 02/08/2025 3:29 PM EDT LIPID PANEL, STANDARD Routine 02/08/2025 3:29 PM EDT Essential hypertension ZZZ HISTORICAL HEPATITIS C AB W/REFL TO HCV RNA, QN, PCR Routine 03/13/2021 10:05 AM EST from Last 3 Months or Most Recently Relevant to Health Maintenance Results * XR Neck Soft Tissue (04/07/2025 1:44 PM EST) Anatomical Region Laterality Modality Head, Neck Radiographic Paola ging 04/07/2025 1:44 PM EST Narrative 04/07/2025 1:54 PM EST [place] [address] XRay Report Signed Patient: Dk Coffey MR#: [id number] 238 : 1945 Acct:[id number] Age/Sex: 79 / M ADM Date: 04/07/25 Loc: HO.JAMIE Attending Dr: Arina IRIZARRYPSpeedy Ordering Physician: Arina Saenz [employer] Date of Service: 04/07/25 Procedure(s): XR soft tissue neck Accession Number(s): [id number] cc: Cheryl Hogan MD; Arina Saenz Reason [...] 04/07/25 1351 DD/ 1344 TD/TT: 04/07/25 1345 Criminology Professor: Procedure Note Donotuseinterpreter, Image - 04/07/2025 [place] [address] XRay Report Signed Patient: Renee Coffey#: [id number] 238 : 1945cct:[id number] Age/Sex: 79 / MADM Date: 04/07/25 Loc: ROMEO Attending Dr: Arina Saenz [employer]- Ordering Physician: Arina Saenz [employer]NAIMA Date of Service: 04/07/25 Procedure(s): XR soft tissue neck Accession Number(s): [id number] cc: Cheryl Hogan MD; Arina Saenz [employer] Reason for Exam: K22.2 - Esophageal obstruction [...] MDin OV> 04/07/25 1351 DD/ 1344 TD/TT: 04/07/251344 Criminology Professor: [facility] External Provider IMG XR PROCEDURES Final Result * US Renal Complete (03/12/2025 8:57 PM EST) Anatomical Region Laterality Modality Kidney Ultrasound 03/12/2025 8:57 PM EST Narrative 03/12/2025 8:58 PM EST [address] [address] Ultrasound Report Signed Patient: Dk Coffey MR#: [id number] 238 : 1945 Acct:[id number] Age/Sex: 79 / M ADM Date: 03/12/25 Loc: .US Attending Dr: Jose A Piper MD Ordering Physician: Jose A Piper MD Date of Service: 03/12/25 Procedure(s): US renal BI Accession Number(s): [id number] cc: Jose A Piper MD; Cheryl Hogan [...] in OV> 03/12/252057 DD/ 56 TD/TT: 03/12/252056 Criminology Professor: Procedure Note Donotuseinterpreter, Image - 03/12/[address] [address] Ultrasound Report Signed Patient: Dk CoffeyMR#: [id number] 238 : 7Acct:[id number] Age/Sex: 79 / MADM Date: 03/12/25 Loc: HO.US Attending Dr: Jose A Piper MD Ordering Physician: Jose A Piper MD Date of Service: 03/12/25 Procedure(s): US renal BI Accession Number(s): [id number] cc: Jose A Piper MD; Cheryl Hogan [...] in OV> 03/12/252057 DD/ 56 TD/TT: 03/12/252056 Criminology Professor: us [facility] External Provider IMG US PROCEDURES Edited Result - Final * Testosterone, Total, males (Adult), IA (02/08/2025 3:29 PM EDT) Testosterone, Total 488 250 - 1100 ng/dL [facility] Comment:Men with clinically significant hypogonadalsymptoms and testosterone values repeatedly inthe range of the 200-300 ng/dL or less, maybenefit from testosterone treatment afteradequate risk and benefits counseling.For additional information, please refer tohttp://education.[employer]/faq/[email or web address](This link is being provided for informational/educational purposes only.)This test was developed and its analytical performancecharacteristics have been determined by [employer] [place], [place]. It hasnot been cleared or approved by the U.S. Food and DrugAdministration. This assay has been validated pursuantto the CLIA regulations and is used for clinicalpurposes.THIS TEST WAS PERFORMED AT:[employer] [place] [address]JVOIOXWJOSE BALTAZAR MD,PHD 02/08/2025 3:29 PM EDT 02/08/2025 4:03 PM EDT Generic External Data Provider LAB BLOOD ORDERAB LES Final Result Performing Organization Address City/[facility]/ZIP Co de Phone Number [facility] [address] [place] [phone] * PSA,Total (02/08/2025 3:29 PM EDT) Prostate Specific Antigen 0.37 <0.05 - 4.0 ng/mL [facility] Comment:PSA methodology: Abb leonardo Alinity i ChemiluminescentMicroparticle Immunoassay (CMIA) 02/08/2025 3:29 PM EDT 02/08/2025 4:03 PM EDT Generic External Data Provider LAB BLOOD ORDERAB LES Final Result Performing Organization Address City/[facility]/ZIP Co de Phone Number [facility] [address] [place] [phone] * Lipid Panel, Standard (02/08/2025 3:29 PM EDT) Triglycerides 109 <150 mg/dL [facility] Comment:Desirable Triglyceri de: less than 150 mg/dLBorderline High Triglyceride 150-199 mg/dLHigh Triglyceride: 200-499 mg/dLVery High Triglyceride: greater than or equal to 5OO mg/dL Cholesterol 150 <200 mg/dL [facility] Comment:Desirable Cholestero l: less than 200 mg/dLBorderline High Cholesterol: 200-239 mg/dLHigh Cholesterol: greater than 239 mg/dL LDL Cholesterol Calculated 83 <100 mg/dL [facility] Comment:Desirable LDL: less than 100 mg/dLNear Optimal/Above Optimal LDL: 110- 129 mg/dLBorderline High LDL: 130-159 mg/dLHigh LDL: 160-189 mg/dLVery High LDL: greater than or equal to 190 mg/dL HDL Cholesterol 46 >40 mg/dL [facility] Comment:Desirable HDL: great er than 40 mg/dL Note: This HDL assay may give artificially low results in patients with liver disease. Blood Venous blood specimen / Unknown 02/08/2025 3:29 PM EDT 02/08/2025 4:03 PM EDT Cheryl Richardson MD LAB BLOOD ORDERABLES Final Result [facility] [address] [place] [phone] * (ABNORMAL) Basic Metabolic Panel (02/08/2025 3:29 PM EDT) Sodium 137 135 - 145 mmol/L [facility] Potassium 3.2(L) 3.3 - 5.1 mmol/L [facility] Chloride 107 96 - 108 mmol/L [facility] Carbon Dioxide 22 22 - 29 mmol/L [facility] Anion Gap 11(L) 12 - 20 [facility] Urea Nitrogen (BUN) 23(H) 9 - 16 mg/dL [facility] Creatinine, Serum 1.55(H) 0.5 - 1.4 mg/dL [facility] Estimated Glomerular Filt Rate 44 [facility] Comment:Chronic Kidney Disea se: Estimated GFR < 60 mL/min/1.31z4Fdivjt Kidney Disease: Estimated GFR < 15 mL/min/1.73m2 Glucose 115 60 - 115 mg/dL [facility] Calcium 8.9 8.4 - 10.2 mg/dL [facility] 02/08/2025 3:29 PM EDT 02/08/2025 4:03 PM EDT us Cheryl Richardson MD LAB BLOOD ORDERABLES Final Result [facility] [address] [place] [phone] * HEPATITIS C AB W/REFL TO HCV RNA, QN, PCR (03/13/2021 10:05 AM EST) HEPATITIS C ANTIBODY NON-REACT [facility] NON-REACT [facility] INDEX 0.02 <1.00 [facility] Comment: HCV antibody was non-reactive. There is no laboratory evidence of HCV infection. In most cases, no further action is required. However, if recent HCV exposure is suspected, a test for HCV RNA (test code 71910) is suggested. For additional information please refer to http://[employer]/faq/BXK08g1 (This link is being provided for informational/ educational purposes only.) 03/13/2021 10:0 5 AM EST us Cheryl Richardson MD HISTORICAL/NON ORDERA BLE LABS Final Result Performing Organization Address City/[facility]/ZIP Co de Phone Number [facility] [address] [place] [phone], from Last 3 Months or Most Recently Relevant to Health Maintenance Insurance spring [address] [address] [facility] J[employer] OPT[employer] (HMO D-SNP) GARO FISHER [id number] * Guarantor: Dk Coffey Account Type Relation to Patient Date of Phone Billing Address Personal/Family Self spring [address] * Guarantor: Dk Coffey Account Type Relation to Patient Date of Phone Billing Address Personal/Family Self spring [address] * Guarantor: Dk Coffey Account Type Relation to Patient Date of Phone Billing Address Personal/Family Self spring [address] Care Teams Emt Paramedic Relationship Specialty Start Date End Date Cheryl Hogan MD [address] [place] [phone] PCP - General Family Medicine 10/11/20
--- OUTSIDE RECORDS SUMMARY | 2025-04-07 15:17 | XMS_ITS | Encounter Summary ---
Author Organization [employer] Address [address] 7t [place] [address] Care Team Providers Care Finance Business Manager Name Role Phone Cheryl Hogan MD Primary Care Provide r Encounter Details Date Type Department Care Team ( Contact Info) Description 02/10/2024 Orders Only [facility] [address] [place], [place] [phone] Cheryl Hogan MD [address] [place] [address] Hypokalemia (Primary Dx) Social History Tobacco Use [...] Description 04/19/2025 9:00 AM EST Office Visit [facility] [address] [place] [address] Cheryl Hogan MD [address] [place] [address] documented as of this encounter Procedures Procedure Name Priority Date/Time Associated Diagnosis Comments BASIC METABOLIC PANEL Routine 04/14/2024 11:42 AM EST Hypokalemia documented in this encounter Results * (ABNORMAL) Basic Metabolic Panel (04/14/2024 11:42 AM EST) Sodium 141 135 - 145 mmol/L [facility] Potassium 3.1(L) 3.3 - 5.1 mmol/L [facility] Chloride 105 96 - 108 mmol/L [facility] Carbon Dioxide 21(L) 22 - 29 mmol/L [facility] Anion Gap 18 12 - 20 [facility] Urea Nitrogen (BUN) 21(H) 9 - 16 mg/dL [facility] Creatinine, Serum 2.67(H) 0.5 - 1.4 mg/dL [facility] Estimated Glomerular Filt Rate 23 [facility] Comment:Chronic Kidney Disea se: Estimated GFR < 60 mL/min/1.04t4Pqkmlc Kidney Disease: Estimated GFR < 15 mL/min/1.73m2 Glucose 137(H) 60 - 115 mg/dL [facility] Calcium 9.4 8.4 - 10.2 mg/dL [facility] Blood Venous blood specimen / Unknown 04/14/2024 11:42 AM EST 04/14/2024 1:03 PM EST us Cheryl Richardson MD LAB BLOOD ORDERABLES Final Result [facility] [address] [place] [phone] documented in this encounter Visit Diagnoses Diagnosis Hypokalemia- Primary Hypopotassemia documented in this encounter Additional Health Concerns Assessment Noted Time PHQ-9 Depression Total Score: 0 03/05/20 23 3:51 PM EDT documented as of this encounter Care Teams Finance Business Manager Relationship Specialty Start Date End Date Cheryl Hogan MD [address] [place] [address] PCP - General Family Medicine 10/11/20 documented as of this encounter
== END 2025-04-07 13:29 | disposition home or self-care (01) ==
LOC: HO.HGI 12:52
PROVIDERS: PCP Internal Medicine; Visit Provider Nurse Practitioner Family
DX: K26.9 Duodenal ulcer, unspecified as acute or chronic, without hemorrhage or perforation (principal); R13.14 Dysphagia, pharyngoesophageal phase; K21.9 Gastro-esophageal reflux disease without esophagitis; K57.90 Diverticulosis of intestine, part unspecified, without perforation or abscess without bleeding; R14.0 Abdominal distension (gaseous); K59.01 Slow transit constipation
CPT/HCPCS: 99214; G2211

== ENCOUNTER 2025-04-07 12:52 | Outpatient (REF) | payer OTHER, SELFPAY ==
--- NOTE | ~2025-04-07 | XR_ITS ---
EXAMINATION: XR SOFT TISSUE NECK CLINICAL INDICATION: K22.2 - Esophageal obstruction COMPARISON: None available. TECHNIQUE: AP and lateral views. FINDINGS: There is gas upper airway/oropharynx and hypopharynx with an abrupt cut off at the thyroid cartilage level/C4 level. There is air in the larynx and trachea. Multilevel cervical spondylosis C3 C7 resulting in reverse curvature apex at C3-4. XR/XR soft tissue neck IMPRESSION: Air-fluid level at the hypopharynx/esophagus junction. Multilevel moderate to severe cervical spondylosis. Electronically signed by: Jack Oro MD 04/07/2025 01:51 PM EST RP
== END 2025-04-07 12:53 | disposition home or self-care (01) ==
LOC: HO.XRAY 12:52
PROVIDERS: PCP Internal Medicine; Visit Provider Nurse Practitioner Family
DX: K22.2 Esophageal obstruction (principal); K26.9 Duodenal ulcer, unspecified as acute or chronic, without hemorrhage or perforation; R13.14 Dysphagia, pharyngoesophageal phase; K21.9 Gastro-esophageal reflux disease without esophagitis; K57.90 Diverticulosis of intestine, part unspecified, without perforation or abscess without bleeding; R14.0 Abdominal distension (gaseous); K59.01 Slow transit constipation
CPT/HCPCS: 70360; 99212

== ENCOUNTER → 2025-04-07 13:39 | Outpatient (BNV) | payer OTHER, SELFPAY | PROVIDERS: PCP Internal Medicine; Visit Provider Radiology Diagnostic Radiology | DX: M47.812 Spondylosis without myelopathy or radiculopathy, cervical region (principal) | CPT/HCPCS: 70360 ==

== ENCOUNTER 2025-04-13 13:53 | Outpatient (REF) | payer OTHER, SELFPAY ==
--- NOTE | ~2025-04-13 | FL_ITS ---
EXAMINATION: XR BARIUM SWALLOW CLINICAL INFORMATION: Dysphagia COMPARISON: None available. TECHNIQUE: Modified barium swallow under fluoroscopic monitoring FINDINGS: Modified Barium Swallow performing speech pathologist. Patient swallowed liquids and solids of varying consistency. No evidence of aspiration. Small Zenker's diverticulum. See speech pathology report for details. FLUOROSCOPY TIME: 1 minute 42 seconds DOSE AREA PRODUCT: 916 uGy-m2 (microgray-meter squared) FL/FL Modified Barium Swallow IMPRESSION: Modified barium swallow performed by speech pathologist. Small Zenker's diverticulum. See speech pathology report for details. Electronically signed by: Ayush Stearns MD 04/13/2025 02:53 PM [facility]
--- OUTSIDE RECORDS SUMMARY | 2025-04-13 19:53 | XMS_ITS | Encounter Summary ---
Author Organization [employer] Address [address] [facility] 7t [place] [address] Care Team Providers Care Picker / Packer Name Role Phone Cheryl Hogan MD Primary Care Provide r Encounter Details Date Type Department Care Team (Latest Contact Info) Description 06/11/2018 Abstract [facility] CONVERSIONS Dental, Provider, DDS Social History [...] 9:00 AM EST Office Visit [facility] MEDICINE [address] [place] [address] Cheryl Hogan MD [address] [place] [address] documented as of this encounter Visit Diagnoses Not on filedocumented in this encounter Care Teams Picker / Packer Relationship Specialty Start Date End Date Cheryl Hogan MD [address] [place] [phone] PCP - General Family Medicine 10/11/20 documented as of this encounter
--- OUTSIDE RECORDS SUMMARY | 2025-04-13 19:53 | XMS_ITS | Encounter Summary ---
Author Organization [employer] Address [address] [facility] 7[address] [place] [address] Care Team Providers Care Target Protection Specialist Name Role Phone Cheryl Hogan MD Primary Care Provide r Encounter Details Date Type Department Care Team ([facility] Contact Info) Description 02/10/2024 Orders Only [facility] [address] [place], [place] [phone] Cheryl Hogan MD [address] [place] [address] Hypokalemia (Primary Dx) Social History Tobacco Use [...] Description 04/19/2025 9:00 AM EST Office Visit [facility] MED[facility] [address] [place] [address] Cheryl Hogan MD [address] [place] [address] documented as of this encounter Procedures Procedure Name Priority Date/Time Associated Diagnosis Comments BASIC METABOLIC PANEL Routine 04/14/2024 11:42 AM EST Hypokalemia documented in this encounter Results * (ABNORMAL) Basic Metabolic Panel (04/14/2024 11:42 AM EST) Sodium 141 135 - 145 mmol/L [facility] Potassium 3.1(L) 3.3 - 5.1 mmol/L [facility] Chloride 105 96 - 108 mmol/L [facility] Carbon Dioxide 21(L) 22 - 29 mmol/L [facility] Anion Gap 18 12 - 20 [facility] Urea Nitrogen (BUN) 21(H) 9 - 16 mg/dL [facility] Creatinine, Serum 2.67(H) 0.5 - 1.4 mg/dL [facility] Estimated Glomerular Filt Rate 23 [facility] Comment:Chronic Kidney Disea se: Estimated GFR < 60 mL/min/[id number] Kidney Disease: Estimated GFR < 15 mL/min/1.73m2 Glucose 137(H) 60 - 115 mg/dL [facility] Calcium 9.4 8.4 - 10.2 mg/dL [facility] Blood Venous blood specimen / Unknown 04/14/2024 11:42 AM EST 04/14/2024 1:03 PM EST us Cheryl Richardson MD LAB BLOOD ORDERABLES Final Result [facility] [address] [place] [phone] documented in this encounter Visit Diagnoses Diagnosis Hypokalemia- Primary Hypopotassemia documented in this encounter Additional Health Concerns Assessment Noted Time PHQ-9 Depression Total Score: 0 03/05/20 23 3:51 PM EDT documented as of this encounter Care Teams Target Protection Specialist Relationship Specialty Start Date End Date Cheryl Hogan MD [address] [place] [address] PCP - General Family Medicine 10/11/20 documented as of this encounter
--- OUTSIDE RECORDS SUMMARY | 2025-04-13 19:53 | XMS_ITS | Clinical Summary ---
Author Organization [employer] Address [address] [facility] 7t [place] [address] Care Team Providers Care Supervisor Reactor Fueling Name Role Phone Cheryl Hogan MD Primary [...] omeprazole BID x4 weeks Refer to GI [employer] Spanish Teacher to avoid alcohol and smoking Duodenal ulcer [...] Department Care Team Description 04/07/2025 Orders Only [facility] External Provider, [facility] 03/04/2025 Orders Only [facility] MED[facility]INE [address] [place] [phone] Cheryl Hogan MD 03/03/2025 Refill [facility] [address] [place] [address] Cheryl Hogan MD Essential hypertension 02/09/2025 Results Follow-Up [facility] [address] [place] [address] Cheryl Hogan MD Basic Metabolic Panel, PSA,Total 02/09/[address] [address] Cheryl Hogan MD DME Ensure 02/09/2025 Telephone [facility] [address] [place] [address] Cheryl Hogan MD DME Ensure 02/08/2025 2:45 [place] [address] Cheryl Hogan MD Essential hypertension (Primary Dx); Esophageal dysphagia; Esophageal dysmotility; Anxiety; Encounter for immunization; Dietary counseling; Exercise counseling; Encounter for preventive care 02/08/2025 Orders Only [facility] MEDICINE [address] [place] [address] Cheryl Hogan MD 02/08/2025 Travel 01/20/2025 Telephone [facility] MED[facility]INE [address] [place] [address] Cheryl Hogan MD fyi from Last 3 [...] Description 04/19/2025 9:00 AM EST Office Visit [facility] [address] [place] [address] Cheryl Hogan MD [address] [place], [place] [phone] Health Maintenance Due Date Last Done Comments [...] Procedure Name Priority Date/Time Associated Diagnosis Comments FL BARIUM SWALLOW MODIFIED Routine 04/13/2025 2:10 PM EST XR NECK SOFT TISSUE Routine 04/07/2025 1 [...] Recently Relevant to Health Maintenance Results * FL BARIUM SWALLOW MODIFIED (04/13/2025 2:10 PM EST) Anatomical Region Laterality Modality Head, Neck Radiographic Paola ging 04/13/2025 2:10 PM EST Narrative 04/13/2025 2:56 PM EST [place] [address] Fluoroscopy Report Signed Patient: Dk Coffey MR#: [id number] 238 : 1945 Acct:[id number] Age/Sex: 79 / M ADM Date: 04/13/25 Loc: ROMEO Attending Dr: Arina Saenz [facility]- Ordering Physician: Arina Saenz [facility] Date of Service: 04/13/25 Procedure(s): FL Modified Barium Swallow Accession Number(s): [id number] cc: Cheryl Hogan MD; Arina Saenz [facility] Reason for Exam: R13.10 - Dysphagia, unspecified EXAMINATION: XR BARIUM SWALLOW CLINICAL INFORMATION: Dysphagia COMPARISON: None available. TECHNIQUE: Modified barium swallow under fluoroscopic monitoring FINDINGS: Modified Barium Swallow performing speech pathologist. Patient swallowed liquids and solids of varying consistency. No evidence of aspiration. Small Zenker's diverticulum. See speech pathology report for details. FLUOROSCOPY TIME: 1 minute 42 seconds DOSE AREA PRODUCT: 916 uGy-m2 (microgray-meter squared) FL/FL Modified Barium Swallow IMPRESSION: Modified barium swallow performed by speech pathologist. Small Zenker's diverticulum. See speech pathology report for details. Electronically signed by: Ayush Stearns MD 04/13/2025 02:53 PM [facility] Dictated By: Ayush Stearns MD Signed By: <Electronically signed by Ayush Stearns MD in OV> 04/13/25 1453 DD/ 1410 TD/TT: 04/13/25 1424 Copra Sampler: KARTHIK Procedure Note Donotuseinterpreter, Image - 04/13/2025 [place] [address] Fluoroscopy Report Signed Patient: Renee Coffey#: [id number] 238 : 1945cct:[id number] Age/Sex: 79 / MADM Date: 04/13/25 Loc: HO.XRAY Attending Dr: Arina Saenz CUTTER OPERATOR TILE- Ordering Physician: Arina Saenz Date of Service: 04/13/25 Procedure(s): FL Modified Barium Swallow Accession Number(s): [id number] cc: Cheryl Hogan MD; Arina Saenz CUTTER OPERATOR TILE-NAIMA Reason for Exam: R13.10 - Dysphagia, unspecified EXAMINATION: XR BARIUM SWALLOW CLINICAL INFORMATION: Dysphagia COMPARISON: None available. TECHNIQUE: Modified barium swallow under fluoroscopic monitoring FINDINGS: Modified Barium Swallow performing speech pathologist. Patient swallowed liquids and solids of varying consistency. No evidence of aspiration. Small Zenker's diverticulum. See speech pathology report for details. FLUOROSCOPY TIME: 1 minute 42 seconds DOSE AREA PRODUCT: 916 uGy-m2 (microgray-meter squared) FL/FL Modified Barium Swallow IMPRESSION: Modified barium swallow performed by speech pathologist. Small Zenker's diverticulum. See speech pathology report for details. Electronically signed by: Ayush Stearns MD 04/13/2025 02:53 PM EST RP Dictated By: Ayush Stearns MD Signed By: <Electronically signed by Ayush Stearns MD in OV> 04/13/25 1453 DD/ 1410 TD/TT: 04/13/25 1424 Copra Sampler: KARTHIK [facility] External Provider IMG FLU OROSCOPY PROCEDURES Final Result * XR Neck Soft Tissue (04/07/2025 1:44 PM EST) Anatomical Region Laterality Modality Head, Neck Radiographic Paola ging 04/07/2025 1:44 PM EST Narrative 04/07/2025 1:54 PM EST [place] [address] XRay Report Signed Patient: Dk Coffey MR#: [id number] 238 : 1945 Acct:[id number] Age/Sex: 79 / M ADM Date: 04/07/25 Loc: ROMEO Attending Dr: Arina Saenz CUTTER OPERATOR TILE-NAIMA Ordering Physician: Arina Saenz Date of Service: 04/07/25 Procedure(s): XR soft tissue neck Accession Number(s): [id number] cc: Cheryl Hogan MD; Arina Saenz CUTTER OPERATOR TILE-NAIMA Reason for Exam: K22.2 - Esophageal obstruction [...] OV> 04/07/25 1351 DD/ 1344 TD/TT: 04/07/25 134 Copra Sampler: Procedure Note Ricater, Image - 04/07/2025 [place] [address] XRay Report Signed Patient: Dk CoffeyMR#: [id number] 238 : 1945cct:[id number] Age/Sex: 79 / MADM Date: 04/07/25 Loc: HOJAZMINE Attending Dr: Arina Saenz CUTTER OPERATOR TILE- Ordering Physician: Arina Saenz-NAIMA Date of Service: 04/07/25 Procedure(s): XR soft tissue neck Accession Number(s): [id number] cc: Cheryl Hogan MD; Arina Saenz CUTTER OPERATOR TILE- Reason for Exam: K22.2 - Esophageal obstruction [...] OV> 04/07/25 1351 DD/ 1344 TD/TT: 04/07/251344 Copra Sampler: us [facility] External Provider IMG XR PROCEDURES Final Result * US Renal Complete (03/12/2025 8:57 PM EST) Anatomical Region Laterality Modality Kidney Ultrasound 03/12/2025 8:57 PM EST Narrative 03/12/2025 8:58 PM EST [address] [address] Ultrasound Report Signed Patient: Dk Coffye MR#: [id number] 238 : 1945 Acct:[id number] Age/Sex: 79 / M ADM Date: 03/12/25 Loc: HO.US Attending Dr: Jose A Piper MD Ordering Physician: Jose A Piper MD Date of Service: 03/12/25 Procedure(s): US renal BI Accession Number(s): [id number] cc: Jose A Piper MD; Cheryl Hogan [...] in OV> 03/12/252057 DD/ 56 TD/TT: 03/12/252056 Copra Sampler: Procedure Note Donotuseinterpreter, Image - 03/12/[address] [address] Ultrasound Report Signed Patient: Dk CoffeyMR#: [id number] 238 : 1945cct:[id number] Age/Sex: 79 / MADM Date: 03/12/25 Loc: HO.US Attending Dr: Jose A Piper MD Ordering Physician: Jose A Piper MD Date of Service: 03/12/25 Procedure(s): US renal BI Accession Number(s): [id number] cc: Jose A Piper MD; Cheryl Hogan [...] This document has been electronically signed by: Ramríez Alcantar MD on 03/12/2025 20:57:46 Dictated By: Ramírez Alcantar MD Signed By: <Electronically signed by Ramírez Alcantar MD in OV> 03/12/252057 DD/ 56 TD/TT: 03/12/252056 Copra Sampler: us [facility] External Provider IMG US PROCEDURES Edited Result - Final * Testosterone, Total, males (Adult), [place] (02/08/2025 3:29 PM EDT) Testosterone, Total 488 250 - 1100 ng/dL [facility] Comment:Men with clinically significant hypogonadalsymptoms and testosterone values repeatedly inthe range of the 200-300 ng/dL or less, maybenefit from testosterone treatment afteradequate risk and benefits counseling.For additional information, please refer tohttp://education.Familonet.Blackwave/faq/GwhnvNqrvtfguqlbaYEZLLXXTQ905(This link is being provided for informational/educational purposes only.)This test was developed and its analytical performancecharacteristics have been determined by [email or web address] [place], [place]. It hasnot been cleared or approved by the U.S. Food and DrugAdministration. This assay has been validated pursuantto the CLIA regulations and is used for clinicalpurposes.THIS TEST WAS PERFORMED AT:[employer] [place] [address]RBHOCSRJOSE BALTAZAR MD,PHD 02/08/2025 3:29 PM EDT 02/08/2025 4:03 PM EDT Generic External Data Provider LAB BLOOD ORDERAB LES Final Result Performing Organization Address City/[facility]/ZIP Co de Phone Number [facility] [address] [place] [phone] * PSA,Total (02/08/2025 3:29 PM EDT) Prostate Specific Antigen 0.37 <0.05 - 4.0 ng/mL [facility] Comment:PSA methodology: Ismael Melendrez i ChemiluminescentMicroparticle Immunoassay (CMIA) 02/08/2025 3:29 PM EDT 02/08/2025 4:03 PM EDT Generic External Data Provider LAB BLOOD ORDERAB LES Final Result Performing Organization Address City/[facility]/ZIP Co de Phone Number [facility] [address] [place] [phone] * Lipid Panel, Standard (02/08/2025 3:29 PM EDT) Triglycerides 109 <150 mg/dL [facility] Comment:Desirable Triglyceri de: less than 150 mg/dLBorderline High Triglyceride 150-199 mg/dLHigh Triglyceride: 200-499 mg/dLVery High Triglyceride: greater than or equal to 5OO mg/dL Cholesterol 150 <200 mg/dL [facility] Comment:Desirable Cholestero l: less than 200 mg/dLBorderline High Cholesterol: 200-239 mg/dLHigh Cholesterol: greater than 239 mg/dL LDL Cholesterol Calculated 83 <100 mg/dL [facility] Comment:Desirable LDL: less than 100 mg/dLNear Optimal/Above Optimal LDL: 110- 129 mg/dLBorderline High LDL: 130-159 mg/dLHigh LDL: 160-189 mg/dLVery High LDL: greater than or equal to 190 mg/dL HDL Cholesterol 46 >40 mg/dL [facility] Comment:Desirable HDL: great er than 40 mg/dL Note: This HDL assay may give artificially low results in patients with liver disease. Blood Venous blood specimen / Unknown 02/08/2025 3:29 PM EDT 02/08/2025 4:03 PM EDT us Cheryl Richardson MD LAB BLOOD ORDERABLES Final Result Performing Organization Address [facility] Co de Phone Number [facility] [address] [place] [phone] * (ABNORMAL) Basic Metabolic Panel (02/08/2025 3:29 PM EDT) Sodium 137 135 - 145 mmol/L [facility] Potassium 3.2(L) 3.3 - 5.1 mmol/L [facility] Chloride 107 96 - 108 mmol/L [facility] Carbon Dioxide 22 22 - 29 mmol/L [facility] Anion Gap 11(L) 12 - 20 [facility] Urea Nitrogen (BUN) 23(H) 9 - 16 mg/dL [facility] Creatinine, Serum 1.55(H) 0.5 - 1.4 mg/dL [facility] Estimated Glomerular Filt Rate 44 [facility] Comment:Chronic Kidney Disea se: Estimated GFR < 60 mL/min/1.32e3Ljzsrc Kidney Disease: Estimated GFR < 15 mL/min/1.73m2 Glucose 115 60 - 115 mg/dL [facility] Calcium 8.9 8.4 - 10.2 mg/dL [facility] 02/08/2025 3:29 PM EDT 02/08/2025 4:03 PM EDT us Cheryl Richardson MD LAB BLOOD ORDERABLES Final Result Performing Organization Address [facility]/ZIP Co de Phone Number [facility] [address] [place] [phone] * HEPATITIS C AB W/REFL TO HCV RNA, QN, PCR (03/13/2021 10:05 AM EST) HEPATITIS C ANTIBODY NON-REACT ANGELICA NON-REACT ANGELICA [facility] INDEX 0.02 <1.00 [facility] Comment: HCV antibody was non-reactive. There is no laboratory evidence of HCV infection. In most cases, no further action is required. However, if recent HCV exposure is suspected, a test for HCV RNA (test code 39222) is suggested. For additional information please refer to http://education.Content Ramen/faq/FCQ73t3 (This link is being provided for informational/ educational purposes only.) 03/13/2021 10:0 5 AM EST Cheryl Richardson MD HISTORICAL/NON ORDERA BLE LABS Final Result [facility] Anywhere [address] from Last 3 Months or Most Recently Relevant to Health Maintenance Insurance spring [address] [facility] [employer] (O D-SNP) GARO FISHER [phone] * Guarantor: Dk Coffey Account Type Relation to Patient Date of Phone Billing Address Personal/Family Self spring [address] [phone] * Guarantor: Dk Coffey Account Type Relation to Patient Date of Phone Billing Address Personal/Family Self spring [address] * Guarantor: Dk Coffey Account Type Relation to Patient Date of Phone Billing Address Personal/Family Self spring [address] [address] Care Teams Supervisor Reactor Fueling Relationship Specialty Start Date End Date Cheryl Hogan MD [address] [place] [phone] PCP - General Family Medicine 10/11/20
--- OUTSIDE RECORDS SUMMARY | 2025-04-13 19:53 | XMS_ITS | Encounter Summary ---
Author Organization [employer] Address [address] [facility] 7t [place] [address] Care Team Providers Care Emblem Drawer In Name Role Phone Cheryl Hogan MD Primary Care Provide r Reason for Visit * Reason Comments Med Refill Encounter Details Date Type Department Care Team ([facility] st Contact Info) Description 07/05/2023 Refill [facility] MEDICINE [address] [place] [address] Cheryl Hogan MD [address] [place] [address] Polyarthralgia Social History Tobacco Use Types Packs/Day [...] Visit [facility] MED[facility]INE [address] [place] [address] Cheryl Hogan MD [address] [place] [address] documented as of this encounter Visit Diagnoses Diagnosis Polyarthralgia Pain in joint, multiple sites documented in this encounter Additional Health Concerns Assessment Noted Time PHQ-9 Depression Total Score: 0 03/05/20 23 3:51 PM EDT documented as of this encounter Care Teams Emblem Drawer In Relationship Specialty Start Date End Date Cheryl Hogan MD [address] [place] [phone] PCP - General Family Medicine 10/11/20 documented as of this encounter
--- OUTSIDE RECORDS SUMMARY | 2025-04-13 19:53 | XMS_ITS | Encounter Summary ---
Author Organization [employer] [facility] Address [address] [facility] 7t [place] [address] Care Team Providers Care Home Health Care Provider Name Role Phone Cheryl Hogan MD Primary Care Provide r Reason for Visit * Reason Comments Med Refill Encounter Details Date Type Department Care Team (Late st Contact Info) Description 12/16/2022 Refill [facility] [address] [place] [phone] Rebeca Carlisle, CASE PLANNER Mixed hyperlipidemia Social History Tobacco Use Types [...] Description 04/19/2025 9:00 AM EST Office Visit [facility] [address] [place] [phone] Cheryl Hogan MD [address] [place] [phone] documented as of this encounter Visit Diagnoses Diagnosis Mixed hyperlipidemia documented in this encounter Care Teams Home Health Care Provider Relationship Specialty Start Date End Date Cheryl Hogan MD [address] [place] [phone] PCP - General Family Medicine 10/11/20 documented as of this encounter
--- OUTSIDE RECORDS SUMMARY | 2025-04-13 19:53 | XMS_ITS | Encounter Summary ---
Author Organization [employer] Address [address] [facility] 7t [place] [address] Care Team Providers Care Fixed Capital Clerk Name Role Phone Cheryl Hogan MD Primary Care Provide r Encounter Details Date Type Department Care Team ([facility] Contact Info) Description 03/26/2023 Orders Only [facility] MED & PEDS [address] [place] [address] So Katz LPN Social History Tobacco Use Types Packs/Day Years Used Date Smoking Tobacco: Former Cigarettes Smokeless Tobacco: Former Depression Answer Date Recorded Patient Health Questionnaire-9 Score 0 03/05/2023 Patient Health Questionnaire-9 Score 0 03/05/2023 Last PHQ-9: Questionnaire Data Not on file 1 Housing Stability Answer Date Recorded What is your housing situation today? I have laura pñia 03/05/[address] you li [...] Description 04/19/2025 9:00 AM EST Office Visit [facility] MEDICINE [address] [place] [address] Cheryl Hogan MD [address] [place] [address] documented as of this encounter Visit Diagnoses Not on filedocumented in this encounter Additional Health Concerns Assessment Noted Time PHQ-9 Depression Total Score: 0 03/05/20 23 3:51 PM EDT documented as of this encounter Care Teams Fixed Capital Clerk Relationship Specialty Start Date End Date Cheryl Hogan MD [address] [place] [phone] PCP - General Family Medicine 10/11/20 documented as of this encounter
--- OUTSIDE RECORDS SUMMARY | 2025-04-13 19:53 | XMS_ITS | Encounter Summary ---
Author Organization [employer] Address [address] [facility] 7t [place] [address] Care Team Providers Care Billet Heater Operator Name Role Phone Cheryl Hogan MD Primary Care Provide r Encounter Details Date Type Department Care Team ([facility] st Contact Info) Description 03/04/2025 Orders Only [facility] MEDICINE [address] [place] [address] Cheryl Hogan MD [address] [place] [address] Social History Tobacco Use Types Packs/Day Years [...] Office Visit [facility] MEDICINE [address] [place] [phone] Cheryl Hogan MD [address] [place] [address] documented as of this encounter Procedures Procedure Name Priority Date/Time Associated Diagnosis Comments US RENAL COMPLETE Routine 03/12/2025 8:5 7 PM EST documented in this encounter Results * US Renal Complete (03/12/2025 8:57 PM EST) Anatomical Region Laterality Modality Kidney Ultrasound 03/12/2025 8:57 PM EST Narrative 03/12/2025 8:58 PM EST [address] [address] Ultrasound Report Signed Patient: Dk Coffey MR#: [id number] 238 : 1945 Acct:[id number] Age/Sex: 79 / M ADM Date: 03/12/25 Loc: HO.US Attending Dr: Jose A Piper MD Ordering Physician: Jose A Piper MD Date of Service: 03/12/25 Procedure(s): US renal BI Accession Number(s): [id number] cc: Jose A Piper MD; Cheryl Hogan [...] in OV> 03/12/252057 DD/ 56 TD/TT: 03/12/252056 Derrick Boat Runner: Procedure Note Donotuseinterpreter, Image - 03/12/2025 [place] [address] Ultrasound Report Signed Patient: Renee Coffey#: [id number] 238 : 1945cct:[id number] Age/Sex: 79 / MADM Date: 03/12/25 Loc: HO. Attending Dr: Jose A Piper MD Ordering Physician: Jose A Piper MD Date of Service: 03/12/25 Procedure(s): US renal BI Accession Number(s): [id number] cc: Jose A Piper MD; Cheryl Hogan [...] in OV> 03/12/252057 DD/ 56 TD/TT: 03/12/252056 Derrick Boat Runner: [facility] External Provider IMG US PROCEDURES Edited Result - Final documented in this encounter Visit Diagnoses Not on filedocumented in this encounter Additional Health Concerns Assessment Noted Time PHQ-9 Depression Total Score: 0 04/14/20 24 10:38 AM EST documented as of this encounter Care Teams Billet Heater Operator Relationship Specialty Start Date End Date Cheryl Hogan MD [address] [place] [address] PCP - General Family Medicine 10/11/20 documented as of this encounter
--- OUTSIDE RECORDS SUMMARY | 2025-04-13 19:53 | XMS_ITS | Encounter Summary ---
Author Organization [employer] Address [address] [facility] 7t [place] [address] Care Team Providers Care Asphalt Mixer Name Role Phone Cheryl Hogan MD Primary Care Provide r Encounter Details Date Type Department Care Team (Late st Contact Info) Description 12/17/2022 Orders Only [facility] MED & PEDS [address] [place] [address] Karey Juan LPN Social History Tobacco Use [...] Description 04/19/2025 9:00 AM EST Office Visit [facility] MEDICINE [address] [place] [phone] Cheryl Hogan MD [address] [place] [address] documented as of this encounter Visit Diagnoses Not on filedocumented in this encounter Care Teams Asphalt Mixer Relationship Specialty Start Date End Date Cheryl Hogan MD [address] [place] [phone] PCP - General Family Medicine 10/11/20 documented as of this encounter
--- NOTE | 2025-04-14 10:39 | MHC.SL.IMP ---
Date of Plan of Treatment: 04/13/25 Onset of Symptoms/Illness: 04/13/24 Date Treatment Started: 04/13/25 Admitting Diagnosis: Duodenal ulcer K26.9 Pharyngoesophageal dysphagia R13.14 Gastroesophageal reflux disease K21.9 Diverticular disease K57.90 Postprandial abdominal bloating R14.0 Slow transit constipation K59.01 Primary Speech & Language Diagnosis: R13.12 Oropharyngeal Phase Dysphagia Secondary Speech & Language Diagnosis: R13.14 Pharyngoesophageal Phase Dysphagia Reason for Today's Visit: 13409 Modified Barium Swallow Study Pre-evaluation Dietary Consistencies: Regular Pre-evaluation Liquid Consistency: Thin Pre-evaluation Medication Administration: Whole with Liquid Medical History: Modified Barium Swallow Study Fluoroscopic Evaluation of Swallowing Function CPT Code 39734 Evaluation Year: 2024 Reason for Study: Patient reporting difficulty swallowing. Referring Physician: Arina SCHMITZ Evaluating Clinician: Apoorva Dupree MA, CCC-FIRST AID ATTENDANT Study Number: 1 Patient Name: Dk Coffey Status: Outpatient, Ambulatory Age: 79 Sex: Male Medical History Medical History Elevated cholesterol HTN (hypertension) GERD (gastroesophageal reflux disease) Restrictive airway disease Prostate cancer Surgical History Hx of excision of mass (06/25/23) History of open reduction and internal fixation (ORIF) procedure History of esophagogastroduodenoscopy (EGD) Hx of colonoscopy History of cardiac cath Year of Onset or Diagnosis: 2024 Current (pre-evaluation) Intake/Diet: Route: PO Diet Grade: Regular Liquid Consistencies: Thin Pre-Study Functional Oral Intake Scale (FOIS): 7- Total oral intake with no restrictions Pain: None reported at time of study SUBJECTIVE: Patient is a 79 year old male with history of GERD, restrictive airway disease, and prostate CA, referred for a modified barium swallow study (MBSS) by GI specialist, Arina SCHMITZ. Patient had EGD with Dr. Hutson on 12/18/24 which showed: corkscrew appearance of esophagus, cricopharyngeal stenosis, and duodenitis. A dilation was done, after which patient reported some improvement in symptoms, but he continues to have trouble swallowing at the level of the throat, ?not lower.? Patient reports choking on liquids and feeling both food and liquids get stuck in his throat at the level of the thyroid notch. He has to swallow multiple times in order to get food and pills down. Patient reports he has been suffering with these difficulties for ?well over a year.? Additionally, patient reports having to frequently clear his throat, and changes to his voice with hoarse vocal quality. Patient denies nausea, vomiting, and odynophagia. 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 Patient was seen by speech therapy during a prior hospitalization. Patient reported chronic globus sensation after swallowing solids. His bedside swallow evaluation on 04/16/24 was overall unremarkable and he was recommended a GI consult and to continue on a regular texture diet with thin liquids. Patient recently had a soft tissue neck x-ray on 04/07 showing, ?Air-fluid level at the hypopharynx/esophagus junction. Multilevel moderate to severe cervical spondylosis.? Patient has not been to an ENT. Oral Motor Exam Facial Symmetry: Symmetrical Mouth Occlusion: Normal Oral-Facial Teeth Characteristics: Dentures Oral-Facial Lip Pucker Description: Normal Oral-Facial Smile (Lips) Description: Normal Oral-Facial Puff Cheeks Description: Normal Tongue Size: Normal Tongue Excursion Description: Normal Tongue Range of Movement Description: Normal Tongue Speed of Movement Description: Normal Tongue Strength of Movement (against opposing pressure): Normal Tongue Movement Characteristics: Normal/Absent Food and Liquid Trials: Oral Impairment: Lip Closure: Did not test Oral Impairment: Tongue Control During Bolus Hold: 2=Posterior escape of less than half of bolus Oral Impairment: Bolus Preparation/Mastication: 0=Timely and efficient chewing and mashing Oral Impairment: Bolus Transport/Lingual Motion: 1= Delayed initiation of tongue motion Oral Impairment: Oral Residue: 2=Residue collection on oral structures Oral Impairment:Initiation of Pharyngeal Swallow: 3=Bolus head in pyriforms Pharyngeal Impairment: Soft Palate Elevation: 0=No bolus between soft palate (SP)/pharyngeal wall (PW) Pharyngeal Impairment: Laryngeal Elevation: 0=Complete superior movement of thyroid cartilage (see description) Pharyngeal Impairment: Anterior Hyoid Excursion: 1=Partial anterior movement Pharyngeal Impairment: Epiglottic Movement: 1=Partial inversion Pharyngeal Impairment: Laryngeal Vestibular Closure:: 1=Incomplete: narrow column air/contrast in laryngeal vestibule Pharyngeal Impairment: Pharyngeal Stripping Wave: 0=Present: complete Pharyngeal Impairment: Pharyngeal Contraction: Did not test Pharyngeal Impairment: Pharyngoesophageal Segment Openin=Minimal distension/minimal duration: marked obstruction of flow Pharyngeal Impairment: Tongue Base (TB) Retraction: 2=Narrow column of contrast/air between TB and posterior PW Pharyngeal Impairment: Pharyngeal Residue: 3=Majority of contrast within or on pharyngeal structures Pharyngeal Impairment: Esophageal Clearance Upright Position: Did not test Impressions and Recommendations OBJECTIVE: Time-out: performed at 14:15 Evaluation Start: 14:00; Stop: 14:10 Patient Positioning: Seated 70-90 degrees Viewing Planes: LATERAL ONLY Contrast: MBSImP? Standardized Protocol using commercially prepared, standardized Barium viscosities, including: Varibar? THIN LIQUID (40% w/v, <15 cps) , Varibar? PUDDING (40% w/v, <4779-1944 cps) , 1/2 Shortbread Cookie (1 x1 x.25 ) MBSImP ID: [id number] MBSImP Results: Lip closure for intraoral bolus containment could not be assessed due to logistical reasons not related to physiologic impairment. Tongue control during bolus hold resulted in posterior escape of less than half of the bolus. Bolus preparation and mastication resulted in timely and efficient chewing and mashing. Bolus transport/lingual motion demonstrated delayed initiation of tongue motion. Oral residue was a collection on oral structures. Initiation of the pharyngeal swallow occurred when the bolus head was in the pyriform sinuses. Soft palate elevation resulted in no bolus between the soft palate and the pharyngeal wall. Laryngeal elevation demonstrated complete superior movement of the thyroid cartilage with complete approximation of the arytenoids to the epiglottic petiole. Anterior hyoid excursion demonstrated partial anterior movement. Epiglottic movement resulted in partial inversion. Laryngeal vestibular closure was incomplete, with a narrow column of air/contrast noted within the laryngeal vestibule at the height of the swallow. Pharyngeal stripping wave was present and complete. Pharyngeal contraction could not be determined due to logistical reasons not related to physiologic impairment. Pharyngoesophageal segment opening demonstrated minimal distension/minimal duration, with marked obstruction of bolus flow. Tongue base retraction allowed a narrow column of contrast or air between the retracted tongue base and the posterior pharyngeal wall. Pharyngeal residue was the majority of contrast within or on pharyngeal structures. Esophageal clearance in the upright position could not be assessed due to logistical reasons not related to physiologic impairment. Oral Impairment Score: 8 (absence of score, component 1) Pharyngeal Impairment Score: 10 (absence of score, component 13) Esophageal Impairment Score: --- (absence of score, component 17) Laryngeal Penetration and Aspiration: Neither penetration nor aspiration was observed in today's study with Cookie, Pudding-thick. Penetration was observed in today's study. Thin Contrast entered the airway, remained above the vocal folds, and was ejected from the airway. 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 ASSESSMENT: This exam was performed by the radiologist and the speech pathologist. Patient was seated upright at 90 degrees in a chair for lateral view. He fed himself independently and trialed the following consistencies: -Thin liquid (via individual cup sips) -Puree (mixture applesauce w/ barium pudding) -Regular solid (shortbread cookies coated w/ barium pudding) Unable to visualize lip closure due to positioning. Reduced tongue control, with premature posterior spillage from the oral cavity and trace contrast collecting in the valleculae and pyriforms prior to initiation of the pharyngeal swallow trigger. Mastication was timely and efficient, with intact rotary chewing pattern. Posterior bolus transport was delayed in initiation with brisk lingual motion. Pharyngeal swallow trigger was also delayed, initiated as the bolus head reached the pyriforms. Post-swallow, there was mild residue coating the posterior tongue and palate, which cleared with self-initiated secondary swallows. Patient often swallowed twice in order to clear each bolus from the oral cavity. No evidence of nasopharyngeal reflux. Complete laryngeal elevation, with incomplete epiglottic inversion and incomplete laryngeal vestibular closure, resulted in partially open airway. There was a singular episode of penetration with trial of thin liquid. A trace amount of liquid entered the airway momentarily and then spontaneously cleared. No evidence of aspiration during this exam. Retention noted seen with trials of liquids and solids mostly in the valleculae and pyriforms and to a lesser degree on the tongue base and the posterior pharyngeal wall. There was minimal residue seen with thin consistency, which cleared with dry swallows. Moderate residue seen with puree and significant residue seen with regular solids, which was reduced with a liquid wash. Contrast also collected in the Zenker?s diverticulum, and at times flowed retroflexively back into the pyriform. Note better clearance with smaller bolus size. The following compensatory strategies have not been used until today's study, but when employed, improved swallowing function: Bolus Volume Change decreased Oral Residue, Pharyngeal Residue Liquid Wash decreased Pharyngeal Residue Additional Swallow(s) per Bolus decreased Pharyngeal Residue Liquid Intake Recommendation: Thin Liquid Intake Strategies: Small Sips, Double Swallow Dietary Recommendations: Regular (Avoid overly tough/hard to chew, sticky, or chewy foods) Medication Administration: Crushed with Puree Please contact the pharmacy regarding appropriate crushable or liquid drug formulations that are available whenever modified delivery is recommended. Compensatory Strategies Recommended: Sitting Upright (90 deg), Double Swallow, Small Bites and Sips, Alternate Liquids/Solids, Rate of Ingestion Change Supervision during eating and or drinking: None Needed Recommended Treatments: Compens. Strategy Educat. Recommendation for Speech Therapy: Outpatient Speech Therapy Text Comment: Intake Recommendations: Route: PO Diet Grade: Regular Liquid Consistencies: Thin Post-Study Functional Oral Intake Scale (FOIS): 6- Total oral intake with no special preparation, but must avoid specific foods or liquid items Patient presents with mild oropharyngeal dysphagia, marked by: -discoordinated oral phase with premature posterior spillage from the oral cavity, multiple swallows to clear bolus from the oral cavity, delayed AP transit, and delayed pharyngeal swallow trigger -incomplete epiglottic inversion and incomplete laryngeal vestibular closure resulting in partially open airway -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 No evidence of aspiration during this exam. Significant pharyngeal residue seen in the valleculae, pyriforms, and Zenker?s diverticulum. Patient was able to reduce residue with multiple dry swallows and liquid wash. Suggested Referrals: The patient might benefit from a referral to: Otolaryngology Indication for Referral: Voice changes, chronic throat clearing Therapy Recommendations: Recommend 2-3 follow-up visits w/ Speech Therapy for education pertaining to swallow physiology, MBSS findings, and training of compensatory strategies. Frequency per Week: 1 Number of Weeks: 3 The following compensatory strategies and/or therapeutic exercises will be part of the upcoming therapy/management plan: Bolus Volume Change Liquid Wash Additional Swallow(s) per Bolus Senior Care Goals: ? The patient will tolerate the least restrictive diet with a safe/efficient swallow to maintain adequate nutrition and hydration. ? The patient and/or family will participate in further education for swallowing goals. Short Term Goals: ? Guidelines - The patient will comply with/recall the following guidelines/strategies 100% of the time with no cuing: Bolus Volume Change, Rate of Ingestion Change, Liquid Wash, Additional Swallow(s) per Bolus, No Straws. ? Education - The patient, family, caregiver will verbalize/demonstrate understanding of the results of this evaluation, the above recommendations, and the swallowing guidelines. Clinician - Supplemental, Miscellaneous Communication: It is important to note MBSS objective studies are snapshots in time and Patient function might vary with factors such as time of day or concomitant medical conditions. For this reason, the final treatment plan for this patient should rest with their medical care team. Additional recommendations should be considered with the totality of the Patient in mind. Thank for the opportunity to participate in the care of this patient. If you have any questions about the content of this report, please contact the [facility] at [facility]. Education: Education regarding findings from today's study and plans for therapy were provided to Patient only through Verbal Instruction. Understanding was expressed by the Patient only. Frequency/Duration: 2-3 f/u Date Range for Service Requested: Timeline to reassess: PRN Cd Reactor Operator Head Clinician/Clinical Fellow: No Supervisory Statement: N/A Speech Language Pathologist: Apoorva Dupree M.A., CCC-FIRST AID ATTENDANT
== END 2025-04-13 13:54 | disposition home or self-care (01) ==
LOC: HO.XRAY 13:53
PROVIDERS: PCP Internal Medicine; Visit Provider Nurse Practitioner Family
DX: R13.10 Dysphagia, unspecified (principal)
CPT/HCPCS: 74230; 92611

== ENCOUNTER → 2025-04-13 14:00 | Outpatient (BNV) | payer OTHER, SELFPAY | PROVIDERS: PCP Internal Medicine; Visit Provider Radiology Diagnostic Ultrasound | DX: R13.10 Dysphagia, unspecified (principal) | CPT/HCPCS: 74230 ==

== ENCOUNTER 2025-04-15 13:13 | Outpatient (AMB) | payer OTHER, SELFPAY ==
--- NOTE | 2025-04-15 13:19 | A.OFFVIS_ITS ---
Intake Visit Reasons: 6m/PSA/PVR/UA Intake Note: Patient is present for 6M/PSA/PVR/UA PSA:0.37 TT:488 Urology Medication:FINASTERIDE.POTASSIUM CLORIDE Antibiotic Allergy:NONE Blood Thinner:NONE LAST PVR:0ML'S TODAY'S PVR:0ML'S Hand Tire Trimmer Required: Yes Hand Tire Trimmer Services: Hand Tire Trimmer Present Hand Tire Trimmer Name: Elba [id number] Allergies fish derived (FISH) Allergy (Intermediate, Verified 04/15/25 13:36) rash/hives Medication List - Last Reconciled 04/15/25 by JUAN C BarillasP- amlodipine 10 mg PO DAILY atorvastatin 40 mg PO BEDTIME cholecalciferol (vitamin D3) 100 mcg PO DAILY finasteride 5 mg PO DAILY 90 days fluticasone propionate 50 mcg/actuation 1 spray intranasal DAILY melatonin 10 mg PO BEDTIME PRN mirtazapine 7.5 mg PO BEDTIME pantoprazole (Protonix) 40 mg PO DAILY 30 days potassium chloride ER 20 mEq PO BID sennosides (senna) 17.2 mg (2 x 8.6 mg) PO BEDTIME simethicone (Gas Relief Extra Strength) 125 mg PO BID-QID HPI Comments Details: Dk is a very pleasant 79 year old Vietnamese speaking male patient of Dr. Luisa Richardson. He has a past medical history of hypercholesteremia, GERD, hypertension, prostate cancer, and restrictive airway disease. He presents to the office today for follow-up of his prostate cancer. In discussion with the patient today he reports to be doing and feeling well. Recent PSA results reviewed with the patient today as noted and trended below. When asked he denies any bothersome urinary issues or concerns. He reports be happy with his current voiding parameters. In office urinalysis results reviewed with the patient today. When asked he denies urinary urgency, urinary frequency, incontinence, nocturia, hematuria, dysuria, foul smelling urine, changes to urinary stream, flank pain, fever, and or chills. We did discussed slight decrease in PSA. We discussed potential causes of liable PSA as well as further treatment options and risks and benefits of these treatment options. Patient with a previous history of rise in PSA status post radiation therapy and underwent intermittent hormone therapy. He does report compliance and finasteride as prescribed. He otherwise offers no other issues or concerns at this time. Will consider restart of Intermittent hormone therapy with PSA above 4. PREVIOUS OFFICE NOTE: Slight rise in PSA noted from February 2022 to June 2022. Review again in 4 months as PSA has remained unchanged since June May benefit from PSMA imaging if PSA continues to rise Prostate cancer initial treatment external beam radiation 2012, postprocedure PSA recurrence with intermittent hormone therapy Status post radiation therapy 2012 PSA follow-up - 11/23 PSA <0.05, 03/26 0.05 T 38, 09/24 0.05 T 156, 02/24 0.1 T 141, 06/28 .36, 12/26 .36, 02/26 T 257 PSA 0.2, 09/27 PSA 0.6, 02/27 0.4 T 488 Has been managed with intermittent hormone therapy Continue with interval surveillance laboratories every 4-6 months. [facility] Medical History Elevated cholesterol HTN (hypertension) GERD (gastroesophageal reflux disease) Restrictive airway disease Prostate cancer Surgical History Hx of excision of mass (06/25/23) History of open reduction and internal fixation (ORIF) procedure History of esophagogastroduodenoscopy (EGD) Hx of colonoscopy History of cardiac cath Family History Father Throat cancer Mother Diabetes Kidney disease Social History Household Members: Children Housing: Apartment Do you presently have visiting nurse or other home services: No Alcohol intake: never Patient Tobacco Use Status: Former Tobacco user Second Hand Smoke Exposure: No service: No Current occupational status: retired Current occupation: right hand dominant Review of Systems Const Reports as per HPI Eyes Reports no additional complaints ENT Reports no additional complaints Card Reports as per HPI Resp Reports as per HPI GI Reports as per HPI Reports as per HPI Musc Reports no additional complaints Neuro Reports no additional complaints Psych Reports no additional complaints Endo Reports no additional complaints Physical Exam Const General: cooperative, healthy appearing, comfortable, no acute distress, well developed, alert and awake Orientation/consciousness: patient oriented x3 Limitations: language barrier HEENT Head: Yes normal to inspection, Yes normocephalic and Yes atraumatic Ears: hearing grossly normal bilaterally Eyes General: appearance normal, both eyes and all related structures Neck Neck: Yes normal visual inspection and Yes trachea midline Chest Chest palpation & inspection: normal inspection of the chest Resp Effort & Inspection: normal respiratory effort and able to speak in complete sentences Cardio Rate: regular rate GI Inspection: Yes normal to inspection General: Yes no CVA tenderness Back/Spine/Pelvis Back: no CVA tenderness Skin General skin exam: no rashes or lesions noted Neuro General: patient oriented x3 Extrem General: Yes normal to inspection Psych Appearance: grossly normal and well kempt Mental Status: mental status grossly normal Speech and movement: Normal speech and movement present and Clear speech present Affect: normal affect Attitude: cooperative Thought process: Normal thought process present Thought content: Normal thought content present Insight: Fair insight present (Psych) Judgement: Fair judgement present (Psych) Office Procedures Post Void Residual Post Residual Void Post Void Residual (PVR): 0 [id number] Void Residual by ultrasound Results AMB Urinalysis, Automated UA Leukoctes 0 Taya/uL Last Edit by JONG Natarajan on 04/15/25 13:36 UA Nitrite Negative Last Edit by JONG Natarajan on 04/15/25 13:36 UA Urobilinogen 0.2 mg/dL Last Edit by JONG Natarajan on 04/15/25 13:3 6 UA Protein 30 mg/dL Last Edit by JONG Natarajan on 04/15/25 13:36 UA pH 6.0 Last Edit by JONG Natarajan on 04/15/25 13:36 UA Blood 10 Jc/uL Last Edit by JONG Natarajan on 04/15/25 13:36 UA Specific [place] 1.025 Last Edit by JONG Natarajan on 04/15/25 13: 36 UA Ketone Negative Last Edit by JONG Natarajan on 04/15/25 13:36 UA Bilirubin 0 mg/dL Last Edit by JONG Natarajan on 04/15/25 13:36 UA Glucose 0 mg/dL Last Edit by JONG Natarajan on 04/15/25 13:36 Assessment & Plan Assessment & Plan (1) Prostate cancer: Code(s): C61 - Malignant neoplasm of prostate Category: Medical Plan In office urinalysis results reviewed with the patient today; as noted above. PVR 0 mL. Recent PSA results reviewed with the patient today; as noted above. We did discuss slight decrease in PSA/liable PSA and further treatment options to include surveillance monitoring verses further treatment options and risks and benefits of these treatment options. He currently denies any bothersome urinary issues or concerns. He reports be happy with current voiding parameters. Continue finasteride; we also discussed taking finasteride daily verses every other day. Will obtain PSA and testosterone in 4-6 months. Follow-up in 4-6 months with labs to be completed prior; or sooner with any issues, concerns, and or questions. Orders: Orders AMB Urinalysis Automated Today Z13.9 - Encounter for screening, unspecified Urine Cytology Today R31.29 - Other microscopic hematuria Prostate Specific Antigen 4 Months C61 - Malignant neoplasm of prostate Patient Instructions: The patient had an opportunity to ask questions regarding the treatment plan. All questions were answered. Physical exam, labs, and imaging were discussed and reviewed in detail. As well as risks, benefits, and discussion of treatment choices. No major barriers to understanding were identified. The patient expressed understanding and agreement with the above treatment plan. The patient was made aware they should contact our office by phone for worsening of their current condition, the appearance of new symptoms, or with any questions or concerns. Compliance is encouraged with any medications and follow up testing that is ordered. It is a privilege to be allowed the opportunity to participate in? your urological care.? Again, if you have any questions or concerns If you have any questions or concerns please do not hesitate to contact me. The office is [phone]. This note is constructed using voice recognition software. While every effort has been made to ensure accuracy residential insurance inspector errors may have been included. Yours sincerely, AINSLEY Barillas Coding Level of Care Code Est Pt Level 3 (46886) Add On Problem Visit Only Diagnoses Prostate cancer C61 CPT Codes Post Residual Void - PVR CPT Code: 87676-Tcyz Void Residual by ultrasound ([id number])
== END 2025-04-15 13:47 | disposition home or self-care (01) ==
LOC: HO.HUSH 13:13
PROVIDERS: PCP Internal Medicine; Visit Provider Nurse Practitioner Family
DX: Z13.9 Encounter for screening, unspecified (principal); C61 Malignant neoplasm of prostate
CPT/HCPCS: 99213; G2211

== ENCOUNTER 2025-04-15 13:13 | Outpatient (REF) | payer OTHER, SELFPAY ==
--- OUTSIDE RECORDS SUMMARY | 2025-04-15 20:42 | XMS_ITS | Encounter Summary ---
Author Organization [employer] Address [address] [facility] 7t [place] [address] Care Team Providers Care Deck And Hull Assembler Name Role Phone Cheryl Hogan MD Primary Care Provide r Encounter Details Date Type Department Care Team ( Contact Info) Description 02/10/2024 Orders Only [facility] [address] [place], [place] [phone] Cheryl Hogan MD [address] [place] [address] Hypokalemia (Primary Dx) Social History Tobacco Use [...] Description 04/19/2025 9:00 AM EST Office Visit [facility] [address] [place] [address] Cheryl Hogan MD [address] [place] [address] documented as of this encounter Procedures Procedure Name Priority Date/Time Associated Diagnosis Comments BASIC METABOLIC PANEL Routine 04/14/2024 11:42 AM EST Hypokalemia documented in this encounter Results * (ABNORMAL) Basic Metabolic Panel (04/14/2024 11:42 AM EST) Sodium 141 135 - 145 mmol/L [facility] Potassium 3.1(L) 3.3 - 5.1 mmol/L [facility] Chloride 105 96 - 108 mmol/L [facility] Carbon Dioxide 21(L) 22 - 29 mmol/L [facility] Anion Gap 18 12 - 20 [facility] Urea Nitrogen (BUN) 21(H) 9 - 16 mg/dL [facility] Creatinine, Serum 2.67(H) 0.5 - 1.4 mg/dL [facility] Estimated Glomerular Filt Rate 23 [facility] Comment:Chronic Kidney Disea se: Estimated GFR < 60 mL/min/1.77w8Xxbkoj Kidney Disease: Estimated GFR < 15 mL/min/1.73m2 Glucose 137(H) 60 - 115 mg/dL [facility] Calcium 9.4 8.4 - 10.2 mg/dL [facility] Blood Venous blood specimen / Unknown 04/14/2024 11:42 AM EST 04/14/2024 1:03 PM EST us Cheryl Richardson MD LAB BLOOD ORDERABLES Final Result [facility] [address] [place] [phone] [phone] documented in this encounter Visit Diagnoses Diagnosis Hypokalemia- Primary Hypopotassemia documented in this encounter Additional Health Concerns Assessment Noted Time PHQ-9 Depression Total Score: 0 03/05/20 23 3:51 PM EDT documented as of this encounter Care Teams Deck And Hull Assembler Relationship Specialty Start Date End Date Cheryl Hogan MD [address] [place] [address] PCP - General Family Medicine 10/11/20 documented as of this encounter
--- OUTSIDE RECORDS SUMMARY | 2025-04-15 20:42 | XMS_ITS | Encounter Summary ---
Author Organization [employer] [facility] Address 75 [facility] 7t [place] [address] Care Team Providers Care Community Service Technician Name Role Phone Cheryl Hogan MD Primary Care Provide r Reason for Visit * Reason Comments Med Refill Encounter Details Date Type Department Care Team (Late st Contact Info) Description 12/16/2022 Refill [facility] [address] [place] [phone] Rebeca Carlisle, HEAVY CLEANER Mixed hyperlipidemia Social History Tobacco Use Types [...] Description 04/19/2025 9:00 AM EST Office Visit [facility] [address] [place] [phone] Cheryl Hogan MD [address] [place] [address] documented as of this encounter Visit Diagnoses Diagnosis Mixed hyperlipidemia documented in this encounter Care Teams Community Service Technician Relationship Specialty Start Date End Date Cheryl Hogan MD [address] [place] [phone] PCP - General Family Medicine 10/11/20 documented as of this encounter
--- OUTSIDE RECORDS SUMMARY | 2025-04-15 20:42 | XMS_ITS | Encounter Summary ---
Author Organization [employer] Address 75 [facility] 7t [place] [address] Care Team Providers Care Condemnation Engineer Name Role Phone Cheryl Hogan MD Primary Care Provide r Encounter Details Date Type Department Care Team (Latest Contact Info) Description 06/11/2018 Abstract [facility] CONVERSIONS Dental, Provider, DDS Social History Tobacco [...] 9:00 AM EST Office Visit [facility] [address] [place] [address] Cheryl Hogan MD [address] [place] [address] documented as of this encounter Visit Diagnoses Not on filedocumented in this encounter Care Teams Condemnation Engineer Relationship Specialty Start Date End Date Cheryl Hogan MD [address] [place] [address] [phone] PCP - General Family Medicine 10/11/20 documented as of this encounter
--- OUTSIDE RECORDS SUMMARY | 2025-04-15 20:42 | XMS_ITS | Clinical Summary ---
Author Organization [employer] Address 75 [facility] 7t [place] [address] Care Team Providers Care Fish Bait Processing Supervisor Name Role Phone Cheryl Hogan MD Primary [...] EVERY DAY AT BEDTIME 60 tablet 3 04/15/2025 2:31 PM EST 5 Active cholecalciferol VITAMIN D (Vitamin D-3) 50 MCG (1999 UT) tablet TAKE 2 TABLETS BY MOUTH ONCE DAILY IN THE MORNING 180 tablet 3 04/15/2025 2:31 PM EST 5 Active atorvastatin (Lipitor) 40 MG tabletIndications: [...] by mouth at bedtime. 30 tablet 2 04/15/2025 2:31 PM EST 5 05/15/19 26 Active potassium chloride CR (Klor-Con M20) 20 MEQ ER tabletIndications: Hypokalemia,Acute kidney injury superimposed on CKD Take 1 tablet (20 mEq) by mouth 2 times daily. Do not crush or chew. 6 tablet 5 02/10/20 26 Active amLODIPine (Norvasc) 10 MG tabletIndications: Essential hypertension TAKE 1 TABLET BY MOUTH EVERY MORNING 30 tablet 11 04/15/2025 2:31 PM EST 5 Active Active Problems Problem Noted Date [...] omeprazole BID x4 weeks Refer to GI Wood Crew Supervisor to avoid alcohol and smoking Duodenal ulcer [...] Department Care Team Description 04/07/2025 Orders Only [facility] External Provider, [facility] 03/04/2025 Orders Only [facility] [address] [place] [phone] Cheryl Hogan MD 03/03/2025 Refill [facility] [address] [address] Cheryl Hogan MD Essential hypertension 02/09/2025 Results Follow-Up [facility] [address] [place] [phone] Cheryl Hogan MD Basic Metabolic Panel, PSA,Total 02/09/2025 Telephone [facility] [address] [place] [phone] Cheryl Hogan MD DME Ensure 02/09/2025 Telephone [facility] [address] [place] [phone] Cheryl Hogan MD DME Ensure 02/08/2025 2:45 PM EDT Office Visit [facility] [address] [place] [phone] Cheryl Hogan MD Essential hypertension (Primary Dx); Esophageal dysphagia; Esophageal dysmotility; Anxiety; Encounter for immunization; Dietary counseling; Exercise counseling; Encounter for preventive care 02/08/2025 Orders Only [facility] [address] [place] [address] Cheryl Hogan MD 02/08/2025 Travel 01/20/2025 Telephone [facility] [address] [place] [address] Cheryl Hogan MD fyi from Last 3 [...] Description 04/19/2025 9:00 AM EST Office Visit [facility] [address] [place] [address] Cheryl Hogan MD [address] [place] [address] Health Maintenance Due Date Last Done Comments Alcohol/Substance Use Screening 1957 DTaP/Tdap/Td Vaccines (2 - Td or Tdap) 04/27/2020 04/27/2010 RSV Patients and Patients Aged 60 years or older (1 - 1-dose 75+ series) 2021 COVID-19 Vaccine ( - 2024- season) 2025 04/24/2021, 08/16/2020, 07/19/2020 Depression Screening 04/14/2025 04/14/2024, 04/14/20 24 SDOH [...] PM EST Narrative 04/13/2025 2:56 PM EST [place] [address] Fluoroscopy Report Signed Patient: Dk Coffey MR#: [id number] 238 : 1945 Acct:[id number] Age/Sex: 79 / M ADM Date: 04/13/25 Loc: [facility] Attending Dr: Arina SCHMITZ Ordering Physician: Arina Saenz Date of Service: 04/13/25 Procedure(s): FL Modified Barium Swallow Accession Number(s): [id number] cc: Cheryl Hogan MD; Arina Saenz Reason for Exam: R13.10 - Dysphagia, unspecified [...] Ayush Stearns MD 04/13/2025 02:53 PM EST Dictated By: Ayush Stearns MD Signed By: <Electronically signed by Ayush Stearns MD in OV> 04/13/25 1453 DD/ 1410 TD/TT: 04/13/25 1424 Back Grinder: Procedure Note Donotuseinterpreter, Image - 04/13/2025 [place] [address] Fluoroscopy Report Signed Patient: Renee Coffey#: [id number] 238 : 1945cct:[id number] Age/Sex: 79 / MADM Date: 04/13/25 Loc: [facility] Attending Dr: Arina MERCHANT-NAIMA Ordering Physician: Arina Saenz-NAIMA Date of Service: 04/13/25 Procedure(s): FL Modified Barium Swallow Accession Number(s): [id number] cc: Cheryl Hogan MD; Arina Saenz PLUG GROWER-NAIMA Reason for Exam: R13.10 - Dysphagia, unspecified [...] 04/13/25 1453 DD/ 1410 TD/TT: 04/13/25 1424 Back Grinder: KARTHIK [facility] External Provider IMG FLU OROSCOPY PROCEDURES Final Result * XR Neck Soft Tissue (04/07/2025 1:44 PM EST) Anatomical Region Laterality Modality Head, Neck Radiographic Paola ging 04/07/2025 1:44 PM EST Narrative 04/07/2025 1:54 PM EST [place] [address] XRay Report Signed Patient: Dk Coffey MR#: [id number] 238 : 1945 Acct:[id number] Age/Sex: 79 / M ADM Date: 04/07/25 Loc: [facility] Attending Dr: Arina Saenz [facility]- Ordering Physician: [facility] Date of Service: 04/07/25 Procedure(s): XR soft tissue neck Accession Number(s): [id number] cc: Cheryl Hogan MD; Arina Saenz [facility] Reason for Exam: K22.2 - Esophageal obstruction [...] 04/07/25 1351 DD/ 1344 TD/TT: 04/07/25 134 Back Grinder: Procedure Note Donotuseinterpreter, Image - 04/07/[address] [address] XRay Report Signed Patient: Dk CoffeyMR#: [id number] 238 : 1945cct:[id number] Age/Sex: 79 / MADM Date: 04/07/25 Loc: HOJAZMINE Attending Dr: Arina MERCHANT-NAIMA Ordering Physician: Arina Saenz Date of Service: 04/07/25 Procedure(s): XR soft tissue neck Accession Number(s): [id number] cc: Cheryl Hogan MD; Arina Saenz Reason [...] 04/07/25 1351 DD/ 1344 TD/TT: 04/07/25 1345 Back Grinder: us [facility] External Provider IMG XR PROCEDURES Final Result * US Renal Complete (03/12/2025 8:57 PM EST) Anatomical Region Laterality Modality Kidney Ultrasound 03/12/2025 8:57 PM EST Narrative 03/12/2025 8:58 PM EST [address] [address] Ultrasound Report Signed Patient: Dk Coffey MR#: [id number] 238 : 1945 Acct:[id number] Age/Sex: 79 / M ADM Date: 03/12/25 Loc: HO.US Attending Dr: Jose A Piper MD Ordering Physician: Jose A Piper MD Date of Service: 03/12/25 Procedure(s): US renal BI Accession Number(s): [id number] cc: Jose A Piper MD; Cheryl Hogan [...] document has been electronically signed by: Ramírez Alacntar MD on 03/12/2025 20:57:46 Dictated By: Ramírez Alcantar MD Signed By: <Electronically signed by Ramírez Alcantar MD in OV> 03/12/252057 DD/ 56 TD/TT: 03/12/252056 Back Grinder: Procedure Note Donotuseinterpreter, Image - 03/12/[address] [address] Ultrasound Report Signed Patient: Dk CoffeyMR#: [id number] 238 : 1945cct:[id number] Age/Sex: 79 / MADM Date: 03/12/25 Loc: HO.US Attending Dr: Jose A Piper MD Ordering Physician: Jose A Piper MD Date of Service: 03/12/25 Procedure(s): US renal BI Accession Number(s): [id number] cc: Jose A Piper MD; Cheryl Hogan [...] in OV> 03/12/252057 DD/ 56 TD/TT: 03/12/252056 Back Grinder: [facility] External Provider IMG US PROCEDURES Edited Result - Final * Testosterone, Total, males (Adult), IA (02/08/2025 3:29 PM EDT) Testosterone, Total 488 250 - 1100 ng/dL [facility] Comment:Men with clinically significant hypogonadalsymptoms and testosterone values repeatedly inthe range of the 200-300 ng/dL or less, maybenefit from testosterone treatment afteradequate risk and benefits counseling.For additional information, please refer tohttp://education.stylemarks.[employer]/faq/UxyjwMfurwcdwydlkEAMPQSBRW258(This link is being provided for informational/educational purposes only.)This test was developed and its analytical performancecharacteristics have been determined by [employer] [place], [place]. It hasnot been cleared or approved by the U.S. Food and DrugAdministration. This assay has been validated pursuantto the CLIA regulations and is used for clinicalpurposes.THIS TEST WAS PERFORMED AT:[employer]/[id number] [place] [address]RCAZCGPJOSE BALTAZAR MD,PHD 02/08/2025 3:29 PM EDT 02/08/2025 4:03 PM EDT Generic External Data Provider LAB BLOOD ORDERAB LES Final Result Performing Organization Address City/[facility] Co de Phone Number [facility] [address] [place] [phone] * PSA,Total (02/08/2025 3:29 PM EDT) Prostate Specific Antigen 0.37 <0.05 - 4.0 ng/mL [facility] Comment:PSA methodology: Ismael Melendrez i ChemiluminescentMicroparticle Immunoassay (CMIA) 02/08/2025 3:29 PM EDT 02/08/2025 4:03 PM EDT Generic External Data Provider LAB BLOOD ORDERAB LES Final Result Performing Organization Address [facility] Co de Phone Number [facility] [address] [place] [phone] * Lipid Panel, Standard (02/08/2025 3:29 PM EDT) Triglycerides 109 <150 mg/dL [facility] Comment:Desirable Triglyceri de: less than 150 mg/dLBorderline High Triglyceride 150-199 mg/dLHigh Triglyceride: 200-499 mg/dLVery High Triglyceride: greater than or equal to 5OO mg/dL Cholesterol 150 <200 mg/dL [facility] Comment:Desirable Cholestero l: less than 200 mg/dLBorderline High Cholesterol: 200-239 mg/dLHigh Cholesterol: greater than 239 mg/dL LDL Cholesterol Calculated 83 <100 mg/dL [facility] Comment:Desirable LDL: less than 100 mg/dLNear Optimal/Above Optimal LDL: 110- 129 mg/dLBorderline High LDL: 130-159 mg/dLHigh LDL: 160-189 mg/dLVery High LDL: greater than or equal to 190 mg/dL HDL Cholesterol 46 >40 mg/dL [facility] Comment:Desirable HDL: great er than 40 mg/dL Note: This HDL assay may give artificially low results in patients with liver disease. Blood Venous blood specimen / Unknown 02/08/2025 3:29 PM EDT 02/08/2025 4:03 PM EDT us Cheryl Richardson MD LAB BLOOD ORDERABLES Final Result [facility] [address] [place] [phone] * (ABNORMAL) Basic Metabolic Panel (02/08/2025 3:29 PM EDT) Sodium 137 135 - 145 mmol/L [facility] Potassium 3.2(L) 3.3 - 5.1 mmol/L [facility] Chloride 107 96 - 108 mmol/L [facility] Carbon Dioxide 22 22 - 29 mmol/L [facility] Anion Gap 11(L) 12 - 20 [facility] Urea Nitrogen (BUN) 23(H) 9 - 16 mg/dL [facility] Creatinine, Serum 1.55(H) 0.5 - 1.4 mg/dL [facility] Estimated Glomerular Filt Rate 44 [facility] Comment:Chronic Kidney Disea se: Estimated GFR < 60 mL/min/1.02q1Npeves Kidney Disease: Estimated GFR < 15 mL/min/1.73m2 Glucose 115 60 - 115 mg/dL [facility] Calcium 8.9 8.4 - 10.2 mg/dL [facility] 02/08/2025 3:29 PM EDT 02/08/2025 4:03 PM EDT us Cheryl Richardson MD LAB BLOOD ORDERABLES Final Result [facility] [address] [place] [address] [phone] * HEPATITIS C AB W/REFL TO [...] a test for HCV RNA (test code 86371) is suggested. For additional information please refer to http://education.[employer]/faq/MKF53l7 (This link is being provided for informational/ educational purposes only.) 03/13/2021 10:0 5 AM EST us Cheryl Richardson MD HISTORICAL/NON ORDERA BLE LABS Final Result Performing Organization Address City/[facility]/ZIP Co de Phone Number [facility] [address] [place] [address], from Last 3 Months or Most Recently Relevant to Health Maintenance Insurance spring [address] [facility] [employer] (HMO D-SNP) [place]AR[place] FISHER [phone] * Guarantor: Dk Coffey Account Type Relation to Patient Date of Phone Billing Address Personal/Family Self spring [address] * Guarantor: Dk Coffey Account Type Relation to Patient Date of Phone Billing Address Personal/Family Self spring [address] * Guarantor: Dk Coffey Account Type Relation to Patient Date of Phone Billing Address Personal/Family Self spring [address] [address] Care Teams Fish Bait Processing Supervisor Relationship Specialty Start Date End Date Cheryl Hogan MD [address] [place] [phone] PCP - General Family Medicine 10/11/20
--- OUTSIDE RECORDS SUMMARY | 2025-04-15 20:42 | XMS_ITS | Encounter Summary ---
Author Organization [employer] Address 75 [facility] 7t [place] [address] Care Team Providers Care Clinical Reimbursement Specialist Name Role Phone Cheryl Hogan MD Primary Care Provide r Reason for Visit * Reason Comments Med Refill Encounter Details Date Type Department Care Team ([facility] st Contact Info) Description 07/05/2023 Refill [facility] [address] [place] [address] Cheryl Hogan MD [address] [place] [address] Polyarthralgia Social History Tobacco Use Types Packs/Day [...] Description 04/19/2025 9:00 AM EST Office Visit [facility] [address] [place] [address] Cheryl Hogan MD [address] [place] [address] documented as of this encounter Visit Diagnoses Diagnosis Polyarthralgia Pain in joint, multiple sites documented in this encounter Additional Health Concerns Assessment Noted Time PHQ-9 Depression Total Score: 0 03/05/20 23 3:51 PM EDT documented as of this encounter Care Teams Clinical Reimbursement Specialist Relationship Specialty Start Date End Date Cheryl Hogan MD [address] [place] [phone] PCP - General Family Medicine 10/11/20 documented as of this encounter
--- OUTSIDE RECORDS SUMMARY | 2025-04-15 20:42 | XMS_ITS | Encounter Summary ---
Author Organization [employer] Address 75 [facility] 7t [place] [address] Care Team Providers Care Yeast Tender Name Role Phone Cheryl Hogan MD Primary Care Provide r Encounter Details Date Type Department Care Team ([facility] st Contact Info) Description 03/04/2025 Orders Only [facility] [address] [place] [address] Cheryl Hogan MD [address] [place] [address] Social History Tobacco Use Types Packs/Day Years [...] 9:00 AM EST Office Visit [facility] [address] [place] [address] [phone] Cheryl Hogan MD [address] [place] [address] documented as of this encounter Procedures Procedure Name Priority Date/Time Associated Diagnosis Comments US RENAL COMPLETE Routine 03/12/2025 8:5 7 PM EST documented in this encounter Results * US Renal Complete (03/12/2025 8:57 PM EST) Anatomical Region Laterality Modality Kidney Ultrasound 03/12/2025 8:57 PM EST Narrative 03/12/2025 8:58 PM EST [address] [address] Ultrasound Report Signed Patient: Dk Coffey MR#: [id number] 238 : 1945 Acct:[id number] Age/Sex: 79 / M ADM Date: 03/12/25 Loc: HO.US Attending Dr: Jose A Piper MD Ordering Physician: Joes A Piper MD Date of Service: 03/12/25 Procedure(s): US renal BI Accession Number(s): [id number] cc: Jose A Piper MD; Cheryl Hogan [...] in OV> 03/12/252057 DD/ 56 TD/TT: 03/12/252056 Administrative Services Coordinator: Procedure Note Donotuseinterpreter, Image - 03/12/2025 [place] [address] Ultrasound Report Signed Patient: Renee Coffey#: [id number] 238 : 1945cct:[id number] Age/Sex: 79 / MADM Date: 03/12/25 Loc: HO. Attending Dr: Jose A Piper MD Ordering Physician: Jose A Piper MD Date of Service: 03/12/25 Procedure(s): US renal BI Accession Number(s): [id number] cc: Jose A Piper MD; Cheryl Hogan [...] in OV> 03/12/252057 DD/ 56 TD/TT: 03/12/252056 Administrative Services Coordinator: [facility] External Provider IMG US PROCEDURES Edited Result - Final documented in this encounter Visit Diagnoses Not on filedocumented in this encounter Additional Health Concerns Assessment Noted Time PHQ-9 Depression Total Score: 0 04/14/20 24 10:38 AM EST documented as of this encounter Care Teams Yeast Tender Relationship Specialty Start Date End Date Cheryl Hogan MD [address] [place] [address] PCP - General Family Medicine 10/11/20 documented as of this encounter
--- OUTSIDE RECORDS SUMMARY | 2025-04-15 20:42 | XMS_ITS | Encounter Summary ---
Author Organization [employer] Address 75 [facility] 7t [place] [address] Care Team Providers Care Curbing Stonecutter Name Role Phone Cheryl Hogan MD Primary Care Provide r Encounter Details Date Type Department Care Team (Late st Contact Info) Description 12/17/2022 Orders Only [facility] [address] [place] [address] Karey Juan LPN Social History Tobacco Use [...] Description 04/19/2025 9:00 AM EST Office Visit [facility] [address] [place] [phone] Cheryl Hogan MD [address] [place] [address] documented as of this encounter Visit Diagnoses Not on filedocumented in this encounter Care Teams Curbing Stonecutter Relationship Specialty Start Date End Date Cheryl Hogan MD [address] [place] [phone] PCP - General Family Medicine 10/11/20 documented as of this encounter
--- OUTSIDE RECORDS SUMMARY | 2025-04-15 20:42 | XMS_ITS | Encounter Summary ---
Author Organization [employer] Address 75 [facility] 7t [place] [address] Care Team Providers Care Machine Welt Butter Name Role Phone Cheryl Hogan MD Primary Care Provide r Encounter Details Date Type Department Care Team ([facility] Contact Info) Description 03/26/2023 Orders Only [facility] [address] [place] [address] So Katz LPN Social History Tobacco Use [...] Description 04/19/2025 9:00 AM EST Office Visit [facility] MEDICINE [address] [place] [address] Cheryl Hogan MD [address] [place] [address] documented as of this encounter Visit Diagnoses Not on filedocumented in this encounter Additional Health Concerns Assessment Noted Time PHQ-9 Depression Total Score: 0 03/05/20 23 3:51 PM EDT documented as of this encounter Care Teams Machine Welt Butter Relationship Specialty Start Date End Date Cheryl Hogan MD [address] [place] [phone] PCP - General Family Medicine 10/11/20 documented as of this encounter
== END 2025-04-15 13:14 | disposition home or self-care (01) ==
LOC: HO.LAB 13:13
PROVIDERS: PCP Internal Medicine; Visit Provider Nurse Practitioner Family
DX: C61 Malignant neoplasm of prostate (principal); R31.29 Other microscopic hematuria; Z79.899 Other long term (current) drug therapy
CPT/HCPCS: 51798; 81003; 88112; 99212